=== PATIENT | male | born 1950 | race Caucasian/White ===

== ENCOUNTER → 2016-10-11 | Outpatient (CLI) | payer MEDICARE ==
[~2016-10-11] MED LIST: DENOSUMAB 60 MG/ML 1 ML SYRINGE SQ ONE
[2016-10-11 10:29] VITALS: BP 147/85; PULSE 64; RESP 22; TEMP 98.1
== END ==
LOC: PROCWHC3 09:46
PROVIDERS: ATTEND Family Medicine
DX: M81.0 Age-related osteoporosis without current pathological fracture (principal)
CPT/HCPCS: 96372; J0897

== ENCOUNTER 2016-12-12 11:21 | Day surgery (SDC) | payer MEDICARE ==
[2016-12-08 10:51] VITALS: BMI 24.8
[~2016-12-12 11:21] MED LIST changes: -DENOSUMAB 60 MG/ML 1 ML SYRINGE SQ ONE; +LACTATED RINGERS 1,000 ML IV SCH
[2016-12-12 11:45] VITALS: RESP 16; TEMP 97.8
[2016-12-12] MEDS ORDERED: LIDOCAINE 1% 20 ML VIAL (10MG/ML) FOR IV START INTRADERMA ONE (11:55)
[2016-12-12] MEDS ORDERED: LIDOCAINE 1% INJ 10MG/ML (20 ML MDV) ONE (12:11)
[2016-12-12] MEDS ORDERED: PROPOFOL 10 MG/ML 20 ML VIAL IV ONE (12:11)
--- NOTE | 2016-12-12 12:38 | P.PCN ---
Date of Procedure: 12/12/16 Preoperative Diagnosis: Postoperative Diagnosis: Procedure(s) Performed: Procedure: Total colonoscopy. Preoperative diagnosis: Screening for neoplasia. Postoperative diagnosis: Diverticulosis with no evidence of acute diverticulitis , strictures, polyps or cancer. Preparation: HalfLytely prep. Sedation: Was provided by anesthesia. Brief clinical history: The patient is a 66-year-old male who is referred for this evaluation for screening for neoplasia age being his risk factor. He has no abdominal complaints, bleeding or anemia. No family history of colon cancer. This would be his first colonoscopy. Procedure: With the patient on his left lateral decubitus position and after informed consent and adequate sedation, the perianal area was inspected and it did not show any fissures or fistulas. There were no masses felt on digital rectal examination. The Olympus CFQ 160L video colonoscope was then inserted in the rectum in the usual fashion and advanced to the cecum. There were multiple diverticular orifices seen scattered in the sigmoid, with no evidence of acute diverticulitis or strictures. The mucosa appeared healthy. No polyps or tumors were seen. I retroflexed the endoscope in the rectum before the endoscope was withdrawn. The patient tolerated the procedure well. Plan: The patient was reassured. Discussed dietary measures. He will follow up with you as planned and I recommended repeat exam in 10 years. Implants: Indications for Procedure: Operative Findings: Description of Procedure:
[2016-12-12 13:05] VITALS: BP 141/97; PULSE 67
== END 2016-12-12 13:26 | disposition home or self-care (01) ==
LOC: ORWHC2ENDO 11:21
DX: Z12.11 Encounter for screening for malignant neoplasm of colon (principal); K57.30 Diverticulosis of large intestine without perforation or abscess without bleeding; I10 Essential (primary) hypertension; E78.5 Hyperlipidemia, unspecified; Z86.73 Personal history of transient ischemic attack (TIA), and cerebral infarction without residual deficits; R56.9 Unspecified convulsions; Z79.02 Long term (current) use of antithrombotics/antiplatelets; Z79.899 Other long term (current) drug therapy
CPT/HCPCS: J2001; J2704; G0121; 45378

== ENCOUNTER → 2017-04-17 | Outpatient (CLI) | payer MEDICARE ==
[~2017-04-17] MED LIST changes: +DENOSUMAB 60 MG/ML 1 ML SYRINGE SQ ONE; -LACTATED RINGERS 1,000 ML IV SCH
[2017-04-17 11:18] VITALS: BP 125/77; PULSE 67; RESP 16; TEMP 97.9
== END | disposition home or self-care (01) ==
LOC: PROCWHC3 10:48
PROVIDERS: ATTEND Family Medicine
DX: M81.0 Age-related osteoporosis without current pathological fracture (principal)
CPT/HCPCS: 96372; J0897

== ENCOUNTER → 2017-10-22 | Outpatient (CLI) | payer MEDICARE ==
[2017-10-22 10:32] VITALS: BP 140/79; PULSE 77; RESP 16; TEMP 98.4
== END | disposition home or self-care (01) ==
LOC: PROCWHC3 10:01
PROVIDERS: ATTEND Family Medicine
DX: M81.0 Age-related osteoporosis without current pathological fracture (principal)
CPT/HCPCS: 96372; J0897

== ENCOUNTER 2018-02-15 17:31 | Emergency (ER) | payer MEDICARE ==
[2018-02-15 18:19] VITALS: BP 143/92; PULSE 74; RESP 18; TEMP 98.1
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
== END 2018-02-15 20:20 | disposition home or self-care (01) ==
LOC: EC 17:31
DX: R41.3 Other amnesia (principal); Z76.0 Encounter for issue of repeat prescription; S50.312A Abrasion of left elbow, initial encounter; E78.5 Hyperlipidemia, unspecified; I10 Essential (primary) hypertension; H91.91 Unspecified hearing loss, right ear; G40.909 Epilepsy, unspecified, not intractable, without status epilepticus; Z87.891 Personal history of nicotine dependence; Z91.030 Bee allergy status; Z79.02 Long term (current) use of antithrombotics/antiplatelets; Z79.899 Other long term (current) drug therapy; Z86.73 Personal history of transient ischemic attack (TIA), and cerebral infarction without residual deficits; X58.XXXA Exposure to other specified factors, initial encounter
CPT/HCPCS: 99281

== ENCOUNTER 2018-03-04 12:54 | Inpatient (IN) | payer MEDICARE ==
[2018-03-04] MEDS ORDERED: SODIUM CHLORIDE 0.9% 500 ML 500 ML IV STA (13:11)
[2018-03-04] MEDS ORDERED: SODIUM CHLORIDE 0.9% 1,000 ML IV STA ×2 (13:11)
--- NOTE | 2018-03-04 13:36 | XR ---
EXAMINATION TYPE: XR chest 1V DATE OF EXAM: 03/04/2018 HISTORY: Shortness of breath. COMPARISON: 10/27/2014 TECHNIQUE: Single view of the chest is submitted. FINDINGS: Multiple right-sided rib fractures with displacement noting extending from approximately the right th ird rib through possibly rib #9. There is evidence of subcutaneous emphysema and small right-sided pn eumothorax. CT of the chest is recommended. Scattered airspace infiltrates noted bilaterally. The heart is stable. Hilar and mediastinal structures are within normal limits. Degenerative changes are seen of the dorsal spine. IMPRESSION: 1. Multiple right-sided rib fractures with subcutaneous emphysema and less than 10% pneumothorax at this time. CT of the chest is advised.
[2018-03-04] MEDS ORDERED: fentaNYL (PF) 50 MCG/ML 2 ML AMP IVP STA (13:39)
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
[2018-03-04 13:57] LABS: Basophils % (A) 0 %; Eosinophils % (A) 0 %; HCT 43.4 % (39.0-53.0); HGB 14.4 gm/dL (13.0-17.5); Lymphocytes # (A) 0.8 k/uL (1.0-4.8); Lymphocytes % (A) 9 %; MCH 31.6 pg (25.0-35.0); MCHC 33.2 g/dL (31.0-37.0); Mean Platelet Volume 7.1; Monocytes # (A) 0.4 k/uL (0-1.0); Monocytes % (A) 5 %; Neutrophils # (A) 7.4 k/uL (1.3-7.7); Neutrophils % (A) 84 %; Platelet Count 271 k/uL (150-450); RBC 4.56 m/uL (4.30-5.90); RDW 13.2 % (11.5-15.5); WBC 8.7 k/uL (3.8-10.6)
[2018-03-04 14:09] LABS: Albumin 4.3 g/dL (3.5-5.0); Calcium 9.3 mg/dL (8.4-10.2); Potassium 4.5 mmol/L (3.5-5.1); Total Bilirubin 0.6 mg/dL (0.2-1.3)
[2018-03-04 14:17] LABS: Creatine Kinase 118 U/L (55-170)
[2018-03-04 14:18] LABS: INR 1.1 (<1.2); Prothrombin Time 10.9 sec (9.0-12.0)
[2018-03-04] MEDS ORDERED: LIDOCAINE 1% INJ 10MG/ML (20 ML MDV) SQ STA (14:21)
[2018-03-04 14:27] LABS: Partial Thromboplastin Time 19.5 sec (22.0-30.0)
[2018-03-04 14:30] LABS: Creatine Kinase MB 2.2 ng/mL (0.0-2.4); Troponin I <0.012 ng/mL (0.000-0.034)
[2018-03-04] MEDS ORDERED: MORPHINE SULFATE 4 MG/ML SYRINGE IVP STA (14:49)
--- NOTE | 2018-03-04 15:08 | CT ---
EXAMINATION TYPE: CT ChestAbdPelvis w con DATE OF EXAM: 03/04/2018 COMPARISON: None HISTORY: Seizure activity with fall. Laceration to forehead and Right sided chest and belly pain. CT DLP: 906.7 mGycm Automated exposure control for dose reduction was used. CONTRAST: CT scan of the chest, abdomen and pelvis is performed without Oral Contrast and with IV Contrast, pat ient injected with 100 mL of Isovue 300. FINDINGS: Chest:: There is a right-sided hydropneumothorax with extensive subcutaneous emphysema. Emphysema ext ends along the posterior, lateral and anterior chest and into the right neck posterior laterally to t he right. There is a fracture involving the right second rib anteriorly. There is a fracture involving the posterior margin of the right third rib and lateral margin of the r ight third rib. There is a displaced fracture involving the posterior margin of the right fourth rib and displaced fr acture involving the lateral margin. There is a displaced fracture involving the posterior margin and lateral margin right fifth rib. There is a fracture involving the lateral margin of the right sixth rib which is displaced There is a displaced fracture involving the lateral margin of the right seventh rib. There is a displaced lateral fracture of the right eighth rib There is subsegmental consolidation bilaterally small right effusion. Correlate for pulmonary contusi on on the right. Trace amount of pericardial fluid is seen. Atherosclerotic change of the aorta is seen. Coronary tee ry calcification seen. Heart is enlarged. 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 Grade 1 anterolisthesis L4 on L5. Multilevel facet arthropathy. No compression deformities. Scler otic density in the sacrum likely is benign. Abdomen and pelvis: No free fluid or free air. Visualized organs structures enhance normally. No perihepatic or perisplen ic fluid collection. Small hiatal hernia noted. Pancreas and adrenal glands have a normal appearance. No gallstones. Kidneys function symmetrically. Atherosclerotic change of the aorta. Disc bulging lower lumbar spine suggestive of canal stenosis. IMPRESSION: 1. Numerous right-sided rib fractures with displacement and hydropneumothorax with pulmonary contusio n. Correlate for flail chest. 2. No evidence of intra-abdominal free fluid or free air.
--- NOTE | 2018-03-04 15:18 | CT ---
EXAMINATION TYPE: CT brain louis ojeda con DATE OF EXAM: 03/04/2018 COMPARISON: 10/27/2014 HISTORY: Seizure activity with fall. Laceration to forehead and Right sided chest and belly pain. CT DLP: 1613.7 mGycm Automated exposure control for dose reduction was used. TECHNIQUE: CT scan of the head and cervical spine are performed without contrast. FINDINGS: Ventricular system is midline. Areas of low attenuation involving the left frontal and te mporal lobes are seen congestive of previous ischemia. Small arachnoid cyst in the anterior temporal fossa measuring 2 x 1.5 cm. No acute intracranial hemorrhage. Calvarium is intact. Periventricular lo w-attenuation suggestive of remote microvascular ischemia.. Assessment spinal canal is limited by noncontrast technique and artifact. Multilevel degenerative cliff nges are seen with posterior spondylosis. Multilevel facet arthropathy. There is multilevel foraminal encroachment. Soft tissue emphysema is seen on the right posteriorly and laterally. There is a right apical pneumothorax and right-sided rib fractures involving the second and third ribs on the right. Artifact limits assessment of soft tissues including the spinal canal which is nearly nondiagnostic. Scoliotic curvature of the spine noted. IMPRESSION: 1. There is no acute fracture or dislocation evident in the cervical spine. 2. No acute intracranial hemorrhage, mass effect, or midline shift is seen. 3. Right-sided hydropneumothorax with right-sided rib fractures and extensive subcutaneous emphysema.
[2018-03-04] MEDS ORDERED: ONDANSETRON 4 MG/2 ML VIAL IVP STA (15:22)
[2018-03-04] MEDS ORDERED: NALOXONE 0.4 MG/ML 1 ML VIAL IV PRN (15:22)
[2018-03-04] MEDS ORDERED: ONDANSETRON 4 MG/2 ML VIAL IVP PRN (15:22)
[2018-03-04] MEDS ORDERED: THIAMINE 100 MG/ML 2 ML VIAL IM STA (15:27)
[2018-03-04] MEDS ORDERED: LORazepam 2 MG/ML INJ IV PRN ×3 (15:27)
[2018-03-04] MEDS: SODIUM CHLORIDE 0.9% 1,000 ML IV SCH ×2 (16:09→23:18)
[2018-03-04 16:24] LABS: Glucose,Whole Blood 107 mg/dL (75-99)
[2018-03-04] MEDS: MORPHINE SULFATE 4 MG/ML SYRINGE IV PRN ×3 (16:35→23:24)
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
--- NOTE | 2018-03-04 18:15 | ED ---
Medical Decision Making - Lab Data Result diagrams: 03/04/18 13:28 03/04/18 13:28 Lab Results 03/04/18 03/04/18 03/04/18 Range/Units 13:28 13:28 13:28 WBC 8.7 (3.8-10.6) k/uL RBC 4.56 (4.30-5.90) m/uL Hgb 14.4 (13.0-17.5) gm/dL Hct 43.4 (39.0-53.0) % MCV 95.0 (80.0-100.0) fL MCH 31.6 (25.0-35.0) pg MCHC 33.2 (31.0-37.0) g/dL RDW 13.2 (11.5-15.5) % Plt Count 271 (150-450) k/uL Neutrophils % 84 % Lymphocytes % 9 % Monocytes % 5 % Eosinophils % 0 % Basophils % 0 % Neutrophils # 7.4 (1.3-7.7) k/uL Lymphocytes # 0.8 L (1.0-4.8) k/uL Monocytes # 0.4 (0-1.0) k/uL Eosinophils # 0.0 (0-0.7) k/uL Basophils # 0.0 (0-0.2) k/uL PT (9.0-12.0) sec INR (<1.2) APTT (22.0-30.0) sec Sodium 140 (137-145) mmol/L Potassium 4.5 (3.5-5.1) mmol/L Chloride 102 (98-107) mmol/L Carbon Dioxide 27 (22-30) mmol/L Anion Gap 11 mmol/L BUN 20 (9-20) mg/dL Creatinine 1.05 (0.66-1.25) mg/dL Est GFR (CKD-EPI)AfAm 86 (>60 ml/min/1.73 sqM) Est GFR (CKD-EPI)NonAf 74 (>60 ml/min/1.73 sqM) Glucose 159 H (74-99) mg/dL Calcium 9.3 (8.4-10.2) mg/dL Total Bilirubin 0.6 (0.2-1.3) mg/dL AST 40 (17-59) U/L ALT 51 (21-72) U/L Alkaline Phosphatase 31 L (38-126) U/L Total Creatine Kinase 118 (55-170) U/L CK-MB (CK-2) 2.2 (0.0-2.4) ng/mL CK-MB (CK-2) Rel Index 1.9 Troponin I <0.012 (0.000-0.034) ng/mL Total Protein 7.0 (6.3-8.2) g/dL Albumin 4.3 (3.5-5.0) g/dL Serum Alcohol 78 mg/dL Blood Type Blood Type Recheck Antibody Screen Spec Expiration Date 03/04/18 03/04/18 Range/Units 13:28 13:28 WBC (3.8-10.6) k/uL RBC (4.30-5.90) m/uL Hgb (13.0-17.5) gm/dL Hct (39.0-53.0) % MCV (80.0-100.0) fL MCH (25.0-35.0) pg MCHC (31.0-37.0) g/dL RDW (11.5-15.5) % Plt Count (150-450) k/uL Neutrophils % % Lymphocytes % % Monocytes % % Eosinophils % % Basophils % % Neutrophils # (1.3-7.7) k/uL Lymphocytes # (1.0-4.8) k/uL Monocytes # (0-1.0) k/uL Eosinophils # (0-0.7) k/uL Basophils # (0-0.2) k/uL PT 10.9 (9.0-12.0) sec INR 1.1 (<1.2) APTT 19.5 L (22.0-30.0) sec Sodium (137-145) mmol/L Potassium (3.5-5.1) mmol/L Chloride (98-107) mmol/L Carbon Dioxide (22-30) mmol/L Anion Gap mmol/L BUN (9-20) mg/dL Creatinine (0.66-1.25) mg/dL Est GFR (CKD-EPI)AfAm (>60 ml/min/1.73 sqM) Est GFR (CKD-EPI)NonAf (>60 ml/min/1.73 sqM) Glucose (74-99) mg/dL Calcium (8.4-10.2) mg/dL Total Bilirubin (0.2-1.3) mg/dL AST (17-59) U/L ALT (21-72) U/L Alkaline Phosphatase (38-126) U/L Total Creatine Kinase (55-170) U/L CK-MB (CK-2) (0.0-2.4) ng/mL CK-MB (CK-2) Rel Index Troponin I (0.000-0.034) ng/mL Total Protein (6.3-8.2) g/dL Albumin (3.5-5.0) g/dL Serum Alcohol mg/dL Blood Type O Positive Blood Type Recheck CABO Indicated Antibody Screen NEGATIVE Spec Expiration Date 03/07/20182327 Disposition Clinical Impression: Fall, Altered mental status, Epileptic seizure, Memory loss of unknown cause, Alcohol intoxication, Facial laceration, Head injury, Flail chest, Right rib fracture Disposition: ADMITTED IP TO THIS [facility] Condition: Serious Procedures - Laceration Laceration #1 Consent Obtained: verbal consent Time Out Performed: Yes Indication: laceration Site: face Size (cm): 3 Description: linear Anesthetic Used: lidocaine 1% Anesthesia Technique: local infiltration Amount (mls): 4 Pre-repair: wound explored Type of Sutures: other (ethylon) Size of Sutures: 6-0 Number of Sutures: 6 Technique: simple, interrupted Patient Tolerated Procedure: well
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
[2018-03-04] MEDS: LIDOCAINE 5% PATCH TOPICAL SCH (18:59)
[2018-03-04] MEDS: DULoxetine HCL 20 MG CAPSULE.DR PO SCH (19:05)
[2018-03-04] MEDS: THIAMINE 100 MG TAB PO SCH (19:05)
[2018-03-04] MEDS: CHOLECALCIFEROL 1,000 UNIT TAB PO SCH (19:08)
[2018-03-04] MEDS: GABAPENTIN 300 MG CAP PO SCH ×2 (19:08→20:28)
[2018-03-04] MEDS: IPRATROPIUM-ALBUTEROL 3 ML NEB INHALATION SCH ×2 (19:30→20:33)
[2018-03-04] MEDS: predniSONE 20 MG TAB PO SCH (20:22)
[2018-03-04] MEDS: LACOSAMIDE 150 MG TABLET PO SCH (20:23)
[2018-03-04] MEDS: traZODone HCL 100 MG TAB PO SCH (20:24)
[2018-03-04 23:23] LABS: Appearance,Urine Clear (Clear); Bilirubin,Urine Negative (Negative); Blood,Urine Negative (Negative); Color,Urine Light Yellow; Glucose,Urine (UA) Negative (Negative); Ketones,Urine Negative (Negative); Leukocyte Esterase,Urine Negative (Negative); Nitrite,Urine Negative (Negative); Protein,Urine Negative (Negative); Specific Gravity,Urine 1.027 (1.001-1.035); Urobilinogen,Urine <2.0 mg/dL (<2.0)
[2018-03-04 23:36] LABS: Amphetamine Screen,Urine Not Detected (NotDetected); Barbiturate Screen,Urine Not Detected (NotDetected); Benzodiazepines Screen,Urine Not Detected (NotDetected); Cocaine Screen,Urine Not Detected (NotDetected); Methadone Screen, Urine Not Detected (NotDetected); Opiate Screen,Urine Detected (NotDetected); Oxycodone Screen, Urine Not Detected (NotDetected); Phencyclidine Screen,Urine Not Detected (NotDetected); Tricyclic Antidepressant,Urine Not Detected (NotDetected); Urn Cannabinoid Scrn Not Detected (NotDetected)
[2018-03-05 05:27] LABS: Basophils % (A) 0 %; Eosinophils % (A) 0 %; HCT 41.4 % (39.0-53.0); HGB 13.3 gm/dL (13.0-17.5); Lymphocytes # (A) 0.6 k/uL (1.0-4.8); Lymphocytes % (A) 5 %; MCH 31.6 pg (25.0-35.0); MCV 98.7 fL (80.0-100.0); Mean Platelet Volume 7.3; Monocytes # (A) 1.1 k/uL (0-1.0); Monocytes % (A) 11 %; Neutrophils # (A) 8.5 k/uL (1.3-7.7); Neutrophils % (A) 82 %; Platelet Count 172 k/uL (150-450); RDW 13.2 % (11.5-15.5); WBC 10.4 k/uL (3.8-10.6)
[2018-03-05 05:41] LABS: ALT 42 U/L (21-72); AST 57 U/L (17-59); Albumin 3.8 g/dL (3.5-5.0); Alkaline Phosphatase 32 U/L (38-126); Anion Gap 9 mmol/L; Blood Urea Nitrogen 20 mg/dL (9-20); Calcium 8.4 mg/dL (8.4-10.2); Carbon Dioxide 24 mmol/L (22-30); Chloride 104 mmol/L (98-107); Glucose 127 mg/dL (74-99); Magnesium 2.1 mg/dL (1.6-2.3); Phosphorus 4.2 mg/dL (2.5-4.5); Sodium 137 mmol/L (137-145); Total Protein 6.5 g/dL (6.3-8.2)
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
[2018-03-05] MEDS: SODIUM CHLORIDE 0.9% 1,000 ML IV SCH ×2 (08:25→17:42)
[2018-03-05] MEDS: ENOXAPARIN 40 MG/0.4 ML SYRINGE SQ SCH (08:26)
[2018-03-05] MEDS: PANTOPRAZOLE 40 MG/10 ML VIAL IV SCH (08:26)
[2018-03-05] MEDS: GABAPENTIN 300 MG CAP PO SCH ×3 (08:26→21:11)
[2018-03-05] MEDS: LACOSAMIDE 150 MG TABLET PO SCH ×2 (08:26→21:10)
[2018-03-05] MEDS: ATORVASTATIN 80 MG TAB PO SCH (08:26)
[2018-03-05] MEDS: predniSONE 20 MG TAB PO SCH ×2 (08:27→21:10)
[2018-03-05] MEDS: MORPHINE SULFATE 4 MG/ML SYRINGE IV PRN ×3 (08:27→22:08)
--- NOTE | 2018-03-05 08:40 | XR ---
EXAMINATION TYPE: XR chest 1V DATE OF EXAM: 03/05/2018 COMPARISON: 03/04/2018, CT 03/04/2018. INDICATION: Pneumothorax TECHNIQUE: Single frontal view of the chest is obtained. FINDINGS: The heart size is upper limits of normal. The pulmonary vasculature is normal. Mild left basilar atelectasis has developed. Multiple right-sided rib fractures are present including 3-5 and 6 lateral and posterior lateral. X-r ay underestimates the rib fractures compared to the CT examination. Pneumothorax is not evident at th is time. Subcutaneous emphysema remains present. IMPRESSION: 1. Multiple right-sided rib fractures with subcutaneous emphysema. Pneumothorax is not evident on the current exam.
[2018-03-05] MEDS: IPRATROPIUM-ALBUTEROL 3 ML NEB INHALATION SCH ×4 (08:52→20:11)
[2018-03-05] MEDS ORDERED: PANTOPRAZOLE 40 MG TABLET PO SCH (09:00)
[2018-03-05] MEDS ORDERED: BENZOCAINE/MENTHOL LOZENG 1 EACH LOZENGE MUCOUS MEM PRN (09:04)
[2018-03-05] MEDS: DULoxetine HCL 20 MG CAPSULE.DR PO SCH ×2 (09:05→21:10)
[2018-03-05] MEDS: LISINOPRIL 10 MG TAB PO SCH (09:06)
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
[2018-03-05] MEDS: CHOLECALCIFEROL 1,000 UNIT TAB PO SCH (11:26)
[2018-03-05] MEDS: MULTIVITAMINS, THERA 1 EACH TAB PO SCH (11:26)
[2018-03-05] MEDS: THIAMINE 100 MG TAB PO SCH ×2 (11:26→17:41)
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
--- NOTE | 2018-03-05 18:11 | P.PN ---
Progress Note - Text Progress Note Date: 03/05/18 The patient's resting comfortably in the ICU. He has complaints of right-sided chest wall pain. He has been evaluated by the thoracic service. Apparently no plans for rib plating are being made. His chest x-ray today shows evidence of some subcutaneous air. There is no evidence of a pneumothorax. On exam his vital signs are stable. His abdomen is soft. Right chest wall is tender. Multiple right-sided rib fractures. Patient will continue receive supportive care.
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
[2018-03-05] MEDS: LIDOCAINE 5% PATCH TOPICAL SCH (20:38)
[2018-03-05] MEDS: traZODone HCL 100 MG TAB PO SCH (21:11)
[2018-03-06] MEDS: SODIUM CHLORIDE 0.9% 1,000 ML IV SCH ×3 (00:50→20:54)
[2018-03-06] MEDS: MORPHINE SULFATE 4 MG/ML SYRINGE IV PRN ×7 (01:53→20:18)
[2018-03-06] MEDS: LIDOCAINE 5% PATCH TOPICAL SCH (06:23)
[2018-03-06] MEDS: IPRATROPIUM-ALBUTEROL 3 ML NEB INHALATION SCH ×4 (08:02→20:24)
[2018-03-06] MEDS: PANTOPRAZOLE 40 MG/10 ML VIAL IV SCH (08:36)
[2018-03-06] MEDS: ENOXAPARIN 40 MG/0.4 ML SYRINGE SQ SCH (08:38)
[2018-03-06] MEDS: GABAPENTIN 300 MG CAP PO SCH ×3 (08:39→20:53)
[2018-03-06] MEDS: DULoxetine HCL 20 MG CAPSULE.DR PO SCH ×2 (08:39→20:57)
[2018-03-06] MEDS: predniSONE 20 MG TAB PO SCH ×2 (08:39→20:54)
[2018-03-06] MEDS: THIAMINE 100 MG TAB PO SCH ×2 (08:39→16:09)
[2018-03-06] MEDS: CHOLECALCIFEROL 1,000 UNIT TAB PO SCH (08:39)
[2018-03-06] MEDS: ATORVASTATIN 80 MG TAB PO SCH (08:39)
[2018-03-06] MEDS: LISINOPRIL 10 MG TAB PO SCH (08:39)
[2018-03-06] MEDS: LACOSAMIDE 150 MG TABLET PO SCH ×2 (08:39→20:53)
--- NOTE | 2018-03-06 09:47 | P.PN ---
Subjective On-call hospitalist covering for Dr. Vargas This is a pleasant 67 years old male with past medical history of TIA, hyperlipidemia, hypertension, seizure disorder, chronic low back pain on steroids for it who presents because of alcohol abuse and fall with right rib fracture. Patient has been evaluated by surgical team and they found no need for surgical intervention as there is no flail chest. Patient is been treated symptomatically with pain medications by the surgical team associated with incentive spirometry. Patient states he drinks about 1 pint of rind EEG day and he last check was forthcoming to the hospital. He still complaining of from right-sided chest pain however it's feels better the pain is significantly worse with movement and coughing. However this more stable today. Still on IV morphine. Patient is eating well however he has constipation probably related to his narcotics and pain medication. Patient on steroids from home as he follow-up with Dr. SANCHEZ for his low back pain. Objective - Vital Signs Vital signs: Vital Signs Temp 98.0 F 03/06/18 08:00 Pulse 80 03/06/18 08:15 Resp 18 03/06/18 08:00 BP 154/86 03/06/18 08:00 Pulse Ox 92 L 03/06/18 08:00 Intake & Output 03/05/18 03/06/18 03/06/18 18:59 06:59 18:59 Intake Total 1200 60 240 Output Total 1240 1300 Balance -40 -1240 240 Weight 91.2 kg 90.2 kg Intake: IV 1200 Sodium Chloride 0.9% 1, 1200 000 ml @ 120 mls/hr IV . Q8H20M [facility] Rx#:[id number] Oral 60 240 Output: Urine 1240 1300 Other: Voiding Method Urinal Urinal - Exam GENERAL: The patient is alert and oriented x3, not in any acute distress. Well developed, well nourished. HEENT: Pupils are round and equally reacting to light. EOMI. No scleral icterus. No conjunctival pallor. Normocephalic, atraumatic. No pharyngeal erythema. No thyromegaly. CARDIOVASCULAR: S1 and S2 present. No murmurs, rubs, or gallops. -PULMONARY: Chest is clear to auscultation, no wheezing or crackles. Right side chest wall tenderness ABDOMEN: Soft, nontender, nondistended, normoactive bowel sounds. No palpable organomegaly. MUSCULOSKELETAL: No joint swelling or deformity. EXTREMITIES: No cyanosis, clubbing, or pedal edema. NEUROLOGICAL: Gross neurological examination did not reveal any focal deficits. SKIN: No rashes. - Labs CBC & Chem 7: 03/05/18 04:53 03/05/18 04:53 Assessment and Plan Assessment: Chest wall trauma secondary to fall and drip fracture at multiple sites secondary to alcohol intoxication Alcohol abuse and withdrawal, being followed for delirium tremens Essential hypertension Hyperlipidemia Chronic alcohol dependence since History of seizure disorder Bipolar disorder Plan: This is a pleasant 67 years old male who presents because of all: Intoxication and dried chest wall trauma and rib fracture. Continue with pain management and try to switch IV analgesics to oral ones. Continue with CIWA protocol. Continue with support and vitamins. Call psychiatry consult. Surgical team are following the patient.Labs and medication were resumed. Continue same treatment. Continue with symptomatic treatment. Resume home medication. Monitor lytes and vitals. DVT and GI prophylaxis. Further recommendationsof the clinical course of the patient DVT prophylaxis: Subcutaneous Lovenox GI Prophylaxis: Protonix PT/OT: Pending Prognosis is guarded
[2018-03-06] MEDS: traMADol 50 MG TAB PO SCH ×4 (10:16→22:58)
[2018-03-06] MEDS: SENNOSIDES-DOCUSATE SODIUM 1 EACH TAB PO SCH ×2 (10:31→20:53)
[2018-03-06] MEDS: MULTIVITAMINS, THERA 1 EACH TAB PO SCH (13:08)
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
--- NOTE | 2018-03-06 14:14 | P.PN ---
Subjective Progress Note Date: 03/06/18 Principal diagnosis: Status post fall with forehead laceration and multiple right-sided rib fractures. Progress note dated 03/06/2018 67-year-old male status post fall with multiple rib fractures on the right, ribs 2 through 8, and a laceration to the left side of his forehead. He also likely sustained a pulmonary contusion on the right side as well as a small pneumothorax and subcutaneous emphysema. He has a history of hypertension chronic alcohol abuse history of CVA and seizure disorder. Currently he is doing well. He was in the ICU for 1 day. His breathing is not a problem. He is doing well on his incentive spirometer. He is getting adequate pain control. He continues on the IV S every hour while awake as well as duo nebs 4 times a day and when necessary. In addition, he is being managed by the pain team for his right-sided chest and rib pain. He has no new complaints today. Objective - Vital Signs Vital signs: Vital Signs Temp 96.1 F L 03/06/18 11:48 Pulse 68 03/06/18 11:56 Resp 18 03/06/18 11:48 BP 138/83 03/06/18 11:48 Pulse Ox 97 03/06/18 11:48 Intake & Output 03/05/18 03/06/18 03/06/18 18:59 06:59 18:59 Intake Total 1200 60 240 Output Total 1240 1300 Balance -40 -1240 240 Weight 91.2 kg 90.2 kg Intake: IV 1200 Sodium Chloride 0.9% 1, 1200 000 ml @ 120 mls/hr IV . Q8H20M [facility] Rx#:[id number] Oral 60 240 Output: Urine 1240 1300 Other: Voiding Method Urinal Urinal - Exam No acute distress, oriented 3. Nasal O2 is not noted. HEENT examination is grossly unremarkable. Mucous membranes are moist. No oral lesions. Neck supple. Full range of motion. No adenopathy thyromegaly or neck vein distention. Cardiovascular examination reveals regular rhythm rate. S1-S2 normal. No S3 or S4. No discernible murmur noted. Lungs reveal diminished air entry on the right side. He has tenderness to palpation in the right chest area. A few scattered rhonchi are noted. No wheezes or crackles are appreciated. There is no subcutaneous emphysema noted. Abdomen soft bowel sounds are heard. No masses or tenderness. Extremities are intact. No cyanosis clubbing or edema. Skin is without rash or lesion. Neurologic examination is brief but nonfocal. - Labs CBC & Chem 7: 03/05/18 04:53 03/05/18 04:53 Assessment and Plan Assessment: Assessment Multiple right sided rib fractures, 2 through 8, secondary to a fall, without evidence of flail chest at this time. The patient does likely have a pulmonary contusion and a small right hemothorax History of hypertension History of alcohol abuse History of seizure disorder History of CVA History of left forehead laceration Plan: Plan dated 03/05/2018 Patient will require aggressive pulmonary toileting. Encouraged patient to use incentive spirometry every hour while awake. Patient is currently getting 1500 consistently. Encouraged coughing and deep breathing. Continue on Duoneb 4 times a day and morphine for pain management. Anesthesia is unable to do epidural related to home Plavix use. CIWA protocol was ordered for potential EtOH withdrawal. Patient was started on lisinopril 10 mg daily for hypertension. Patient is able to transfer to the general medical floor without telemetry from my standpoint. Patient has been seen and cleared by trauma surgeon for transfer to the general medical floor. From the pulmonary standpoint, the patient is stable. The patient is also hemodynamically stable. Plan dated 03/06/2018 The patient continues with aggressive pulmonary toiletry. The patient will continue using the incentive spirometer every hour while awake. Interestingly continue with updrafts treatments 4 times a day and when necessary. We will also continue with adequate pain control. CIWA protocol was ordered for alcohol withdrawal. Labs and x-rays are reviewed. Additional recommendations and suggestions are forthcoming. Prognosis is guarded. Patient has been seen by trauma surgery. Time with Patient: Less than 30
[2018-03-06] MEDS: amLODIPine 5 MG TAB PO SCH (20:53)
[2018-03-06] MEDS: traZODone HCL 100 MG TAB PO SCH (20:53)
[2018-03-07] MEDS: LIDOCAINE 5% PATCH TOPICAL SCH (06:26)
[2018-03-07] MEDS: PANTOPRAZOLE 40 MG TABLET PO SCH (06:27)
[2018-03-07] MEDS: SODIUM CHLORIDE 0.9% 1,000 ML IV SCH ×2 (06:28→13:47)
[2018-03-07] MEDS: amLODIPine 5 MG TAB PO SCH (08:35)
[2018-03-07] MEDS: LACOSAMIDE 150 MG TABLET PO SCH ×2 (08:35→20:24)
[2018-03-07] MEDS: ATORVASTATIN 80 MG TAB PO SCH (08:35)
[2018-03-07] MEDS: DULoxetine HCL 20 MG CAPSULE.DR PO SCH ×2 (08:35→20:24)
[2018-03-07] MEDS: predniSONE 20 MG TAB PO SCH ×2 (08:35→21:27)
[2018-03-07] MEDS: traMADol 50 MG TAB PO SCH ×4 (08:35→21:26)
[2018-03-07] MEDS: SENNOSIDES-DOCUSATE SODIUM 1 EACH TAB PO SCH ×2 (08:36→20:24)
[2018-03-07] MEDS: LISINOPRIL 10 MG TAB PO SCH (08:36)
[2018-03-07] MEDS: ENOXAPARIN 40 MG/0.4 ML SYRINGE SQ SCH (08:36)
[2018-03-07] MEDS: GABAPENTIN 300 MG CAP PO SCH ×3 (08:36→20:24)
[2018-03-07] MEDS: IPRATROPIUM-ALBUTEROL 3 ML NEB INHALATION SCH ×4 (08:41→19:19)
--- NOTE | 2018-03-07 11:19 | P.PN ---
Subjective On-call hospitalist covering for Dr. Vargas This is a pleasant 67 years old male with past medical history of TIA, hyperlipidemia, hypertension, seizure disorder, chronic low back pain on steroids for it who presents because of alcohol abuse and fall with right rib fracture. Patient has been evaluated by surgical team and they found no need for surgical intervention as there is no flail chest. Patient is been treated symptomatically with pain medications by the surgical team associated with incentive spirometry. Patient states he drinks about 1 pint of rind EEG day and he last check was forthcoming to the hospital. He still complaining of from right-sided chest pain however it's feels better the pain is significantly worse with movement and coughing. However this more stable today. Still on IV morphine. Patient is eating well however he has constipation probably related to his narcotics and pain medication. Patient on steroids from home as he follow-up with Dr. SANCHEZ for his low back pain. 03/07/2018 Patient is still complaining from pain on his right chest but mainly on movement , patient using IV pain medication and he advised to use oral once distended. Distal have constipation and is on medication. Orthopedic consultation for possible further management. Patient is on steroids prednisone 20 mg daily and he wants to keep that and follow up with his orthopedic started him on this medication. The risks of this medication/steroid are explained to the patient in length. He verbalized understanding. We will decrease his fluid 50. Patient still on the withdrawal protocol and he does not need to 59. WHEN ASKED PATIENT DENIES TO ME DEPRESSION OR FEELING HOPELESS HELPLESSNESS. HE DENIES SUICIDAL OR HOMICIDAL IDEATION. Objective - Vital Signs Vital signs: Vital Signs Temp 97.9 F 03/07/18 08:00 Pulse 82 03/07/18 08:52 Resp 18 03/07/18 08:00 BP 155/80 03/07/18 08:00 Pulse Ox 93 L 03/07/18 08:44 Intake & Output 03/06/18 03/07/18 03/07/18 18:59 06:59 18:59 Intake Total 660 175 360 Output Total 1400 1600 800 Balance -740 -1425 -440 Weight 91.4 kg Intake: Oral 660 175 360 Output: Urine 1400 1600 800 Other: Voiding Method Urinal Urinal # Voids 1 1 - Exam GENERAL: The patient is alert and oriented x3, not in any acute distress. Well developed, well nourished. HEENT: Pupils are round and equally reacting to light. EOMI. No scleral icterus. No conjunctival pallor. Normocephalic, atraumatic. No pharyngeal erythema. No thyromegaly. CARDIOVASCULAR: S1 and S2 present. No murmurs, rubs, or gallops. -PULMONARY: Chest is clear to auscultation, no wheezing or crackles. Right side chest wall tenderness ABDOMEN: Soft, nontender, nondistended, normoactive bowel sounds. No palpable organomegaly. MUSCULOSKELETAL: No joint swelling or deformity. EXTREMITIES: No cyanosis, clubbing, or pedal edema. NEUROLOGICAL: Gross neurological examination did not reveal any focal deficits. SKIN: No rashes. - Labs CBC & Chem 7: 03/05/18 04:53 03/05/18 04:53 Assessment and Plan Assessment: Chest wall trauma secondary to fall and drip fracture at multiple sites secondary to alcohol intoxication Alcohol abuse and withdrawal, being followed for delirium tremens Essential hypertension Hyperlipidemia Chronic alcohol dependence since History of seizure disorder Bipolar disorder Plan: This is a pleasant 67 years old male who presents because of all: Intoxication and dried chest wall trauma and rib fracture. Continue with pain management and try to switch IV analgesics to oral ones. Continue with CIWA protocol. Continue with support and vitamins. Call psychiatry consult. Surgical team are following the patient.Labs and medication were resumed. Continue same treatment. Continue with symptomatic treatment. Resume home medication. Monitor lytes and vitals. DVT and GI prophylaxis. Further recommendationsof the clinical course of the patient DVT prophylaxis: Subcutaneous Lovenox GI Prophylaxis: Protonix PT/OT: Pending Prognosis is guarded
--- NOTE | 2018-03-07 11:23 | P.PN ---
Subjective Progress Note Date: 03/07/18 Principal diagnosis: Status post fall with forehead laceration and multiple right-sided rib fractures. Progress note dated 03/06/2018 67-year-old male status post fall with multiple rib fractures on the right, ribs 2 through 8, and a laceration to the left side of his forehead. He also likely sustained a pulmonary contusion on the right side as well as a small pneumothorax and subcutaneous emphysema. He has a history of hypertension chronic alcohol abuse history of CVA and seizure disorder. Currently he is doing well. He was in the ICU for 1 day. His breathing is not a problem. He is doing well on his incentive spirometer. He is getting adequate pain control. He continues on the IV S every hour while awake as well as duo nebs 4 times a day and when necessary. In addition, he is being managed by the pain team for his right-sided chest and rib pain. He has no new complaints today. Progress note dated 03/07/2018 67-year-old male, status post fall with multiple rib fractures on the right, ribs 2 through 8. The patient also sustained a laceration to left side of his forehead area. In addition, the patient likely has a pulmonary contusion and small right-sided hemothorax. There was no pneumothorax. The patient has a history of hypertension chronic alcohol abuse CVA seizure disorder. I spoke to the surgeon who may be setting the patient home in the next day or so. The patient is doing relatively well. Other than for some pain in the right chest area, he denies any other complaints. Using his incentive spirometry routinely and religiously. I told him that when he gets discharged home E to take it with him. He denies any fever or chills. Denies any left-sided chest complaints. Not coughing up any phlegm or blood. Objective - Vital Signs Vital signs: Vital Signs Temp 97.9 F 03/07/18 08:00 Pulse 82 03/07/18 08:52 Resp 18 03/07/18 08:00 BP 155/80 03/07/18 08:00 Pulse Ox 93 L 03/07/18 08:44 Intake & Output 03/06/18 03/07/18 03/07/18 18:59 06:59 18:59 Intake Total 660 175 360 Output Total 1400 1600 1500 Balance -740 1425 -1140 Weight 91.4 kg Intake: Oral 660 175 360 Output: Urine 1400 1600 1500 Other: Voiding Method Urinal Urinal # Voids 1 1 - Exam No acute distress, oriented 3. Nasal O2 is not noted. HEENT examination is grossly unremarkable. Mucous membranes are moist. No oral lesions. There is a laceration which is been sutured above his left eye. It appears to be healing well. Neck supple. Full range of motion. No adenopathy thyromegaly or neck vein distention. Cardiovascular examination reveals regular rhythm rate. S1-S2 normal. No S3 or S4. No discernible murmur noted. Lungs reveal diminished air entry on the right side. He has tenderness to palpation in the right chest area. A few scattered rhonchi are noted. There is no subcutaneous emphysema and there are no wheezes or crackles appreciated. Abdomen soft bowel sounds are heard. No masses or tenderness. Extremities are intact. No cyanosis clubbing or edema. Skin is without rash or lesion. Neurologic examination is brief but nonfocal. - Labs CBC & Chem 7: 03/05/18 04:53 03/05/18 04:53 Assessment and Plan Assessment: Assessment Multiple right sided rib fractures, 2 through 8, secondary to a fall, without evidence of flail chest at this time. The patient does likely have a pulmonary contusion and a small right hemothorax History of hypertension History of alcohol abuse History of seizure disorder History of CVA History of left forehead laceration Plan: Plan dated 03/05/2018 Patient will require aggressive pulmonary toileting. Encouraged patient to use incentive spirometry every hour while awake. Patient is currently getting 1500 consistently. Encouraged coughing and deep breathing. Continue on Duoneb 4 times a day and morphine for pain management. Anesthesia is unable to do epidural related to home Plavix use. CIWA protocol was ordered for potential EtOH withdrawal. Patient was started on lisinopril 10 mg daily for hypertension. Patient is able to transfer to the general medical floor without telemetry from my standpoint. Patient has been seen and cleared by trauma surgeon for transfer to the general medical floor. From the pulmonary standpoint, the patient is stable. The patient is also hemodynamically stable. Plan dated 03/06/2018 The patient continues with aggressive pulmonary toiletry. The patient will continue using the incentive spirometer every hour while awake. Interestingly continue with updrafts treatments 4 times a day and when necessary. We will also continue with adequate pain control. CIWA protocol was ordered for alcohol withdrawal. Labs and x-rays are reviewed. Additional recommendations and suggestions are forthcoming. Prognosis is guarded. Patient has been seen by trauma surgery. Plan dated 03/07/2018 The patient's doing well. His breathing is stable. He does have pain which is being controlled with pain medications. We recommend deep breathing coughing and clearing of secretions and hourly use the incentive spirometer. I did see the surgeon, the patient may be discharged home the next 24-48 hours. We will repeat a chest x-ray. Additional recommendations and suggestions are forthcoming. The patient has been hemodynamically stable since being coming into the hospital and his respiratory status is also been stable. Time with Patient: Less than 30
[2018-03-07] MEDS ORDERED: MORPHINE ORAL SOLN 10 MG/5 ML CUP PO PRN (11:37)
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
--- NOTE | 2018-03-07 13:34 | XR ---
"EXAMINATION TYPE: XR chest 2V DATE OF EXAM: 03/07/2018 COMPARISON: Chest x-ray from [address] from 3 days ago. HISTORY: Flail chest, multiple rib fractures TECHNIQUE: Frontal and lateral views of the chest are obtained. FINDINGS: Cardiac silhouette size is stable and mildly enlarged with atherosclerotic and ectatic thor acic aorta. There is persistent left basilar atelectasis and/or infiltrate. There is redemonstration of multiple displaced right lateral rib fractures. There is now suspected moderate size right apical pneumothorax estimated 20-25%. Adjacent worsening subcutaneous emphysema is noted. There is stable sm all right pleural fluid collection. No mediastinal shift is present. IMPRESSION: Suspected new moderate size right pneumothorax. This can be confirmed with repeat CT sca n if desired. A [place] level critical message alert has been initiated for Robert Blake MD via the [employer] | Critical Results System on 03/07/2018 1:30 PM. This message alert has been sent to Robert combs MD via the preferences provided by the clinician for the receipt of Radiology Critical Findings. Дмитрий essage ID [id number]."
[2018-03-07] MEDS: CHOLECALCIFEROL 1,000 UNIT TAB PO SCH (13:46)
[2018-03-07] MEDS: THIAMINE 100 MG TAB PO SCH ×2 (13:46→16:36)
[2018-03-07] MEDS: MULTIVITAMINS, THERA 1 EACH TAB PO SCH (13:46)
--- NOTE | 2018-03-07 15:36 | XR ---
EXAMINATION TYPE: XR chest 1V portable DATE OF EXAM: 03/07/2018 CLINICAL HISTORY: Difficulty breathing in pneumothorax. TECHNIQUE: Single AP portable frontal view of the chest is obtained. COMPARISON: Chest x-ray from earlier today FINDINGS: There is new right-sided chest tube with persistent small to moderate-sized right pneumoth orax slightly improved from prior. Estimated size is roughly 15-20% after chest tube placement. There is redemonstration of multiple displaced right sided rib fractures. Adjacent subcutaneous emphysema is redemonstrated. Cardiac silhouette size is stable and mildly enlarged with atherosclerotic and ectatic thoracic aorta . No mediastinal shift is seen. There is patchy left basilar atelectasis and/or infiltrate redemonstr ated. IMPRESSION: New right-sided chest tube with small to moderate-sized right pneumothorax remaining pres ent slightly improved from prior.
--- NOTE | 2018-03-07 17:19 | P.PN ---
Progress Note - Text Progress Note Date: 03/06/18 the patient is resting comfortably in his chair. He has some complaints of right chest wall pain. He denies any shortness of breath. His chest x-ray today performed shows no evidence of pneumothorax. Multiple right-sided rib fractures. The patient appears to have good analgesia. We anticipate discharge home tomorrow.
--- NOTE | 2018-03-07 17:21 | P.PN ---
Progress Note - Text Progress Note Date: 03/07/18 the patient is resting comfortable his bed. He has no points of pain. He denies any shortness of breath. Chest x-ray performed today shows evidence of pneumothorax The patient will be reevaluated by the thoracic service for possible chest tube placement today.
[2018-03-07] MEDS: traZODone HCL 100 MG TAB PO SCH (20:24)
[2018-03-08] MEDS ORDERED: ACETAMINOPHEN IV (For NPO) 1,000 MG in EMPTY BAG 1 BAG IVPB PRN (00:36)
[2018-03-08] MEDS: LIDOCAINE 5% PATCH TOPICAL SCH (06:21)
[2018-03-08] MEDS: PANTOPRAZOLE 40 MG TABLET PO SCH (06:21)
--- NOTE | 2018-03-08 07:35 | XR ---
EXAMINATION TYPE: XR chest 1V portable DATE OF EXAM: 03/08/2018 COMPARISON: 03/07/2018 INDICATION: Pneumothorax TECHNIQUE: Single frontal view of the chest is obtained. FINDINGS: The heart size is normal. The pulmonary vasculature is normal. Multiple right-sided displaced rib fractures are evident. Right-sided chest tube is present. The righ t apical pneumothorax has diminished in size over the interval but remains present estimated at appro ximately 20%. Extensive subcutaneous emphysema is present on the right. IMPRESSION: 1. Diminished right-sided pneumothorax currently estimated at 20%, diminished in size from comparison . 2. Right-sided chest tube remains in position.
[2018-03-08 07:43] LABS: Basophils % (A) 0 %; Eosinophils # (A) 0.1 k/uL (0-0.7); Eosinophils % (A) 1 %; HCT 39.6 % (39.0-53.0); HGB 13.1 gm/dL (13.0-17.5); Lymphocytes # (A) 0.5 k/uL (1.0-4.8); Lymphocytes % (A) 5 %; MCHC 33.1 g/dL (31.0-37.0); MCV 96.5 fL (80.0-100.0); Mean Platelet Volume 7.7; Monocytes # (A) 0.6 k/uL (0-1.0); Monocytes % (A) 5 %; Neutrophils # (A) 9.1 k/uL (1.3-7.7); Neutrophils % (A) 87 %; Platelet Count 181 k/uL (150-450); RDW 13.1 % (11.5-15.5); WBC 10.4 k/uL (3.8-10.6)
--- NOTE | 2018-03-08 08:08 | PCN ---
PROCEDURE NOTE DATE OF PROCEDURE: 03/07/2018. DATE OF DICTATION: 03/08/2018 PREPROCEDURE DIAGNOSIS: Traumatic pneumothorax on the right. POSTPROCEDURE DIAGNOSIS: Traumatic pneumothorax on the right. PROCEDURE: Placement of right-sided thoracostomy tube. SURGEON: Dr. Hadley Haddad. ANESTHESIA: Local. INDICATIONS: The patient is a 67-year-old male who had a fall during an episode of alcohol intoxication. He suffered multiple broken ribs on the right. On initial presentation, he was in no distress. His chest CT demonstrated multiple right-sided broken ribs without pneumothorax. There was some evidence of pulmonary contusion. There was some subcutaneous emphysema. The patient had no evidence of clinical flail chest with stable ribs and good oxygenation. He was able to pull well over a 1000 on inspirometer. He was monitored and after almost 72 hours in the hospital his morning chest x-ray, on the morning of 03/07, demonstrated a right apical pneumothorax of about 25%. Chest tube was indicated. It was decided to place the chest tube anteriorly to avoid the area of fractured ribs laterally. OPERATIVE PROCEDURE: At the bedside in the patient's room, the right anterior chest was sterilely prepped and draped. A small incision was made over the 3rd interspace after instillation of 1% lidocaine. The incision was carried down through skin and subcutaneous tissue and between the ribs into the pleural space, a 28-Ukrainian chest tube was placed into the pleural space. It was secured with an 0 Ethibond suture and connected to a Pleur-Evac. Dry sterile dressing was applied and a chest x-ray was ordered. The patient tolerated the procedure well. MMODL / IJN: [id number] /
[2018-03-08] MEDS: IPRATROPIUM-ALBUTEROL 3 ML NEB INHALATION SCH ×4 (08:34→20:12)
--- NOTE | 2018-03-08 09:19 | P.PN ---
Subjective On-call hospitalist covering for Dr. Vargas This is a pleasant 67 years old male with past medical history of TIA, hyperlipidemia, hypertension, seizure disorder, chronic low back pain on steroids for it who presents because of alcohol abuse and fall with right rib fracture. Patient has been evaluated by surgical team and they found no need for surgical intervention as there is no flail chest. Patient is been treated symptomatically with pain medications by the surgical team associated with incentive spirometry. Patient states he drinks about 1 pint of rind EEG day and he last check was forthcoming to the hospital. He still complaining of from right-sided chest pain however it's feels better the pain is significantly worse with movement and coughing. However this more stable today. Still on IV morphine. Patient is eating well however he has constipation probably related to his narcotics and pain medication. Patient on steroids from home as he follow-up with Dr. SANCHEZ for his low back pain. 03/07/2018 Patient is still complaining from pain on his right chest but mainly on movement , patient using IV pain medication and he advised to use oral once distended. Distal have constipation and is on medication. Orthopedic consultation for possible further management. Patient is on steroids prednisone 20 mg daily and he wants to keep that and follow up with his orthopedic started him on this medication. The risks of this medication/steroid are explained to the patient in length. He verbalized understanding. We will decrease his fluid 50. Patient still on the withdrawal protocol and he does not need to 59. WHEN ASKED PATIENT DENIES TO ME DEPRESSION OR FEELING HOPELESS HELPLESSNESS. HE DENIES SUICIDAL OR HOMICIDAL IDEATION. 03/08/2018 Repeat chest x-ray from yesterday show pneumothorax. Patient status post chest tube on the right side by thoracic surgeons, however patient day and states that his chest pain is better compared to yesterday and its controlled with Ultram only. Breathing fine. Less coughing. He has some sweating. He is still constipated. Vital stables with no more fever. CBC was unremarkable compared to yesterday. Patient might benefit from subacute rehab upon discharge Objective - Vital Signs Vital signs: Vital Signs Temp 97.4 F L 03/08/18 08:15 Pulse 80 03/08/18 08:54 Resp 16 03/08/18 08:15 BP 144/78 03/08/18 08:15 Pulse Ox 94 L 03/08/18 08:15 Intake & Output 03/07/18 03/08/18 03/08/18 18:59 06:59 18:59 Intake Total 1380 350 358 Output Total 1500 3632 Balance -120 -3282 358 Intake: IV 300 Sodium Chloride 0.9% 1, 300 000 ml @ 50 mls/hr IV . Q20H [facility] Rx#:[id number] Oral 1080 350 358 Output: Chest Tube Drainage 132 Chest Tube Right Upper 132 Anterior Chest Urine 1500 3500 Other: Voiding Method Urinal # Voids 700 1 - Exam GENERAL: The patient is alert and oriented x3, not in any acute distress. Well developed, well nourished. HEENT: Pupils are round and equally reacting to light. EOMI. No scleral icterus. No conjunctival pallor. Normocephalic, atraumatic. No pharyngeal erythema. No thyromegaly. CARDIOVASCULAR: S1 and S2 present. No murmurs, rubs, or gallops. -PULMONARY: Chest is clear to auscultation, no wheezing or crackles. Right side chest wall tenderness ABDOMEN: Soft, nontender, nondistended, normoactive bowel sounds. No palpable organomegaly. MUSCULOSKELETAL: No joint swelling or deformity. EXTREMITIES: No cyanosis, clubbing, or pedal edema. NEUROLOGICAL: Gross neurological examination did not reveal any focal deficits. SKIN: No rashes. - Labs CBC & Chem 7: 03/08/18 06:55 03/05/18 04:53 Labs: Abnormal Lab Results - Last 24 Hours (Table) 03/08/18 Range/Units 06:55 RBC 4.10 L (4.30-5.90) m/uL Neutrophils # 9.1 H (1.3-7.7) k/uL Lymphocytes # 0.5 L (1.0-4.8) k/uL Assessment and Plan Assessment: Chest wall trauma secondary to fall and drip fracture at multiple sites secondary to alcohol intoxication Right-sided chest tube, mostly as a complication secondary to above Alcohol abuse and withdrawal, being followed for delirium tremens Essential hypertension Hyperlipidemia Chronic alcohol dependence since History of seizure disorder Bipolar disorder Plan: This is a pleasant 67 years old male who presents because of all: Intoxication and dried chest wall trauma and rib fracture. Continue with pain management and try to switch IV analgesics to oral ones. Continue with CIWA protocol. Continue with support and vitamins. Call psychiatry consult. Surgical team are following the patient.Labs and medication were resumed. Continue same treatment. Continue with symptomatic treatment. Resume home medication. Monitor lytes and vitals. DVT and GI prophylaxis. Further recommendationsof the clinical course of the patient DVT prophylaxis: Subcutaneous Lovenox GI Prophylaxis: Protonix PT/OT: Pending Prognosis is guarded
[2018-03-08] MEDS ORDERED: LACTULOSE 20 GM/30 ML CUP PO SCH (09:45)
[2018-03-08] MEDS: predniSONE 20 MG TAB PO SCH ×2 (09:46→21:50)
[2018-03-08] MEDS: amLODIPine 5 MG TAB PO SCH (09:46)
[2018-03-08] MEDS: traMADol 50 MG TAB PO SCH ×4 (09:47→21:52)
[2018-03-08] MEDS: GABAPENTIN 300 MG CAP PO SCH ×3 (09:48→21:53)
[2018-03-08] MEDS: DULoxetine HCL 20 MG CAPSULE.DR PO SCH ×2 (09:49→21:50)
[2018-03-08] MEDS: ATORVASTATIN 80 MG TAB PO SCH (09:49)
[2018-03-08] MEDS: ENOXAPARIN 40 MG/0.4 ML SYRINGE SQ SCH (09:50)
[2018-03-08] MEDS: SODIUM CHLORIDE 0.9% 1,000 ML IV SCH (09:50)
[2018-03-08] MEDS: SENNOSIDES-DOCUSATE SODIUM 1 EACH TAB PO SCH ×2 (09:54→21:51)
[2018-03-08] MEDS: LACOSAMIDE 150 MG TABLET PO SCH ×2 (10:03→21:51)
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
[2018-03-08] MEDS: LISINOPRIL 10 MG TAB PO SCH (11:47)
[2018-03-08] MEDS: THIAMINE 100 MG TAB PO SCH ×2 (11:47→17:42)
[2018-03-08] MEDS: MULTIVITAMINS, THERA 1 EACH TAB PO SCH (11:47)
[2018-03-08] MEDS: CHOLECALCIFEROL 1,000 UNIT TAB PO SCH ×2 (11:48→11:49)
--- NOTE | 2018-03-08 14:23 | P.PN ---
Subjective Progress Note Date: 03/08/18 Principal diagnosis: Status post fall with forehead laceration and multiple right-sided rib fractures. Progress note dated 03/06/2018 67-year-old male status post fall with multiple rib fractures on the right, ribs 2 through 8, and a laceration to the left side of his forehead. He also likely sustained a pulmonary contusion on the right side as well as a small pneumothorax and subcutaneous emphysema. He has a history of hypertension chronic alcohol abuse history of CVA and seizure disorder. Currently he is doing well. He was in the ICU for 1 day. His breathing is not a problem. He is doing well on his incentive spirometer. He is getting adequate pain control. He continues on the IV S every hour while awake as well as duo nebs 4 times a day and when necessary. In addition, he is being managed by the pain team for his right-sided chest and rib pain. He has no new complaints today. Progress note dated 03/07/2018 67-year-old male, status post fall with multiple rib fractures on the right, ribs 2 through 8. The patient also sustained a laceration to left side of his forehead area. In addition, the patient likely has a pulmonary contusion and small right-sided hemothorax. There was no pneumothorax. The patient has a history of hypertension chronic alcohol abuse CVA seizure disorder. I spoke to the surgeon who may be setting the patient home in the next day or so. The patient is doing relatively well. Other than for some pain in the right chest area, he denies any other complaints. Using his incentive spirometry routinely and religiously. I told him that when he gets discharged home E to take it with him. He denies any fever or chills. Denies any left-sided chest complaints. Not coughing up any phlegm or blood. Progress note dated 03/08/2018 67-year-old male, status post fall with multiple rib fractures on the right side. Ribs #2 through #8 were fractured. He also sustained a laceration above the left forehead area. In addition, he likely had a right-sided pulmonary contusion, right hemothorax and possibly right small pneumothorax. Yesterday, we ordered a chest x-ray before discharge. It was discovered that he had developed a larger right pneumothorax. A chest tube was placed by thoracic surgery. It was not seen before yesterday's chest x-ray. There may be in one there are that was very very tiny and not able to be seen on regular chest x- ray. Anyway, the patient is doing relatively well. Chest tube in place on the right. It was no leak and the patient took a deep breath or cough. Today's chest x-ray still revealed a right-sided pneumothorax. The chest tube was in good position. Objective - Vital Signs Vital signs: Vital Signs Temp 97.9 F 03/08/18 11:26 Pulse 80 03/08/18 11:26 Resp 16 03/08/18 11:26 BP 136/82 03/08/18 11:26 Pulse Ox 94 L 03/08/18 11:26 Intake & Output 03/07/18 03/08/18 03/08/18 18:59 06:59 18:59 Intake Total 1380 350 358 Output Total 1500 3632 90 Balance -120 -3282 268 Intake: IV 300 Sodium Chloride 0.9% 1, 300 000 ml @ 50 mls/hr IV . Q20H [facility] Rx#:[id number] Oral 1080 350 358 Output: Chest Tube Drainage 132 90 Chest Tube Right Upper 132 90 Anterior Chest Urine 1500 3500 Other: Voiding Method Urinal # Voids 700 1 1 - Exam No acute distress, oriented 3. Nasal O2 is not noted. HEENT examination is grossly unremarkable. Mucous membranes are moist. No oral lesions. There is a laceration which is been sutured above his left eye. It appears to be healing well. Neck supple. Full range of motion. No adenopathy thyromegaly or neck vein distention. Cardiovascular examination reveals regular rhythm rate. S1-S2 normal. No S3 or S4. No discernible murmur noted. Lungs reveal diminished air entry on the right side. He has tenderness to palpation in the right chest area. A few scattered rhonchi are noted. There is no subcutaneous emphysema and there are no wheezes or crackles appreciated. A right chest tube is noted. It is connected to a Pleur-evac. Abdomen soft bowel sounds are heard. No masses or tenderness. Extremities are intact. No cyanosis clubbing or edema. Skin is without rash or lesion. Neurologic examination is brief but nonfocal. - Labs CBC & Chem 7: 03/08/18 06:55 03/05/18 04:53 Labs: Abnormal Lab Results - Last 24 Hours (Table) 03/08/18 Range/Units 06:55 RBC 4.10 L (4.30-5.90) m/uL Neutrophils # 9.1 H (1.3-7.7) k/uL Lymphocytes # 0.5 L (1.0-4.8) k/uL Assessment and Plan Assessment: Assessment Multiple right sided rib fractures, 2 through 8, secondary to a fall, without evidence of flail chest at this time. The patient does likely have a pulmonary contusion and a small right hemothorax. Right pneumothorax, status post chest tube insertion History of hypertension History of alcohol abuse History of seizure disorder History of CVA History of left forehead laceration Plan: Plan dated 03/05/2018 Patient will require aggressive pulmonary toileting. Encouraged patient to use incentive spirometry every hour while awake. Patient is currently getting 1500 consistently. Encouraged coughing and deep breathing. Continue on Duoneb 4 times a day and morphine for pain management. Anesthesia is unable to do epidural related to home Plavix use. CIWA protocol was ordered for potential EtOH withdrawal. Patient was started on lisinopril 10 mg daily for hypertension. Patient is able to transfer to the general medical floor without telemetry from my standpoint. Patient has been seen and cleared by trauma surgeon for transfer to the general medical floor. From the pulmonary standpoint, the patient is stable. The patient is also hemodynamically stable. Plan dated 03/06/2018 The patient continues with aggressive pulmonary toiletry. The patient will continue using the incentive spirometer every hour while awake. Interestingly continue with updrafts treatments 4 times a day and when necessary. We will also continue with adequate pain control. CIWA protocol was ordered for alcohol withdrawal. Labs and x-rays are reviewed. Additional recommendations and suggestions are forthcoming. Prognosis is guarded. Patient has been seen by trauma surgery. Plan dated 03/07/2018 The patient's doing well. His breathing is stable. He does have pain which is being controlled with pain medications. We recommend deep breathing coughing and clearing of secretions and hourly use the incentive spirometer. I did see the surgeon, the patient may be discharged home the next 24-48 hours. We will repeat a chest x-ray. Additional recommendations and suggestions are forthcoming. The patient has been hemodynamically stable since being coming into the hospital and his respiratory status is also been stable. Plan dated 03/08/2018 The patient is doing reasonably well. Chest tube is in place. It's connected to the Pleur-evac. The patient does not have any air leak. We'll continue to follow. The patient may need to stay in the hospital for a few more days. We do recommend oxygen therapy. We also recommend had doing deep breathing coughing and clearing of secretions and also use of incentive spirometer every hour while awake. We will continue to follow. Additional recommendations and suggestions are forthcoming. Prognosis is guarded. Time with Patient: Less than 30
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
[2018-03-08] MEDS: traZODone HCL 100 MG TAB PO SCH (21:50)
[2018-03-09] MEDS: PANTOPRAZOLE 40 MG TABLET PO SCH (06:28)
[2018-03-09 06:57] LABS: Anion Gap 9 mmol/L; Blood Urea Nitrogen 21 mg/dL (9-20); Calcium 9.6 mg/dL (8.4-10.2); Carbon Dioxide 29 mmol/L (22-30); Chloride 97 mmol/L (98-107); Glucose 140 mg/dL (74-99); Potassium 4.8 mmol/L (3.5-5.1); Sodium 135 mmol/L (137-145)
--- NOTE | 2018-03-09 07:02 | XR ---
EXAMINATION TYPE: XR chest 1V portable DATE OF EXAM: 03/09/2018 HISTORY: right pneumothorax. REFERENCE: Previous study dated 03/08/2018. FINDINGS: The patient's right pleural drain remains in place. There has been slight enlargement in si ze of right-sided pneumothorax. There is some left basilar atelectasis. Heart size upper limits of no rmal. There continues to be subcutaneous emphysema on the right. Multiple right-sided rib fractures a re identified. IMPRESSION: SLIGHT ENLARGEMENT IN THE PATIENT'S RIGHT-SIDED PNEUMOTHORAX.
[2018-03-09] MEDS: LIDOCAINE 5% PATCH TOPICAL SCH (08:46)
[2018-03-09] MEDS: DULoxetine HCL 20 MG CAPSULE.DR PO SCH ×2 (08:52→21:49)
[2018-03-09] MEDS: GABAPENTIN 300 MG CAP PO SCH ×3 (08:52→21:49)
[2018-03-09] MEDS: ATORVASTATIN 80 MG TAB PO SCH (08:52)
[2018-03-09] MEDS: LACOSAMIDE 150 MG TABLET PO SCH ×2 (08:52→21:52)
[2018-03-09] MEDS: amLODIPine 5 MG TAB PO SCH (08:52)
[2018-03-09] MEDS: LACTULOSE 20 GM/30 ML CUP PO SCH (08:53)
[2018-03-09] MEDS: ENOXAPARIN 40 MG/0.4 ML SYRINGE SQ SCH (08:53)
[2018-03-09] MEDS: predniSONE 20 MG TAB PO SCH ×2 (08:55→21:48)
[2018-03-09] MEDS: SENNOSIDES-DOCUSATE SODIUM 1 EACH TAB PO SCH ×2 (08:55→21:50)
[2018-03-09] MEDS: HYDROcodone/APAP 5-325MG 1 EACH TAB PO PRN ×2 (08:56→21:52)
[2018-03-09] MEDS: LISINOPRIL 10 MG TAB PO SCH (08:56)
[2018-03-09] MEDS: IPRATROPIUM-ALBUTEROL 3 ML NEB INHALATION SCH ×4 (09:08→20:41)
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
[2018-03-09] MEDS: MULTIVITAMINS, THERA 1 EACH TAB PO SCH (12:40)
[2018-03-09] MEDS: THIAMINE 100 MG TAB PO SCH ×2 (12:40→16:47)
--- NOTE | 2018-03-09 13:32 | P.PN ---
Subjective On-call hospitalist covering for Dr. Vargas This is a pleasant 67 years old male with past medical history of TIA, hyperlipidemia, hypertension, seizure disorder, chronic low back pain on steroids for it who presents because of alcohol abuse and fall with right rib fracture. Patient has been evaluated by surgical team and they found no need for surgical intervention as there is no flail chest. Patient is been treated symptomatically with pain medications by the surgical team associated with incentive spirometry. Patient states he drinks about 1 pint of rind EEG day and he last check was forthcoming to the hospital. He still complaining of from right-sided chest pain however it's feels better the pain is significantly worse with movement and coughing. However this more stable today. Still on IV morphine. Patient is eating well however he has constipation probably related to his narcotics and pain medication. Patient on steroids from home as he follow-up with Dr. SANCHEZ for his low back pain. 03/07/2018 Patient is still complaining from pain on his right chest but mainly on movement , patient using IV pain medication and he advised to use oral once distended. Distal have constipation and is on medication. Orthopedic consultation for possible further management. Patient is on steroids prednisone 20 mg daily and he wants to keep that and follow up with his orthopedic started him on this medication. The risks of this medication/steroid are explained to the patient in length. He verbalized understanding. We will decrease his fluid 50. Patient still on the withdrawal protocol and he does not need to 59. WHEN ASKED PATIENT DENIES TO ME DEPRESSION OR FEELING HOPELESS HELPLESSNESS. HE DENIES SUICIDAL OR HOMICIDAL IDEATION. 03/08/2018 Repeat chest x-ray from yesterday show pneumothorax. Patient status post chest tube on the right side by thoracic surgeons, however patient day and states that his chest pain is better compared to yesterday and its controlled with Ultram only. Breathing fine. Less coughing. He has some sweating. He is still constipated. Vital stables with no more fever. CBC was unremarkable compared to yesterday. Patient might benefit from subacute rehab upon discharge 03/09/2018 Today patient pain is not controlled and Ultram is not effective, [place] is added. Possible patient will need interventional procedure for epidural analgesia. Chest tube is in a Place. Repeat chest x-ray from today shows slight enlargement in his right pneumothorax. Thoracic surgeons are following the patient. BMP was unremarkable and vitals are stable. oxygen saturating 92 % on room air. Objective - Vital Signs Vital signs: Vital Signs Temp 98.1 F 03/09/18 12:00 Pulse 87 03/09/18 12:00 Resp 18 03/09/18 12:00 BP 116/67 03/09/18 12:00 Pulse Ox 92 L 03/09/18 12:00 Intake & Output 03/08/18 03/09/18 03/09/18 18:59 06:59 18:59 Intake Total 1078 360 240 Output Total 525 1000 22 Balance 553 -640 218 Weight 87.4 kg Intake: Oral 1078 360 240 Output: Chest Tube Drainage 125 22 Chest Tube Right Upper 125 22 Anterior Chest Urine 400 1000 Other: Voiding Method Urinal Urinal # Voids 1 1 - Exam GENERAL: The patient is alert and oriented x3, not in any acute distress. Well developed, well nourished. HEENT: Pupils are round and equally reacting to light. EOMI. No scleral icterus. No conjunctival pallor. Normocephalic, atraumatic. No pharyngeal erythema. No thyromegaly. CARDIOVASCULAR: S1 and S2 present. No murmurs, rubs, or gallops. -PULMONARY: Chest is clear to auscultation, no wheezing or crackles. Right side chest wall tenderness ABDOMEN: Soft, nontender, nondistended, normoactive bowel sounds. No palpable organomegaly. MUSCULOSKELETAL: No joint swelling or deformity. EXTREMITIES: No cyanosis, clubbing, or pedal edema. NEUROLOGICAL: Gross neurological examination did not reveal any focal deficits. SKIN: No rashes. - Labs CBC & Chem 7: 03/08/18 06:55 03/09/18 06:31 Labs: Abnormal Lab Results - Last 24 Hours (Table) 03/09/18 Range/Units 06:31 Sodium 135 L (137-145) mmol/L Chloride 97 L (98-107) mmol/L BUN 21 H (9-20) mg/dL Glucose 140 H (74-99) mg/dL Assessment and Plan Assessment: Chest wall trauma secondary to fall and drip fracture at multiple sites secondary to alcohol intoxication Right-sided chest tube, mostly as a complication secondary to above Alcohol abuse and withdrawal, being followed for delirium tremens Essential hypertension Hyperlipidemia Chronic alcohol dependence since History of seizure disorder Bipolar disorder Plan: This is a pleasant 67 years old male who presents because of all: Intoxication and dried chest wall trauma and rib fracture. Continue with pain management and try to switch IV analgesics to oral ones. Continue with CIWA protocol. Continue with support and vitamins. Call psychiatry consult. Surgical team are following the patient.Labs and medication were resumed. Continue same treatment. Continue with symptomatic treatment. Resume home medication. Monitor lytes and vitals. DVT and GI prophylaxis. Further recommendationsof the clinical course of the patient DVT prophylaxis: Subcutaneous Lovenox GI Prophylaxis: Protonix PT/OT: Pending Prognosis is guarded
--- NOTE | 2018-03-09 13:48 | P.PN ---
Subjective Progress Note Date: 03/09/18 Principal diagnosis: Status post fall with forehead laceration multiple right-sided rib fractures Progress note dated 03/06/2018 67-year-old male status post fall with multiple rib fractures on the right, ribs 2 through 8, and a laceration to the left side of his forehead. He also likely sustained a pulmonary contusion on the right side as well as a small pneumothorax and subcutaneous emphysema. He has a history of hypertension chronic alcohol abuse history of CVA and seizure disorder. Currently he is doing well. He was in the ICU for 1 day. His breathing is not a problem. He is doing well on his incentive spirometer. He is getting adequate pain control. He continues on the IV S every hour while awake as well as duo nebs 4 times a day and when necessary. In addition, he is being managed by the pain team for his right-sided chest and rib pain. He has no new complaints today. Progress note dated 03/07/2018 67-year-old male, status post fall with multiple rib fractures on the right, ribs 2 through 8. The patient also sustained a laceration to left side of his forehead area. In addition, the patient likely has a pulmonary contusion and small right-sided hemothorax. There was no pneumothorax. The patient has a history of hypertension chronic alcohol abuse CVA seizure disorder. I spoke to the surgeon who may be setting the patient home in the next day or so. The patient is doing relatively well. Other than for some pain in the right chest area, he denies any other complaints. Using his incentive spirometry routinely and religiously. I told him that when he gets discharged home E to take it with him. He denies any fever or chills. Denies any left-sided chest complaints. Not coughing up any phlegm or blood. Progress note dated 03/08/2018 67-year-old male, status post fall with multiple rib fractures on the right side. Ribs #2 through #8 were fractured. He also sustained a laceration above the left forehead area. In addition, he likely had a right-sided pulmonary contusion, right hemothorax and possibly right small pneumothorax. Yesterday, we ordered a chest x-ray before discharge. It was discovered that he had developed a larger right pneumothorax. A chest tube was placed by thoracic surgery. It was not seen before yesterday's chest x-ray. There may be in one there are that was very very tiny and not able to be seen on regular chest x- ray. Anyway, the patient is doing relatively well. Chest tube in place on the right. It was no leak and the patient took a deep breath or cough. Today's chest x-ray still revealed a right-sided pneumothorax. The chest tube was in good position. Progress note dated 03/09/2018 The patient is seen again today in follow-up on the selective care unit. He is currently sitting up in a chair at the bedside. He is doing better each day. Right-sided chest tube remains in place. There is minimal leak. X-ray still reveals a small right apical pneumothorax. He is working well with the incentive spirometer. He has maintaining O2 saturations in the low 90s on room air. He remains on bronchodilators. He's been afebrile. Hemodynamically stable. Objective - Vital Signs Vital signs: Vital Signs Temp 98.1 F 03/09/18 12:00 Pulse 87 03/09/18 12:00 Resp 18 03/09/18 12:00 BP 116/67 03/09/18 12:00 Pulse Ox 92 L 03/09/18 12:00 Intake & Output 03/08/18 03/09/18 03/09/18 18:59 06:59 18:59 Intake Total 1078 360 240 Output Total 525 1000 22 Balance 553 -640 218 Weight 87.4 kg Intake: Oral 1078 360 240 Output: Chest Tube Drainage 125 22 Chest Tube Right Upper 125 22 Anterior Chest Urine 400 1000 Other: Voiding Method Urinal Urinal # Voids 1 1 - Exam No acute distress, oriented 3. On room air. HEENT examination is grossly unremarkable. Mucous membranes are moist. No oral lesions. There is a laceration which is been sutured above his left eye. It appears to be healing well. Neck supple. Full range of motion. No adenopathy thyromegaly or neck vein distention. Cardiovascular examination reveals regular rhythm rate. S1-S2 normal. No S3 or S4. No discernible murmur noted. Lungs reveal diminished air entry on the right side. He has tenderness to palpation in the right chest area. A few scattered rhonchi are noted. There is no subcutaneous emphysema and there are no wheezes or crackles appreciated. A right chest tube is noted. It is connected to a Pleur-evac. Abdomen soft bowel sounds are heard. No masses or tenderness. Extremities are intact. No cyanosis clubbing or edema. Skin is without rash or lesion. Neurologic examination is brief but nonfocal. - Labs CBC & Chem 7: 03/08/18 06:55 03/09/18 06:31 Labs: Abnormal Lab Results - Last 24 Hours (Table) 03/09/18 Range/Units 06:31 Sodium 135 L (137-145) mmol/L Chloride 97 L (98-107) mmol/L BUN 21 H (9-20) mg/dL Glucose 140 H (74-99) mg/dL Assessment and Plan Assessment: Impression: Multiple right sided rib fractures, 2 through 8, secondary to a fall, without evidence of flail chest at this time. The patient does likely have a pulmonary contusion and a small right hemothorax. Right pneumothorax, status post chest tube insertion History of hypertension History of alcohol abuse History of seizure disorder History of CVA Left forehead laceration Plan: The patient was seen and evaluated by Dr. Piña. Chest x-ray reviewed. We'll right apical pneumothorax remains. Still with small air leak and pleural VAC. He is improved and maintaining good O2 saturations in the low 90s on room air. Repeat chest x-ray in the a.m. Continue to work with the incentive spirometer. Increase activity as tolerated. We'll continue to follow. I, the cosigning physician, performed a history & physical examination of the patient. Lungs sounds with few scattered rhonchi more so on the right. Maintaining good O2 saturations in the 90s on room air. I discussed the assessment and plan of care with my nurse practitioner, Nicole Sosa. I attest to the above note as dictated by her.
--- NOTE | 2018-03-09 16:26 | P.PN ---
Subjective Progress Note Date: 03/09/18 CHIEF COMPLAINT: Status post fall HISTORY OF PRESENT ILLNESS: The patient is a 67-year-old gentleman admitted secondary to fall and multiple fracture ribs with flail chest. The chest tube was recently placed per thoracic team. Chest is still present. Reports anxiety for discharge home as he has a small dog at home and concerned of pain management as his chest tube is still present. PHYSICAL EXAM: VITAL SIGNS: Currently stable. GENERAL: Well-developed in no acute distress. HEENT: No sclera icterus. Extraocular movements grossly intact. Moist buccal mucosa. Head is atraumatic, normocephalic. Hears conversational speech. No nasal drainage. NECK: Supple without lymphadenopathy. CHEST: Dressing chest tube still present. No air leaks and system. CARDIOVASCULAR: Regular rate with regular rhythm. Palpable 2+ radial pulses. ABDOMEN: Soft. Nondistended. Incisions intact MUSCULOSKELETAL: No clubbing, cyanosis or edema. NEUROLOGIC: No focal or lateralizing signs. Cranial nerves II through XII grossly intact. PSYCH: Appropriate affect. Alert and oriented to person, place and time. SKIN: Well perfused. Good skin turgor. LABS: Reviewed ASSESSMENT: 1. Flail chest 2. Pneumothorax status post fall with rib fractures PLAN: 1. Management of chest tube per thoracic team 2. Pain management for rib fractures 3. Patient cleared for discharge once agreeable with thoracic surgery Objective - Vital Signs Vital signs: Vital Signs Temp 98.1 F 03/09/18 12:00 Pulse 90 03/09/18 15:50 Resp 18 03/09/18 12:00 BP 116/67 03/09/18 12:00 Pulse Ox 92 L 03/09/18 12:00 Intake & Output 03/08/18 03/09/18 03/09/18 18:59 06:59 18:59 Intake Total 1078 360 480 Output Total 525 1000 722 Balance 553 -640 -242 Weight 87.4 kg Intake: Oral 1078 360 480 Output: Chest Tube Drainage 125 22 Chest Tube Right Upper 125 22 Anterior Chest Urine 400 1000 700 Other: Voiding Method Urinal Urinal # Voids 1 1 1 - Labs CBC & Chem 7: 03/08/18 06:55 03/09/18 06:31 Labs: Abnormal Lab Results - Last 24 Hours (Table) 03/09/18 Range/Units 06:31 Sodium 135 L (137-145) mmol/L Chloride 97 L (98-107) mmol/L BUN 21 H (9-20) mg/dL Glucose 140 H (74-99) mg/dL
[2018-03-09] MEDS: traZODone HCL 100 MG TAB PO SCH (21:48)
[2018-03-10] MEDS: HYDROcodone/APAP 5-325MG 1 EACH TAB PO PRN ×4 (02:30→20:24)
[2018-03-10] MEDS: LIDOCAINE 5% PATCH TOPICAL SCH (06:34)
[2018-03-10] MEDS: IPRATROPIUM-ALBUTEROL 3 ML NEB INHALATION SCH ×4 (07:25→19:04)
--- NOTE | 2018-03-10 07:28 | XR ---
EXAMINATION TYPE: XR chest 2V DATE OF EXAM: 03/10/2018 HISTORY: pneumothorax. REFERENCE: Previous study dated 03/09/2018. FINDINGS: Definite right-sided pneumothorax is not identified. The patient's right pleural drain has been removed. Multiple right-sided rib fractures are again identified. There is a small right-sided e ffusion. There is platelike atelectasis at the left lung base. The heart is not enlarged. There is hernandez bcutaneous emphysema on the right. IMPRESSION: 1. RESOLUTION OF THE PATIENT'S RIGHT-SIDED PNEUMOTHORAX. 2. MULTIPLE RIGHT-SIDED RIB FRACTURES. 3. SMALL RIGHT-SIDED EFFUSION. 4. PLATELIKE ATELECTASIS, LEFT LUNG BASE.
[2018-03-10] MEDS: LACTULOSE 20 GM/30 ML CUP PO SCH (07:44)
[2018-03-10] MEDS: SENNOSIDES-DOCUSATE SODIUM 1 EACH TAB PO SCH ×2 (07:45→21:15)
[2018-03-10] MEDS: ENOXAPARIN 40 MG/0.4 ML SYRINGE SQ SCH (07:45)
[2018-03-10] MEDS: GABAPENTIN 300 MG CAP PO SCH ×3 (07:45→21:15)
[2018-03-10] MEDS: LISINOPRIL 10 MG TAB PO SCH (07:45)
[2018-03-10] MEDS: DULoxetine HCL 20 MG CAPSULE.DR PO SCH ×2 (07:45→21:15)
[2018-03-10] MEDS: ATORVASTATIN 80 MG TAB PO SCH (07:45)
[2018-03-10] MEDS: PANTOPRAZOLE 40 MG TABLET PO SCH (07:46)
[2018-03-10] MEDS: amLODIPine 5 MG TAB PO SCH (07:46)
[2018-03-10] MEDS: predniSONE 20 MG TAB PO SCH ×2 (07:46→21:16)
[2018-03-10] MEDS: LACOSAMIDE 150 MG TABLET PO SCH ×2 (07:52→21:18)
[2018-03-10 08:01] LABS: Anion Gap 8 mmol/L; Blood Urea Nitrogen 20 mg/dL (9-20); Calcium 9.5 mg/dL (8.4-10.2); Carbon Dioxide 31 mmol/L (22-30); Chloride 98 mmol/L (98-107); Glucose 116 mg/dL (74-99); Potassium 5.1 mmol/L (3.5-5.1); Sodium 137 mmol/L (137-145)
--- NOTE | 2018-03-10 10:22 | P.PN ---
Subjective Progress Note Date: 03/10/18 CHIEF COMPLAINT: Status post fall HISTORY OF PRESENT ILLNESS: The patient is a 67-year-old gentleman admitted secondary to fall and multiple fracture ribs with flail chest. He had a chest tube now discontinued yesterday. Reports improvement of his rib pain. No reports of abdominal pain. PHYSICAL EXAM: VITAL SIGNS: Currently stable. GENERAL: Well-developed in no acute distress. HEENT: No sclera icterus. Extraocular movements grossly intact. Moist buccal mucosa. Head is atraumatic, normocephalic. Hears conversational speech. No nasal drainage. NECK: Supple without lymphadenopathy. CHEST: Dressing along previous chest tube site clean dry and intact CARDIOVASCULAR: Regular rate with regular rhythm. Palpable 2+ radial pulses. ABDOMEN: Soft. Nondistended. Incisions intact MUSCULOSKELETAL: No clubbing, cyanosis or edema. NEUROLOGIC: No focal or lateralizing signs. Cranial nerves II through XII grossly intact. PSYCH: Appropriate affect. Alert and oriented to person, place and time. SKIN: Well perfused. Good skin turgor. LABS: Reviewed ASSESSMENT: 1. Flail chest 2. Pneumothorax status post fall with rib fractures PLAN: 1. Management per thoracic and pulmonary team regarding flail chest and multiple rib fractures. 2. Patient clear for discharge once medically stable Objective - Vital Signs Vital signs: Vital Signs Temp 97.5 F L 03/10/18 06:00 Pulse 82 03/10/18 07:35 Resp 17 03/10/18 07:55 BP 131/74 03/10/18 06:00 Pulse Ox 94 L 03/10/18 06:00 Intake & Output 03/09/18 03/10/18 03/10/18 18:59 06:59 18:59 Intake Total 1080 Output Total 722 Balance 358 Intake: Oral 1080 Output: Chest Tube Drainage 22 Chest Tube Right Upper 22 Anterior Chest Urine 700 Other: Voiding Method Urinal Urinal # Voids 1 2 # Bowel Movements 1 - Labs CBC & Chem 7: 03/08/18 06:55 03/10/18 07:23 Labs: Abnormal Lab Results - Last 24 Hours (Table) 03/10/18 Range/Units 07:23 Carbon Dioxide 31 H (22-30) mmol/L Glucose 116 H (74-99) mg/dL
[2018-03-10] MEDS: THIAMINE 100 MG TAB PO SCH ×2 (12:31→18:46)
[2018-03-10] MEDS: MULTIVITAMINS, THERA 1 EACH TAB PO SCH (12:31)
--- NOTE | 2018-03-10 12:31 | P.PN ---
Subjective On-call hospitalist covering for Dr. Vargas This is a pleasant 67 years old male with past medical history of TIA, hyperlipidemia, hypertension, seizure disorder, chronic low back pain on steroids for it who presents because of alcohol abuse and fall with right rib fracture. Patient has been evaluated by surgical team and they found no need for surgical intervention as there is no flail chest. Patient is been treated symptomatically with pain medications by the surgical team associated with incentive spirometry. Patient states he drinks about 1 pint of rind EEG day and he last check was forthcoming to the hospital. He still complaining of from right-sided chest pain however it's feels better the pain is significantly worse with movement and coughing. However this more stable today. Still on IV morphine. Patient is eating well however he has constipation probably related to his narcotics and pain medication. Patient on steroids from home as he follow-up with Dr. SANCHEZ for his low back pain. 03/07/2018 Patient is still complaining from pain on his right chest but mainly on movement , patient using IV pain medication and he advised to use oral once distended. Distal have constipation and is on medication. Orthopedic consultation for possible further management. Patient is on steroids prednisone 20 mg daily and he wants to keep that and follow up with his orthopedic started him on this medication. The risks of this medication/steroid are explained to the patient in length. He verbalized understanding. We will decrease his fluid 50. Patient still on the withdrawal protocol and he does not need to 59. WHEN ASKED PATIENT DENIES TO ME DEPRESSION OR FEELING HOPELESS HELPLESSNESS. HE DENIES SUICIDAL OR HOMICIDAL IDEATION. 03/08/2018 Repeat chest x-ray from yesterday show pneumothorax. Patient status post chest tube on the right side by thoracic surgeons, however patient day and states that his chest pain is better compared to yesterday and its controlled with Ultram only. Breathing fine. Less coughing. He has some sweating. He is still constipated. Vital stables with no more fever. CBC was unremarkable compared to yesterday. Patient might benefit from subacute rehab upon discharge 03/09/2018 Today patient pain is not controlled and Ultram is not effective, [place] is added. Possible patient will need interventional procedure for epidural analgesia. Chest tube is in a Place. Repeat chest x-ray from today shows slight enlargement in his right pneumothorax. Thoracic surgeons are following the patient. BMP was unremarkable and vitals are stable. oxygen saturating 92 % on room air. 03/10/2018 Today's patient is doing better with his chest pain is more controlled after we added narcotic. Chest the tube is out and his breathing is quiet. Still have some cough with clear phlegm. He had one big large bowel movement yesterday and he is comfortable about that. Repeat chest x-ray from today shows resolution of the right-sided pneumothorax. BMP was unremarkable and vitals stable with no fever Objective - Vital Signs Vital signs: Vital Signs Temp 97.5 F L 03/10/18 06:00 Pulse 84 03/10/18 11:40 Resp 17 03/10/18 07:55 BP 131/74 03/10/18 06:00 Pulse Ox 94 L 03/10/18 06:00 Intake & Output 03/09/18 03/10/18 03/10/18 18:59 06:59 18:59 Intake Total 1080 Output Total 722 Balance 358 Intake: Oral 1080 Output: Chest Tube Drainage 22 Chest Tube Right Upper 22 Anterior Chest Urine 700 Other: Voiding Method Urinal Urinal # Voids 1 2 # Bowel Movements 1 - Exam GENERAL: The patient is alert and oriented x3, not in any acute distress. Well developed, well nourished. HEENT: Pupils are round and equally reacting to light. EOMI. No scleral icterus. No conjunctival pallor. Normocephalic, atraumatic. No pharyngeal erythema. No thyromegaly. CARDIOVASCULAR: S1 and S2 present. No murmurs, rubs, or gallops. -PULMONARY: Chest is clear to auscultation, no wheezing or crackles. Right side chest wall tenderness ABDOMEN: Soft, nontender, nondistended, normoactive bowel sounds. No palpable organomegaly. MUSCULOSKELETAL: No joint swelling or deformity. EXTREMITIES: No cyanosis, clubbing, or pedal edema. NEUROLOGICAL: Gross neurological examination did not reveal any focal deficits. SKIN: No rashes. - Labs CBC & Chem 7: 03/08/18 06:55 03/10/18 07:23 Labs: Abnormal Lab Results - Last 24 Hours (Table) 03/10/18 Range/Units 07:23 Carbon Dioxide 31 H (22-30) mmol/L Glucose 116 H (74-99) mg/dL Assessment and Plan Assessment: Chest wall trauma secondary to fall and drip fracture at multiple sites secondary to alcohol intoxication Right-sided chest tube, mostly as a complication secondary to above Alcohol abuse and withdrawal, being followed for delirium tremens Essential hypertension Hyperlipidemia Chronic alcohol dependence since History of seizure disorder Bipolar disorder Plan: This is a pleasant 67 years old male who presents because of all: Intoxication and dried chest wall trauma and rib fracture. Continue with pain management and try to switch IV analgesics to oral ones. Continue with CIWA protocol. Continue with support and vitamins. Call psychiatry consult. Surgical team are following the patient.Labs and medication were resumed. Continue same treatment. Continue with symptomatic treatment. Resume home medication. Monitor lytes and vitals. DVT and GI prophylaxis. Further recommendationsof the clinical course of the patient DVT prophylaxis: Subcutaneous Lovenox GI Prophylaxis: Protonix PT/OT: Pending Prognosis is guarded
[2018-03-10 13:12] LABS: Basophils % (A) 0 %; Eosinophils # (A) 0.4 k/uL (0-0.7); Eosinophils % (A) 3 %; HCT 43.4 % (39.0-53.0); Lymphocytes # (A) 0.9 k/uL (1.0-4.8); Lymphocytes % (A) 7 %; MCHC 32.3 g/dL (31.0-37.0); MCV 98.9 fL (80.0-100.0); Mean Platelet Volume 7.3; Monocytes # (A) 0.9 k/uL (0-1.0); Monocytes % (A) 7 %; Neutrophils # (A) 10.9 k/uL (1.3-7.7); Neutrophils % (A) 81 %; Platelet Count 289 k/uL (150-450); RBC 4.39 m/uL (4.30-5.90); RDW 13.3 % (11.5-15.5); WBC 13.4 k/uL (3.8-10.6)
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
[2018-03-10] MEDS: CHOLECALCIFEROL 1,000 UNIT TAB PO SCH (13:25)
--- NOTE | 2018-03-10 14:24 | P.PN ---
Subjective Progress Note Date: 03/10/18 Principal diagnosis: Status post fall with forehead laceration and multiple right-sided rib fractures. Progress note dated 03/06/2018 67-year-old male status post fall with multiple rib fractures on the right, ribs 2 through 8, and a laceration to the left side of his forehead. He also likely sustained a pulmonary contusion on the right side as well as a small pneumothorax and subcutaneous emphysema. He has a history of hypertension chronic alcohol abuse history of CVA and seizure disorder. Currently he is doing well. He was in the ICU for 1 day. His breathing is not a problem. He is doing well on his incentive spirometer. He is getting adequate pain control. He continues on the IV S every hour while awake as well as duo nebs 4 times a day and when necessary. In addition, he is being managed by the pain team for his right-sided chest and rib pain. He has no new complaints today. Progress note dated 03/07/2018 67-year-old male, status post fall with multiple rib fractures on the right, ribs 2 through 8. The patient also sustained a laceration to left side of his forehead area. In addition, the patient likely has a pulmonary contusion and small right-sided hemothorax. There was no pneumothorax. The patient has a history of hypertension chronic alcohol abuse CVA seizure disorder. I spoke to the surgeon who may be setting the patient home in the next day or so. The patient is doing relatively well. Other than for some pain in the right chest area, he denies any other complaints. Using his incentive spirometry routinely and religiously. I told him that when he gets discharged home E to take it with him. He denies any fever or chills. Denies any left-sided chest complaints. Not coughing up any phlegm or blood. Progress note dated 03/08/2018 67-year-old male, status post fall with multiple rib fractures on the right side. Ribs #2 through #8 were fractured. He also sustained a laceration above the left forehead area. In addition, he likely had a right-sided pulmonary contusion, right hemothorax and possibly right small pneumothorax. Yesterday, we ordered a chest x-ray before discharge. It was discovered that he had developed a larger right pneumothorax. A chest tube was placed by thoracic surgery. It was not seen before yesterday's chest x-ray. There may be in one there are that was very very tiny and not able to be seen on regular chest x- ray. Anyway, the patient is doing relatively well. Chest tube in place on the right. It was no leak and the patient took a deep breath or cough. Today's chest x-ray still revealed a right-sided pneumothorax. The chest tube was in good position. Progress note dated 03/10/2018 67-year-old male status post fall with multiple rib fractures on the right including ribs 2 through 8. In addition, he sustained a pneumothorax, a pulmonary contusion, and a small hemothorax. A chest tube was placed for pneumothorax. It was removed by thoracic surgery. From my perspective, the patient is cleared for discharge. His primary issue is pain. This will be present for a number of days after discharge. In addition to the injury to the right chest, the patient sustained a laceration above the left eye. That was sutured in the emergency department. He is not requiring any oxygen therapy. He does not have any respiratory distress or difficulty. He is not coughing or bringing up any phlegm. I do recommend that he take the incentive spirometer home with him and continue to use it. He has a history of hypertension, chronic alcohol abuse, CVA and seizure disorder. Objective - Vital Signs Vital signs: Vital Signs Temp 97.5 F L 03/10/18 06:00 Pulse 84 03/10/18 11:40 Resp 17 03/10/18 07:55 BP 131/74 03/10/18 06:00 Pulse Ox 94 L 03/10/18 06:00 Intake & Output 03/09/18 03/10/18 03/10/18 18:59 06:59 18:59 Intake Total 1080 Output Total 722 Balance 358 Intake: Oral 1080 Output: Chest Tube Drainage 22 Chest Tube Right Upper 22 Anterior Chest Urine 700 Other: Voiding Method Urinal Urinal # Voids 1 2 # Bowel Movements 1 - Exam No acute distress, oriented 3. Nasal O2 is not noted. The patient sitting in the chair reading the newspaper. No obvious respiratory distress or difficulty. HEENT examination is grossly unremarkable. Mucous membranes are moist. No oral lesions. There is a laceration which is been sutured above his left eye. It appears to be healing well. Neck supple. Full range of motion. No adenopathy thyromegaly or neck vein distention. Cardiovascular examination reveals regular rhythm rate. S1-S2 normal. No S3 or S4. No discernible murmur noted. Lungs reveal diminished air entry on the right side. He has tenderness to palpation in the right chest area. A few scattered rhonchi are noted. The right chest tube has been removed. There is no evidence of subcutaneous emphysema in the right chest or neck area. Abdomen soft bowel sounds are heard. No masses or tenderness. Extremities are intact. No cyanosis clubbing or edema. Skin is without rash or lesion. Neurologic examination is brief but nonfocal. - Labs CBC & Chem 7: 03/10/18 07:23 03/10/18 07:23 Labs: Abnormal Lab Results - Last 24 Hours (Table) 03/10/18 03/10/18 Range/Units 07:23 07:23 WBC 13.4 H (3.8-10.6) k/uL Neutrophils # 10.9 H (1.3-7.7) k/uL Lymphocytes # 0.9 L (1.0-4.8) k/uL Carbon Dioxide 31 H (22-30) mmol/L Glucose 116 H (74-99) mg/dL Assessment and Plan Assessment: Assessment Multiple right sided rib fractures, 2 through 8, secondary to a fall, without evidence of flail chest at this time. The patient does likely have a pulmonary contusion and a small right hemothorax. Right pneumothorax, status post chest tube insertion History of hypertension History of alcohol abuse History of seizure disorder History of CVA History of left forehead laceration Plan: Plan dated 03/05/2018 Patient will require aggressive pulmonary toileting. Encouraged patient to use incentive spirometry every hour while awake. Patient is currently getting 1500 consistently. Encouraged coughing and deep breathing. Continue on Duoneb 4 times a day and morphine for pain management. Anesthesia is unable to do epidural related to home Plavix use. [facility] protocol was ordered for potential EtOH withdrawal. Patient was started on lisinopril 10 mg daily for hypertension. Patient is able to transfer to the general medical floor without telemetry from my standpoint. Patient has been seen and cleared by trauma surgeon for transfer to the general medical floor. From the pulmonary standpoint, the patient is stable. The patient is also hemodynamically stable. Plan dated 03/06/2018 The patient continues with aggressive pulmonary toiletry. The patient will continue using the incentive spirometer every hour while awake. Interestingly continue with updrafts treatments 4 times a day and when necessary. We will also continue with adequate pain control. CIWA protocol was ordered for alcohol withdrawal. Labs and x-rays are reviewed. Additional recommendations and suggestions are forthcoming. Prognosis is guarded. Patient has been seen by trauma surgery. Plan dated 03/07/2018 The patient's doing well. His breathing is stable. He does have pain which is being controlled with pain medications. We recommend deep breathing coughing and clearing of secretions and hourly use the incentive spirometer. I did see the surgeon, the patient may be discharged home the next 24-48 hours. We will repeat a chest x-ray. Additional recommendations and suggestions are forthcoming. The patient has been hemodynamically stable since being coming into the hospital and his respiratory status is also been stable. Plan dated 03/08/2018 The patient is doing reasonably well. Chest tube is in place. It's connected to the Pleur-evac. The patient does not have any air leak. We'll continue to follow. The patient may need to stay in the hospital for a few more days. We do recommend oxygen therapy. We also recommend had doing deep breathing coughing and clearing of secretions and also use of incentive spirometer every hour while awake. We will continue to follow. Additional recommendations and suggestions are forthcoming. Prognosis is guarded. Plan dated 03/10/2018 The right-sided chest tube was placed by thoracic surgery and subsequently removed. The patient from my perspective is doing well. He is not requiring any supplemental oxygen. Patient not having any shortness of breath or difficulty breathing. Not coughing up any secretions. No coughing up of blood. His biggest issue is pain to the right chest area. The patient will follow-up with his primary care physician. We'll be happy to see him in the office for follow-up. Additional recommendations and suggestions are forthcoming. He needs to quit drinking. Time with Patient: Less than 30
[2018-03-10] MEDS: traZODone HCL 100 MG TAB PO SCH (21:16)
[2018-03-11 00:36] VITALS: RESP 18
[2018-03-11] MEDS: HYDROcodone/APAP 5-325MG 1 EACH TAB PO PRN ×3 (03:41→18:09)
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
[2018-03-11] MEDS: LACOSAMIDE 150 MG TABLET PO SCH (07:35)
[2018-03-11] MEDS: LACTULOSE 20 GM/30 ML CUP PO SCH (07:35)
[2018-03-11] MEDS: LIDOCAINE 5% PATCH TOPICAL SCH (07:35)
[2018-03-11] MEDS: ATORVASTATIN 80 MG TAB PO SCH (07:36)
[2018-03-11] MEDS: predniSONE 20 MG TAB PO SCH (07:36)
[2018-03-11] MEDS: SENNOSIDES-DOCUSATE SODIUM 1 EACH TAB PO SCH (07:36)
[2018-03-11] MEDS: ENOXAPARIN 40 MG/0.4 ML SYRINGE SQ SCH (07:36)
[2018-03-11] MEDS: amLODIPine 5 MG TAB PO SCH (07:36)
[2018-03-11] MEDS: GABAPENTIN 300 MG CAP PO SCH ×2 (07:37→17:09)
[2018-03-11] MEDS: LISINOPRIL 10 MG TAB PO SCH (07:37)
[2018-03-11] MEDS: DULoxetine HCL 20 MG CAPSULE.DR PO SCH (07:37)
[2018-03-11] MEDS: PANTOPRAZOLE 40 MG TABLET PO SCH (07:37)
[2018-03-11] MEDS: IPRATROPIUM-ALBUTEROL 3 ML NEB INHALATION SCH ×3 (08:48→15:46)
[2018-03-11 09:52] LABS: Anion Gap 12 mmol/L; Blood Urea Nitrogen 22 mg/dL (9-20); Calcium 10.1 mg/dL (8.4-10.2); Carbon Dioxide 30 mmol/L (22-30); Chloride 97 mmol/L (98-107); Glucose 126 mg/dL (74-99); Potassium 4.8 mmol/L (3.5-5.1); Sodium 139 mmol/L (137-145)
[2018-03-11 11:48] VITALS: BMI 25.5
[2018-03-11] MEDS: MULTIVITAMINS, THERA 1 EACH TAB PO SCH (12:47)
[2018-03-11] MEDS: CHOLECALCIFEROL 1,000 UNIT TAB PO SCH (12:47)
[2018-03-11] MEDS: THIAMINE 100 MG TAB PO SCH ×2 (12:47→17:09)
[2018-03-11 14:28] VITALS: BP 161/87; TEMP 98.1
[2018-03-11 16:00] VITALS: PULSE 87
--- NOTE | 2018-03-11 16:49 | P.PN ---
Subjective Progress Note Date: 03/11/18 Principal diagnosis: Flail chest, fall Progress note dated 03/06/2018 67-year-old male status post fall with multiple rib fractures on the right, ribs 2 through 8, and a laceration to the left side of his forehead. He also likely sustained a pulmonary contusion on the right side as well as a small pneumothorax and subcutaneous emphysema. He has a history of hypertension chronic alcohol abuse history of CVA and seizure disorder. Currently he is doing well. He was in the ICU for 1 day. His breathing is not a problem. He is doing well on his incentive spirometer. He is getting adequate pain control. He continues on the IV S every hour while awake as well as duo nebs 4 times a day and when necessary. In addition, he is being managed by the pain team for his right-sided chest and rib pain. He has no new complaints today. Progress note dated 03/07/2018 67-year-old male, status post fall with multiple rib fractures on the right, ribs 2 through 8. The patient also sustained a laceration to left side of his forehead area. In addition, the patient likely has a pulmonary contusion and small right-sided hemothorax. There was no pneumothorax. The patient has a history of hypertension chronic alcohol abuse CVA seizure disorder. I spoke to the surgeon who may be setting the patient home in the next day or so. The patient is doing relatively well. Other than for some pain in the right chest area, he denies any other complaints. Using his incentive spirometry routinely and religiously. I told him that when he gets discharged home E to take it with him. He denies any fever or chills. Denies any left-sided chest complaints. Not coughing up any phlegm or blood. Progress note dated 03/08/2018 67-year-old male, status post fall with multiple rib fractures on the right side. Ribs #2 through #8 were fractured. He also sustained a laceration above the left forehead area. In addition, he likely had a right-sided pulmonary contusion, right hemothorax and possibly right small pneumothorax. Yesterday, we ordered a chest x-ray before discharge. It was discovered that he had developed a larger right pneumothorax. A chest tube was placed by thoracic surgery. It was not seen before yesterday's chest x-ray. There may be in one there are that was very very tiny and not able to be seen on regular chest x- ray. Anyway, the patient is doing relatively well. Chest tube in place on the right. It was no leak and the patient took a deep breath or cough. Today's chest x-ray still revealed a right-sided pneumothorax. The chest tube was in good position. Progress note dated 03/10/2018 67-year-old male status post fall with multiple rib fractures on the right including ribs 2 through 8. In addition, he sustained a pneumothorax, a pulmonary contusion, and a small hemothorax. A chest tube was placed for pneumothorax. It was removed by thoracic surgery. From my perspective, the patient is cleared for discharge. His primary issue is pain. This will be present for a number of days after discharge. In addition to the injury to the right chest, the patient sustained a laceration above the left eye. That was sutured in the emergency department. He is not requiring any oxygen therapy. He does not have any respiratory distress or difficulty. He is not coughing or bringing up any phlegm. I do recommend that he take the incentive spirometer home with him and continue to use it. He has a history of hypertension, chronic alcohol abuse, CVA and seizure disorder. On 03/11/2018 patient seen in follow-up on medical surgical floor. He is awake and alert, in no acute distress, is able to achieve 1500 on the incentive spirometry. Room air pulse ox is 95%, he is afebrile, hemodynamically stable. Today's chest x-ray has been reviewed, only BMP was done, and is relatively unremarkable. Last chest x-ray from 03/10/2018 showed resolution of the patient 's right-sided pneumothorax, multiple right-sided rib fractures, small right- sided effusion, and atelectasis at the left lung base. Patient's pain is reasonably controlled, patient has been cleared for discharge from pulmonary perspective. Objective - Vital Signs Vital signs: Vital Signs Temp 98.1 F 03/11/18 14:27 Pulse 87 03/11/18 16:00 Resp 18 03/11/18 14:27 BP 161/87 03/11/18 14:27 Pulse Ox 95 03/11/18 15:49 Intake & Output 03/10/18 03/11/18 03/11/18 18:59 06:59 18:59 Intake Total 1240 750 480 Balance 1240 750 480 Weight 85.502 kg 85.502 kg Intake: Oral 1240 750 480 Other: Voiding Method Urinal Urinal # Voids 3 2 2 # Bowel Movements 1 0 - Exam No acute distress, oriented 3. Nasal O2 is not noted. The patient sitting in the chair reading the newspaper. No obvious respiratory distress or difficulty. HEENT examination is grossly unremarkable. Mucous membranes are moist. No oral lesions. There is a laceration which is been sutured above his left eye. It appears to be healing well. Neck supple. Full range of motion. No adenopathy thyromegaly or neck vein distention. Cardiovascular examination reveals regular rhythm rate. S1-S2 normal. No S3 or S4. No discernible murmur noted. Lungs reveal diminished air entry on the right side. He has tenderness to palpation in the right chest area. A few scattered rhonchi are noted. The right chest tube has been removed. There is no evidence of subcutaneous emphysema in the right chest or neck area. Abdomen soft bowel sounds are heard. No masses or tenderness. Extremities are intact. No cyanosis clubbing or edema. Skin is without rash or lesion. Neurologic examination is brief but nonfocal. - Labs CBC & Chem 7: 03/10/18 07:23 03/11/18 09:08 Labs: Abnormal Lab Results - Last 24 Hours (Table) 03/11/18 Range/Units 09:08 Chloride 97 L (98-107) mmol/L BUN 22 H (9-20) mg/dL Glucose 126 H (74-99) mg/dL Assessment and Plan Plan: Multiple right sided rib fractures, 2 through 8, secondary to a fall, without evidence of flail chest at this time. The patient does likely have a pulmonary contusion and a small right hemothorax. Right pneumothorax, status post chest tube insertion History of hypertension History of alcohol abuse History of seizure disorder History of CVA History of left forehead laceration Plan: He remains stable, on room air, he is tolerating ambulation, his pain is reasonably well controlled. He is working on his incentive spirometry, less chest x-ray was done on 03/10/2018 and showed resolution of the right-sided pneumothorax, small right-sided pleural effusion, and some atelectasis at the left lung base. Clinically he remains stable, and her pulmonary perspective could be considered for discharge home I performed a history & physical examination of the patient and discussed their management with my nurse practitioner, Malina Pineda. I reviewed the nurse practitioner's note and agree with the documented findings and plan of care. Lung sounds are diminished. The findings and the impression was discussed with the patient. I attest to the documentation by the nurse practitioner. Time with Patient: Less than 30
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
== END 2018-03-11 19:08 | disposition home or self-care (01) | DRG 199 ==
LOC: EC 12:54 → 2SICU 15:22 → 3SCARD 03-05 18:36 → 4MS4W 03-09 17:36
PROVIDERS: ADMIT Hospitalist; ATTEND Hospitalist
PROC: 0HQ1XZZ Repair Face Skin, External Approach (ICD-10-PCS; 2018-03-04)
PROC: 0W9900Z Drainage of Right Pleural Cavity with Drainage Device, Open Approach (ICD-10-PCS; principal; 2018-03-07)
DX: S27.2XXA Traumatic hemopneumothorax, initial encounter (principal); S22.5XXA Flail chest, initial encounter for closed fracture; S27.321A Contusion of lung, unilateral, initial encounter; F10.239 Alcohol dependence with withdrawal, unspecified; T79.7XXA Traumatic subcutaneous emphysema, initial encounter; I10 Essential (primary) hypertension; E78.5 Hyperlipidemia, unspecified; G40.909 Epilepsy, unspecified, not intractable, without status epilepticus; X31.XXXS Exposure to excessive natural cold, sequela; T33.822S Superficial frostbite of left foot, sequela; T33.821S Superficial frostbite of right foot, sequela; T33.52 Superficial frostbite of hand; R20.0 Anesthesia of skin; H91.91 Unspecified hearing loss, right ear; F31.9 Bipolar disorder, unspecified; S01.112A Laceration without foreign body of left eyelid and periocular area, initial encounter; Y92.009 Unspecified place in unspecified non-institutional (private) residence as the place of occurrence of the external cause; Z86.73 Personal history of transient ischemic attack (TIA), and cerebral infarction without residual deficits; Z87.891 Personal history of nicotine dependence; Z82.49 Family history of ischemic heart disease and other diseases of the circulatory system; Z82.0 Family history of epilepsy and other diseases of the nervous system; Z80.9 Family history of malignant neoplasm, unspecified; Z79.02 Long term (current) use of antithrombotics/antiplatelets; Z79.899 Other long term (current) drug therapy; Z79.1 Long term (current) use of non-steroidal anti-inflammatories (NSAID); Z79.52 Long term (current) use of systemic steroids; Z91.030 Bee allergy status; Z91.81 History of falling; R29.6 Repeated falls; F41.9 Anxiety disorder, unspecified; G89.29 Other chronic pain; K59.03 Drug induced constipation; M54.5 Low back pain; Y90.3 Blood alcohol level of 60-79 mg/100 ml; W10.9XXA Fall (on) (from) unspecified stairs and steps, initial encounter; T40.605A Adverse effect of unspecified narcotics, initial encounter; Z90.01 Acquired absence of eye; F10.229 Alcohol dependence with intoxication, unspecified
CPT/HCPCS: 12013; 36415; 70450; 71045; 71046; 71260; 72125; 74177; 80048; 80053; 80306; 80320; 81003; 82550; 82553; 83735; 84100; 84484; 85025; 85610; 85730; 86850; 86900; 86901; 93005; 94640; 94760; 96360; 96361; 96372; 96374; 96375; 99291

== ENCOUNTER → 2018-04-16 | Outpatient (CLI) | payer MEDICARE ==
--- NOTE | 2018-04-16 08:18 | US ---
EXAMINATION TYPE: US duplex aorta DATE OF EXAM: 04/16/2018 COMPARISON: chest x-ray CLINICAL HISTORY: Z13.6 SCREENING FOR CARDIOVASCULAR DISORDER. EXAM MEASUREMENTS: Abdominal Aorta: Proximal: 2.0cm Mid: 1.5cm Distal: 1.7cm Bifurcation: Rt: 0.9 Lt: 1.1cm Atherosclerotic changes noted. Small portion obscured by overlying bowel gas. IMPRESSION: Moderate atherosclerosis throughout the nondilated abdominal aorta. No evidence for abdom inal aortic aneurysm in the visualized portions of the abdominal aorta.
== END ==
LOC: RADUSWWP 07:36
PROVIDERS: ATTEND Family Medicine
DX: I70.0 Atherosclerosis of aorta (principal)
CPT/HCPCS: 93979

== ENCOUNTER → 2018-04-24 | Outpatient (CLI) | payer MEDICARE ==
[2018-04-24 13:50] VITALS: BP 163/80; PULSE 81; RESP 16; TEMP 97.5
== END ==
LOC: PROCWHC3 13:28
PROVIDERS: ATTEND Family Medicine
DX: M81.0 Age-related osteoporosis without current pathological fracture (principal)
CPT/HCPCS: 96372; J0897

== ENCOUNTER 2018-08-26 21:53 | Emergency (ER) | payer MEDICARE ==
[2018-08-26] MEDS ORDERED: levETIRAcetam IV 1,000 MG in SALINE 1 100ML.BAG IVPB STA (22:25)
[2018-08-26] MEDS ORDERED: SODIUM CHLORIDE 0.9% 1,000 ML IV STA (22:26)
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
[2018-08-26 22:42] LABS: Magnesium 2.1 mg/dL (1.6-2.3); Potassium 3.8 mmol/L (3.5-5.1)
[2018-08-26 22:48] LABS: HCT 41.1 % (39.0-53.0); HGB 13.7 gm/dL (13.0-17.5); MCH 30.7 pg (25.0-35.0); MCHC 33.2 g/dL (31.0-37.0); MCV 92.5 fL (80.0-100.0); Mean Platelet Volume 7.7; Platelet Count 185 k/uL (150-450); RBC 4.44 m/uL (4.30-5.90); RDW 13.7 % (11.5-15.5); WBC 5.4 k/uL (3.8-10.6)
[2018-08-26 23:33] LABS: Eosinophils # (M) 0.16 k/uL (0-0.7); Lymphocytes # (M) 2.32 k/uL (1.0-4.8); Monocytes # (M) 0.76 k/uL (0-1.0); Neutrophils # (M) 2.16 k/uL (1.3-7.7); Neutrophils % (M) 40 %; Nucleated Red Blood Cells 0 /100 WBC (0-0); Total Cells Counted 100
[2018-08-27 00:36] VITALS: BP 116/52; PULSE 67; RESP 20; TEMP 98.2
== END 2018-08-27 00:17 | disposition home or self-care (01) ==
LOC: EC 21:53
DX: G40.909 Epilepsy, unspecified, not intractable, without status epilepticus (principal); R55 Syncope and collapse; E78.5 Hyperlipidemia, unspecified; I10 Essential (primary) hypertension; F31.9 Bipolar disorder, unspecified; Z79.02 Long term (current) use of antithrombotics/antiplatelets; Z79.899 Other long term (current) drug therapy; Z79.51 Long term (current) use of inhaled steroids; Z91.030 Bee allergy status; Z87.891 Personal history of nicotine dependence; Z86.73 Personal history of transient ischemic attack (TIA), and cerebral infarction without residual deficits
CPT/HCPCS: 36415; 93005; 80048; 83735; 85025; 99284; 96365; G0480; J1953; 80320

== ENCOUNTER → 2019-02-12 | Outpatient (CLI) | payer MEDICARE ==
[2019-02-12 14:32] VITALS: RESP 16
== END | disposition home or self-care (01) ==
LOC: PROCWHC3 14:17
PROVIDERS: ATTEND Family Medicine
DX: M81.0 Age-related osteoporosis without current pathological fracture (principal)
CPT/HCPCS: 96372; J0897

== ENCOUNTER → 2020-03-29 | Outpatient (CLI) | payer MEDICARE ==
[2020-03-29 09:18] VITALS: BP 174/69; PULSE 80; RESP 16; TEMP 97.8
== END | disposition home or self-care (01) ==
LOC: PROCWHC3 09:09
PROVIDERS: ATTEND Family Medicine
DX: M81.0 Age-related osteoporosis without current pathological fracture (principal)

== ENCOUNTER → 2020-10-04 | Outpatient (CLI) | payer MEDICARE ==
[~2020-10-04] MED LIST changes: +DENOSUMAB 60 MG/ML 1 ML SYRINGE SQ NR; -DENOSUMAB 60 MG/ML 1 ML SYRINGE SQ ONE
[2020-10-04 14:10] VITALS: BP 129/71; PULSE 71; RESP 16; TEMP 97.9
== END ==
LOC: PROCWHC3 14:00
PROVIDERS: ATTEND Family Medicine
DX: M81.0 Age-related osteoporosis without current pathological fracture (principal); Z91.030 Bee allergy status; Z87.891 Personal history of nicotine dependence
CPT/HCPCS: 96372; J0897

== ENCOUNTER → 2021-09-22 | Outpatient (CLI) | payer MEDICARE ==
--- NOTE | 2021-09-23 07:57 | NM ---
EXAMINATION TYPE: NM stress cardiolite complete DATE OF EXAM: 09/23/2021 COMPARISON: NONE HISTORY: History of hypertension and hypercholesterolemia presents with right-sided chest pain. Histo ry of tobacco use in the past. TECHNIQUE: After the intravenous administration of 9.8 mCi Tc 99m Sestamibi - Rest images obtained 4 5 minutes post injection. The patient exercised using a LANG protocol and 1 minute prior to peak e xercise was injected with 24.7 mCi Tc 99m Sestamibi - Stress images obtained 15 minutes post injectio n. FINDINGS: Targeted heart rate was achieved during performance of the study. Review of stress and rest SPECT hemalatha ges demonstrates poor uptake involving the inferior left ventricular wall at stress and rest images s uspicious for old infarct versus artifact. No reversible ischemia clearly seen. Gated analysis shows satisfactory wall motion with an estimated left ventricular ejection fraction of 69 %. IMPRESSION: No scintigraphic evidence for reversible ischemia
--- NOTE | 2021-09-23 13:28 | CA ---
Exercise Stress Test Report Name: Saeed Lopez Exam Date: 09/22/2021 10:32 Exam Location: [place] Stress Ht (in): 72 Wt (lb): 205 BSA: 2.15 Ordering Phys: Murray George MD Referring Phys: Leydi Lim PAC Technologist: Raymon Baker Age: 70 Gender: M : 1950 Procedure CPT: Indications: R07.89 ICD-10 Codes: Patient History: CHEST PAIN, DIFFICULTY IN BREATHING, HTN, PRIOR STROKE, ELEVATED CHOLESTEROL LEVELS, FAMILY HISTORY, FORMER SMOKER - 1 PPD X 10 YEARS - QUIT 17 YEARS AGO Medications: ATORVASTATIN,,,,, Meds past 24 hrs: Pretest Chest Pain: STRESS TEST Quinten Protocol Exercise Duration (min:sec): 07:[address] Depressions (mm): Angina Score: Alexis Score: Resting HR (bpm): 85 Peak HR (bpm): 145 Resting BP (mmHg): 146 / 84 Peak BP (mmHg): 208 / 78 MPHR: 151 Target HR: 128 % MPHR: 96 METS: 9.8 Total Dose: Peak Dose: Atropine: Double Product: 19322 BP Response: Stress Termination: TARGET HR REACHED/MAX EXERTION Stress Symptoms: DIFFICULTY IN BREATHING Stress Summary: ECG ANALYSIS Resting ECG: Stress ECG: CONCLUSIONS Excellent exercise tolerance Normal EKG in response to exercise Please follow-up on the Cardiolite on a separate report Dr. Grzegorz Valencia MD (Electronically Signed) Final Date: 23 Sep 2021 13:28
== END | disposition home or self-care (01) ==
LOC: RADNMMAIN 08:08
PROVIDERS: ATTEND Family Medicine
DX: R07.89 Other chest pain (principal)
CPT/HCPCS: 93017; 78452; A9500

== ENCOUNTER → 2021-11-22 | Outpatient (CLI) | payer MEDICARE ==
[2021-11-22 12:57] VITALS: BP 153/94; PULSE 76; RESP 16; TEMP 97.8
== END ==
LOC: PROCWHC3 12:46
PROVIDERS: ATTEND Family Medicine
DX: M81.0 Age-related osteoporosis without current pathological fracture (principal); Z87.891 Personal history of nicotine dependence; Z91.030 Bee allergy status
CPT/HCPCS: 96372; J0897

== ENCOUNTER → 2022-08-10 | Outpatient (CLI) | payer MEDICARE ==
[2022-08-10 21:58] LABS: Basophils # (A) 0.06 X 10*3/uL (0.00-0.10); Basophils % (A) 1.5 %; Eosinophils # (A) 0.16 X 10*3/uL (0.04-0.35); Eosinophils % (A) 3.9 %; HCT 43.9 % (39.6-50.0); Immature Grans, Automated 0.2 %; Lymphocytes # (A) 0.88 X 10*3/uL (0.90-5.00); Lymphocytes % (A) 21.7 %; MCH 31.5 pg (27.0-32.0); MCHC 31.9 g/dL (32.0-37.0); MCV 98.7 fL (80.0-97.0); Mean Platelet Volume 11.1 fL (9.5-12.2); Monocytes # (A) 0.48 X 10*3/uL (0.20-1.00); Monocytes % (A) 11.8 %; NRBC Per 100 WBC 0 /100 WBCS (0.0-0.0); Neutrophils # (A) 2.47 X 10*3/uL (1.80-7.70); Neutrophils % (A) 60.9 %; Platelet Count 187 X 10*3/uL (140-440); RBC 4.45 X 10*6/uL (4.40-5.60); RDW 12.7 % (11.5-14.5); WBC 4.06 X 10*3/uL (4.50-10.00)
[2022-08-11 00:17] LABS: ALT 36 U/L (10-49); AST 28 U/L (14-35); African American GFR (CKD) 99.9 (60.0-200.0); Albumin 4.5 g/dL (3.8-4.9); Alkaline Phosphatase 45 U/L (41-126); BUN/Creat Ratio 10.33 Ratio (12.00-20.00); Blood Urea Nitrogen 9.3 mg/dL (9.0-27.0); Calcium 9.9 mg/dL (8.7-10.3); Carbon Dioxide 24.9 mmol/L (20.0-27.5); Chloride 101 mmol/L (96-109); Chol/HDL Ratio 2.94 Ratio; Globulin 2.5 g/dL (1.6-3.3); Glucose 118 mg/dL (70-110); LDL Cholesterol,Calculated 85.8 mg/dL (0.0-131.0); Magnesium 2.3 mg/dL (1.5-2.4); Non-African American GFR(CKD) 86.2 (60.0-200.0); Potassium 4.1 mmol/L (3.5-5.5); Sodium 138 mmol/L (135-145)
[2022-08-11 01:06] LABS: GGT 114 U/L (0-73)
== END | disposition home or self-care (01) ==
LOC: LABWHC1 11:18
PROVIDERS: ATTEND Physician Assistant Medical
DX: Z00.01 Encounter for general adult medical examination with abnormal findings (principal); Z12.5 Encounter for screening for malignant neoplasm of prostate; Z13.220 Encounter for screening for lipoid disorders; Z13.1 Encounter for screening for diabetes mellitus; F10.10 Alcohol abuse, uncomplicated
CPT/HCPCS: 84425; 80061; 80053; 82607; 82746; 82977; 83735; 85025; 83036; 36415; G0103

== ENCOUNTER → 2022-12-06 | Outpatient (CLI) | payer MEDICARE ==
--- NOTE | 2022-12-07 17:32 | CA ---
Transthoracic Echo Report Name: Saeed Lopez Age: 72 Gender: M : 1950 Exam Date: 12/06/2022 15:04 Exam Location: [place] Echo Ht (in): 72 Wt (lb): 210 Ordering Physician: Murray George MD Attending/Referring Phys: Leydi Lim PAC Coding Analyst Hailey Mckeon RDCS Procedure CPT: Indications: R06.09 Other forms of dyspnea Cardiac Hx: Technical Quality: Fair Contrast 1: Total Dose (mL): Contrast 2: Total Dose (mL): MEASUREMENTS (Male / Female) Normal Values 2D ECHO LV Diastolic Diameter PLAX 4.4 cm 4.2 - 5.9 / 3.9 - 5.3 cm LV Systolic Diameter PLAX 2.3 cm IVS Diastolic Thickness 1.0 cm 0.6 - 1.0 / 0.6 - 0.9 cm LVPW Diastolic Thickness 1.0 cm 0.6 - 1.0 / 0.6 - 0.9 cm LV Relative Wall Thickness 0.5 RV Internal Dim ED PLAX 3.4 cm LA Volume 38.8 cm??? 18 - 58 / 22 - 52 cm??? M-MODE Aortic Root Diameter MM 3.1 cm LA Systolic Diameter MM 2.9 cm LA Ao Ratio MM 0.9 AV Cusp Separation MM 1.7 cm DOPPLER AV Peak Velocity 108.2 cm/s AV Peak Gradient 4.7 mmHg AV Mean Velocity 82.8 cm/s AV Mean Gradient 2.9 mmHg AV Velocity Time Integral 20.5 cm LVOT Peak Velocity 85.6 cm/s LVOT Peak Gradient 2.9 mmHg LVOT Velocity Time Integral 16.9 cm MV Area PHT 3.3 cm??? Mitral E Point Velocity 48.4 cm/s Mitral A Point Velocity 76.0 cm/s Mitral E to A Ratio 0.6 MV Deceleration Time 229.1 ms MV E' Velocity 5.3 cm/s Mitral E to MV E' Ratio 9.1 TR Peak Velocity 212.3 cm/s TR Peak Gradient 18.0 mmHg Right Ventricular Systolic Press 23.0 mmHg FINDINGS Left Ventricle Normal Left ventricular size, wall thickness, systolic function. basal inferio- lateral wall hypokinesia. Grade 1 Left ventricular diastolic filling pattern. Left ventricular ejection fraction is estimated at 55-60%. Right Ventricle Normal right ventricular size and function. Right ventricular systolic pressure within normal limits. Right Atrium Normal right atrial size. Left Atrium Normal left atrial size. Mitral Valve Structurally normal mitral valve. Mild mitral annular calcification. Mild mitral regurgitation. Aortic Valve Trileaflet aortic valve. Aortic valve sclerosis. No aortic stenosis. No aortic regurgitation. Tricuspid Valve Structurally normal tricuspid valve. Mild tricuspid regurgitation. Pulmonic Valve Structurally normal pulmonic valve. Pericardium No pericardial effusion. Aorta Normal size aortic root and proximal ascending aorta. CONCLUSIONS Left ventricular ejection fraction is estimated at 55% Normal LV size and wall thickness Mild hypokinesia basal inferolateral wall Grade 1 diastolic dysfunction No significant chamber size abnormality No significant valvular pathology No prior echo to compare with Previewed by: Dr Sae Baker (Electronically Signed) Final Date: 07 December 2022 17:31
== END | disposition home or self-care (01) ==
LOC: RADECHMAIN 14:40
PROVIDERS: ATTEND Family Medicine
DX: I08.1 Rheumatic disorders of both mitral and tricuspid valves (principal); R06.09 Other forms of dyspnea
CPT/HCPCS: 93306

== ENCOUNTER → 2022-12-28 | Outpatient (CLI) | payer MEDICARE ==
--- NOTE | 2022-12-28 11:23 | US ---
EXAMINATION TYPE: US carotid duplex BILAT DATE OF EXAM: 12/28/2022 COMPARISON: Carotid ultrasound 08/02/2021 CLINICAL INDICATION: Male, 72 years old with history of I65.23 OCCLUSION AND STENOSIS; stenosis rt en darectomy x 8 years ago TECHNIQUE: Carotid duplex ultrasound examination. Indirect Doppler criteria was utilized. FINDINGS: EXAM MEASUREMENTS: RIGHT: Peak Systolic Velocity (PSV) cm/sec ----- Right CCA: 86.4 ----- Right ICA: 63.7 ----- Right ECA: 113 ICA/CCA ratio: 7.3 RIGHT: End Diastole cm/sec ----- Right CCA: 16.9 ----- Right ICA: 13.6 ----- Right ECA: 13.6 LEFT: Peak Systolic Velocity (PSV) cm/sec ----- Left CCA: 101 ----- Left ICA: 116 ----- Left ECA: 136 ICA/CCA ratio: 1.1 LEFT: End Diastole cm/sec ----- Left CCA: 21.7 ----- Left ICA: 19.9 ----- Left ECA: 16.3 VERTEBRALS (direction of flow): Right Vertebral: Antegrade Left Vertebral: Antegrade Rhythm: Normal BALANCE TRUER NOTES: No significant stenosis seen Mild atherosclerotic plaque in the bilateral carotid bulbs. IMPRESSION: No ultrasound evidence for hemodynamically significant stenosis of the visualized bilateral carotid p rocesses. Criteria for Assigning % of Stenosis / Diameter reduction (Estimation based on the indirect measurements of the internal carotid artery velocities (ICA PSV). 1. Normal (no stenosis)=ICA PSV < 125 cm/s: ratio < 2.0: ICA EDV<40 cm/s. 2. Less than 50% stenosis=ICA PSV < 125 cm/s: ratio < 2.0: ICA EDV<40 cm/s. 3. 50 to 69% stenosis=ICA PSV of 125 to 230 cm/s: ration 2.0 ? 4.0: ICA EDV 40-100 cm/s. 4. Greater than 70% stenosis to near occlusion= ICA PSV > 230 cm/s: ratio > 4.0: ICA EDV > 100 cm/s. 5. Near occlusion= ICA PSV velocities may be low or undetectable: variable ratio and ICA EDV. 6. Total occlusion=unable to detect flow.
== END | disposition home or self-care (01) ==
LOC: RADUSWWP 10:02
PROVIDERS: ATTEND Psychiatry & Neurology Neurology
DX: I65.23 Occlusion and stenosis of bilateral carotid arteries (principal)
CPT/HCPCS: 93880

== ENCOUNTER 2023-02-06 15:04 | Emergency (ER) | payer MEDICARE ==
[2023-02-06] MEDS ORDERED: TOPICAL SKIN ADHESIVE 1 EACH AMP TOPICAL ONE (15:39)
[2023-02-06 15:41] VITALS: BP 92/56; PULSE 54; RESP 18; TEMP 98
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
--- NOTE | 2023-02-06 16:22 | CT ---
EXAMINATION TYPE: CT brain wo con CT DLP: 1167.4 mGycm, Automated exposure control for dose reduction was used. DATE OF EXAM: 02/06/2023 4:10 PM COMPARISON: Prior CT Brain from 03/04/2018. CLINICAL INDICATION:Male, 72 years old with history of fall, fall TECHNIQUE: Brain: Multiple axial CT images of the brain were obtained without IV contrast. Coronal and sagittal reformats reviewed. FINDINGS: Brain: Extra-axial spaces: No abnormal extra-axial fluid collections. Stable small arachnoid cyst in the ant erior left temporal fossa measuring up to 2.8 cm. Ventricular system: Within normal limits Cerebral parenchyma: Cerebral atrophy. No acute intraparenchymal hemorrhage or mass effect. The salcedo -white junction is well differentiated. Scattered hypoattenuating areas are seen within the white mat ter. Remote injury to the left frontal lobe with encephalomalacia demonstrated. Additional remote in jury to the left occipital lobe with encephalomalacia demonstrated. Tiny remote lacunar injury to the left thalamus. Cerebellum: Unremarkable. Mass effect: No evidence of midline shift. Intracranial vasculature: Atherosclerotic calcifications of the intracranial vessels. Soft tissues: Small right paravertebral soft tissue contusion with laceration. There is gas tracking along the right lateral rectus muscle. Calvarium/osseous structures: No depressed skull fracture. Right superior maxillary sinus wall fractu re. Paranasal sinuses and mastoid air cells: Air-fluid level within the right maxillary sinus. The mastoi d air cells are clear. The remaining paranasal sinuses are clear. Visualized orbits: Orbital contents are intact. IMPRESSION: 1. No acute intracranial process. 2. Acute fracture of the superior wall of the right maxillary sinus with air-fluid level. Right perio rbital contusion identified with laceration. 3. Nonspecific white matter changes likely related to chronic small vessel ischemic disease. 4. Remote injuries to the left occipital lobe and left frontal lobe. Tiny remote lacunar injury to th e left thalamus.
== END 2023-02-06 17:30 | disposition home or self-care (01) ==
LOC: EC 15:04
DX: S02.40CA Maxillary fracture, right side, initial encounter for closed fracture (principal); S01.81XA Laceration without foreign body of other part of head, initial encounter; I10 Essential (primary) hypertension; E78.5 Hyperlipidemia, unspecified; F31.9 Bipolar disorder, unspecified; F12.90 Cannabis use, unspecified, uncomplicated; Z87.891 Personal history of nicotine dependence; Z79.02 Long term (current) use of antithrombotics/antiplatelets; Z79.899 Other long term (current) drug therapy; Z91.030 Bee allergy status; W18.30XA Fall on same level, unspecified, initial encounter
CPT/HCPCS: 12013; 70450; 99284

== ENCOUNTER 2023-03-23 09:03 | Emergency (ER) | payer MEDICARE ==
[2023-03-23 09:43] VITALS: TEMP 97.3
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
[2023-03-23 10:21] LABS: Basophils % (A) 0 %; Eosinophils # (A) 0.1 k/uL (0-0.7); Eosinophils % (A) 1 %; HCT 50.2 % (39.0-53.0); HGB 16.7 gm/dL (13.0-17.5); Lymphocytes # (A) 0.3 k/uL (1.0-4.8); Lymphocytes % (A) 2 %; MCH 32.6 pg (25.0-35.0); MCHC 33.3 g/dL (31.0-37.0); MCV 97.9 fL (80.0-100.0); Mean Platelet Volume 7.6; Monocytes # (A) 0.8 k/uL (0-1.0); Monocytes % (A) 5 %; Neutrophils # (A) 16.1 k/uL (1.3-7.7); Neutrophils % (A) 92 %; Platelet Count 262 k/uL (150-450); RBC 5.13 m/uL (4.30-5.90); RDW 12.9 % (11.5-15.5); WBC 17.4 k/uL (3.8-10.6)
[2023-03-23 10:34] LABS: African American GFR (CKD) 30 (>60 ml/min/1.73 sqM); Albumin 4.9 g/dL (3.5-5.0); Alkaline Phosphatase 72 U/L (38-126); Anion Gap 21 mmol/L; Blood Urea Nitrogen 24 mg/dL (9-20); Carbon Dioxide 18 mmol/L (22-30); Chloride 100 mmol/L (98-107); Glucose 146 mg/dL (74-99); Non-African American GFR(CKD) 26 (>60 ml/min/1.73 sqM); Potassium 4.3 mmol/L (3.5-5.1); Sodium 139 mmol/L (137-145); Total Bilirubin 0.7 mg/dL (0.2-1.3); Total Protein 7.9 g/dL (6.3-8.2)
--- NOTE | 2023-03-23 10:37 | XR ---
EXAMINATION TYPE: XR chest 2V DATE OF EXAM: 03/23/2023 COMPARISON: 03/10/2019 HISTORY: Shortness of breath TECHNIQUE: Frontal and lateral views of the chest are obtained. FINDINGS: Scattered senescent parenchymal changes noted. Hyperinflation compatible with COPD. No evidence for infiltrate. No evidence for atelectasis. Heart size is stable. Mediastinal structures are stable and grossly unremarkable. No evidence for hilar prominence. Degenerative changes dorsal spine. Healed multiple right-sided rib deformities. IMPRESSION: 1. No evidence for acute pulmonary disease.
[2023-03-23 10:53] LABS: INR 1.1 (<1.2); Partial Thromboplastin Time 21.7 sec (22.0-30.0); Prothrombin Time 11.4 sec (10.0-12.5)
[2023-03-23] MEDS ORDERED: PIPERACILLIN-TAZOBACTAM 3.375 GM in SODIUM CHLORIDE 0.9% 100 ML IVPB STA (11:08)
[2023-03-23] MEDS ORDERED: VANCOMYCIN IV PER PHARMACY 1 EACH MISC MISCELLANE PRN (11:08)
[2023-03-23] MEDS ORDERED: VANCOMYCIN 1,750 MG in SODIUM CHLORIDE 0.9% 500 ML 500 ML IVPB STA (11:12)
[2023-03-23] MEDS ORDERED: SODIUM CHLORIDE 0.9% 1,000 ML IV SCH (11:15)
[2023-03-23 11:19] LABS: ALT 1096 U/L (4-49)
[2023-03-23 11:50] LABS: AST 3152 U/L (17-59)
[2023-03-23] MEDS: SODIUM CHLORIDE 0.9% 500 ML 500 ML IV SCH ×5 (12:10→15:17)
--- NOTE | 2023-03-23 12:21 | CT ---
EXAMINATION TYPE: CT ChestAbdPelvis wo con DATE OF EXAM: 03/23/2023 COMPARISON: 03/04/2018 HISTORY: 72-year-old male SOB, pain under Rt rib cage TECHNIQUE: Contiguous axial scanning of the chest, abdomen, and pelvis without IV contrast. Coronal a nd sagittal reconstructions performed. CT DLP: 785 mGycm Automated exposure control for dose reduction was used. FINDINGS: Chest: Heart is mildly enlarged without pericardial effusion. Extensive three-vessel coronary calcifications are present and are remarkable for coronary artery disease. Ectatic ascending aorta 3.9 cm. Moderate atherosclerotic arch calcifications. There is conventional a rterial vessel branching anatomy. Some dependent endotracheal debris, axial image 15. Large caliber to the main right and left pulmonary arteries measuring up to 2.9 cm suggesting underly ing pulmonary artery hypertension. Patchy opacities noted in lower lungs likely representing combination of atelectasis and scarring. Healed fracture deformities of multiple right-sided ribs. 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 ABDOMEN: Small hiatal hernia. Noncontrast appearance of the liver, adrenal glands, kidneys, spleen, and pancreas show no gross abno rmal body. The gallbladder is hydropic measuring 4.3 cm wide with moderate pericholecystic inflammation and mild edema. Moderate atherosclerotic calcifications infrarenal abdominal aorta and iliac arteries. Retroaortic le ft renal vein. No dilated small bowel, free fluid, or free air. No mesenteric or retroperitoneal lymphadenopathy. Normal appendix. Scattered mild stool. Prominent solid stool distending the rectum up to 7.3 cm wide. PELVIS: Bladder partially distended. Prostatomegaly at 5.5 cm wide. Pelvic fluid was. No abnormal fluid colle ction in the pelvis or pelvic lymphadenopathy. BONES: Either degenerative or posttraumatic bony ankylosis T7-T8. Hypertrophic facet arthropathy mid to lowe r lumbar spine with grade 1 anterolisthesis L4-L5. Suspect old healed fracture deformity of the upper sternal body and multiple chronic rib fracture deformities on the right resulting in chronic size de formity of the right hemithorax. IMPRESSION: 1. POSITIVE INFLAMMATORY CHANGES AT THE GALLBLADDER. CORRELATE FOR ACUTE CHOLECYSTITIS. 2. MILD CARDIOMEGALY WITH EXTENSIVE CORONARY ARTERY DISEASE. PULMONARY ARTERIAL HYPERTENSION. PROMINE NT OPACITIES IN THE LOWER LUNGS LIKELY REPRESENTING A COMBINATION OF ATELECTASIS AND SCARRING. 3. MULTIPLE HEALED FRACTURE DEFORMITIES OF THE RIGHT-SIDED RIBS. THE RIGHT POSTERIOR EIGHTH AND NINTH RIBS ARE CHRONICALLY UNUNITED. THE BONY CHANGES RESULT IN CHRONIC SIZE DEFORMITY OF THE RIGHT HEMITH ORAX. 4. SMALL HIATAL HERNIA.
[2023-03-23 12:59] LABS: Amylase 69 U/L (30-110); Lipase 51 U/L (23-300)
--- NOTE | 2023-03-23 13:31 | US ---
EXAMINATION TYPE: US gallbladder DATE OF EXAM: 03/23/2023 COMPARISON: None CLINICAL INDICATION: Male, 72 years old with history of RUQ pain, abnormal CT; Abnormal CT. TECHNIQUE: Multiple sonographic images of the right upper quadrant are obtained. FINDINGS: EXAM MEASUREMENTS: Liver Length: 18.2 cm Gallbladder Wall: 0.4 cm CBD: 0.6 cm Right Kidney: 11.3 x 4.6 x 5.5 cm [employer] NOTES: Very limited due to bowel gas and patients deep and rapid breathing Pancreas: Obscured by bowel gas Liver: Limited. Scanned through ribs. Left lobe not well seen. Gallbladder: Limited, appears enlarged in size = 10.2 cm. Possible trace fluid seen adjacent to GB Evidence for sonographic Lugo's sign: neg CBD: wnl Right Kidney: No hydronephrosis or masses seen, limited lower pole IMPRESSION: 1. Limited evaluation of the liver and pancreas described above. 2 2. No cholelithiasis or biliary ductal dilatation. 3. Mild distention of the gallbladder but sonographic Lugo's sign is negative
[2023-03-23] MEDS ORDERED: HYDROmorphone 1 MG/ML 1 ML SYRINGE IVP STA (14:06)
[2023-03-23 14:29] VITALS: RESP 18
[2023-03-23 15:21] VITALS: BP 139/78; PULSE 88
[2023-03-24] MEDS ORDERED: VANCOMYCIN 1,500 MG in SODIUM CHLORIDE 0.9% 500 ML 500 ML IVPB SCH (09:00)
== END 2023-03-23 15:19 | disposition other institution (70) ==
LOC: EC 09:03
DX: A41.9 Sepsis, unspecified organism (principal); N17.9 Acute kidney failure, unspecified; K81.0 Acute cholecystitis; R74.01 Elevation of levels of liver transaminase levels; R79.89 Other specified abnormal findings of blood chemistry; R00.0 Tachycardia, unspecified; I10 Essential (primary) hypertension; E78.5 Hyperlipidemia, unspecified; G40.909 Epilepsy, unspecified, not intractable, without status epilepticus; F31.9 Bipolar disorder, unspecified; F12.90 Cannabis use, unspecified, uncomplicated; Z79.02 Long term (current) use of antithrombotics/antiplatelets; Z79.899 Other long term (current) drug therapy; Z86.73 Personal history of transient ischemic attack (TIA), and cerebral infarction without residual deficits; Z87.891 Personal history of nicotine dependence; Z91.030 Bee allergy status
CPT/HCPCS: 36415; 93005; 85379; 83880; 80053; 82150; 83605; 83690; 84484; 85025; 85610; 85730; 87040; 87636; 71046; 76705; 71250; 74176; 99285; 96365; 96366 ×2; 96368; 96375; J2543; J3370; J1170

== ENCOUNTER 2023-05-10 11:48 | Inpatient (IN) | payer MEDICARE ==
[2023-05-10 12:28] LABS: Basophils # (A) 0.1 k/uL (0-0.2); Basophils % (A) 1 %; Eosinophils # (A) 0.1 k/uL (0-0.7); Eosinophils % (A) 1 %; HCT 32.2 % (39.0-53.0); HGB 11.1 gm/dL (13.0-17.5); Lymphocytes # (A) 1.5 k/uL (1.0-4.8); Lymphocytes % (A) 20 %; MCH 31.9 pg (25.0-35.0); MCHC 34.5 g/dL (31.0-37.0); MCV 92.5 fL (80.0-100.0); Mean Platelet Volume 7.7; Monocytes # (A) 0.5 k/uL (0-1.0); Monocytes % (A) 7 %; Neutrophils # (A) 5.1 k/uL (1.3-7.7); Neutrophils % (A) 69 %; Platelet Count 229 k/uL (150-450); RBC 3.48 m/uL (4.30-5.90); RDW 13.6 % (11.5-15.5); WBC 7.4 k/uL (3.8-10.6)
[2023-05-10 12:39] LABS: INR 1.1 (<1.2); Partial Thromboplastin Time 25.4 sec (22.0-30.0); Prothrombin Time 11.9 sec (10.0-12.5)
[2023-05-10 12:55] LABS: ALT 21 U/L (4-49); AST 23 U/L (17-59); African American GFR (CKD) 72 (>60 ml/min/1.73 sqM); Albumin 4.5 g/dL (3.5-5.0); Alkaline Phosphatase 76 U/L (38-126); Anion Gap 14 mmol/L; Blood Urea Nitrogen 14 mg/dL (9-20); Calcium 9.4 mg/dL (8.4-10.2); Carbon Dioxide 24 mmol/L (22-30); Chloride 100 mmol/L (98-107); Glucose 111 mg/dL (74-99); Magnesium 1.7 mg/dL (1.6-2.3); Non-African American GFR(CKD) 62 (>60 ml/min/1.73 sqM); Potassium 3.9 mmol/L (3.5-5.1); Sodium 138 mmol/L (137-145); Total Bilirubin 0.8 mg/dL (0.2-1.3); Total Protein 7.6 g/dL (6.3-8.2)
--- NOTE | 2023-05-10 12:59 | XR ---
EXAMINATION TYPE: XR chest 2V DATE OF EXAM: 05/10/2023 COMPARISON: 03/23/2023 INDICATION: Chest pain short of breath TECHNIQUE: Frontal and lateral views of the chest are obtained. FINDINGS: The heart size is normal. The pulmonary vasculature is normal. The lungs are clear. No suspicious infiltrates are evident. Old right rib fractures are evident. IMPRESSION: 1. No acute pulmonary process.
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
[2023-05-10] MEDS ORDERED: ASPIRIN 81 MG PO STA (15:56)
[2023-05-10] MEDS: NITROGLYCERIN OINT 1 INCH/GM PACKET TOPICAL SCH (18:23)
[2023-05-10] MEDS ORDERED: SENNOSIDES-DOCUSATE SODIUM 1 EACH TAB PO PRN (18:51)
[2023-05-10] MEDS ORDERED: DOCUSATE 100 MG CAP PO PRN (18:51)
[2023-05-10] MEDS ORDERED: polyethylene glycoL 3350 17 GM POWD.PACK PO PRN (18:51)
[2023-05-10] MEDS ORDERED: IPRATROPIUM-ALBUTEROL 3 ML NEB INHALATION PRN (18:51)
[2023-05-10] MEDS ORDERED: MELATONIN 5 MG TABLET PO PRN (18:51)
[2023-05-10] MEDS: DULoxetine HCL 20 MG CAPSULE.DR PO SCH (19:50)
[2023-05-10] MEDS: CYPROHEPTADINE 4 MG TABLET PO SCH (19:51)
[2023-05-10] MEDS: ATORVASTATIN 80 MG TAB PO SCH (19:51)
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
[2023-05-11] MEDS: NITROGLYCERIN OINT 1 INCH/GM PACKET TOPICAL SCH ×4 (02:34→17:25)
[2023-05-11] MEDS: CYPROHEPTADINE 4 MG TABLET PO SCH ×4 (05:32→20:27)
--- NOTE | 2023-05-11 07:12 | CT ---
EXAM: CT Angiography Chest With Intravenous Contrast CLINICAL HISTORY: ITS.REASON CT Reason: elevated D dimer, exertional dyspnea TECHNIQUE: Axial computed tomographic angiography images of the chest with intravenous contrast. CTDI is 57.6 mGy and DLP is 321.1 mGy-cm. This CT exam was performed using one or more of the following dose reduction techniques: automated exposure control, adjustment of the mA and/or kV according to patient size, and/or use of iterative reconstruction technique. MIP reconstructed images were created and reviewed. COMPARISON: 03/23/23 FINDINGS: Pulmonary arteries: Unremarkable. No pulmonary embolism. Aorta: No filling defects in the pulmonary arteries to suggest thrombus. Tortuous ectatic calcified thoracic aorta again noted. Evaluation for aortic dissection, Limited on this contrast for optimal opacification of the pulmonary arteries. Lungs: Streaky densities in the right upper lung and lung bases, likely atelectasis/scarring. Streaky density in the inferior lingula, likely atelectasis/scarring. No mass. Pleural space: Unremarkable. No significant effusion. No pneumothorax. Heart: Coronary artery calcifications. No cardiomegaly. No significant pericardial effusion. No evidence of RV dysfunction. Bones/joints: Redemonstration of chronic rib deformities in the right. Degenerative changes in the thoracic spine. No acute fracture. No dislocation. Soft tissues: Soft tissue stranding in the visualized gallbladder fossa and apparent thickening of the visualized gallbladder wall. Recommend correlation with HIDA scan and/or ultrasound for further evaluation. Lymph nodes: Unremarkable. No enlarged lymph nodes. IMPRESSION: 1. Negative for pulmonary embolism. 2. Finding in the visualized right upper abdomen which raises possibility of cholecystitis, similar to the prior study. Recommend correlation and follow-up imaging/HIDA scan as indicated. 3. Additional findings as described, unchanged.
[2023-05-11 08:36] LABS: Chol/HDL Ratio 3.27 Ratio
[2023-05-11] MEDS ORDERED: ASPIRIN 325 MG TAB PO SCH (09:00)
[2023-05-11] MEDS: ENOXAPARIN 40 MG/0.4 ML SYRINGE SQ SCH (10:19)
[2023-05-11] MEDS: MULTIVITAMINS, THERA 1 EACH TAB PO SCH (10:20)
[2023-05-11] MEDS: CLOPIDOGREL 75 MG TAB PO SCH (10:20)
[2023-05-11] MEDS: DULoxetine HCL 20 MG CAPSULE.DR PO SCH ×2 (10:20→20:27)
[2023-05-11] MEDS: amLODIPine 5 MG TAB PO SCH (10:20)
[2023-05-11] MEDS: FINASTERIDE 5 MG TAB PO SCH (10:20)
[2023-05-11] MEDS: TAMSULOSIN 0.4 MG CAP.ER.24H PO SCH (10:20)
[2023-05-11] MEDS: FOLIC ACID 1 MG TAB PO SCH (10:20)
[2023-05-11] MEDS: PANTOPRAZOLE 40 MG TABLET PO SCH (10:20)
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
--- NOTE | 2023-05-11 14:01 | P.PN ---
Subjective Progress Note Date: 05/11/23 Hospital Course: 72-year-old male with history of hypertension, dyslipidemia, seizure disorder, GERD, stroke presenting with exertional dyspnea. Labs vitals signs pulse is unremarkable. D-dimer was elevated to 1.7. CTA chest did not show any acute PE, right upper abdomen possible cholecystitis. EKG showed sinus tachycardia. Patient admitted for further cardiac workup. Cardiology consulted. Pending echocardiogram and stress test. Subjective: Examined at bedside. No acute events overnight. Pertinent positives and negatives as discussed above, a complete review of systems was performed and all other systems are negative. Vitals Signs Reviewed. General: nontoxic, no distress, appears at stated age Derm: warm, dry Head: atraumatic, normocephalic, symmetric Eyes: EOMI, no lid lag, anicteric sclera Mouth: no lip lesion, mucus membranes moist Cardiovascular: S1S2 reg, no murmur Lungs: CTA bilateral, no rhonchi, no rales , no accessory muscle use Abdominal: soft, nontender to palpation, no guarding, no appreciable organomegaly Ext: no gross muscle atrophy, no edema, no contractures Neuro: CN II-XI grossly intact, no focal neuro deficits Psych: Alert, oriented, appropriate affect Data Reviewed Today: Pertinent Labs: Total cholesterol 110, LDL 55, troponin negative 3 Imaging: EKG independently interpreted from this morning, shows nonspecific T- wave changes in septal leads. Assessment and Plan: Active: Atypical chest pain, ACS ruled out History of stroke Hypertension Dyslipidemia -Cardiology note reviewed, pending echocardiogram and stress test -Aspirin 81 mg, atorvastatin 80 mg, Plavix 75 mg -CTA chest showed findings possibly indicating cholecystitis, right upper quadrant ultrasound pending -Continue telemetry -Amlodipine 5 mg daily Chronic: Seizure disorder GERD BPH DVT ppx: Lovenox Code status: Full code Anticipated discharge place: Pending clinical course Anticipated discharge time: Pending clinical course Objective - Vital Signs Vital signs: Vital Signs Temp 98.1 F 05/11/23 07:00 Pulse 82 05/11/23 07:00 Resp 16 05/11/23 07:00 BP 158/92 05/11/23 07:00 Pulse Ox 93 L 05/11/23 09:53 FiO2 Intake & Output 05/10/23 05/11/23 05/11/23 18:59 06:59 18:59 Weight 97.522 kg Other: # Voids 3 - Labs CBC & Chem 7: 05/10/23 12:21 05/10/23 12:21 Labs: Abnormal Lab Results - Last 24 Hours (Table) 05/10/23 05/11/23 Range/Units 12:21 06:08 D-Dimer 1.71 H (<0.60) mg/L FEU HDL Cholesterol 33.60 L (40.00-60.00) mg/dL
--- NOTE | 2023-05-11 14:55 | NM ---
EXAMINATION TYPE: NM stress cardiolite complete DATE OF EXAM: 05/11/2023 COMPARISON: 526.2 HISTORY: Chest pain TECHNIQUE: After the intravenous administration of 10.4 mCi Tc 99m Sestamibi - Cardiolite resting SP ECT images acquired 45 minutes post injection. At peak stress 24.1 mCi Tc 99m Sestamibi - Stress images obtained 15 minutes post injection The patient was stressed with 0.4mg Lexiscan. FINDINGS: There is a large defect along the septal wall. The distal portion adjacent to the cardiac apex may darling ve some reversibility. Wall motion is normal Ejection fraction is calculated to be 49 %. This is slightly diminished below normal. Normal greater than 50% IMPRESSION: 1. Small amount of stress-induced ischemic change along the septal wall adjacent to the cardiac apex. Larger area of fixed defect along the septal wall is present extending towards the cardiac base. 2. Low ejection fraction of 49%. 3. Findings are an interval change from the comparison of 526.2
--- NOTE | 2023-05-11 16:57 | CA ---
Exercise Stress Test Report Name: Saeed Lopez Exam Date: 05/11/2023 12:38 Exam Location: [place] Stress Ht (in): 72 Wt (lb): 215 BSA: 2.20 Ordering Phys: Maura Church Referring Phys: MAURA CHURCH,, Technologist: CINDI SIDDIQUI Age: 72 Gender: M : 1950 Procedure CPT: Indications: Reflex order-Stress test ICD-10 Codes: Patient History: CP, NOELLE, HTN, CVA, FAMILY HX, Medications: SEE CHART Meds past 24 hrs: Pretest Chest Pain: STRESS TEST Quinten Protocol Exercise Duration (min:sec): 04:[address] Depressions (mm): Angina Score: Alexis Score: Resting HR (bpm): 92 Peak HR (bpm): 133 Resting BP (mmHg): 155 / 93 Peak BP (mmHg): 220 / 72 MPHR: 149 Target HR: 127 % MPHR: 89 METS: 5.9 Total Dose: Peak Dose: Atropine: Double Product: 24533 BP Response: Stress Termination: Reached target heart rate Stress Symptoms: Dizziness Stress Summary: ECG ANALYSIS Resting ECG: Normal sinus rhythm normal axis normal intervals Stress ECG: Exercised on Quinten protocol for 4 minutes achieving 85% of predicted maximal heart rate without chest pain or diagnostic ST segment depression CONCLUSIONS Poor exercise tolerance Negative stress test by EKG criteria Patient developed dizziness and treadmill Dr. José Miguel Flanagan MD (Electronically Signed) Final Date: 11 May 2023 16:56
--- NOTE | 2023-05-11 17:04 | CA ---
Transthoracic Echo Report Name: Saeed Lopez Age: 72 Gender: M : 1950 Exam Date: 05/11/2023 09:13 Exam Location: [place] Echo Ht (in): 72 Wt (lb): 215 Ordering Physician: Luis Apple DO Attending/Referring Phys: Ambika MCALLISTER Foot Caster Hailey Mckeon RDCS Procedure CPT: Indications: CP, Dyspnea Cardiac Hx: Technical Quality: Fair Contrast 1: Total Dose (mL): Contrast 2: Total Dose (mL): MEASUREMENTS (Male / Female) Normal Values 2D ECHO LV Diastolic Diameter PLAX 3.5 cm 4.2 - 5.9 / 3.9 - 5.3 cm LV Systolic Diameter PLAX 2.2 cm IVS Diastolic Thickness 1.4 cm 0.6 - 1.0 / 0.6 - 0.9 cm LVPW Diastolic Thickness 1.2 cm 0.6 - 1.0 / 0.6 - 0.9 cm LV Relative Wall Thickness 0.8 RV Internal Dim ED PLAX 4.7 cm LA Volume 68.3 cm??? 18 - 58 / 22 - 52 cm??? LA Volume Index 30.4 cm???/m??? 16 - 28 cm???/m??? M-MODE Aortic Root Diameter MM 3.9 cm LA Systolic Diameter MM 3.5 cm LA Ao Ratio MM 0.9 AV Cusp Separation MM 2.0 cm DOPPLER AV Peak Velocity 122.8 cm/s AV Peak Gradient 6.0 mmHg AV Mean Velocity 88.4 cm/s AV Mean Gradient 3.4 mmHg AV Velocity Time Integral 25.2 cm LVOT Peak Velocity 100.7 cm/s LVOT Peak Gradient 4.1 mmHg LVOT Velocity Time Integral 21.1 cm MV Area PHT 5.2 cm??? Mitral E Point Velocity 35.2 cm/s Mitral A Point Velocity 68.7 cm/s Mitral E to A Ratio 0.5 MV Deceleration Time 146.8 ms MV E' Velocity 4.1 cm/s Mitral E to MV E' Ratio 8.6 TR Peak Velocity 198.2 cm/s TR Peak Gradient 15.7 mmHg Right Ventricular Systolic Press 20.1 mmHg FINDINGS Left Ventricle Mildly increased left ventricular wall thickness. Left ventricular cavity size normal. No obvious regional wall motion abnormalities. Left ventricular ejection fraction is estimated at 55%. Right Ventricle Moderate right ventricular dilatation. Right ventricular systolic pressure within normal limits. Right Atrium Mild right atrial dilatation. Left Atrium Mildly increased left atrial volume. Mildly increased left atrial area. Mitral Valve Structurally normal mitral valve. Mild mitral regurgitation. Aortic Valve Trileaflet aortic valve. No aortic valve stenosis or regurgitation. Tricuspid Valve Structurally normal tricuspid valve. Mild tricuspid regurgitation. Pulmonic Valve Trace pulmonic regurgitation. Pericardium No pericardial effusion. Aorta Normal size aortic root and proximal ascending aorta. CONCLUSIONS Normal LV function mild mitral regurgitation Previewed by: Dr. José Miguel Flanagan MD (Electronically Signed) Final Date: 11 May 2023 17:04
[2023-05-11] MEDS: ATORVASTATIN 80 MG TAB PO SCH (20:27)
[2023-05-12] MEDS: NITROGLYCERIN OINT 1 INCH/GM PACKET TOPICAL SCH ×5 (01:37→22:58)
[2023-05-12] MEDS: CYPROHEPTADINE 4 MG TABLET PO SCH ×4 (06:38→20:10)
--- NOTE | 2023-05-12 07:48 | P.PN ---
Subjective Progress Note Date: 05/12/23 Principal diagnosis: Chest pain The patient is a 72-year-old gentleman with history of stroke and hypertension and is to be no was admitted to the hospital with chest discomfort and ruled out for acute coronary event. He underwent an echo which revealed normal LV systolic function and stresses showed apical ischemia. 05/12/2023 The patient was seen and evaluated this morning. He is asymptomatic at this point. I discussed the results of the test is with him in details and the patient needs to undergo a heart catheterization. He is in full understanding and agreement. The pressure remains slightly elevated. I'm going to start the patient on metoprolol at this point. The examination is remarkable for soft systolic murmur at the right and left upper sternal border Assessment Atypical chest discomfort Abnormal myocardial perfusion imaging stress test Multiple comorbid conditions including hypertension and dyslipidemia and history of stroke Plan Proceed with coronary angiogram Add metoprolol to the current medical regimen Continue dual antiplatelet therapy and statin Objective - Vital Signs Vital signs: Vital Signs Temp 97.8 F 05/12/23 02:00 Pulse 71 05/12/23 02:10 Resp 16 05/12/23 02:10 BP 156/93 05/12/23 02:00 Pulse Ox 97 05/11/23 19:03 FiO2 Intake & Output 05/11/23 05/12/23 05/12/23 18:59 06:59 18:59 Intake Total 236 118 Balance 236 118 Intake: Oral 236 118 Other: Voiding Method Toilet # Voids 2 2 - Labs CBC & Chem 7: 05/10/23 12:21 05/10/23 12:21 Labs: Abnormal Lab Results - Last 24 Hours (Table) 05/11/23 Range/Units 06:08 HDL Cholesterol 33.60 L (40.00-60.00) mg/dL
[2023-05-12] MEDS: ENOXAPARIN 40 MG/0.4 ML SYRINGE SQ SCH (08:35)
[2023-05-12] MEDS: DULoxetine HCL 20 MG CAPSULE.DR PO SCH ×2 (08:36→20:10)
[2023-05-12] MEDS: MULTIVITAMINS, THERA 1 EACH TAB PO SCH (08:36)
[2023-05-12] MEDS: METOPROLOL TARTRATE 12.5 MG TAB PO SCH ×2 (08:36→20:10)
[2023-05-12] MEDS: TAMSULOSIN 0.4 MG CAP.ER.24H PO SCH (08:36)
[2023-05-12] MEDS: ASPIRIN 81 MG PO SCH (08:36)
[2023-05-12] MEDS: CLOPIDOGREL 75 MG TAB PO SCH (08:37)
[2023-05-12] MEDS: amLODIPine 5 MG TAB PO SCH (08:37)
[2023-05-12] MEDS: FOLIC ACID 1 MG TAB PO SCH (08:37)
[2023-05-12] MEDS: PANTOPRAZOLE 40 MG TABLET PO SCH (08:37)
[2023-05-12] MEDS: FINASTERIDE 5 MG TAB PO SCH (08:37)
[2023-05-12 13:36] VITALS: RESP 16
--- NOTE | 2023-05-12 13:59 | P.PN ---
Subjective Progress Note Date: 05/12/23 Hospital Course: 72-year-old male with history of hypertension, dyslipidemia, seizure disorder, GERD, stroke presenting with exertional dyspnea. Labs vitals signs pulse is unremarkable. D-dimer was elevated to 1.7. CTA chest did not show any acute PE, right upper abdomen possible cholecystitis. EKG showed sinus tachycardia. Patient admitted for further cardiac workup. Cardiology consulted. Stress test showed small amount of stress-induced ischemic changes along the septal wall, larger area of fixed defect along the septal wall towards the cardiac base. Echocardiogram shows normal LV function, mild mitral regurgitation. Subjective: Examined at bedside. No acute events overnight. Still continues to have dyspnea with exertion. Pertinent positives and negatives as discussed above, a complete review of systems was performed and all other systems are negative. Vitals Signs Reviewed. General: nontoxic, no distress, appears at stated age Derm: warm, dry Head: atraumatic, normocephalic, symmetric Eyes: EOMI, no lid lag, anicteric sclera Mouth: no lip lesion, mucus membranes moist Cardiovascular: S1S2 reg, no murmur Lungs: CTA bilateral, no rhonchi, no rales , no accessory muscle use Abdominal: soft, nontender to palpation, no guarding, no appreciable organo megaly Ext: no gross muscle atrophy, no edema, no contractures Neuro: CN II-XI grossly intact, no focal neuro deficits Psych: Alert, oriented, appropriate affect Data Reviewed Today: Pertinent Labs: No new labs Imaging: Stress test showed small amount of stress-induced ischemic changes along the septal wall, larger area of fixed defect along the septal wall towards the cardiac base. Echocardiogram shows normal LV function, mild mitral regurgitation. Assessment and Plan: Active: Exertional dyspnea Abnormal stress test Atypical chest pain, ACS ruled out History of stroke Hypertension Dyslipidemia -Cardiology note reviewed, started on metoprolol 12.5 twice a day, angiogram pending -Aspirin 81 mg, atorvastatin 80 mg, Plavix 75 mg -CTA chest showed findings possibly indicating cholecystitis, right upper quadrant ultrasound pending -Continue telemetry -Amlodipine 5 mg daily Chronic: Seizure disorder GERD BPH DVT ppx: Lovenox Code status: Full code Anticipated discharge place: Pending clinical course Anticipated discharge time: Pending clinical course Objective - Vital Signs Vital signs: Vital Signs Temp 97.6 F 05/12/23 13:31 Pulse 71 05/12/23 13:31 Resp 16 05/12/23 13:31 BP 139/83 05/12/23 13:31 Pulse Ox 94 L 05/12/23 13:31 FiO2 Intake & Output 05/11/23 05/12/23 05/12/23 18:59 06:59 18:59 Intake Total 236 118 118 Balance 236 118 118 Intake: Oral 236 118 118 Other: Voiding Method Toilet # Voids 2 2 3 - Labs CBC & Chem 7: 05/10/23 12:21 05/10/23 12:21
--- NOTE | 2023-05-12 19:06 | US ---
EXAMINATION TYPE: US abdomen limited DATE OF EXAM: 05/12/2023 COMPARISON: 05/11/22 CTA CLINICAL INDICATION: Male, 72 years old with history of Cholecystitis?; GB pathology nted on CTA yest erday TECHNIQUE: Multiple sonographic images of the right upper quadrant are obtained. FINDINGS: EXAM MEASUREMENTS: Liver Length: 16.8 cm Gallbladder Wall: 0.2 cm CBD: 0.4 cm Right Kidney: 10.3x5.3x4.8 cm FURNITURE REPAIRER NOTES: Pancreas: Tail obscured by overlying bowel gas Liver: upper limits Gallbladder: poorly visualized due to bowel and body habitus. GB appears to be mostly filled with tu mefactive sludge, and may have loculations vs. folds Evidence for sonographic Lugo's sign: No CBD: wnl Right Kidney: No hydronephrosis or masses seen exam limited by body habitus and overlying bowel gas IMPRESSION: 1. Sludge-filled gallbladder.
[2023-05-12] MEDS: ATORVASTATIN 80 MG TAB PO SCH (20:10)
[2023-05-13] MEDS: NITROGLYCERIN OINT 1 INCH/GM PACKET TOPICAL SCH ×4 (04:58→23:02)
[2023-05-13] MEDS: CYPROHEPTADINE 4 MG TABLET PO SCH ×4 (05:58→20:24)
[2023-05-13] MEDS: DULoxetine HCL 20 MG CAPSULE.DR PO SCH ×2 (09:19→20:23)
[2023-05-13] MEDS: ASPIRIN 81 MG PO SCH (09:19)
[2023-05-13] MEDS: amLODIPine 5 MG TAB PO SCH (09:20)
[2023-05-13] MEDS: MULTIVITAMINS, THERA 1 EACH TAB PO SCH (09:20)
[2023-05-13] MEDS: FINASTERIDE 5 MG TAB PO SCH (09:20)
[2023-05-13] MEDS: METOPROLOL TARTRATE 12.5 MG TAB PO SCH ×2 (09:20→20:23)
[2023-05-13] MEDS: PANTOPRAZOLE 40 MG TABLET PO SCH (09:20)
[2023-05-13] MEDS: CLOPIDOGREL 75 MG TAB PO SCH (09:20)
[2023-05-13] MEDS: FOLIC ACID 1 MG TAB PO SCH (09:20)
[2023-05-13] MEDS: TAMSULOSIN 0.4 MG CAP.ER.24H PO SCH (09:20)
[2023-05-13] MEDS: ENOXAPARIN 40 MG/0.4 ML SYRINGE SQ SCH (09:20)
--- NOTE | 2023-05-13 12:09 | P.PN ---
Subjective Progress Note Date: 05/13/23 Principal diagnosis: Chest pain The patient is a 72-year-old gentleman with history of stroke and hypertension and is to be no was admitted to the hospital with chest discomfort and ruled out for acute coronary event. He underwent an echo which revealed normal LV systolic function and stresses showed apical ischemia. 05/12/2023 The patient was seen and evaluated this morning. He is asymptomatic at this point. I discussed the results of the test is with him in details and the patient needs to undergo a heart catheterization. He is in full understanding and agreement. The pressure remains slightly elevated. I'm going to start the patient on metoprolol at this point. The examination is remarkable for soft systolic murmur at the right and left upper sternal border May [id number] The patient was seen and evaluated this morning. He has no pain in the chest b ut does have shortness of breath with exertion and he underwent an ultrasound of the gallbladder and that came in to be abnormal. The dressing to be addressed by the surgical team. Meanwhile the patient will be scheduled to undergo a heart catheterization tomorrow by Dr. Flanagan Assessment Atypical chest discomfort Abnormal myocardial perfusion imaging stress test Multiple comorbid conditions including hypertension and dyslipidemia and history of stroke Plan Proceed with coronary angiogram Add metoprolol to the current medical regimen Continue dual antiplatelet therapy and statin Objective - Vital Signs Vital signs: Vital Signs Temp 98.2 F 05/13/23 07:00 Pulse 77 05/13/23 07:00 Resp 16 05/13/23 07:00 BP 167/88 05/13/23 07:00 Pulse Ox 94 L 05/13/23 07:00 FiO2 Intake & Output 05/12/23 05/13/23 05/13/23 18:59 06:59 18:59 Intake Total 118 118 Balance 118 118 Intake: Oral 118 118 Other: Voiding Method Toilet Toilet # Voids 3 1 - Labs CBC & Chem 7: 05/10/23 12:21 05/10/23 12:21
--- NOTE | 2023-05-13 13:03 | P.PN ---
Subjective Progress Note Date: 05/13/23 Hospital Course: 72-year-old male with history of hypertension, dyslipidemia, seizure disorder, GERD, stroke presenting with exertional dyspnea. Labs vitals signs pulse is unremarkable. D-dimer was elevated to 1.7. CTA chest did not show any acute PE, right upper abdomen possible cholecystitis. EKG showed sinus tachycardia. Patient admitted for further cardiac workup. Cardiology consulted. Stress test showed small amount of stress-induced ischemic changes along the septal wall, larger area of fixed defect along the septal wall towards the cardiac base. Echocardiogram shows normal LV function, mild mitral regurgitation. Pending cardiac cath Subjective: Examined at bedside. No acute events overnight. Still continues to have dyspnea with exertion. Pertinent positives and negatives as discussed above, a complete review of systems was performed and all other systems are negative. Vitals Signs Reviewed. General: nontoxic, no distress, appears at stated age Derm: warm, dry Head: atraumatic, normocephalic, symmetric Eyes: EOMI, no lid lag, anicteric sclera Mouth: no lip lesion, mucus membranes moist Cardiovascular: S1S2 reg, no murmur Lungs: CTA bilateral, no rhonchi, no rales , no accessory muscle use Abdominal: soft, nontender to palpation, no guarding, no appreciable organomegaly Ext: no gross muscle atrophy, no edema, no contractures Neuro: CN II-XI grossly intact, no focal neuro deficits Psych: Alert, oriented, appropriate affect Data Reviewed Today: Pertinent Labs: No new labs Imaging: Gallbladder ultrasound shows sludge Assessment and Plan: Active: Exertional dyspnea Abnormal stress test Atypical chest pain, ACS ruled out History of stroke Hypertension Dyslipidemia -Cardiology note reviewed, on metoprolol 12.5 twice a day, angiogram pending -Aspirin 81 mg, atorvastatin 80 mg, Plavix 75 mg -Continue telemetry -Amlodipine 5 mg daily Chronic: Seizure disorder GERD BPH DVT ppx: Lovenox Code status: Full code Anticipated discharge place: Pending clinical course Anticipated discharge time: Pending clinical course Objective - Vital Signs Vital signs: Vital Signs Temp 98.2 F 05/13/23 07:00 Pulse 77 05/13/23 07:00 Resp 16 05/13/23 07:00 BP 167/88 05/13/23 07:00 Pulse Ox 94 L 05/13/23 07:00 FiO2 Intake & Output 01/05/13/23 05/13/23 18:59 06:59 18:59 Intake Total 118 118 Balance 118 118 Intake: Oral 118 118 Other: Voiding Method Toilet Toilet # Voids 3 1 - Labs CBC & Chem 7: 05/10/23 12:21 05/10/23 12:21
[2023-05-13] MEDS: ATORVASTATIN 80 MG TAB PO SCH (20:24)
[2023-05-14] MEDS: ACETAMINOPHEN TAB 325 MG TAB PO PRN (00:46)
[2023-05-14] MEDS: NITROGLYCERIN OINT 1 INCH/GM PACKET TOPICAL SCH ×3 (05:51→17:00)
[2023-05-14] MEDS: CYPROHEPTADINE 4 MG TABLET PO SCH ×4 (06:41→20:11)
[2023-05-14] MEDS ORDERED: ALPRAZolam 0.5 MG TAB PO PRN (07:07)
[2023-05-14] MEDS ORDERED: ALPRAZolam 0.25 MG TAB PO PRN (07:07)
[2023-05-14] MEDS ORDERED: IV FLUID CONTINUATION 1,000 ML IV ONE (07:29)
[2023-05-14] MEDS ORDERED: ASPIRIN 325 MG TAB PO ONE (07:29)
[2023-05-14] MEDS ORDERED: MIDAZOLAM 2 MG/2 ML VIAL IVP ONE (07:40)
[2023-05-14] MEDS ORDERED: fentaNYL (PF) 50 MCG/ML 2 ML AMP IVP ONE (07:40)
[2023-05-14] MEDS ORDERED: LIDOCAINE 1% INJ 10MG/ML (20 ML MDV) SQ ONE (07:40)
[2023-05-14] MEDS ORDERED: VERAPAMIL SYRINGE (5 MG/10 ML) INTRAARTER ONE (07:42)
[2023-05-14] MEDS ORDERED: HEPARIN SODIUM 1,000 UN/ML (10ML VL) IV ONE (07:47)
[2023-05-14] MEDS ORDERED: IOPAMIDOL-370 100ML BTL INJ ONE (08:11)
[2023-05-14] MEDS ORDERED: RX INFO: IV CONTRAST WAS GIVEN 1 EACH MISC MISCELLANE PRN (08:35)
[2023-05-14] MEDS: SODIUM CHLORIDE 0.9% 1,000 ML in EMPTY BAG 1 BAG IV SCH ×2 (08:35→16:58)
--- NOTE | 2023-05-14 08:43 | CONS ---
CONSULTATION INDICATIONS: Chest pain with abnormal stress test showing ischemia in LAD distribution. PROCEDURE NOTE: After obtaining informed consent, left heart catheterization and coronary angiogram were performed via the right radial artery using standard Bar catheters. The patient tolerated the procedure well without any obvious immediate complications, received moderate conscious sedation. Total sedation time was 20 minutes. Right radial artery access was obtained using Seldinger technique, 6-Malay sheath was placed. Catheters and wires were floated into the ascending aorta under fluoroscopic guidance. A TR band was used for hemostasis. The patient received heparin and verapamil per protocol. FINDINGS: 1. Hemodynamics: Left ventricular end-diastolic pressure is 14 mm, there is no significant gradient across the aortic valve. 2. Left Ventriculogram: Left ventriculogram is not performed. 3. Angiographic Data: a.Right Coronary Artery: Right coronary artery is a small caliber codominant vessel and is free of significant stenosis. It appears calcified, especially in the ostial portion. The left main coronary artery appears calcified but is free of significant stenosis. Divides into left anterior descending coronary artery and circumflex coronary artery. LAD has a focal stenosis involving the ostial portion that is 70% to 80% and the mid LAD shows an 80% to 90% stenosis. Circumflex coronary artery is a codominant system, OM1 which is a large caliber vessel shows an 80% to 90% stenosis. OM2 also shows an area of ostial stenosis. CONCLUSIONS: Severe two-vessel coronary artery disease with heavily calcified left coronary system with an ostial LAD disease. PLAN: I am going to consult cardiothoracic surgery to advise on bypass surgery. MMODL / IJN: [id number] /
--- NOTE | 2023-05-14 08:56 | LTR ---
Dear Dr. Gao: I performed cardiac catheterization on Saeed Lopez, the detailed catheterization note is enclosed records. This 72-year-old gentleman presented to [facility] with chest pain and ruled out for myocardial infarction, underwent a stress test that showed ischemia in LAD distribution and cardiac catheterization revealed severe disease involving the proximal and mid LAD, I am going to consult a surgeon for bypass surgery. Thank you for giving us the privilege to participate in the care of this pleasant gentleman. Sincerely, JUANY / KEINAN: [id number] /
[2023-05-14] MEDS: ENOXAPARIN 40 MG/0.4 ML SYRINGE SQ SCH (09:04)
[2023-05-14] MEDS: ASPIRIN 81 MG PO SCH (09:05)
[2023-05-14] MEDS: PANTOPRAZOLE 40 MG TABLET PO SCH (09:05)
[2023-05-14] MEDS: FOLIC ACID 1 MG TAB PO SCH (09:05)
[2023-05-14] MEDS: METOPROLOL TARTRATE 12.5 MG TAB PO SCH ×2 (09:05→20:11)
[2023-05-14] MEDS: MULTIVITAMINS, THERA 1 EACH TAB PO SCH (09:05)
[2023-05-14] MEDS: TAMSULOSIN 0.4 MG CAP.ER.24H PO SCH (09:05)
[2023-05-14] MEDS: DULoxetine HCL 20 MG CAPSULE.DR PO SCH ×2 (09:05→20:10)
[2023-05-14] MEDS: FINASTERIDE 5 MG TAB PO SCH (09:05)
[2023-05-14] MEDS: amLODIPine 5 MG TAB PO SCH (09:07)
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
--- NOTE | 2023-05-14 10:50 | US ---
EXAMINATION TYPE: US vein mapping BILAT DATE OF EXAM: 05/14/2023 10:44 AM Exam done portable COMPARISON: NONE CLINICAL INDICATION: Male, 72 years old with history of preop cardiac surgery; SIDE PERFORMED: Bilateral TECHNIQUE: Lower extremity saphenous vein is examined and measured utilizing real time linear array sonography. DUPLEX FINDINGS: Greater Saphenous: Color flow seen Lesser Saphenous: Color flow seen Measurements in mm: Right Greater Saphenous: Groin: 7.8 x 7.5 mm High Thigh: 4.9 x 5.2 mm Mid Thigh: 3.5 x 4.1 mm Above Knee: 3.2 x 3.6 mm Knee: 3.7 x 3.3 mm Below Knee: 2.9 x 3.0 mm Mid Calf: 2.9 x 3.2 mm At Ankle: 2.1 x 2.1 mm Left Greater Saphenous: Groin: 7.7 x 9.2 mm High Thigh: 5.8 x 5.4 mm Mid Thigh: 3.5 x 3.9 mm Above Knee: 3.3 x 3.3 mm Knee: 2.8 x 3.5 mm Below Knee: 2.6 x 2.7 mm Mid Calf: 1.3 x 1.5 mm At Ankle: 1.9 x 2.1 mm IMPRESSION: 1. Bilateral GSV measurements listed above. 2. Performing surgeon to determine viability as conduit.
[2023-05-14 10:54] LABS: Basophils # (A) 0.1 k/uL (0-0.2); Basophils % (A) 1 %; Eosinophils # (A) 0.3 k/uL (0-0.7); Eosinophils % (A) 5 %; HCT 32.3 % (39.0-53.0); HGB 11.1 gm/dL (13.0-17.5); Lymphocytes # (A) 0.9 k/uL (1.0-4.8); Lymphocytes % (A) 14 %; MCH 32.2 pg (25.0-35.0); MCHC 34.2 g/dL (31.0-37.0); Mean Platelet Volume 8.2; Monocytes # (A) 0.3 k/uL (0-1.0); Monocytes % (A) 5 %; Neutrophils # (A) 4.6 k/uL (1.3-7.7); Neutrophils % (A) 73 %; Platelet Count 200 k/uL (150-450); RBC 3.44 m/uL (4.30-5.90); RDW 14.3 % (11.5-15.5); WBC 6.3 k/uL (3.8-10.6)
--- NOTE | 2023-05-14 10:54 | US ---
EXAMINATION TYPE: Pre-Operative Non-Invasive Evaluation of the hand for Potential Radial Artery Armando valentin, Measurements only DATE OF EXAM: 05/14/2023 10:44 AM Exam done portable CLINICAL INDICATION: Male, 72 years old with history of measurements only; SIDE PERFORMED: Left TECHNIQUE: Radial artery is measured utilizing real time linear array sonography. Dominant hand: Left Duplex Findings: Radial Artery: Color flow seen Measurements in mm, transverse view: Left Radial: Proximal: 2.9 x 3.4 mm Mid: 2.4 x 3.0 mm Distal: 3.0 x 3.8 mm IMPRESSION: Measurements listed above.
--- NOTE | 2023-05-14 11:18 | US ---
EXAMINATION TYPE: US arterial LE single level DATE OF EXAM: 05/14/2023 11:10 AM CLINICAL INDICATION: Male, 72 years old with history of Ankle Brachial Index (HOLLIE); History of: Smoker: Yes Hypertension: Yes Diabetic: No Hyperlipidemia: Yes TIA/CVA: No Previous Vascular Surgery: CEA CAD: Yes MT: No Vascular Ulcers: No Claudication: No Gangrene: No Doppler Waveforms: Right: Multiphasic Left: Multiphasic Pulse Volume Recording: NA Pressure Gradients: NA Right Brachial Pressure: Not able to obtain due to right radial approach Left Brachial Pressure: 156 Ankle-Brachial Indices: Right: 1.08 Left: 0.99 Toe Brachial Indices: Right: 0.69 Left: 0.78 IMPRESSION: Normal bilateral HOLLIE.
[2023-05-14 11:30] LABS: ALT 17 U/L (4-49); AST 20 U/L (17-59); African American GFR (CKD) 79 (>60 ml/min/1.73 sqM); Albumin 3.7 g/dL (3.5-5.0); Albumin/Globulin Ratio 1.3; Alkaline Phosphatase 67 U/L (38-126); Anion Gap 9 mmol/L; Blood Urea Nitrogen 20 mg/dL (9-20); Calcium 9.1 mg/dL (8.4-10.2); Carbon Dioxide 22 mmol/L (22-30); Chloride 108 mmol/L (98-107); Globulin 2.8 g/dL; Glucose 103 mg/dL (74-99); Magnesium 1.8 mg/dL (1.6-2.3); Non-African American GFR(CKD) 68 (>60 ml/min/1.73 sqM); Potassium 4.1 mmol/L (3.5-5.1); Sodium 139 mmol/L (137-145); Total Bilirubin 0.4 mg/dL (0.2-1.3); Total Protein 6.5 g/dL (6.3-8.2)
--- NOTE | 2023-05-14 14:38 | P.PN ---
Subjective Progress Note Date: 05/14/23 Hospital Course: 72-year-old male with history of hypertension, dyslipidemia, seizure disorder, GERD, stroke presenting with exertional dyspnea. Labs vitals signs pulse is unremarkable. D-dimer was elevated to 1.7. CTA chest did not show any acute PE, right upper abdomen possible cholecystitis. EKG showed sinus tachycardia. Patient admitted for further cardiac workup. Cardiology consulted. Stress test showed small amount of stress-induced ischemic changes along the septal wall, larger area of fixed defect along the septal wall towards the cardiac base. Echocardiogram shows normal LV function, mild mitral regurgitation. Cardiac cath showed severe coronary artery disease, cardiothoracic surgery consulted for CABG. Subjective: Examined at bedside. No acute events overnight. No new complaints Pertinent positives and negatives as discussed above, a complete review of systems was performed and all other systems are negative. Vitals Signs Reviewed. General: nontoxic, no distress, appears at stated age Derm: warm, dry Head: atraumatic, normocephalic, symmetric Eyes: EOMI, no lid lag, anicteric sclera Mouth: no lip lesion, mucus membranes moist Cardiovascular: S1S2 reg, no murmur Lungs: CTA bilateral, no rhonchi, no rales , no accessory muscle use Abdominal: soft, nontender to palpation, no guarding, no appreciable organomegaly Ext: no gross muscle atrophy, no edema, no contractures Neuro: CN II-XI grossly intact, no focal neuro deficits Psych: Alert, oriented, appropriate affect Data Reviewed Today: Pertinent Labs: Hemoglobin 11.1, creatinine 1.09, magnesium 1.8 Imaging: No new imaging Assessment and Plan: Active: Severe coronary artery disease History of stroke Hypertension Dyslipidemia -Cardiology following, angiogram completed today showed severe coronary artery disease, official report still pending -Aspirin 81 mg, atorvastatin 80 mg, Plavix 75 mg, METOPROLOL 12.5 TWICE A DAY -Continue telemetry -Amlodipine 5 mg daily -Cardiothoracic surgery consulted Chronic: Seizure disorder GERD BPH DVT ppx: Lovenox Code status: Full code Anticipated discharge place: Pending clinical course Anticipated discharge time: Pending clinical course Objective - Vital Signs Vital signs: Vital Signs Temp 97.7 F 05/14/23 00:48 Pulse 76 05/14/23 00:48 Resp 16 05/14/23 00:48 BP 125/63 05/14/23 00:48 Pulse Ox 93 L 01/15/24 00:48 FiO2 Intake & Output 05/13/23 05/14/23 05/14/23 18:59 06:59 18:59 Intake Total 236 100 Balance 236 100 Intake: IV 100 Oral 236 Other: Voiding Method Toilet # Voids 1 1 - Labs CBC & Chem 7: 05/14/23 10:19 05/14/23 10:19 Labs: Abnormal Lab Results - Last 24 Hours (Table) 05/14/23 05/14/23 Range/Units 10:19 10:19 RBC 3.44 L (4.30-5.90) m/uL Hgb 11.1 L (13.0-17.5) gm/dL Hct 32.3 L (39.0-53.0) % Lymphocytes # 0.9 L (1.0-4.8) k/uL Chloride 108 H (98-107) mmol/L Glucose 103 H (74-99) mg/dL
[2023-05-14 17:10] LABS: Hepatitis C IgG Antibody Reactive (Non-Reactive)
[2023-05-14 18:21] LABS: Hepatitis A Antibody IgM Nonreactive; Hepatitis B Core IgM Nonreactive; Hepatitis B Surface Antigen Nonreactive
[2023-05-14] MEDS: ATORVASTATIN 80 MG TAB PO SCH (20:11)
[2023-05-15] MEDS: NITROGLYCERIN OINT 1 INCH/GM PACKET TOPICAL SCH ×4 (01:19→18:04)
[2023-05-15] MEDS: SODIUM CHLORIDE 0.9% 1,000 ML in EMPTY BAG 1 BAG IV SCH ×2 (05:04→15:15)
[2023-05-15] MEDS: CYPROHEPTADINE 4 MG TABLET PO SCH ×3 (06:24→18:03)
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
[2023-05-15] MEDS: ACETAMINOPHEN TAB 325 MG TAB PO PRN (10:40)
[2023-05-15] MEDS: METOPROLOL TARTRATE 12.5 MG TAB PO SCH (10:41)
[2023-05-15] MEDS: ASPIRIN 81 MG PO SCH (10:41)
[2023-05-15] MEDS: FOLIC ACID 1 MG TAB PO SCH (10:41)
[2023-05-15] MEDS: TAMSULOSIN 0.4 MG CAP.ER.24H PO SCH (10:41)
[2023-05-15] MEDS: DULoxetine HCL 20 MG CAPSULE.DR PO SCH (10:42)
[2023-05-15] MEDS: FINASTERIDE 5 MG TAB PO SCH (10:42)
[2023-05-15] MEDS: amLODIPine 5 MG TAB PO SCH (10:42)
[2023-05-15] MEDS: PANTOPRAZOLE 40 MG TABLET PO SCH (10:42)
[2023-05-15] MEDS: MULTIVITAMINS, THERA 1 EACH TAB PO SCH (10:42)
[2023-05-15] MEDS: ENOXAPARIN 40 MG/0.4 ML SYRINGE SQ SCH (10:43)
--- NOTE | 2023-05-15 11:26 | P.PN ---
Subjective HISTORY OF PRESENT ILLNESS: 05/11/2023 This is a 72-year-old male with past medical history of CVA, hypertension, hyperlipidemia, seizure disorder, closed head injury, hepatitis C, carotid atherosclerosis status post endarterectomy, remote history of tobacco use. We have been asked to evaluate the patient for chest pain. Patient's main concern is shortness of breath with exertion which has been going on for the past 2 weeks. He normally bicycles and goes 3-4 5 miles per day. He states he saw his primary care doctor yesterday and was sent in to the hospital for further evaluation. Patient denies having any previous cardiac stent and no CABG, does not follow with a gold tooler. He had a stroke 7 to 8 years ago and a very remote history of tobacco use. EKG sinus rhythm Chest x-ray: No acute process CTA of the chest negative for pulmonary embolism. Possible cholecystitis WBC 7.4, hemoglobin 11.1. INR 1.1. D-dimer 1.71. Electrolytes and renal function normal. Blood sugar 111. Magnesium 1.7. Troponin negative 3. Liver function tests are normal. Home cardiac medications: Amlodipine 5 mg daily, atorvastatin 80 mg at bedtime, Plavix 75 mg daily. Echocardiogram performed 12/06/2022 reveals EF of 55 to 60%. Cardiolite stress test performed 09/22/2021 revealed no reversible ischemia. 05/15/2023 Patient is status post cardiac catheterization yesterday with Dr. Flanagan revealing ostial LAD stenosis 70-80%, mid LAD with 80-90% stenosis, 90%, first obtuse marginal branch of the circumflex coronary artery with 80-90% stenosis, and OM 2 also shows an area of ostial stenosis. Cardiothoracic surgery consult has been placed. Patient's Plavix has been discontinued. Patient denies any further episodes of chest pain or pressure. He denies any shortness of breath. Vital signs are stable. PHYSICAL EXAM: VITAL SIGNS: Reviewed. GENERAL: Well-developed in no acute distress. NECK: Supple. No JVD or thyromegaly LUNGS: Respirations even and unlabored. Lungs essentially clear to auscultation bilaterally. HEART: Regular rate and rhythm. S1 and S2 heard. EXTREMITIES: Normal range of motion. No clubbing or cyanosis. Peripheral pulses intact. No lower extremity edema ASSESSMENT: Chest pain, status post abnormal stress test, status post cardiac cath as above Coronary artery disease Hypertension Hyperlipidemia History of CVA History of seizure disorder History of closed head injury Hepatitis C Carotid stenosis status post right-sided endarterectomy Former nicotine dependence PLAN: Continue to hold Plavix Continue additional cardiac medications CT surgery consulted for evaluation. Await further recommendations from CT surgery group Further recommendations pending patient's course Nurse practitioner note has been reviewed by physician. Signing provider agrees with the documented findings, assessment, and plan of care. Objective - Vital Signs Vital signs: Vital Signs Temp 97.9 F 05/15/23 08:00 Pulse 70 05/15/23 08:00 Resp 16 05/15/23 08:00 BP 151/82 05/15/23 08:00 Pulse Ox 93 L 05/15/23 08:00 FiO2 Intake & Output 05/14/23 05/15/23 05/15/23 18:59 06:59 18:59 Intake Total 454 Balance 454 Intake: IV 100 Oral 354 Other: Voiding Method Toilet # Voids 2 3 - Labs CBC & Chem 7: 05/14/23 10:19 05/14/23 10:19 Labs: Abnormal Lab Results - Last 24 Hours (Table) 05/14/23 05/14/23 Range/Units 10:19 10:19 Chloride 108 H (98-107) mmol/L Glucose 103 H (74-99) mg/dL Hep C IgG Ab Reactive A (Non-Reactive)
[2023-05-15 13:18] LABS: T4, Free (Free Thyroxine) 0.66 ng/dL (0.78-2.19)
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
[2023-05-15] MEDS ORDERED: DEXTROSE 50% SYRINGE 50 ML IVP PRN ×2 (16:03)
--- NOTE | 2023-05-15 16:04 | P.PN ---
Subjective Progress Note Date: 05/15/23 Hospital Course: 72-year-old male with history of hypertension, dyslipidemia, seizure disorder, GERD, stroke presenting with exertional dyspnea. Labs vitals signs pulse is unremarkable. D-dimer was elevated to 1.7. CTA chest did not show any acute PE, right upper abdomen possible cholecystitis. EKG showed sinus tachycardia. Patient admitted for further cardiac workup. Cardiology consulted. Stress test showed small amount of stress-induced ischemic changes along the septal wall, larger area of fixed defect along the septal wall towards the cardiac base. Echocardiogram shows normal LV function, mild mitral regurgitation. Cardiac cath showed severe coronary artery disease, cardiothoracic surgery consulted for CABG. likely CABG on Sunday. Subjective: Examined at bedside. No acute events overnight. No new complaints. Pertinent positives and negatives as discussed above, a complete review of systems was performed and all other systems are negative. Vitals Signs Reviewed. General: nontoxic, no distress, appears at stated age Derm: warm, dry Head: atraumatic, normocephalic, symmetric Eyes: EOMI, no lid lag, anicteric sclera Mouth: no lip lesion, mucus membranes moist Cardiovascular: S1S2 reg, no murmur Lungs: CTA bilateral, no rhonchi, no rales , no accessory muscle use Abdominal: soft, nontender to palpation, no guarding, no appreciable organomegaly Ext: no gross muscle atrophy, no edema, no contractures Neuro: CN II-XI grossly intact, no focal neuro deficits Psych: Alert, oriented, appropriate affect Data Reviewed Today: Pertinent Labs: Hepatitis C IgG positive, TSH 7.15, free T4 0.66, A1c 6 Imaging: No new imaging Assessment and Plan: Active: Severe coronary artery disease History of stroke Hypertension Dyslipidemia Prediabetes, A1c 6 Hepatitis C infection, unclear about chronicity Hypothyroidism -Cardiology note reviewed, continue to hold Plavix for CABG -Aspirin 81 mg, atorvastatin 80 mg, metoprolol 12.5 twice a day -Continue telemetry -Amlodipine 5 mg daily -Discussed management with cardiothoracic surgery, patient currently scheduled f or CABG on Sunday -Due to his advanced age, and history of coronary artery disease, patient will be started on 25 MCG of levothyroxine, repeat TSH in 4-6 weeks -Also started on sliding scale insulin, patient may benefit from insulin drip following surgery, monitor for hypoglycemia -Hep C viral quantiative ordered Chronic: Seizure disorder GERD BPH DVT ppx: Lovenox Code status: Full code Anticipated discharge place: Pending clinical course Anticipated discharge time: Pending clinical course Objective - Vital Signs Vital signs: Vital Signs Temp 97.9 F 05/15/23 08:00 Pulse 70 05/15/23 08:00 Resp 16 05/15/23 08:00 BP 151/82 05/15/23 08:00 Pulse Ox 93 L 05/15/23 08:00 FiO2 Intake & Output 05/14/23 05/15/23 05/15/23 18:59 06:59 18:59 Intake Total 454 118 Balance 454 118 Intake: IV 100 Oral 354 118 Other: Voiding Method Toilet # Voids 2 3 - Labs CBC & Chem 7: 05/14/23 10:19 05/14/23 10:19 Labs: Abnormal Lab Results - Last 24 Hours (Table) 05/14/23 05/15/23 Range/Units 10:19 11:48 TSH 7.150 H (0.465-4.680) mIU/L Free T4 0.66 L (0.78-2.19) ng/dL Hep C IgG Ab Reactive A (Non-Reactive)
[2023-05-15 16:51] VITALS: BP 138/80; PULSE 87; TEMP 97.4
--- NOTE | 2023-05-15 17:04 | P.DS ---
Providers Date of admission: 05/13/23 13:44 Expected date of discharge: 05/15/23 Attending physician: Brigida Ellis DO Consults: 05/10/23 15:56 Consult Physician Urgent Consulting Provider: Grzegorz Valencia Consult Reason/Comments: cp, dyspnea Do you want consulting provider notified?: Yes 05/14/23 08:36 Consult Physician Routine Consulting Provider: Hadely Haddad Consult Reason/Comments: cabg eval Do you want consulting provider notified?: Yes 05/15/23 06:33 Consult Physician Routine Consulting Provider: Kathy Hernandez Consult Reason/Comments: pulm clearence for open heart Do you want consulting provider notified?: Already Contacted Primary care physician: Murray George Hospital Course: Discharge Diagnosis: Severe coronary artery disease History of stroke Hypertension Dyslipidemia Prediabetes, A1c 6 Hepatitis C infection, unclear about chronicity Hypothyroidism Seizure disorder GERD BPH Hospital Course: 72-year-old male with history of hypertension, dyslipidemia, seizure disorder, GERD, stroke presenting with exertional dyspnea. Labs vitals signs pulse is unremarkable. D-dimer was elevated to 1.7. CTA chest did not show any acute PE, right upper abdomen possible cholecystitis. Ultrasound showed gallbladder sludge. EKG showed sinus tachycardia. Patient admitted for further cardiac workup. Cardiology consulted. Stress test showed small amount of stress- induced ischemic changes along the septal wall, larger area of fixed defect along the septal wall towards the cardiac base. Echocardiogram shows normal LV function, mild mitral regurgitation. Cardiac cath showed severe coronary artery disease, cardiothoracic surgery consulted for CABG. plan for CABG on Sunday. Patient being discharged home. Patient also found to have hypothyroidism, started on levothyroxine, follow-up with TSH in 4-6 weeks. Patient seen and examined at bedside. Vital signs reviewed and stable. General: nontoxic, no distress, appears at stated age Derm: warm, dry Head: atraumatic, normocephalic, symmetric Eyes: EOMI, no lid lag, anicteric sclera Mouth: no lip lesion, mucus membranes moist Cardiovascular: S1S2 reg, no murmur Lungs: CTA bilateral, no rhonchi, no rales , no accessory muscle use Abdominal: soft, nontender to palpation, no guarding, no appreciable organomegaly Ext: no gross muscle atrophy, no edema, no contractures Neuro: CN II-XI grossly intact, no focal neuro deficits Psych: Alert, oriented, appropriate affect A total of 33 minutes of time were spent preparing this complex discharge summary. Patient was discharged on 05/15/23 at 1701. Patient Condition at Discharge: Stable Plan - Discharge Summary Discharge Rx Participant: Yes New Discharge Prescriptions: New Metoprolol Tartrate [Lopressor] 12.5 mg PO BID #30 tab Levothyroxine Sodium [Synthroid] 25 mcg PO DAILY@0630 #90 tab Aspirin 81 mg PO DAILY #30 tab Continue Atorvastatin Calcium [Lipitor] 80 mg PO HS levETIRAcetam [Keppra] 1,500 mg PO BID Multivitamins, Thera [Multivitamin (formulary)] 1 tab PO DAILY DULoxetine HCL [Cymbalta] 20 mg PO BID amLODIPine [Norvasc] 5 mg PO DAILY #30 tab Pantoprazole [Protonix] 40 mg PO DAILY Finasteride [Proscar] 5 mg PO DAILY Folic Acid 1 mg PO DAILY polyethylene glycoL 3350 [Miralax] 17 gm PO DAILY PRN PRN Reason: Constipation Docusate [Colace] 100 mg PO BID PRN PRN Reason: Constipation Tamsulosin [Flomax] 0.4 mg PO DAILY Cyproheptadine [Cyproheptadine HCl] 2 mg PO ACHS Melatonin 5 mg PO HS PRN PRN Reason: SLEEP Sennosides/Docusate Sodium [Senna Plus 8.6-50 mg Softgel] 1 cap PO BID PRN PRN Reason: Constipation Ipratropium-Albuterol Nebulize [Duoneb 0.5 mg-3 mg/3 ml Soln] 3 ml INHALATION RT-Q4H PRN PRN Reason: Shortness Of Breath Discontinued Clopidogrel [Plavix] 75 mg PO DAILY Discharge Medication List Atorvastatin Calcium [Lipitor] 80 mg PO HS 05/13/15 [History] levETIRAcetam [Keppra] 1,500 mg PO BID 02/15/18 [History] DULoxetine HCL [Cymbalta] 20 mg PO BID 03/04/18 [History] Multivitamins, Thera [Multivitamin (formulary)] 1 tab PO DAILY 03/04/18 [History] amLODIPine [Norvasc] 5 mg PO DAILY #30 tab 03/11/18 [Rx] Cyproheptadine [Cyproheptadine HCl] 2 mg PO ACHS 05/10/23 [History] Docusate [Colace] 100 mg PO BID PRN 05/10/23 [History] Finasteride [Proscar] 5 mg PO DAILY 05/10/23 [History] Folic Acid 1 mg PO DAILY 05/10/23 [History] Ipratropium-Albuterol Nebulize [Duoneb 0.5 mg-3 mg/3 ml Soln] 3 ml INHALATION RT-Q4H PRN 05/10/23 [History] Melatonin 5 mg PO HS PRN 05/10/23 [History] Pantoprazole [Protonix] 40 mg PO DAILY 05/10/23 [History] Sennosides/Docusate Sodium [Senna Plus 8.6-50 mg Softgel] 1 cap PO BID PRN 05/10/23 [History] Tamsulosin [Flomax] 0.4 mg PO DAILY 05/10/23 [History] polyethylene glycoL 3350 [Miralax] 17 gm PO DAILY PRN 05/10/23 [History] Aspirin 81 mg PO DAILY #30 tab 05/15/23 [Rx] Levothyroxine Sodium [Synthroid] 25 mcg PO DAILY@0630 #90 tab 05/15/23 [Rx] Metoprolol Tartrate [Lopressor] 12.5 mg PO BID #30 tab 05/15/23 [Rx] Follow up Appointment(s)/Referral(s): Murray George MD [Primary Care Provider] - 1-2 days Roger Schultz MD [STAFF PHYSICIAN] - 05/21/23 (Plan is for open heart surgery Mo 05/21/23. You will be called the Sunday before surgery (05/18/23) in the afternoon to tell you what time to show up and where to go. Nothing to eat or drink after midnight Sunday) Patient Instructions/Handouts: Coronary Artery Disease (DC) Activity/Diet/Wound Care/Special Instructions: Surgery Sunday. You will also need repeat thyroid function testing 4-6 weeks from now. Discharge/Stand Alone Forms: Who Do I Call?, Community Resources, Outpatient Counseling, Inp Substance Abuse Facilities Discharge Disposition: HOME SELF-CARE
[2023-05-15] MEDS ORDERED: INSULIN ASPART (NovoLOG) 100 UNIT/ML VIAL SQ SCH (17:30)
[2023-05-15 17:32] LABS: Glucose,Whole Blood 116 mg/dL (70-110)
[2023-05-16] MEDS ORDERED: LEVOTHYROXINE 25 MCG TAB PO SCH (06:30)
== END 2023-05-15 18:53 | disposition home or self-care, planned readmission (81) | DRG 287 ==
LOC: EC 11:48 → 6NMEDSUR 15:59 → OBSVTOIN 05-13 13:44
PROVIDERS: ADMIT Internal Medicine; ATTEND Internal Medicine
PROC: 4A023N7 Measurement of Cardiac Sampling and Pressure, Left Heart, Percutaneous Approach (ICD-10-PCS; principal; 2023-05-13)
PROC: B2111ZZ Fluoroscopy of Multiple Coronary Arteries using Low Osmolar Contrast (ICD-10-PCS; 2023-05-13)
DX: I25.119 Atherosclerotic heart disease of native coronary artery with unspecified angina pectoris (principal); G40.909 Epilepsy, unspecified, not intractable, without status epilepticus; F10.20 Alcohol dependence, uncomplicated; J44.9 Chronic obstructive pulmonary disease, unspecified; F31.9 Bipolar disorder, unspecified; K81.9 Cholecystitis, unspecified; I34.0 Nonrheumatic mitral (valve) insufficiency; D64.9 Anemia, unspecified; I10 Essential (primary) hypertension; B19.20 Unspecified viral hepatitis C without hepatic coma; E03.9 Hypothyroidism, unspecified; E78.5 Hyperlipidemia, unspecified; R73.03 Prediabetes; K21.9 Gastro-esophageal reflux disease without esophagitis; N40.0 Benign prostatic hyperplasia without lower urinary tract symptoms; K82.8 Other specified diseases of gallbladder; R41.3 Other amnesia; R01.1 Cardiac murmur, unspecified; H91.91 Unspecified hearing loss, right ear; Z86.73 Personal history of transient ischemic attack (TIA), and cerebral infarction without residual deficits; Z87.891 Personal history of nicotine dependence; Z82.49 Family history of ischemic heart disease and other diseases of the circulatory system; Z79.02 Long term (current) use of antithrombotics/antiplatelets; Z79.891 Long term (current) use of opiate analgesic; Z79.899 Other long term (current) drug therapy; Z91.030 Bee allergy status; Z87.820 Personal history of traumatic brain injury; Z87.81 Personal history of (healed) traumatic fracture; Z87.828 Personal history of other (healed) physical injury and trauma
CPT/HCPCS: 36415; 71046; 71275; 76705; 78452; 80053; 80061; 80074; 83036; 83735; 84439; 84443; 84484; 85025; 85379; 85610; 85730; 86850; 86900; 86901; 87070; 87522; 93005; 93017; 93306; 93458; 93922; 93970; 94150; 94760; 99285

== ENCOUNTER → 2023-05-18 | Outpatient (CLI) | payer MEDICARE ==
[2023-05-19 04:46] LABS: Appearance,Urine Clear (Clear); Bilirubin,Urine Negative (Negative); Blood,Urine Negative (Negative); Color,Urine Yellow (Yellow); Ketones,Urine Trace (Negative); Nitrite,Urine Negative (Negative); Specific Gravity,Urine 1.023 (1.001-1.030); Urobilinogen,Urine 0.2 E.U./DL
[2023-05-19 04:55] LABS: Bacteria,Urine None Seen (None Seen)
== END | disposition home or self-care (01) ==
LOC: LABPAT 14:17
PROVIDERS: ATTEND Surgery
DX: Z01.812 Encounter for preprocedural laboratory examination (principal); I25.10 Atherosclerotic heart disease of native coronary artery without angina pectoris
CPT/HCPCS: 81001; 86850; 86900; 86901; 86920; 87086

== ENCOUNTER 2023-05-21 05:41 | Inpatient (IN) | payer MEDICARE ==
[~2023-05-21 05:41] MED LIST changes: +ALBUMIN HUMAN 25% 50 ML IV ONE; +ALBUMIN HUMAN 5% 500 ML IVPB ONE; +CALCIUM CHLORIDE 100 MG/ML 10 ML SYRINGE IV ONE; +CARDIOPLEGIC SOLN (K+ 16 MEQ/L 1,000 ML with SODIUM BICARB (1 MEQ/ML) 20 ML, LIDOCAINE ... PERFUSION ONE; +CHLORHEXIDINE GLUCONATE 15 ML CUP MUCOUS MEM ONE; +CLEVIDIPINE BUTYRATE 25 MG in EMPTY BAG 1 BAG IV ONE; -DENOSUMAB 60 MG/ML 1 ML SYRINGE SQ NR; +ELECTROLYTE-A SOLUTION 1,000 ML with POTASSIUM CHLORIDE 100 MEQ, MAGNESIUM SULFATE 16 M... IV ONE; +ELECTROLYTE-A SOLUTION 1,000 ML with POTASSIUM CHLORIDE 40 MEQ, MAGNESIUM SULFATE 16 ME... IV ONE; +HEPARIN SODIUM 1,000 UN/ML (10ML VL) IV ONE; +INSULIN REGULAR 100 UNIT in SODIUM CHLORIDE 0.9% 100 ML IV ONE; +LACTATED RINGERS 1,000 ML IV ONE; +MAGNESIUM SULFATE 16.24 MEQ in EMPTY SYRINGE 1 SYR IV ONE; +MANNITOL 25% 12.5 GM/50 ML VIAL IV ONE; +MUPIROCIN 2% OINT 22 GM TUBE NASAL ONE; +NITROGLYCERIN SL TABS 0.4 MG TAB SUBLINGUAL ONE; +NITROGLYCERIN-D5W PMX 25 MG/250 ML BTL IV ONE; +NITROGLYCERIN-D5W PMX 50 MG in DEXTROSE/WATER 1 250ML.BAG IV ONE; +NOREPINEPHRINE 4 MG in SODIUM CHLORIDE 0.9% 250 ML IV ONE; +PHENYLEPHRINE 10 MG/ML VIAL IV ONE; +PHENYLEPHRINE 40 MG in SODIUM CHLORIDE 0.9% 250 ML IV ONE; +PROTAMINE SULFATE 10 MG/ML 25 ML VIAL IV ONE; +PROTAMINE SULFATE 250 MG in EMPTY BAG 1 BAG IV ONE; +SODIUM BICARB 8.4% 50 ML SYR (1 MEQ/ML) IV ONE; +SODIUM CHLORIDE 0.9% 1,000 ML IV ONE; +TRANEXAMIC ACID 2,000 MG in SODIUM CHLORIDE 0.9% 80 ML IV ONE; +propofoL 1,000 MG/100 ML VIAL IV ONE
[2023-05-21] MEDS: LACTATED RINGERS 1,000 ML IV SCH ×2 (05:51→14:20)
[2023-05-21 06:29] LABS: Glucose,Whole Blood 90 mg/dL (70-110)
[2023-05-21] MEDS: ATORVASTATIN 10 MG TAB PO ONE (06:36)
[2023-05-21] MEDS: ASPIRIN 325 MG TAB PO ONE (06:36)
[2023-05-21] MEDS: METOPROLOL TARTRATE 12.5 MG TAB PO ONE (06:36)
[2023-05-21] MEDS ORDERED: MIDAZOLAM 2 MG/2 ML VIAL IV PRN (07:00)
[2023-05-21] MEDS ORDERED: fentaNYL (PF) 50 MCG/ML 50 ML VIAL ONE (08:00)
[2023-05-21] MEDS ORDERED: HEPARIN SODIUM,PORCINE 10,000 UNIT/ML 1 ML VIAL ONE (08:00)
[2023-05-21] MEDS ORDERED: PROPOFOL 10 MG/ML 20 ML VIAL IV ONE (08:00)
[2023-05-21] MEDS ORDERED: ePHEDrine 50 MG/ML 1 ML VIAL ONE (08:00)
[2023-05-21] MEDS ORDERED: MIDAZOLAM HCL 10 MG/10 ML VIAL ONE (08:00)
[2023-05-21] MEDS ORDERED: TRANEXAMIC 1,000 MG/100ML-NACL PREMIX BAG ONE (08:00)
[2023-05-21] MEDS ORDERED: VECURONIUM 10 MG VIAL IV ONE (08:00)
[2023-05-21] MEDS ORDERED: ALBUMIN HUMAN 5% (25gm) 500 ML VIAL IVPB ONE (08:00)
[2023-05-21] MEDS ORDERED: PROTAMINE SULFATE 10 MG/ML 25 ML VIAL IV ONE (08:00)
[2023-05-21] MEDS ORDERED: LIDOCAINE 2% SYG (PF) 100 MG/5 ML ONE (08:00)
[2023-05-21] MEDS: ceFAZolin 1,000 MG in SODIUM CHLORIDE 0.9% IRRIGATIO 1,000 ML IRRIGATION ONE (09:10)
[2023-05-21] MEDS: HEPARIN SODIUM,PORCINE (1 ML) 5,000 UNIT in SODIUM CHLORIDE 0.9% 500 ML 500 ML IV ONE (09:10)
[2023-05-21] MEDS: PAPAVERINE 360 MG in SODIUM CHLORIDE 0.9% 90 ML IV ONE (09:11)
[2023-05-21] MEDS: DILTIAZEM 125 MG in SODIUM CHLORIDE 0.9% 100 ML IV ONE (09:11)
--- NOTE | 2023-05-21 10:21 | P.ANPRN ---
Procedure Note - Anesthesia - Invasive Line Right Central Line Time Out Performed: Yes (0730) Date of Procedure: 05/21/23 Location of Patient: PreOp Preparation: Sterile Prep, Sterile Dressing Central Line Location: Internal Jugular Ultrasound Used: Yes Purpose - Visualization and Identification of Vasculature: Yes Image Stored and Saved: Yes Narrative: Central line placement per sterile protocol utilized. Informed consent obtained.Right Internal jugular vein cannulated under aseptic precautions. 3cc 1% lidocaine infiltrated initially after cleaning with iodine based prep and draping. Ultrasound used to locate the vein and Seldinger technique used. 9Fr introduced sheath inserted and after the finding the needle with slate splitting supervisor needle/catheter. The introducer sheath was sutured in place. After the insertion of PA Catheter the insertion site was dressed with biopatch and tegaderm. Patient tolerated the procedure well. Right [place] Anastacio Time Out Performed: Yes Date of Procedure: 05/21/23 Location of Patient: PreOp Preparation: Sterile Prep, Sterile Dressing [place] Anastacio Line Location: Internal Jugular Ultrasound Used: Yes Purpose - Visualization and Identification of Vasculature: Yes Narrative: Central line placement per sterile protocol utilized. 8Ff PA catheter threaded through the Right IJ introducer sheath under asepsis with continuous waveform monitoring. Catheter at 54 cms coral. - ZAKI Intraop Pre Bypass ZAKI Intraop - Anesthesia Indication: Coronary artery bypass graft Date of Procedure: 05/21/23 Pre-operative Diagnosis: Coronary artery disease Surgeon: Roger Schultz Left Ventricle: Ejection fraction 54-60%. mild LVH noted. Ejection Fraction: Normal Regional Wall Motion Abnormalities: None Left Ventricle Hypertrophy: Yes (Mild) R. Ventricle Function: Other (Slightly dilated) Aortic Stenosis: None Aortic Regurgitation: None Mitral Stenosis: None Mitral Regurgitation: Trace Tricuspid Stenosis: None Tricuspid Regurgitation: Trace Pulmonic Stenosis: None Pulmonic Regurgitation: Trace R. Atrial Dilation: Yes (Mild) R. Atrial PFO: No L. Atrial Dilation: Yes (Mild) Aortic Dissection: No Aortic Calcification: None Plural Effusion: None - ZAKI Intraop Post Bypass ZAKI Intraop Post Bypass Procedure Performed: Coronary artery bypass graft Ejection Fraction: Normal Regional Wall Motion Abnormalities: None R. Ventricle Function: Normal Aortic Valve: Unchanged Mitral Valve: Unchanged Tricuspid: Unchanged Pulmonic: Unchanged Aortic Dissection: No
[2023-05-21 11:18] LABS: ALT 32 U/L (4-49); AST 97 U/L (17-59); African American GFR (CKD) >90 (>60 ml/min/1.73 sqM); Albumin 3.6 g/dL (3.5-5.0); Alkaline Phosphatase 66 U/L (38-126); Anion Gap 9 mmol/L; Blood Urea Nitrogen 16 mg/dL (9-20); Calcium 8.3 mg/dL (8.4-10.2); Carbon Dioxide 22 mmol/L (22-30); Chloride 111 mmol/L (98-107); Glucose 121 mg/dL (74-99); Non-African American GFR(CKD) 86 (>60 ml/min/1.73 sqM); Potassium 4.2 mmol/L (3.5-5.1); Sodium 142 mmol/L (137-145); Total Bilirubin 0.4 mg/dL (0.2-1.3); Total Protein 6.2 g/dL (6.3-8.2)
[2023-05-21 11:36] LABS: ALT 26 U/L (4-49); AST 59 U/L (17-59); African American GFR (CKD) >90 (>60 ml/min/1.73 sqM); Albumin 3.2 g/dL (3.5-5.0); Alkaline Phosphatase 52 U/L (38-126); Anion Gap 7 mmol/L; Blood Urea Nitrogen 15 mg/dL (9-20); Calcium 7.1 mg/dL (8.4-10.2); Carbon Dioxide 24 mmol/L (22-30); Chloride 110 mmol/L (98-107); Glucose 115 mg/dL (74-99); Non-African American GFR(CKD) >90 (>60 ml/min/1.73 sqM); Potassium 5.3 mmol/L (3.5-5.1); Sodium 141 mmol/L (137-145); Total Bilirubin 0.4 mg/dL (0.2-1.3); Total Protein 5.3 g/dL (6.3-8.2)
[2023-05-21 12:25] LABS: ALT 23 U/L (4-49); AST 49 U/L (17-59); African American GFR (CKD) >90 (>60 ml/min/1.73 sqM); Albumin 2.9 g/dL (3.5-5.0); Alkaline Phosphatase 46 U/L (38-126); Anion Gap 10 mmol/L; Blood Urea Nitrogen 15 mg/dL (9-20); Calcium 6.9 mg/dL (8.4-10.2); Carbon Dioxide 21 mmol/L (22-30); Chloride 109 mmol/L (98-107); Glucose 132 mg/dL (74-99); Non-African American GFR(CKD) 87 (>60 ml/min/1.73 sqM); Potassium 5.2 mmol/L (3.5-5.1); Sodium 140 mmol/L (137-145); Total Bilirubin 0.4 mg/dL (0.2-1.3); Total Protein 4.8 g/dL (6.3-8.2)
[2023-05-21 12:29] LABS: ALT 26 U/L (4-49); AST 59 U/L (17-59); African American GFR (CKD) >90 (>60 ml/min/1.73 sqM); Albumin 3.4 g/dL (3.5-5.0); Alkaline Phosphatase 54 U/L (38-126); Anion Gap 9 mmol/L; Blood Urea Nitrogen 16 mg/dL (9-20); Calcium 7.2 mg/dL (8.4-10.2); Carbon Dioxide 23 mmol/L (22-30); Chloride 108 mmol/L (98-107); Glucose 155 mg/dL (74-99); Non-African American GFR(CKD) 82 (>60 ml/min/1.73 sqM); Potassium 5.6 mmol/L (3.5-5.1); Sodium 140 mmol/L (137-145); Total Bilirubin 0.5 mg/dL (0.2-1.3); Total Protein 5.4 g/dL (6.3-8.2)
[2023-05-21 13:31] LABS: ALT 26 U/L (4-49); AST 65 U/L (17-59); African American GFR (CKD) >90 (>60 ml/min/1.73 sqM); Albumin 3.4 g/dL (3.5-5.0); Alkaline Phosphatase 47 U/L (38-126); Anion Gap 9 mmol/L; Blood Urea Nitrogen 16 mg/dL (9-20); Calcium 7.8 mg/dL (8.4-10.2); Carbon Dioxide 24 mmol/L (22-30); Chloride 109 mmol/L (98-107); Glucose 156 mg/dL (74-99); Non-African American GFR(CKD) 87 (>60 ml/min/1.73 sqM); Potassium 4.6 mmol/L (3.5-5.1); Sodium 142 mmol/L (137-145); Total Bilirubin 0.5 mg/dL (0.2-1.3); Total Protein 5.5 g/dL (6.3-8.2)
[2023-05-21] MEDS ORDERED: CALCIUM GLUCONATE IN NACL 2 GM in SALINE 1 100ML.BAG IVPB PRN (13:54)
[2023-05-21] MEDS ORDERED: ONDANSETRON 4 MG/2 ML VIAL IVP PRN (13:54)
[2023-05-21] MEDS ORDERED: Potassium Replacement Protocol 1 EACH MISC MISCELLANE PRN (13:54)
[2023-05-21] MEDS ORDERED: Magnesium Replacement Protocol 1 EACH MISC MISCELLANE PRN (13:54)
[2023-05-21] MEDS ORDERED: Phosphorus Replacement Protoco 1 EACH MISC MISCELLANE PRN (13:54)
[2023-05-21] MEDS ORDERED: DEXTROSE 50% SYRINGE 50 ML IVP PRN ×2 (13:54)
[2023-05-21] MEDS ORDERED: BENZOCAINE/MENTHOL LOZENG 1 EACH LOZENGE MUCOUS MEM PRN (13:54)
[2023-05-21] MEDS: IPRATROPIUM-ALBUTEROL 3 ML NEB INHALATION SCH ×2 (14:01→20:53)
[2023-05-21] MEDS: CLEVIDIPINE BUTYRATE 25 MG in EMPTY BAG 1 BAG IV SCH (14:07)
[2023-05-21 14:16] LABS: Glucose,Whole Blood 131 mg/dL (70-110)
[2023-05-21] MEDS: DILTIAZEM 125 MG in SODIUM CHLORIDE 0.9% 100 ML IV SCH (14:20)
[2023-05-21] MEDS: NITROGLYCERIN-D5W PMX 50 MG in DEXTROSE/WATER 1 250ML.BAG IV SCH (14:21)
[2023-05-21] MEDS: INSULIN REGULAR 100 UNIT in SODIUM CHLORIDE 0.9% 100 ML IV SCH (14:22)
[2023-05-21 14:24] LABS: ABG Base Excess -0.3 mmol/L; ABG HCO3 25 mmol/L (21-25); ABG Oxygen Saturation 99.8 % (94-97); ABG PCO2 47 mmHg (35-45); ABG PH 7.34 (7.35-7.45); ABG PO2 210 mmHg (83-108); ABG TCO2 27 mmol/L (19-24)
[2023-05-21 14:31] LABS: Basophils % (A) 0 %; Eosinophils # (A) 0.1 k/uL (0-0.7); Eosinophils % (A) 1 %; HCT 25.1 % (39.0-53.0); Lymphocytes # (A) 0.8 k/uL (1.0-4.8); Lymphocytes % (A) 9 %; MCH 32.6 pg (25.0-35.0); MCHC 34.2 g/dL (31.0-37.0); MCV 95.3 fL (80.0-100.0); Monocytes # (A) 0.6 k/uL (0-1.0); Monocytes % (A) 7 %; Neutrophils # (A) 6.8 k/uL (1.3-7.7); Neutrophils % (A) 82 %; Platelet Count 160 k/uL (150-450); RBC 2.64 m/uL (4.30-5.90); RDW 14.4 % (11.5-15.5); WBC 8.4 k/uL (3.8-10.6)
[2023-05-21 14:40] LABS: HGB 8.6 gm/dL (13.0-17.5)
[2023-05-21 14:45] LABS: INR 1.2 (<1.2); Partial Thromboplastin Time 22.5 sec (22.0-30.0); Prothrombin Time 12.4 sec (10.0-12.5)
--- NOTE | 2023-05-21 14:47 | XR ---
EXAMINATION TYPE: XR chest 1V portable DATE OF EXAM: 05/21/2023 Comparison: 05/10/2023 Clinical History: 72-year-old male Post Operative Cardiac Surgery Findings: ET tube tip at the level of the medial clavicular heads. NG tube is short. The sidehole is at the mid chest level. It could be advanced by approximately 18 cm so that it enters the stomach. Mediastinal drain. Left-sided chest tube. Multiple old right-sided rib fracture deformities. Right IJ [place]-Anastacio c atheter tip in the main pulmonary outflow tract. Median sternotomy wires and post-CABG clips. There i s a right-sided pneumothorax measuring 2.3 cm at the apex. Prominent lucency at the lateral sulcus at the right base. Hazy density at the left base along with retrocardiac opacity. Additional strandy at electasis left midlung. Impression: 1. Post-CABG changes. There is underlying right-sided pneumothorax. Suspect an anterior basilar compo nent along with a 2.3 cm apical component. Size may be more accurately determined on an upright view. 2. At least a small left pleural effusion with prominent adjacent atelectasis and/or consolidation. L eft-sided chest tube in place. 3. The NG tube should be advanced by 18 cm so that the side hole enters the stomach. Findings called to Nurse Ирина on 2SICU at 2:43pm.
[2023-05-21 14:48] LABS: ALT 31 U/L (4-49); AST 67 U/L (17-59); African American GFR (CKD) >90 (>60 ml/min/1.73 sqM); Albumin 3.9 g/dL (3.5-5.0); Alkaline Phosphatase 56 U/L (38-126); Anion Gap 9 mmol/L; Blood Urea Nitrogen 16 mg/dL (9-20); Calcium 8.8 mg/dL (8.4-10.2); Carbon Dioxide 24 mmol/L (22-30); Chloride 110 mmol/L (98-107); Glucose 117 mg/dL (74-99); Non-African American GFR(CKD) 87 (>60 ml/min/1.73 sqM); Potassium 4.4 mmol/L (3.5-5.1); Sodium 143 mmol/L (137-145); Total Bilirubin 0.7 mg/dL (0.2-1.3)
[2023-05-21 15:03] LABS: Glucose,Whole Blood 150 mg/dL (70-110)
[2023-05-21] MEDS: ALBUMIN HUMAN 5% 250 ML in EMPTY BAG 1 BAG IVPB PRN (15:42)
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
[2023-05-21] MEDS ORDERED: [UNRECOGNIZED DRUG - REMARK] PO PRN (16:03)
[2023-05-21] MEDS: AMIODARONE 360 MG in DEXTROSE 5% IN WATER 200 ML IV ONE (16:10)
[2023-05-21] MEDS: DEXMEDETOMIDINE/0.9% NACL(PMX) 400 MCG in EMPTY BAG 1 BAG IV SCH (16:25)
--- NOTE | 2023-05-21 16:59 | XR ---
EXAMINATION TYPE: XR chest 1V portable DATE OF EXAM: 05/21/2023 4:50 PM CLINICAL INDICATION:Male, 72 years old with history of post op CABG COMPARISON: Chest radiographs from 05/21/2023 TECHNIQUE: XR chest 1V portable Frontal view of the chest. FINDINGS: Lungs/Pleura: There is no evidence of right pleural effusion, focal consolidation, or pneumothorax. There may be trace blunting of left costophrenic angle. Pulmonary vascularity: Unremarkable. Heart/mediastinum: Cardiomediastinal silhouette is unremarkable. Atherosclerotic calcifications are seen in the aorta. Left atrial appendage occlusion device is present. Musculoskeletal: No acute osseous pathology. Other findings: None Lines/Tubes: Endotracheal tube with distal tip 2.5 cm above the teo. Nasogastric tube with its distal tip and side-port projecting under the diaphragm. Left thoracotomy tube is present without evidence of pneumothorax. There is a [place]-Anastacio catheter with tip projecting over the spine. IMPRESSION: 1. Right pneumothorax seen on prior not well appreciated which could be due to patient positioning. Attention on follow-up. 2. Appropriate placement of support tubes.
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
[2023-05-21 17:05] LABS: Glucose,Whole Blood 136 mg/dL (70-110)
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
[2023-05-21] MEDS: HEPARIN SODIUM,PORCINE 5,000 UNIT/ML 1 ML VIAL SQ SCH (17:25)
[2023-05-21] MEDS: ACETAMINOPHEN IV (For NPO) 1,000 MG in EMPTY BAG 1 BAG IVPB SCH (17:25)
[2023-05-21 17:27] LABS: Basophils % (A) 0 %; Eosinophils % (A) 0 %; HCT 23.6 % (39.0-53.0); HGB 8.1 gm/dL (13.0-17.5); Lymphocytes # (A) 0.6 k/uL (1.0-4.8); Lymphocytes % (A) 6 %; MCH 32.6 pg (25.0-35.0); MCHC 34.2 g/dL (31.0-37.0); MCV 95.2 fL (80.0-100.0); Mean Platelet Volume 8.4; Monocytes # (A) 0.7 k/uL (0-1.0); Monocytes % (A) 7 %; Neutrophils # (A) 7.9 k/uL (1.3-7.7); Neutrophils % (A) 85 %; Platelet Count 186 k/uL (150-450); RBC 2.48 m/uL (4.30-5.90); RDW 14.4 % (11.5-15.5); WBC 9.3 k/uL (3.8-10.6)
[2023-05-21 17:39] LABS: ABG Base Excess 0.4 mmol/L; ABG HCO3 26 mmol/L (21-25); ABG Oxygen Saturation 98.3 % (94-97); ABG PCO2 43 mmHg (35-45); ABG PH 7.38 (7.35-7.45); ABG PO2 92 mmHg (83-108); ABG TCO2 27 mmol/L (19-24)
[2023-05-21 19:06] LABS: Glucose,Whole Blood 118 mg/dL (70-110)
[2023-05-21 19:55] LABS: Glucose,Whole Blood 128 mg/dL (70-110)
[2023-05-21 20:04] LABS: Basophils % (A) 0 %; Eosinophils % (A) 0 %; HCT 21.2 % (39.0-53.0); HGB 7.1 gm/dL (13.0-17.5); Lymphocytes # (A) 0.3 k/uL (1.0-4.8); Lymphocytes % (A) 5 %; MCH 31.9 pg (25.0-35.0); MCHC 33.6 g/dL (31.0-37.0); MCV 95.1 fL (80.0-100.0); Mean Platelet Volume 9.9; Monocytes # (A) 0.5 k/uL (0-1.0); Monocytes % (A) 7 %; Neutrophils % (A) 87 %; Platelet Count 143 k/uL (150-450); RBC 2.23 m/uL (4.30-5.90); RDW 14.4 % (11.5-15.5); WBC 6.9 k/uL (3.8-10.6)
[2023-05-21] MEDS: DEXTROSE 5% IN WATER 100 ML with AMIODARONE 150 MG IV PRN (20:45)
[2023-05-21 20:57] LABS: Glucose,Whole Blood 130 mg/dL (70-110)
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
[2023-05-21 21:58] LABS: Glucose,Whole Blood 144 mg/dL (70-110)
[2023-05-21] MEDS: AMIODARONE 450 MG in DEXTROSE 5% IN WATER 250 ML IV SCH (22:45)
[2023-05-21 22:51] LABS: Glucose,Whole Blood 140 mg/dL (70-110)
[2023-05-21] MEDS: KETOROLAC 15 MG/ML 1 ML VIAL IVP SCH (23:21)
[2023-05-21 23:48] LABS: Glucose,Whole Blood 141 mg/dL (70-110)
[2023-05-22 01:04] LABS: Glucose,Whole Blood 129 mg/dL (70-110)
[2023-05-22 02:05] LABS: Glucose,Whole Blood 130 mg/dL (70-110)
[2023-05-22 03:05] LABS: Glucose,Whole Blood 128 mg/dL (70-110)
[2023-05-22 04:38] LABS: Glucose,Whole Blood 124 mg/dL (70-110)
[2023-05-22 04:59] LABS: Basophils % (A) 0 %; Eosinophils % (A) 0 %; HCT 21.1 % (39.0-53.0); Lymphocytes # (A) 0.8 k/uL (1.0-4.8); Lymphocytes % (A) 10 %; MCH 31.9 pg (25.0-35.0); MCHC 33.2 g/dL (31.0-37.0); Mean Platelet Volume 9.5; Monocytes # (A) 0.6 k/uL (0-1.0); Monocytes % (A) 7 %; Neutrophils # (A) 6.3 k/uL (1.3-7.7); Neutrophils % (A) 81 %; Platelet Count 152 k/uL (150-450); RDW 14.4 % (11.5-15.5); WBC 7.8 k/uL (3.8-10.6)
[2023-05-22 05:03] LABS: Ionized Calcium 4.6 mg/dL (4.5-5.3)
[2023-05-22 05:11] LABS: ALT 20 U/L (4-49); AST 47 U/L (17-59); African American GFR (CKD) 71 (>60 ml/min/1.73 sqM); Albumin 3.7 g/dL (3.5-5.0); Alkaline Phosphatase 43 U/L (38-126); Anion Gap 8 mmol/L; Blood Urea Nitrogen 19 mg/dL (9-20); Calcium 8.4 mg/dL (8.4-10.2); Carbon Dioxide 25 mmol/L (22-30); Chloride 106 mmol/L (98-107); Glucose 109 mg/dL (74-99); Magnesium 2.4 mg/dL (1.6-2.3); Non-African American GFR(CKD) 62 (>60 ml/min/1.73 sqM); Potassium 4.3 mmol/L (3.5-5.1); Sodium 139 mmol/L (137-145); Total Bilirubin 0.5 mg/dL (0.2-1.3); Total Protein 5.6 g/dL (6.3-8.2)
[2023-05-22 06:32] LABS: Glucose,Whole Blood 137 mg/dL (70-110)
[2023-05-22 07:15] LABS: Glucose,Whole Blood 135 mg/dL (70-110)
--- NOTE | 2023-05-22 07:18 | P.PN ---
Subjective Progress Note Date: 05/22/23 PROGRESS NOTE The patient is a 72-year-old male was admitted to undergo elective CABG. He has a history of CVA, hypertension, hyperlipidemia, peripheral vascular disease status post carotid endarterectomy who presented to symptoms of chest discomfort. He underwent cardiac catheterization earlier this month by Dr. Flanagan, was found to have calcified coronary arteries was ostial LAD and mid LAD disease as well as left circumflex disease. He is in the ICU, intubated and sedated, hemodynamically stable in sinus mechanism. He underwent surgery today by Dr. Schultz. His left ventricle systolic function preoperatively was normal. He has a history of hypertension and hyperlipidemia, nondiabetic. April 21 The patient is extubated, sitting up in the chair, in sinus mechanism. He has chest wall tenderness. The pneumothorax was noted on chest x-ray. Hemodynamically he stable. His urinary output stable. He denies any nausea or vomiting. There is no evidence of hemodynamic compromise. He received a FIGUEROA to the LAD and SVG to the OM and radial artery to OM 2 with closure of the left atrial appendage Medications: Aspirin, atorvastatin 40 mg daily, Plavix 75 mg daily, metoprolol 12.5 mg twice a day, IV nitroglycerin, Flomax PHYSICAL EXAMINATION: Blood pressure 116/40 heart rate 85, Sharon-Anastacio from right IJ LUNGS: Scattered rhonchi HEART: Regular rate and rhythm, S1, S2. No S3. Systolic ejection murmur ABDOMEN: Soft, nontender, no organomegaly EXTREMETIES: No edema LAB: Hemoglobin 7, BUN 19, creatinine 1.1, potassium 4.3 IMPRESSION: 1. Status post CABG 2. History of hyperlipidemia 3. History of hypertension 4. History of carotid disease 5. Pneumothorax post CABG PLAN: 1. Continue present therapy 2. Incentive spirometry 3. Close follow-up of the pneumothorax 4. Depending on his progress further recommendations will be made Objective - Vital Signs Vital signs: Vital Signs Temp 99.5 F 05/22/23 00:00 Pulse 92 05/22/23 06:15 Resp 17 05/22/23 06:15 BP 123/71 05/22/23 01:30 Pulse Ox 93 L 05/22/23 05:45 FiO2 50 05/21/23 17:06 Intake & Output 05/21/23 05/22/23 05/22/23 18:59 06:59 18:59 Intake Total 565.028 977.183 Output Total 2450 1145 Balance -1884.972 -167.817 Weight 89.2 kg Intake: IV 499 968 ACETAMINOPHEN IV (For NPO 100 ) 1,000 mg In Empty Bag 1 bag @ 400 mls/hr IVPB Q6HR JAIRO Rx#:[id number] CO/CI 100 110 Lactated Ringers 1,000 ml 250 600 @ 50 mls/hr IV .Q20H JAIRO Rx#:[id number] Pressure 45 108 ceFAZolin 2 gm In Sodium 50 50 Chloride 0.9% 50 ml @ 100 mls/hr IVPB Q8HR JAIRO Rx# :[id number] Intake, IV Titration 66.028 9.183 Amount Clevidipine Butyrate 25 9.233 mg In Empty Bag 1 bag @ 1 MG/HR 2 mls/hr IV .Q24H JAIRO Rx#:[id number] Dexmedetomidine/0.9% NaCl 9.429 (Pmx) 400 mcg In Empty Bag 1 bag @ 0.2 MCG/KG/HR 4.49 mls/hr IV .[id number] JAIRO Rx#:[id number] Diltiazem 125 mg In 13.333 Sodium Chloride 0.9% 100 ml @ 5 MG/HR 5 mls/hr IV .Q24H JAIRO Rx#:[id number] Insulin Regular 100 unit 3.77 9.183 In Sodium Chloride 0.9% 100 ml @ Per Protocol IV .Q0M JAIRO Rx#:[id number] propofoL 1,000 mg In 30.263 Empty Bag 1 bag @ Titrate IV .Q0M JAIRO Rx#: [id number] Output: Chest Tube Drainage 300 520 Left Pleural 120 260 Mediastinal 180 260 Urine 1400 625 Estimated Blood Loss 750 Other: Voiding Method Indwelling Catheter Indwelling Catheter ABP, PAP, CO, CI - Last Documented Arterial Blood Pressure 121/43 Pulmonary Artery Pressure 14/7 Cardiac Output 4.3 Cardiac Index 2.1 - Labs CBC & Chem 7: 05/22/23 04:40 05/22/23 04:40 Labs: Abnormal Lab Results - Last 24 Hours (Table) 05/18/23 05/21/23 05/21/23 Range/Units 14:20 10:04 11:00 RBC (4.30-5.90) m/uL Hgb (13.0-17.5) gm/dL Hct (39.0-53.0) % Plt Count (150-450) k/uL Neutrophils # (1.3-7.7) k/uL Lymphocytes # (1.0-4.8) k/uL INR (<1.2) ABG pH (7.35-7.45) ABG pCO2 (35-45) mmHg ABG pO2 (83-108) mmHg ABG HCO3 (21-25) mmol/L ABG Total CO2 (19-24) mmol/L ABG O2 Saturation (94-97) % Potassium 5.3 H (3.5-5.1) mmol/L Chloride 111 H 110 H (98-107) mmol/L Carbon Dioxide (22-30) mmol/L Glucose 121 H 115 H (74-99) mg/dL POC Glucose (mg/dL) (70-110) mg/dL Calcium 8.3 L 7.1 L (8.4-10.2) mg/dL Magnesium (1.6-2.3) mg/dL AST 97 H (17-59) U/L Total Protein 6.2 L 5.3 L (6.3-8.2) g/dL Albumin 3.2 L (3.5-5.0) g/dL Crossmatch See Detail 05/21/23 05/21/23 05/21/23 Range/Units 11:26 12:05 12:58 RBC (4.30-5.90) m/uL Hgb (13.0-17.5) gm/dL Hct (39.0-53.0) % Plt Count (150-450) k/uL Neutrophils # (1.3-7.7) k/uL Lymphocytes # (1.0-4.8) k/uL INR (<1.2) ABG pH (7.35-7.45) ABG pCO2 (35-45) mmHg ABG pO2 (83-108) mmHg ABG HCO3 (21-25) mmol/L ABG Total CO2 (19-24) mmol/L ABG O2 Saturation (94-97) % Potassium 5.2 H 5.6 H (3.5-5.1) mmol/L Chloride 109 H 108 H 109 H (98-107) mmol/L Carbon Dioxide 21 L (22-30) mmol/L Glucose 132 H 155 H 156 H (74-99) mg/dL POC Glucose (mg/dL) (70-110) mg/dL Calcium 6.9 L 7.2 L 7.8 L (8.4-10.2) mg/dL Magnesium (1.6-2.3) mg/dL AST 65 H (17-59) U/L Total Protein 4.8 L 5.4 L 5.5 L (6.3-8.2) g/dL Albumin 2.9 L 3.4 L 3.4 L (3.5-5.0) g/dL Crossmatch 05/21/23 05/21/23 05/21/23 Range/Units 14:14 14:21 14:26 RBC 2.64 L (4.30-5.90) m/uL Hgb 8.6 L D (13.0-17.5) gm/dL Hct 25.1 L (39.0-53.0) % Plt Count (150-450) k/uL Neutrophils # (1.3-7.7) k/uL Lymphocytes # 0.8 L (1.0-4.8) k/uL INR (<1.2) ABG pH 7.34 L (7.35-7.45) ABG pCO2 47 H (35-45) mmHg ABG pO2 210 H (83-108) mmHg ABG HCO3 (21-25) mmol/L ABG Total CO2 27 H (19-24) mmol/L ABG O2 Saturation 99.8 H (94-97) % Potassium (3.5-5.1) mmol/L Chloride (98-107) mmol/L Carbon Dioxide (22-30) mmol/L Glucose (74-99) mg/dL POC Glucose (mg/dL) 131 H (70-110) mg/dL Calcium (8.4-10.2) mg/dL Magnesium (1.6-2.3) mg/dL AST (17-59) U/L Total Protein (6.3-8.2) g/dL Albumin (3.5-5.0) g/dL Crossmatch 05/21/23 05/21/23 05/21/23 Range/Units 14:26 14:26 15:01 RBC (4.30-5.90) m/uL Hgb (13.0-17.5) gm/dL Hct (39.0-53.0) % Plt Count (150-450) k/uL Neutrophils # (1.3-7.7) k/uL Lymphocytes # (1.0-4.8) k/uL INR 1.2 H (<1.2) ABG pH (7.35-7.45) ABG pCO2 (35-45) mmHg ABG pO2 (83-108) mmHg ABG HCO3 (21-25) mmol/L ABG Total CO2 (19-24) mmol/L ABG O2 Saturation (94-97) % Potassium (3.5-5.1) mmol/L Chloride 110 H (98-107) mmol/L Carbon Dioxide (22-30) mmol/L Glucose 117 H (74-99) mg/dL POC Glucose (mg/dL) 150 H (70-110) mg/dL Calcium (8.4-10.2) mg/dL Magnesium (1.6-2.3) mg/dL AST 67 H (17-59) U/L Total Protein 6.0 L (6.3-8.2) g/dL Albumin (3.5-5.0) g/dL Crossmatch 05/21/23 05/21/23 05/21/23 Range/Units 16:46 17:04 17:37 RBC 2.48 L (4.30-5.90) m/uL Hgb 8.1 L (13.0-17.5) gm/dL Hct 23.6 L (39.0-53.0) % Plt Count (150-450) k/uL Neutrophils # 7.9 H (1.3-7.7) k/uL Lymphocytes # 0.6 L (1.0-4.8) k/uL INR (<1.2) ABG pH (7.35-7.45) ABG pCO2 (35-45) mmHg ABG pO2 (83-108) mmHg ABG HCO3 26 H (21-25) mmol/L ABG Total CO2 27 H (19-24) mmol/L ABG O2 Saturation 98.3 H (94-97) % Potassium (3.5-5.1) mmol/L Chloride (98-107) mmol/L Carbon Dioxide (22-30) mmol/L Glucose (74-99) mg/dL POC Glucose (mg/dL) 136 H (70-110) mg/dL Calcium (8.4-10.2) mg/dL Magnesium (1.6-2.3) mg/dL AST (17-59) U/L Total Protein (6.3-8.2) g/dL Albumin (3.5-5.0) g/dL Crossmatch 05/21/23 05/21/23 05/21/23 Range/Units 19:04 19:53 19:55 RBC 2.23 L (4.30-5.90) m/uL Hgb 7.1 L (13.0-17.5) gm/dL Hct 21.2 L (39.0-53.0) % Plt Count 143 L (150-450) k/uL Neutrophils # (1.3-7.7) k/uL Lymphocytes # 0.3 L (1.0-4.8) k/uL INR (<1.2) ABG pH (7.35-7.45) ABG pCO2 (35-45) mmHg ABG pO2 (83-108) mmHg ABG HCO3 (21-25) mmol/L ABG Total CO2 (19-24) mmol/L ABG O2 Saturation (94-97) % Potassium (3.5-5.1) mmol/L Chloride (98-107) mmol/L Carbon Dioxide (22-30) mmol/L Glucose (74-99) mg/dL POC Glucose (mg/dL) 118 H 128 H (70-110) mg/dL Calcium (8.4-10.2) mg/dL Magnesium (1.6-2.3) mg/dL AST (17-59) U/L Total Protein (6.3-8.2) g/dL Albumin (3.5-5.0) g/dL Crossmatch 05/21/23 05/21/23 05/21/23 Range/Units 20:56 21:56 22:49 RBC (4.30-5.90) m/uL Hgb (13.0-17.5) gm/dL Hct (39.0-53.0) % Plt Count (150-450) k/uL Neutrophils # (1.3-7.7) k/uL Lymphocytes # (1.0-4.8) k/uL INR (<1.2) ABG pH (7.35-7.45) ABG pCO2 (35-45) mmHg ABG pO2 (83-108) mmHg ABG HCO3 (21-25) mmol/L ABG Total CO2 (19-24) mmol/L ABG O2 Saturation (94-97) % Potassium (3.5-5.1) mmol/L Chloride (98-107) mmol/L Carbon Dioxide (22-30) mmol/L Glucose (74-99) mg/dL POC Glucose (mg/dL) 130 H 144 H 140 H (70-110) mg/dL Calcium (8.4-10.2) mg/dL Magnesium (1.6-2.3) mg/dL AST (17-59) U/L Total Protein (6.3-8.2) g/dL Albumin (3.5-5.0) g/dL Crossmatch 05/21/23 05/22/23 05/22/23 Range/Units 23:47 01:02 02:03 RBC (4.30-5.90) m/uL Hgb (13.0-17.5) gm/dL Hct (39.0-53.0) % Plt Count (150-450) k/uL Neutrophils # (1.3-7.7) k/uL Lymphocytes # (1.0-4.8) k/uL INR (<1.2) ABG pH (7.35-7.45) ABG pCO2 (35-45) mmHg ABG pO2 (83-108) mmHg ABG HCO3 (21-25) mmol/L ABG Total CO2 (19-24) mmol/L ABG O2 Saturation (94-97) % Potassium (3.5-5.1) mmol/L Chloride (98-107) mmol/L Carbon Dioxide (22-30) mmol/L Glucose (74-99) mg/dL POC Glucose (mg/dL) 141 H 129 H 130 H (70-110) mg/dL Calcium (8.4-10.2) mg/dL Magnesium (1.6-2.3) mg/dL AST (17-59) U/L Total Protein (6.3-8.2) g/dL Albumin (3.5-5.0) g/dL Crossmatch 05/22/23 05/22/23 05/22/23 Range/Units 03:04 04:36 04:40 RBC 2.20 L (4.30-5.90) m/uL Hgb 7.0 L (13.0-17.5) gm/dL Hct 21.1 L (39.0-53.0) % Plt Count (150-450) k/uL Neutrophils # (1.3-7.7) k/uL Lymphocytes # 0.8 L (1.0-4.8) k/uL INR (<1.2) ABG pH (7.35-7.45) ABG pCO2 (35-45) mmHg ABG pO2 (83-108) mmHg ABG HCO3 (21-25) mmol/L ABG Total CO2 (19-24) mmol/L ABG O2 Saturation (94-97) % Potassium (3.5-5.1) mmol/L Chloride (98-107) mmol/L Carbon Dioxide (22-30) mmol/L Glucose (74-99) mg/dL POC Glucose (mg/dL) 128 H 124 H (70-110) mg/dL Calcium (8.4-10.2) mg/dL Magnesium (1.6-2.3) mg/dL AST (17-59) U/L Total Protein (6.3-8.2) g/dL Albumin (3.5-5.0) g/dL Crossmatch 05/22/23 05/22/23 Range/Units 04:40 06:30 RBC (4.30-5.90) m/uL Hgb (13.0-17.5) gm/dL Hct (39.0-53.0) % Plt Count (150-450) k/uL Neutrophils # (1.3-7.7) k/uL Lymphocytes # (1.0-4.8) k/uL INR (<1.2) ABG pH (7.35-7.45) ABG pCO2 (35-45) mmHg ABG pO2 (83-108) mmHg ABG HCO3 (21-25) mmol/L ABG Total CO2 (19-24) mmol/L ABG O2 Saturation (94-97) % Potassium (3.5-5.1) mmol/L Chloride (98-107) mmol/L Carbon Dioxide (22-30) mmol/L Glucose 109 H (74-99) mg/dL POC Glucose (mg/dL) 137 H (70-110) mg/dL Calcium (8.4-10.2) mg/dL Magnesium 2.4 H (1.6-2.3) mg/dL AST (17-59) U/L Total Protein 5.6 L (6.3-8.2) g/dL Albumin (3.5-5.0) g/dL Crossmatch
--- NOTE | 2023-05-22 07:25 | XR ---
EXAMINATION TYPE: XR chest 1V portable DATE OF EXAM: 05/22/2023 5:34 AM CLINICAL INDICATION:Male, 72 years old with history of Post Operative Cardiac Surgery; [facility] COMPARISON: Chest radiograph from one day prior. TECHNIQUE: XR chest 1V portable Frontal view of the chest. FINDINGS: Lungs/Pleura: Right upper lung lucency which is not seen on immediate prior. There is no evidence of pleural effusion, focal consolidation, or pneumothorax. Pulmonary vascularity: Unremarkable. Heart/mediastinum: Cardiomediastinal silhouette is unremarkable. Atherosclerotic calcifications are seen in the aorta. Left atrial appendage occlusion device is present. Musculoskeletal: No acute osseous pathology. Midline sternotomy wires are noted. Other findings: None Lines/Tubes: Left thoracotomy tube is present without evidence of pneumothorax. There is a Rapidan-Anastacio catheter with tip projecting over the spine. Drainage tubes with tips projecting over the mediastinum. IMPRESSION: There is now lucency in the right lung apex concerning for pneumothorax. Not seen on immediate prior but present on 05/21/2023. Remainder of the exam is relatively unchanged.
[2023-05-22 08:05] LABS: Glucose,Whole Blood 139 mg/dL (70-110)
[2023-05-22] MEDS: PANTOPRAZOLE 40 MG/10 ML VIAL IVP SCH (08:20)
[2023-05-22] MEDS: ASPIRIN 325 MG TAB PO SCH (08:21)
[2023-05-22] MEDS: AMIODARONE 200 MG TAB PO SCH (08:21)
[2023-05-22] MEDS: ATORVASTATIN 80 MG TAB PO SCH (08:21)
[2023-05-22] MEDS: METOPROLOL TARTRATE 25 MG TAB PO SCH (08:21)
[2023-05-22] MEDS: TAMSULOSIN 0.4 MG CAP.ER.24H PO SCH (08:21)
[2023-05-22] MEDS: CLOPIDOGREL 75 MG TAB PO SCH (08:21)
[2023-05-22] MEDS: amLODIPine 5 MG TAB PO SCH (08:21)
[2023-05-22] MEDS: levETIRAcetam 500 MG TAB PO SCH (08:21)
[2023-05-22] MEDS ORDERED: ATORVASTATIN 40 MG TAB PO SCH (09:00)
[2023-05-22] MEDS ORDERED: MAGNESIUM HYDROXIDE 2,400 MG/30 ML CUP PO PRN (09:00)
[2023-05-22] MEDS ORDERED: METOPROLOL TARTRATE 12.5 MG TAB PO SCH (09:00)
[2023-05-22] MEDS: DULoxetine HCL 20 MG CAPSULE.DR PO SCH (09:23)
[2023-05-22] MEDS: FINASTERIDE 5 MG TAB PO SCH (09:23)
[2023-05-22 10:16] LABS: Glucose,Whole Blood 210 mg/dL (70-110)
--- NOTE | 2023-05-22 10:45 | P.PN ---
Subjective Progress Note Date: 05/22/23 Patient is a patient is a 72-year-old male with a history of hypertension, dyslipidemia, closed head injury, epilepsy with last seizure 1 year ago, and recently diagnosed hypothyroidism who presented for three-vessel coronary artery bypass grafting. He tolerated the procedure well and was able to be extubated the same day as surgery. Patient seen and examined at bedside. He is having some pain. He denies any nausea, vomiting, constipation. He denies any significant shortness of breath. He is unsure when he was started on thyroid medications. Vital signs reviewed General: Ill-appearing, moderate distress due to pain, appears at stated age Cardiovascular: S1S2 reg, no murmur Lungs: Decreased breath sounds bilateral bases, no rhonchi, no rales, no accessory muscle use Abdominal: Soft, nontender to palpation, no guarding Ext: No gross muscle atrophy, no edema b/l lower extremities, no contractures Neuro: CN II-XI grossly intact, no focal neuro deficits Psych: Alert, oriented, appropriate affect Assessment/Plan: 72-year-old male status post triple-vessel coronary artery bypass surgery Hypertension Dyslipidemia -Management per CT surgery Continue on amiodarone for A-fib prophylaxis Norvasc 5 mg daily, aspirin 325 mg daily, Plavix 75 mg daily, Lipitor 80 mg daily -Metoprolol 25 mg twice daily Acute blood loss anemia, anticipated outcome of surgery -Agree with ferrous sulfate 325 mg daily -Follow CBC, no indication for transfusion at this time -Patient has not required any packed blood cells. Prediabetes -Preop hemoglobin A1c was 6 on 05/14/23 -Continue with insulin drip. Anticipate changing over to sliding scale insulin in AM. Recently diagnosed hypothyroidism -Continue with Synthroid 25 mcg daily -Should have repeat outpatient TSH in 4 to 6 weeks. Seizure disorder -Continue with Keppra 1500 mg twice daily Imaging: Chest x-ray is reviewed by myself shows possible pneumothorax right upper lobe, lines and tubes in appropriate position. Data Review: Labs reviewed from 05/22/2023 include CBC, CMP, magnesium which are remarkable for hemoglobin 7, magnesium 2.4. Blood sugars have been ranging 124-210 (seen on previous 05/21/23) DVT prophylaxis: Heparin Thank you for allowing us to participate in the care of this pleasant patient. Do not hesitate to contact us with questions. Someone can be reached from the [facility] hospitalist group all hours of the day at [phone] or via perfect serve. This dictation was prepared using [employer] voice recognition software. Though every attempt is made to correct errors during dictation some may still exist. Objective - Vital Signs Vital signs: Vital Signs Temp 98.7 F 05/22/23 08:00 Pulse 81 05/22/23 10:00 Resp 18 05/22/23 10:00 BP 123/71 05/22/23 01:30 Pulse Ox 96 05/22/23 10:00 FiO2 50 05/21/23 17:06 Intake & Output 05/21/23 05/22/23 05/22/23 18:59 06:59 18:59 Intake Total 565.028 977.183 499.739 Output Total 2450 1145 165 Balance -1884.972 -167.817 334.739 Weight 89.2 kg 89.2 kg Intake: IV 499 968 196 ACETAMINOPHEN IV (For NPO 100 ) 1,000 mg In Empty Bag 1 bag @ 400 mls/hr IVPB Q6HR JAIRO Rx#:[id number] CO/CI 100 110 Lactated Ringers 1,000 ml 250 600 110 @ 20 mls/hr IV .Q24H JAIRO Rx#:[id number] Pressure 45 108 36 ceFAZolin 2 gm In Sodium 50 50 50 Chloride 0.9% 50 ml @ 100 mls/hr IVPB Q8HR JAIRO Rx# :[id number] Intake, IV Titration 66.028 9.183 63.739 Amount Amiodarone 450 mg In 49.8 Dextrose 5% in Water 250 ml @ 0.5 MG/MIN 16.667 mls/hr IV .Q15H JAIRO Rx#: [id number] Clevidipine Butyrate 25 9.233 mg In Empty Bag 1 bag @ 1 MG/HR 2 mls/hr IV .Q24H [facility]IRO Rx#:[id number] Dexmedetomidine/0.9% NaCl 9.429 (Pmx) 400 mcg In Empty Bag 1 bag @ 0.2 MCG/KG/HR 4.49 mls/hr IV .Q46M62Q [facility]IRO Rx#:[id number] Diltiazem 125 mg In 13.333 Sodium Chloride 0.9% 100 ml @ 5 MG/HR 5 mls/hr IV .Q24H JAIRO Rx#:[id number] Insulin Regular 100 unit 3.77 9.183 8.939 In Sodium Chloride 0.9% 100 ml @ Per Protocol IV .Q0M JAIRO Rx#:[id number] Nitroglycerin-D5w Pmx 50 5 mg In Dextrose/Water 1 250ml.bag @ 5 MCG/MIN 1.5 mls/hr IV .Q24H JAIRO Rx#: [id number] propofoL 1,000 mg In 30.263 Empty Bag 1 bag @ Titrate IV .Q0M JAIRO Rx#: [id number] Oral 240 Output: Chest Tube Drainage 300 520 50 Left Pleural 120 260 20 Mediastinal 180 260 30 Urine 1400 625 115 Estimated Blood Loss 750 Other: Voiding Method Indwelling Catheter Indwelling Catheter Indwelling Catheter ABP, PAP, CO, CI - Last Documented Arterial Blood Pressure 99/48 Pulmonary Artery Pressure 27/13 Cardiac Output 4.3 Cardiac Index 2.1 - Labs CBC & Chem 7: 05/22/23 04:40 05/22/23 04:40 Labs: Abnormal Lab Results - Last 24 Hours (Table) 05/18/23 05/21/23 05/21/23 Range/Units 14:20 10:04 11:00 RBC (4.30-5.90) m/uL Hgb (13.0-17.5) gm/dL Hct (39.0-53.0) % Plt Count (150-450) k/uL Neutrophils # (1.3-7.7) k/uL Lymphocytes # (1.0-4.8) k/uL INR (<1.2) ABG pH (7.35-7.45) ABG pCO2 (35-45) mmHg ABG pO2 (83-108) mmHg ABG HCO3 (21-25) mmol/L ABG Total CO2 (19-24) mmol/L ABG O2 Saturation (94-97) % Potassium 5.3 H (3.5-5.1) mmol/L Chloride 111 H 110 H (98-107) mmol/L Carbon Dioxide (22-30) mmol/L Glucose 121 H 115 H (74-99) mg/dL POC Glucose (mg/dL) (70-110) mg/dL Calcium 8.3 L 7.1 L (8.4-10.2) mg/dL Magnesium (1.6-2.3) mg/dL AST 97 H (17-59) U/L Total Protein 6.2 L 5.3 L (6.3-8.2) g/dL Albumin 3.2 L (3.5-5.0) g/dL Crossmatch See Detail 05/21/23 05/21/23 05/21/23 Range/Units 11:26 12:05 12:58 RBC (4.30-5.90) m/uL Hgb (13.0-17.5) gm/dL Hct (39.0-53.0) % Plt Count (150-450) k/uL Neutrophils # (1.3-7.7) k/uL Lymphocytes # (1.0-4.8) k/uL INR (<1.2) ABG pH (7.35-7.45) ABG pCO2 (35-45) mmHg ABG pO2 (83-108) mmHg ABG HCO3 (21-25) mmol/L ABG Total CO2 (19-24) mmol/L ABG O2 Saturation (94-97) % Potassium 5.2 H 5.6 H (3.5-5.1) mmol/L Chloride 109 H 108 H 109 H (98-107) mmol/L Carbon Dioxide 21 L (22-30) mmol/L Glucose 132 H 155 H 156 H (74-99) mg/dL POC Glucose (mg/dL) (70-110) mg/dL Calcium 6.9 L 7.2 L 7.8 L (8.4-10.2) mg/dL Magnesium (1.6-2.3) mg/dL AST 65 H (17-59) U/L Total Protein 4.8 L 5.4 L 5.5 L (6.3-8.2) g/dL Albumin 2.9 L 3.4 L 3.4 L (3.5-5.0) g/dL Crossmatch 05/21/23 05/21/23 05/21/23 Range/Units 14:14 14:21 14:26 RBC 2.64 L (4.30-5.90) m/uL Hgb 8.6 L D (13.0-17.5) gm/dL Hct 25.1 L (39.0-53.0) % Plt Count (150-450) k/uL Neutrophils # (1.3-7.7) k/uL Lymphocytes # 0.8 L (1.0-4.8) k/uL INR (<1.2) ABG pH 7.34 L (7.35-7.45) ABG pCO2 47 H (35-45) mmHg ABG pO2 210 H (83-108) mmHg ABG HCO3 (21-25) mmol/L ABG Total CO2 27 H (19-24) mmol/L ABG O2 Saturation 99.8 H (94-97) % Potassium (3.5-5.1) mmol/L Chloride (98-107) mmol/L Carbon Dioxide (22-30) mmol/L Glucose (74-99) mg/dL POC Glucose (mg/dL) 131 H (70-110) mg/dL Calcium (8.4-10.2) mg/dL Magnesium (1.6-2.3) mg/dL AST (17-59) U/L Total Protein (6.3-8.2) g/dL Albumin (3.5-5.0) g/dL Crossmatch 05/21/23 05/21/23 05/21/23 Range/Units 14:26 14:26 15:01 RBC (4.30-5.90) m/uL Hgb (13.0-17.5) gm/dL Hct (39.0-53.0) % Plt Count (150-450) k/uL Neutrophils # (1.3-7.7) k/uL Lymphocytes # (1.0-4.8) k/uL INR 1.2 H (<1.2) ABG pH (7.35-7.45) ABG pCO2 (35-45) mmHg ABG pO2 (83-108) mmHg ABG HCO3 (21-25) mmol/L ABG Total CO2 (19-24) mmol/L ABG O2 Saturation (94-97) % Potassium (3.5-5.1) mmol/L Chloride 110 H (98-107) mmol/L Carbon Dioxide (22-30) mmol/L Glucose 117 H (74-99) mg/dL POC Glucose (mg/dL) 150 H (70-110) mg/dL Calcium (8.4-10.2) mg/dL Magnesium (1.6-2.3) mg/dL AST 67 H (17-59) U/L Total Protein 6.0 L (6.3-8.2) g/dL Albumin (3.5-5.0) g/dL Crossmatch 05/21/23 05/21/23 05/21/23 Range/Units 16:46 17:04 17:37 RBC 2.48 L (4.30-5.90) m/uL Hgb 8.1 L (13.0-17.5) gm/dL Hct 23.6 L (39.0-53.0) % Plt Count (150-450) k/uL Neutrophils # 7.9 H (1.3-7.7) k/uL Lymphocytes # 0.6 L (1.0-4.8) k/uL INR (<1.2) ABG pH (7.35-7.45) ABG pCO2 (35-45) mmHg ABG pO2 (83-108) mmHg ABG HCO3 26 H (21-25) mmol/L ABG Total CO2 27 H (19-24) mmol/L ABG O2 Saturation 98.3 H (94-97) % Potassium (3.5-5.1) mmol/L Chloride (98-107) mmol/L Carbon Dioxide (22-30) mmol/L Glucose (74-99) mg/dL POC Glucose (mg/dL) 136 H (70-110) mg/dL Calcium (8.4-10.2) mg/dL Magnesium (1.6-2.3) mg/dL AST (17-59) U/L Total Protein (6.3-8.2) g/dL Albumin (3.5-5.0) g/dL Crossmatch 05/21/23 05/21/23 05/21/23 Range/Units 19:04 19:53 19:55 RBC 2.23 L (4.30-5.90) m/uL Hgb 7.1 L (13.0-17.5) gm/dL Hct 21.2 L (39.0-53.0) % Plt Count 143 L (150-450) k/uL Neutrophils # (1.3-7.7) k/uL Lymphocytes # 0.3 L (1.0-4.8) k/uL INR (<1.2) ABG pH (7.35-7.45) ABG pCO2 (35-45) mmHg ABG pO2 (83-108) mmHg ABG HCO3 (21-25) mmol/L ABG Total CO2 (19-24) mmol/L ABG O2 Saturation (94-97) % Potassium (3.5-5.1) mmol/L Chloride (98-107) mmol/L Carbon Dioxide (22-30) mmol/L Glucose (74-99) mg/dL POC Glucose (mg/dL) 118 H 128 H (70-110) mg/dL Calcium (8.4-10.2) mg/dL Magnesium (1.6-2.3) mg/dL AST (17-59) U/L Total Protein (6.3-8.2) g/dL Albumin (3.5-5.0) g/dL Crossmatch 05/21/23 05/21/23 05/21/23 Range/Units 20:56 21:56 22:49 RBC (4.30-5.90) m/uL Hgb (13.0-17.5) gm/dL Hct (39.0-53.0) % Plt Count (150-450) k/uL Neutrophils # (1.3-7.7) k/uL Lymphocytes # (1.0-4.8) k/uL INR (<1.2) ABG pH (7.35-7.45) ABG pCO2 (35-45) mmHg ABG pO2 (83-108) mmHg ABG HCO3 (21-25) mmol/L ABG Total CO2 (19-24) mmol/L ABG O2 Saturation (94-97) % Potassium (3.5-5.1) mmol/L Chloride (98-107) mmol/L Carbon Dioxide (22-30) mmol/L Glucose (74-99) mg/dL POC Glucose (mg/dL) 130 H 144 H 140 H (70-110) mg/dL Calcium (8.4-10.2) mg/dL Magnesium (1.6-2.3) mg/dL AST (17-59) U/L Total Protein (6.3-8.2) g/dL Albumin (3.5-5.0) g/dL Crossmatch 05/21/23 05/22/23 05/22/23 Range/Units 23:47 01:02 02:03 RBC (4.30-5.90) m/uL Hgb (13.0-17.5) gm/dL Hct (39.0-53.0) % Plt Count (150-450) k/uL Neutrophils # (1.3-7.7) k/uL Lymphocytes # (1.0-4.8) k/uL INR (<1.2) ABG pH (7.35-7.45) ABG pCO2 (35-45) mmHg ABG pO2 (83-108) mmHg ABG HCO3 (21-25) mmol/L ABG Total CO2 (19-24) mmol/L ABG O2 Saturation (94-97) % Potassium (3.5-5.1) mmol/L Chloride (98-107) mmol/L Carbon Dioxide (22-30) mmol/L Glucose (74-99) mg/dL POC Glucose (mg/dL) 141 H 129 H 130 H (70-110) mg/dL Calcium (8.4-10.2) mg/dL Magnesium (1.6-2.3) mg/dL AST (17-59) U/L Total Protein (6.3-8.2) g/dL Albumin (3.5-5.0) g/dL Crossmatch 05/22/23 05/22/23 05/22/23 Range/Units 03:04 04:36 04:40 RBC 2.20 L (4.30-5.90) m/uL Hgb 7.0 L (13.0-17.5) gm/dL Hct 21.1 L (39.0-53.0) % Plt Count (150-450) k/uL Neutrophils # (1.3-7.7) k/uL Lymphocytes # 0.8 L (1.0-4.8) k/uL INR (<1.2) ABG pH (7.35-7.45) ABG pCO2 (35-45) mmHg ABG pO2 (83-108) mmHg ABG HCO3 (21-25) mmol/L ABG Total CO2 (19-24) mmol/L ABG O2 Saturation (94-97) % Potassium (3.5-5.1) mmol/L Chloride (98-107) mmol/L Carbon Dioxide (22-30) mmol/L Glucose (74-99) mg/dL POC Glucose (mg/dL) 128 H 124 H (70-110) mg/dL Calcium (8.4-10.2) mg/dL Magnesium (1.6-2.3) mg/dL AST (17-59) U/L Total Protein (6.3-8.2) g/dL Albumin (3.5-5.0) g/dL Crossmatch 05/22/23 05/22/23 05/22/23 Range/Units 04:40 06:30 07:13 RBC (4.30-5.90) m/uL Hgb (13.0-17.5) gm/dL Hct (39.0-53.0) % Plt Count (150-450) k/uL Neutrophils # (1.3-7.7) k/uL Lymphocytes # (1.0-4.8) k/uL INR (<1.2) ABG pH (7.35-7.45) ABG pCO2 (35-45) mmHg ABG pO2 (83-108) mmHg ABG HCO3 (21-25) mmol/L ABG Total CO2 (19-24) mmol/L ABG O2 Saturation (94-97) % Potassium (3.5-5.1) mmol/L Chloride (98-107) mmol/L Carbon Dioxide (22-30) mmol/L Glucose 109 H (74-99) mg/dL POC Glucose (mg/dL) 137 H 135 H (70-110) mg/dL Calcium (8.4-10.2) mg/dL Magnesium 2.4 H (1.6-2.3) mg/dL AST (17-59) U/L Total Protein 5.6 L (6.3-8.2) g/dL Albumin (3.5-5.0) g/dL Crossmatch 05/22/23 05/22/23 Range/Units 08:04 10:14 RBC (4.30-5.90) m/uL Hgb (13.0-17.5) gm/dL Hct (39.0-53.0) % Plt Count (150-450) k/uL Neutrophils # (1.3-7.7) k/uL Lymphocytes # (1.0-4.8) k/uL INR (<1.2) ABG pH (7.35-7.45) ABG pCO2 (35-45) mmHg ABG pO2 (83-108) mmHg ABG HCO3 (21-25) mmol/L ABG Total CO2 (19-24) mmol/L ABG O2 Saturation (94-97) % Potassium (3.5-5.1) mmol/L Chloride (98-107) mmol/L Carbon Dioxide (22-30) mmol/L Glucose (74-99) mg/dL POC Glucose (mg/dL) 139 H 210 H (70-110) mg/dL Calcium (8.4-10.2) mg/dL Magnesium (1.6-2.3) mg/dL AST (17-59) U/L Total Protein (6.3-8.2) g/dL Albumin (3.5-5.0) g/dL Crossmatch
[2023-05-22] MEDS: ALBUMIN HUMAN 5% 250 ML in EMPTY BAG 1 BAG IVPB STA ×3 (11:03→15:25)
[2023-05-22 11:13] VITALS: BMI 26.6
[2023-05-22 11:13] LABS: Glucose,Whole Blood 160 mg/dL (70-110)
[2023-05-22] MEDS: ASCORBIC ACID 500 MG TAB PO SCH (12:21)
[2023-05-22] MEDS: FERROUS SULFATE 325 MG TAB PO SCH (12:21)
[2023-05-22 12:29] LABS: Glucose,Whole Blood 141 mg/dL (70-110)
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
[2023-05-22 13:22] LABS: Glucose,Whole Blood 133 mg/dL (70-110)
--- NOTE | 2023-05-22 14:06 | XR ---
EXAMINATION TYPE: XR chest 1V portable DATE OF EXAM: 05/22/2023 Comparison: Earlier today Clinical History: 72-year-old male Right pneumothorax Findings: Median sternotomy wires. Post-CABG clips. Mediastinal drain. Retained epicardial pacer leads. Left-si ded chest tube in place. Patchy retrocardiac and left basilar opacities, likely atelectasis. Old righ t-sided rib fractures some of which are chronic ununited. Right IJ sheath. No definite pneumothorax i dentified on the right. Impression: Post-CABG changes. No definite pneumothorax identified on the present exam.
[2023-05-22] MEDS: METOCLOPRAMIDE 5 MG/ML 2 ML VIAL IVP PRN (14:22)
[2023-05-22] MEDS: MIDODRINE 5 MG TAB PO SCH (14:30)
[2023-05-22] MEDS: ACETAMINOPHEN TAB 500 MG TAB PO PRN (14:31)
[2023-05-22 15:02] LABS: Glucose,Whole Blood 198 mg/dL (70-110)
[2023-05-22] MEDS: NOREPINEPHRINE 4 MG in SODIUM CHLORIDE 0.9% 250 ML IV SCH (15:15)
[2023-05-22 15:21] LABS: Basophils % (A) 0 %; Eosinophils # (A) 0.1 k/uL (0-0.7); Eosinophils % (A) 1 %; HCT 20.1 % (39.0-53.0); Hypochromasia Slight; Lymphocytes % (A) 11 %; MCH 32.8 pg (25.0-35.0); MCHC 33.5 g/dL (31.0-37.0); Mean Platelet Volume 8.4; Monocytes # (A) 0.6 k/uL (0-1.0); Monocytes % (A) 7 %; Neutrophils # (A) 7.3 k/uL (1.3-7.7); Neutrophils % (A) 78 %; Platelet Count 151 k/uL (150-450); RBC 2.05 m/uL (4.30-5.90); RDW 14.6 % (11.5-15.5); WBC 9.3 k/uL (3.8-10.6)
[2023-05-22 15:23] LABS: HGB 6.7 gm/dL (13.0-17.5)
[2023-05-22 15:44] LABS: ABG Base Excess -2.2 mmol/L; ABG HCO3 23 mmol/L (21-25); ABG Oxygen Saturation 90.5 % (94-97); ABG PCO2 38 mmHg (35-45); ABG PH 7.39 (7.35-7.45); ABG TCO2 24 mmol/L (19-24); Allen Test Performed? Yes
[2023-05-22 15:51] LABS: ABG PO2 59 mmHg (83-108)
--- NOTE | 2023-05-22 16:00 | XR ---
EXAMINATION TYPE: XR chest 1V portable DATE OF EXAM: 05/22/2023 3:49 PM CLINICAL INDICATION:Male, 72 years old with history of pneumo; [facility] COMPARISON: Chest radiographs from same day TECHNIQUE: XR chest 1V portable Frontal view of the chest. FINDINGS: Lungs/Pleura: The central pleural line seen in the upper right lung compatible with pneumothorax. The re is no evidence of pleural effusion, focal consolidation, or pneumothorax. Pulmonary vascularity: Unremarkable. Heart/mediastinum: Cardiomediastinal silhouette is unremarkable. Atherosclerotic calcifications are seen in the aorta. Left atrial appendage occlusion device is present. Musculoskeletal: No acute osseous pathology. Multiple right-sided rib fractures. Other findings: None Lines/Tubes: Left thoracotomy tube is present without evidence of pneumothorax. There is a [place]-Anastacio catheter whyte th remains in place. Drainage tubes with tips projecting over the mediastinum. IMPRESSION: The right pneumothorax is once again present.
[2023-05-22 16:06] LABS: ALT 20 U/L (4-49); AST 46 U/L (17-59); African American GFR (CKD) 51 (>60 ml/min/1.73 sqM); Alkaline Phosphatase 37 U/L (38-126); Anion Gap 12 mmol/L; Blood Urea Nitrogen 22 mg/dL (9-20); Carbon Dioxide 20 mmol/L (22-30); Chloride 103 mmol/L (98-107); Glucose 164 mg/dL (74-99); Non-African American GFR(CKD) 44 (>60 ml/min/1.73 sqM); Sodium 135 mmol/L (137-145); Total Bilirubin 0.7 mg/dL (0.2-1.3); Total Protein 5.8 g/dL (6.3-8.2)
--- NOTE | 2023-05-22 16:36 | XR ---
EXAMINATION TYPE: XR chest 1V portable DATE OF EXAM: 05/22/2023 4:26 PM CLINICAL INDICATION:Male, 72 years old with history of thoravent placement; COMPARISON: Chest radiographs from same day TECHNIQUE: XR chest 1V portable Frontal view of the chest. FINDINGS: Lungs/Pleura: There is no evidence of pleural effusion, focal consolidation, or resolved right pneumo thorax. Pulmonary vascularity: Unremarkable. Heart/mediastinum: Cardiomediastinal silhouette is unremarkable. Atherosclerotic calcifications are seen in the aorta. Left atrial appendage occlusion device is present. Musculoskeletal: No acute osseous pathology. Multiple right-sided rib fractures. Other findings: None Lines/Tubes: Left thoracotomy tube is present without evidence of pneumothorax. There is a [place]-Anastacio catheter whyte th remains in place. Drainage tubes with tips projecting over the mediastinum. Right thoracotomy tube is now in place. No persistent pneumothorax. IMPRESSION: Right thoracotomy tube now in place with reduction of right pneumothorax which is not visualized.
--- NOTE | 2023-05-22 17:05 | XR ---
EXAMINATION TYPE: XR chest 1V portable DATE OF EXAM: 05/22/2023 4:57 PM CLINICAL INDICATION:Male, 72 years old with history of post swan catheter insertion; H COMPARISON: Chest radiographs from same day TECHNIQUE: XR chest 1V portable Frontal view of the chest. FINDINGS: Lungs/Pleura: There is no evidence of pleural effusion, focal consolidation, or resolved right pneumo thorax. Pulmonary vascularity: Unremarkable. Heart/mediastinum: Cardiomediastinal silhouette is unremarkable. Atherosclerotic calcifications are seen in the aorta. Left atrial appendage occlusion device is present. Musculoskeletal: No acute osseous pathology. Multiple right-sided rib fractures. Other findings: None Lines/Tubes: Left thoracotomy tube is present without evidence of pneumothorax. There is a [place]-Anastacio catheter with tip projecting over the spine. Drainage tubes with tips projecting over the mediastinum. Right thoracotomy tube is now in place. No persistent pneumothorax. IMPRESSION: Stable exam with new [place]-Anastacio catheter with tip projecting over the heart near the left pulmonary hi lum.
[2023-05-22 17:13] LABS: Glucose,Whole Blood 118 mg/dL (70-110)
[2023-05-22] MEDS: VASOPRESSIN 60 UNIT in SODIUM CHLORIDE 0.9% 150 ML IV SCH (17:15)
[2023-05-22 17:17] LABS: ABG Base Excess -0.7 mmol/L; ABG HCO3 24 mmol/L (21-25); ABG Oxygen Saturation 97.2 % (94-97); ABG PCO2 37 mmHg (35-45); ABG PH 7.42 (7.35-7.45); ABG PO2 78 mmHg (83-108); ABG TCO2 25 mmol/L (19-24); Allen Test Performed? Yes
[2023-05-22] MEDS: LIDOCAINE 1% INJ 10MG/ML (20 ML MDV) ONE (17:22)
--- NOTE | 2023-05-22 17:39 | CA ---
Transthoracic Echo Report Name: Saeed Lopez Age: 72 Gender: M : 1950 Exam Date: 05/22/2023 16:12 Exam Location: [facility] Ht (in): 72 Wt (lb): 210 Ordering Physician: Tim Nova Attending/Referring Phys: Avtar BARKER [employer] Teacher Nicole Green, RDODETTE Procedure CPT: Indications: Post CABG Cardiac Hx: Technical Quality: Fair Contrast 1: Total Dose (mL): Contrast 2: Total Dose (mL): MEASUREMENTS (Male / Female) Normal Values 2D ECHO RV Internal Dim ED PLAX 4.5 cm LV Diastolic Volume MOD 4C 116.3 cm??? LV Systolic Volume MOD 4C 70.3 cm??? LV Ejection Fraction MOD 4C 39.6 % LV Cardiac Index MOD 4C 1597.4 cm???/min???m??? LV Diastolic Length 4C 8.1 cm LV Systolic Length 4C 7.2 cm LV Diastolic Volume MOD 2C 112.5 cm??? LV Systolic Volume MOD 2C 67.0 cm??? LV Ejection Fraction MOD 2C 40.4 % LV Cardiac Index MOD 2C 1578.5 cm???/min???m??? LV Diastolic Length 2C 9.6 cm LV Systolic Length 2C 8.7 cm DOPPLER TR Peak Velocity 234.0 cm/s TR Peak Gradient 21.9 mmHg Right Ventricular Systolic Press 36.6 mmHg FINDINGS Left Ventricle Left ventricular ejection fraction is estimated at 45-50 %. Right Ventricle Moderate right ventricular dilatation. Mild pulmonary hypertension. Moderately reduced right ventricular global systolic function. Right Atrium Moderate right atrial dilatation. Left Atrium Mitral Valve Structurally normal mitral valve. Mild mitral regurgitation. Aortic Valve Trileaflet aortic valve. Aortic valve sclerosis. Tricuspid Valve Structurally normal tricuspid valve. Mild tricuspid regurgitation. Pulmonic Valve Pericardium No pericardial effusion. Aorta CONCLUSIONS Mildly impaired LV function. The EF is around 45% Moderate RV dilation. Previewed by: Dr. Grzegorz Valencia MD (Electronically Signed) Final Date: 22 May 2023 17:38
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
--- NOTE | 2023-05-22 17:52 | US ---
EXAMINATION TYPE: US venous doppler duplex LE DATE OF EXAM: 05/22/2023 4:56 PM COMPARISON: NONE CLINICAL INDICATION: Male, 72 years old with history of leg pain; No leg redness or swelling. Recent heart surgery. SIDE PERFORMED: Bilateral TECHNIQUE: The lower extremity deep venous system is examined utilizing real time linear array sonog steve with graded compression, doppler sonography and color-flow sonography. VESSELS IMAGED: Common Femoral Vein Deep Femoral Vein Greater Saphenous Vein * Femoral Vein Popliteal Vein Small Saphenous Vein * Proximal Calf Veins (* superficial vessels) Right Leg: Negative for DVT Left Leg: Negative for DVT IMPRESSION: Grayscale, color doppler, spectral doppler imaging performed of the deep veins of the lo wer extremities. There is normal flow, compressibility, vascular waveforms.
[2023-05-22 18:57] LABS: Glucose,Whole Blood 149 mg/dL (70-110)
--- NOTE | 2023-05-22 19:57 | OP ---
OPERATIVE REPORT DATE OF SERVICE : PROCEDURE PERFORMED: Placement of a right-sided chest tube/Thora-Vent. PREOPERATIVE DIAGNOSIS: Right-sided pneumothorax. POSTOPERATIVE DIAGNOSIS: Right-sided pneumothorax. ANESTHESIA USED: 10 mL of 1% lidocaine. DESCRIPTION OF PROCEDURE: The patient was placed in a sitting upright position in bed, the area of the right chest below the right clavicle was prepared in a sterile fashion. Drapes were applied. At the level of the midclavicular line, and 3rd intercostal space, the area was locally anesthetized with lidocaine, and the needle was inserted through the intercostal space into the pleura. Bubbles were noted, then a small tiny incision was made, and a size 11-Icelandic Thora-Vent was used, it was inserted at the same site, advanced into the pleural space, and as the pleural space was entered, clearly noted that we were in the pleural space. The trocar was pulled out and the catheter was advanced in over the trocar. Trocar was removed, the Thora-Vent was secured to the chest and glued nicely. Then connected Thora-Vent to a chest tube/Pleur-Evac. Chest x-ray postoperatively showed resolution of the pneumothorax, and adequate placement of the Thora-Vent/chest tube. Procedure was well tolerated, no complications. MMODL / IJN: [id number] /
[2023-05-22 20:07] LABS: Glucose,Whole Blood 152 mg/dL (70-110)
[2023-05-22] MEDS: SENNOSIDES-DOCUSATE SODIUM 1 EACH TAB PO SCH (20:28)
[2023-05-22 21:04] LABS: Glucose,Whole Blood 170 mg/dL (70-110)
[2023-05-22] MEDS: FUROSEMIDE 10 MG/ML 4 ML VIAL IV STA (21:53)
[2023-05-22 22:03] LABS: Glucose,Whole Blood 163 mg/dL (70-110)
--- NOTE | 2023-05-22 22:33 | OP ---
OPERATIVE REPORT DATE OF SERVICE : PROCEDURE PERFORMED: Placement of a [place]-Anastacio catheter/pulmonary artery catheter. PREOPERATIVE DIAGNOSES: Hypotension, hemodynamic instability, the patient is now requiring pressors/norepinephrine, and is status post CABG. POSTOPERATIVE DIAGNOSES: Hypotension, hemodynamic instability, the patient is now requiring pressors/norepinephrine, and is status post CABG. ANESTHESIA USED: None deployed. DESCRIPTION OF PROCEDURE: The patient was placed in the supine position, the patient already had a Cordis in place, which was present, then the area was prepared in a sterile fashion and drapes were applied. A PA catheter was placed into the sleeve, and I was able to advanced the distal tip of the PA catheter into the right atrium. Then the balloon was inflated as we entered the right atrium, and the catheter was advanced with the balloon inflated into the right ventricle, waveforms were noted, and then we advanced into the pulmonary artery. I did not fully wedged the balloon, but was able to make different recordings, were able to get the cardiac output and cardiac index from the PA catheter. Then, the PA catheter was secured roughly around 48 cm at the level of the Cordis. Sleeve was secured over the PA catheter. Chest x-ray showed adequate placement of the tip of the PA catheter in the proximal portion of the left pulmonary artery. The procedure was well tolerated, no complications, and different hemodynamics were recorded shortly after the x-ray was taken and these are pending. MMODL / IJN: [id number] /
[2023-05-22 22:58] LABS: Glucose,Whole Blood 153 mg/dL (70-110)
[2023-05-22 23:55] LABS: Glucose,Whole Blood 143 mg/dL (70-110)
[2023-05-23 01:08] LABS: Glucose,Whole Blood 140 mg/dL (70-110)
[2023-05-23 02:01] LABS: Glucose,Whole Blood 139 mg/dL (70-110)
[2023-05-23 02:51] LABS: Glucose,Whole Blood 145 mg/dL (70-110)
[2023-05-23 04:05] LABS: Glucose,Whole Blood 156 mg/dL (70-110)
[2023-05-23 04:41] LABS: Basophils % (A) 0 %; Eosinophils # (A) 0.1 k/uL (0-0.7); Eosinophils % (A) 1 %; HCT 23.2 % (39.0-53.0); HGB 7.9 gm/dL (13.0-17.5); Lymphocytes # (A) 0.9 k/uL (1.0-4.8); Lymphocytes % (A) 10 %; MCH 31.8 pg (25.0-35.0); MCHC 33.9 g/dL (31.0-37.0); MCV 93.9 fL (80.0-100.0); Mean Platelet Volume 9.7; Monocytes # (A) 0.5 k/uL (0-1.0); Monocytes % (A) 6 %; Neutrophils # (A) 6.8 k/uL (1.3-7.7); Neutrophils % (A) 80 %; Platelet Count 113 k/uL (150-450); Poikilocytosis Slight; RBC 2.47 m/uL (4.30-5.90); RDW 15.5 % (11.5-15.5); WBC 8.4 k/uL (3.8-10.6)
[2023-05-23 04:56] LABS: ALT 22 U/L (4-49); AST 60 U/L (17-59); African American GFR (CKD) 60 (>60 ml/min/1.73 sqM); Albumin 3.6 g/dL (3.5-5.0); Alkaline Phosphatase 45 U/L (38-126); Blood Urea Nitrogen 24 mg/dL (9-20); Calcium 8.2 mg/dL (8.4-10.2); Carbon Dioxide 24 mmol/L (22-30); Chloride 104 mmol/L (98-107); Glucose 126 mg/dL (74-99); Non-African American GFR(CKD) 52 (>60 ml/min/1.73 sqM); Total Protein 5.6 g/dL (6.3-8.2)
[2023-05-23 05:08] LABS: Anion Gap 8 mmol/L; Potassium 4.2 mmol/L (3.5-5.1); Sodium 136 mmol/L (137-145)
[2023-05-23 05:09] LABS: Allen Test Performed? Yes
[2023-05-23 05:09] LABS: Ionized Calcium 4.5 mg/dL (4.5-5.3)
[2023-05-23 05:43] LABS: ABG Base Excess 1.4 mmol/L; ABG HCO3 26 mmol/L (21-25); ABG PCO2 40 mmHg (35-45); ABG PH 7.41 (7.35-7.45); ABG PO2 43 mmHg (83-108); ABG TCO2 27 mmol/L (19-24)
[2023-05-23 05:47] LABS: Glucose,Whole Blood 136 mg/dL (70-110)
[2023-05-23] MEDS: LEVOTHYROXINE 25 MCG TAB PO SCH (06:49)
[2023-05-23 07:09] LABS: Glucose,Whole Blood 134 mg/dL (70-110)
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
[2023-05-23 08:04] LABS: ABG Base Excess 0.7 mmol/L; ABG HCO3 25 mmol/L (21-25); ABG Oxygen Saturation 99.1 % (94-97); ABG PCO2 38 mmHg (35-45); ABG PH 7.43 (7.35-7.45); ABG PO2 120 mmHg (83-108); ABG TCO2 26 mmol/L (19-24); Allen Test Performed? Yes
[2023-05-23 08:23] LABS: Glucose,Whole Blood 135 mg/dL (70-110)
[2023-05-23] MEDS ORDERED: amLODIPine 2.5 MG TAB PO SCH (09:00)
[2023-05-23] MEDS: METOPROLOL TARTRATE 12.5 MG TAB PO SCH (09:02)
[2023-05-23] MEDS: THIAMINE 100 MG TAB PO SCH (09:02)
[2023-05-23] MEDS: FOLIC ACID 1 MG TAB PO SCH (09:02)
[2023-05-23] MEDS: DULoxetine HCL 20 MG CAPSULE.DR PO SCH (09:03)
[2023-05-23] MEDS: MULTIVITAMINS, THERA 1 EACH TAB PO SCH (09:03)
[2023-05-23] MEDS: polyethylene glycoL 3350 17 GM POWD.PACK PO SCH (09:06)
--- NOTE | 2023-05-23 09:13 | XR ---
EXAMINATION TYPE: XR chest 1V portable DATE OF EXAM: 05/23/2023 Comparison: 05/22/2023 Clinical History: 72-year-old male Post Operative Cardiac Surgery Findings: Patient's chin obscures the right apex. Right IJ [place]-Anastacio catheter tip in the main pulmonary artery region. Mediastinal drain with median sternotomy wires and post-CABG clips. Right-sided thoracic vent catheter has been placed in the interval. No visualized right-sided pneumothorax. Lung volumes are d iminished compared to prior exam. Left-sided chest tube. No appreciable pneumothorax on the left. Int erstitial densities are similar. Patchy bibasilar opacities have increased. Multiple old right-sided rib fracture deformities. Impression: 1. Interval placement of right-sided Thoravent catheter. Patient's chin obscures the right apex. No a ppreciable pneumothorax on either side. 2. Possible residual mild pulmonary vascular congestion. 3. Ongoing patchy bibasilar opacities, increasing now on the right. Probably in part due to hypoventi latory changes.
[2023-05-23 09:18] LABS: Glucose,Whole Blood 154 mg/dL (70-110)
--- NOTE | 2023-05-23 09:35 | P.PN ---
Subjective Progress Note Date: 05/23/23 PROGRESS NOTE The patient is a 72-year-old male was admitted to undergo elective CABG. He has a history of CVA, hypertension, hyperlipidemia, peripheral vascular disease status post carotid endarterectomy who presented to symptoms of chest discomfort. He underwent cardiac catheterization earlier this month by Dr. Flanagan, was found to have calcified coronary arteries was ostial LAD and mid LAD disease as well as left circumflex disease. He is in the ICU, intubated and sedated, hemodynamically stable in sinus mechanism. He underwent surgery today by Dr. Schultz. His left ventricle systolic function preoperatively was normal. He has a history of hypertension and hyperlipidemia, nondiabetic. April 21 The patient is extubated, sitting up in the chair, in sinus mechanism. He has chest wall tenderness. The pneumothorax was noted on chest x-ray. Hemodynamically he stable. His urinary output stable. He denies any nausea or vomiting. There is no evidence of hemodynamic compromise. He received a FIGUEROA to the LAD and SVG to the OM and radial artery to OM 2 with closure of the left atrial appendage April 22: The patient had placement of Thora vent catheter yesterday on the right side because of his pneumothorax. He appears more stable today. He has some chest discomfort. He is breathing is stable. He denies any dizziness or palpitations. He continues to be in sinus mechanism. Hemodynamically stable. Chest x-ray shows improvement of the pneumothorax. He had an episode of hypotension improved. Medications: Aspirin, atorvastatin 40 mg daily, Plavix 75 mg daily, metoprolol 12.5 mg twice a day, Flomax, vasopressin PHYSICAL EXAMINATION: Blood pressure 123/75 heart rate 75, Horatio-Anastacio from right IJ LUNGS: Scattered rhonchi, Thora vent catheter noted HEART: Regular rate and rhythm, S1, S2. No S3. Systolic ejection murmur ABDOMEN: Soft, nontender, no organomegaly EXTREMETIES: No edema LAB: Hemoglobin 7.9, BUN 24, creatinine 1.36, potassium 4.2 IMPRESSION: 1. Status post CABG 2. History of hyperlipidemia 3. History of hypertension 4. History of carotid disease 5. Pneumothorax post CABG, post Thoravent catheter PLAN: 1. Continue present therapy 2. Incentive spirometry 3. Wean vasopressin as tolerated 4. Depending on his progress further recommendations will be made Objective - Vital Signs Vital signs: Vital Signs Temp 98.7 F 05/23/23 08:00 Pulse 75 05/23/23 09:20 Resp 16 05/23/23 08:00 BP 123/75 05/23/23 08:00 Pulse Ox 100 05/23/23 08:00 FiO2 100 05/22/23 19:00 Intake & Output 05/22/23 05/23/23 05/23/23 18:59 06:59 18:59 Intake Total 2247.381 1636.242 92 Output Total 580 1245 80 Balance 1667.381 391.242 12 Weight 89.2 kg 92 kg Intake: IV 480 536 92 CO/CI 40 190 40 Lactated Ringers 1,000 ml 300 250 40 @ 20 mls/hr IV .Q24H [facility] Rx#:[id number] Pressure Bags 90 96 12 ceFAZolin 2 gm In Sodium 50 Chloride 0.9% 50 ml @ 100 mls/hr IVPB Q8HR [facility] Rx# :[id number] Intake, IV Titration 947.381 151.242 Amount Albumin Human 5% 250 ml 250 In Empty Bag 1 bag @ 250 mls/hr IVPB ONCE [facility] Rx#: [id number] Albumin Human 5% 250 ml 250 In Empty Bag 1 bag @ 250 mls/hr IVPB ONCE STA Rx#: [id number] Albumin Human 5% 250 ml 250 In Empty Bag 1 bag @ 250 mls/hr IVPB ONCE STA Rx#: [id number] Amiodarone 450 mg In 66.4 Dextrose 5% in Water 250 ml @ 0.5 MG/MIN 16.667 mls/hr IV .Q15H [facility] Rx#: [id number] Insulin Regular 100 unit 26.665 18.079 In Sodium Chloride 0.9% 100 ml @ Per Protocol IV .Q0M [facility] Rx#:[id number] Nitroglycerin-D5w Pmx 50 5 mg In Dextrose/Water 1 250ml.bag @ 5 MCG/MIN 1.5 mls/hr IV .Q24H [facility] Rx#: [id number] Norepinephrine 4 mg In 87.316 127.163 Sodium Chloride 0.9% 250 ml @ 0.03 MCG/KG/MIN 10. 196 mls/hr IV .Q24H [facility] Rx#:[id number] Vasopressin 60 unit In 12 6 Sodium Chloride 0.9% 150 ml @ 0.04 UNITS/MIN 6.12 mls/hr IV .Q24H [facility] Rx#: [id number] Oral 480 660 Blood Product 290 289 Rc Pheresis 2 As3 Unit 290 [id number] Rc Pheresis As-3 Unit 0 289 [id number] Other 50 Rc Pheresis 2 As3 Unit 50 [id number] Output: Chest Tube Drainage 195 155 0 Left Pleural 90 110 0 Mediastinal 80 40 0 Thora-Vent Right Upper 25 5 0 Anterior Chest Urine 385 1090 80 Other: Voiding Method Indwelling Catheter Indwelling Catheter Indwelling Catheter ABP, PAP, CO, CI - Last Documented Arterial Blood Pressure 103/44 Pulmonary Artery Pressure 28/9 Cardiac Output 4.8 Cardiac Index 2.3 - Labs CBC & Chem 7: 05/23/23 04:13 05/23/23 04:13 Labs: Abnormal Lab Results - Last 24 Hours (Table) 05/18/23 05/22/23 05/22/23 Range/Units 14:20 10:14 11:12 RBC (4.30-5.90) m/uL Hgb (13.0-17.5) gm/dL Hct (39.0-53.0) % Plt Count (150-450) k/uL Lymphocytes # (1.0-4.8) k/uL ABG pO2 (83-108) mmHg ABG HCO3 (21-25) mmol/L ABG Total CO2 (19-24) mmol/L ABG O2 Saturation (94-97) % ABG Lactic Acid (0.5-1.6) mmol/L Sodium (137-145) mmol/L Carbon Dioxide (22-30) mmol/L BUN (9-20) mg/dL Creatinine (0.66-1.25) mg/dL Glucose (74-99) mg/dL POC Glucose (mg/dL) 210 H 160 H (70-110) mg/dL Calcium (8.4-10.2) mg/dL AST (17-59) U/L Alkaline Phosphatase (38-126) U/L Total Protein (6.3-8.2) g/dL Crossmatch See Detail 05/22/23 05/22/23 05/22/23 Range/Units 12:27 13:20 15:00 RBC 2.05 L (4.30-5.90) m/uL Hgb 6.7 L* (13.0-17.5) gm/dL Hct 20.1 L (39.0-53.0) % Plt Count (150-450) k/uL Lymphocytes # (1.0-4.8) k/uL ABG pO2 (83-108) mmHg ABG HCO3 (21-25) mmol/L ABG Total CO2 (19-24) mmol/L ABG O2 Saturation (94-97) % ABG Lactic Acid (0.5-1.6) mmol/L Sodium (137-145) mmol/L Carbon Dioxide (22-30) mmol/L BUN (9-20) mg/dL Creatinine (0.66-1.25) mg/dL Glucose (74-99) mg/dL POC Glucose (mg/dL) 141 H 133 H (70-110) mg/dL Calcium (8.4-10.2) mg/dL AST (17-59) U/L Alkaline Phosphatase (38-126) U/L Total Protein (6.3-8.2) g/dL Crossmatch 05/22/23 05/22/23 05/22/23 Range/Units 15:01 15:40 15:40 RBC (4.30-5.90) m/uL Hgb (13.0-17.5) gm/dL Hct (39.0-53.0) % Plt Count (150-450) k/uL Lymphocytes # (1.0-4.8) k/uL ABG pO2 (83-108) mmHg ABG HCO3 (21-25) mmol/L ABG Total CO2 (19-24) mmol/L ABG O2 Saturation (94-97) % ABG Lactic Acid 3.7 H* (0.5-1.6) mmol/L Sodium 135 L (137-145) mmol/L Carbon Dioxide 20 L (22-30) mmol/L BUN 22 H (9-20) mg/dL Creatinine 1.57 H (0.66-1.25) mg/dL Glucose 164 H (74-99) mg/dL POC Glucose (mg/dL) 198 H (70-110) mg/dL Calcium 8.0 L (8.4-10.2) mg/dL AST (17-59) U/L Alkaline Phosphatase 37 L (38-126) U/L Total Protein 5.8 L (6.3-8.2) g/dL Crossmatch 05/22/23 05/22/23 05/22/23 Range/Units 15:42 17:10 17:11 RBC (4.30-5.90) m/uL Hgb (13.0-17.5) gm/dL Hct (39.0-53.0) % Plt Count (150-450) k/uL Lymphocytes # (1.0-4.8) k/uL ABG pO2 59 L* 78 L (83-108) mmHg ABG HCO3 (21-25) mmol/L ABG Total CO2 25 H (19-24) mmol/L ABG O2 Saturation 90.5 L 97.2 H (94-97) % ABG Lactic Acid (0.5-1.6) mmol/L Sodium (137-145) mmol/L Carbon Dioxide (22-30) mmol/L BUN (9-20) mg/dL Creatinine (0.66-1.25) mg/dL Glucose (74-99) mg/dL POC Glucose (mg/dL) 118 H (70-110) mg/dL Calcium (8.4-10.2) mg/dL AST (17-59) U/L Alkaline Phosphatase (38-126) U/L Total Protein (6.3-8.2) g/dL Crossmatch 05/22/23 05/22/23 05/22/23 Range/Units 18:55 20:05 21:03 RBC (4.30-5.90) m/uL Hgb (13.0-17.5) gm/dL Hct (39.0-53.0) % Plt Count (150-450) k/uL Lymphocytes # (1.0-4.8) k/uL ABG pO2 (83-108) mmHg ABG HCO3 (21-25) mmol/L ABG Total CO2 (19-24) mmol/L ABG O2 Saturation (94-97) % ABG Lactic Acid (0.5-1.6) mmol/L Sodium (137-145) mmol/L Carbon Dioxide (22-30) mmol/L BUN (9-20) mg/dL Creatinine (0.66-1.25) mg/dL Glucose (74-99) mg/dL POC Glucose (mg/dL) 149 H 152 H 170 H (70-110) mg/dL Calcium (8.4-10.2) mg/dL AST (17-59) U/L Alkaline Phosphatase (38-126) U/L Total Protein (6.3-8.2) g/dL Crossmatch 05/22/23 05/22/23 05/22/23 Range/Units 22:01 22:57 23:54 RBC (4.30-5.90) m/uL Hgb (13.0-17.5) gm/dL Hct (39.0-53.0) % Plt Count (150-450) k/uL Lymphocytes # (1.0-4.8) k/uL ABG pO2 (83-108) mmHg ABG HCO3 (21-25) mmol/L ABG Total CO2 (19-24) mmol/L ABG O2 Saturation (94-97) % ABG Lactic Acid (0.5-1.6) mmol/L Sodium (137-145) mmol/L Carbon Dioxide (22-30) mmol/L BUN (9-20) mg/dL Creatinine (0.66-1.25) mg/dL Glucose (74-99) mg/dL POC Glucose (mg/dL) 163 H 153 H 143 H (70-110) mg/dL Calcium (8.4-10.2) mg/dL AST (17-59) U/L Alkaline Phosphatase (38-126) U/L Total Protein (6.3-8.2) g/dL Crossmatch 05/23/23 05/23/23 05/23/23 Range/Units 01:06 01:58 02:50 RBC (4.30-5.90) m/uL Hgb (13.0-17.5) gm/dL Hct (39.0-53.0) % Plt Count (150-450) k/uL Lymphocytes # (1.0-4.8) k/uL ABG pO2 (83-108) mmHg ABG HCO3 (21-25) mmol/L ABG Total CO2 (19-24) mmol/L ABG O2 Saturation (94-97) % ABG Lactic Acid (0.5-1.6) mmol/L Sodium (137-145) mmol/L Carbon Dioxide (22-30) mmol/L BUN (9-20) mg/dL Creatinine (0.66-1.25) mg/dL Glucose (74-99) mg/dL POC Glucose (mg/dL) 140 H 139 H 145 H (70-110) mg/dL Calcium (8.4-10.2) mg/dL AST (17-59) U/L Alkaline Phosphatase (38-126) U/L Total Protein (6.3-8.2) g/dL Crossmatch 05/23/23 05/23/23 05/23/23 Range/Units 04:02 04:13 04:13 RBC 2.47 L (4.30-5.90) m/uL Hgb 7.9 L (13.0-17.5) gm/dL Hct 23.2 L (39.0-53.0) % Plt Count 113 L (150-450) k/uL Lymphocytes # 0.9 L (1.0-4.8) k/uL ABG pO2 (83-108) mmHg ABG HCO3 (21-25) mmol/L ABG Total CO2 (19-24) mmol/L ABG O2 Saturation (94-97) % ABG Lactic Acid (0.5-1.6) mmol/L Sodium 136 L (137-145) mmol/L Carbon Dioxide (22-30) mmol/L BUN 24 H (9-20) mg/dL Creatinine 1.36 H (0.66-1.25) mg/dL Glucose 126 H (74-99) mg/dL POC Glucose (mg/dL) 156 H (70-110) mg/dL Calcium 8.2 L (8.4-10.2) mg/dL AST 60 H (17-59) U/L Alkaline Phosphatase (38-126) U/L Total Protein 5.6 L (6.3-8.2) g/dL Crossmatch 05/23/23 05/23/23 05/23/23 Range/Units 05:10 05:45 07:08 RBC (4.30-5.90) m/uL Hgb (13.0-17.5) gm/dL Hct (39.0-53.0) % Plt Count (150-450) k/uL Lymphocytes # (1.0-4.8) k/uL ABG pO2 43 L* (83-108) mmHg ABG HCO3 26 H (21-25) mmol/L ABG Total CO2 27 H (19-24) mmol/L ABG O2 Saturation 80.0 L (94-97) % ABG Lactic Acid (0.5-1.6) mmol/L Sodium (137-145) mmol/L Carbon Dioxide (22-30) mmol/L BUN (9-20) mg/dL Creatinine (0.66-1.25) mg/dL Glucose (74-99) mg/dL POC Glucose (mg/dL) 136 H 134 H (70-110) mg/dL Calcium (8.4-10.2) mg/dL AST (17-59) U/L Alkaline Phosphatase (38-126) U/L Total Protein (6.3-8.2) g/dL Crossmatch 05/23/23 05/23/23 Range/Units 08:21 09:16 RBC (4.30-5.90) m/uL Hgb (13.0-17.5) gm/dL Hct (39.0-53.0) % Plt Count (150-450) k/uL Lymphocytes # (1.0-4.8) k/uL ABG pO2 (83-108) mmHg ABG HCO3 (21-25) mmol/L ABG Total CO2 (19-24) mmol/L ABG O2 Saturation (94-97) % ABG Lactic Acid (0.5-1.6) mmol/L Sodium (137-145) mmol/L Carbon Dioxide (22-30) mmol/L BUN (9-20) mg/dL Creatinine (0.66-1.25) mg/dL Glucose (74-99) mg/dL POC Glucose (mg/dL) 135 H 154 H (70-110) mg/dL Calcium (8.4-10.2) mg/dL AST (17-59) U/L Alkaline Phosphatase (38-126) U/L Total Protein (6.3-8.2) g/dL Crossmatch
--- NOTE | 2023-05-23 10:41 | P.PN ---
Subjective Progress Note Date: 05/23/23 Subjective: Patient seen and examined at bedside. No acute events overnight. Now off of vasopressors. Has a Thora vent in place. Also has chest tubes in place. Lockett catheter in place. Has not been ambulating yet. Able to eat and drink okay. Pertinent positives and negatives as discussed above, a complete review of systems was performed and all other systems are negative. Vitals Signs Reviewed. General: Ill-appearing, no acute distress, appears at stated age Cardiovascular: S1S2 reg, no murmur Lungs: Decreased breath sounds bilateral bases, no rhonchi, no rales, no accessory muscle use Abdominal: Soft, nontender to palpation, no guarding Ext: No gross muscle atrophy, no edema b/l lower extremities, no contractures Neuro: CN II-XI grossly intact, no focal neuro deficits Psych: Alert, oriented, appropriate affec Data Reviewed Today: Pertinent Labs: Hemoglobin 7.9, platelet 113, pH 7.41, sodium 136, creatinine 1.36, blood sugars range between 1 26-1 54 Imaging: Chest x-ray independently interpreted, shows resolving pneumothorax, bilateral interstitial opacities, worse on the right Assessment and Plan: Patient remains in medical ICU. Severe CAD status post CABG History of hypertension Postoperative hypotension Dyslipidemia Pneumothorax status post Thora vent Acute hypoxic respiratory failure, resolving -Management per CT surgery -CT surgery note reviewed -Continue on amiodarone for A-fib prophylaxis -aspirin 325 mg daily, Plavix 75 mg daily, Lipitor 80 mg daily -Metoprolol decreased to 12.5 mg twice daily Started on midodrine 10 3 times daily -Patient is now off of IV vasopressors Acute blood loss anemia, anticipated outcome of surgery, status post 2 units of PRBCs -Agree with ferrous sulfate 325 mg daily -Repeat CBC tomorrow Prediabetes -Preop hemoglobin A1c was 6 on 05/14/23 -Insulin drip discontinued, started a on sliding scale insulin ACHS, monitor for hypoglycemia Recently diagnosed hypothyroidism -Continue with Synthroid 25 mcg daily -Should have repeat outpatient TSH in 4 to 6 weeks. Seizure disorder -Continue with Keppra 1500 mg twice daily Thank you for allowing us to participate in the care of this pleasant patient. Do not hesitate to contact us with questions. Someone can be reached from the [facility] hospitalist group all hours of the day at [phone] or via perfect serve. Objective - Vital Signs Vital signs: Vital Signs Temp 98.7 F 05/23/23 08:00 Pulse 78 05/23/23 10:00 Resp 14 05/23/23 10:00 BP 128/64 05/23/23 10:00 Pulse Ox 87 L 05/23/23 10:00 FiO2 100 05/22/23 19:00 Intake & Output 05/22/23 05/23/23 05/23/23 18:59 06:59 18:59 Intake Total 2247.381 1636.242 544 Output Total 580 1245 185 Balance 1667.381 391.242 359 Weight 89.2 kg 92 kg Intake: IV 480 536 144 CO/CI 40 190 40 Lactated Ringers 1,000 ml 300 250 80 @ 20 mls/hr IV .Q24H [facility] Rx#:[id number] Pressure Bags 90 96 24 ceFAZolin 2 gm In Sodium 50 Chloride 0.9% 50 ml @ 100 mls/hr IVPB Q8HR [facility] Rx# :[id number] Intake, IV Titration 947.381 151.242 Amount Albumin Human 5% 250 ml 250 In Empty Bag 1 bag @ 250 mls/hr IVPB ONCE STA Rx#: [id number] Albumin Human 5% 250 ml 250 In Empty Bag 1 bag @ 250 mls/hr IVPB ONCE STA Rx#: [id number] Albumin Human 5% 250 ml 250 In Empty Bag 1 bag @ 250 mls/hr IVPB ONCE STA Rx#: [id number] Amiodarone 450 mg In 66.4 Dextrose 5% in Water 250 ml @ 0.5 MG/MIN 16.667 mls/hr IV .Q15H [facility] Rx#: [id number] Insulin Regular 100 unit 26.665 18.079 In Sodium Chloride 0.9% 100 ml @ Per Protocol IV .Q0M [facility] Rx#:[id number] Nitroglycerin-D5w Pmx 50 5 mg In Dextrose/Water 1 250ml.bag @ 5 MCG/MIN 1.5 mls/hr IV .Q24H [facility] Rx#: [id number] Norepinephrine 4 mg In 87.316 127.163 Sodium Chloride 0.9% 250 ml @ 0.03 MCG/KG/MIN 10. 196 mls/hr IV .Q24H [facility] Rx#:[id number] Vasopressin 60 unit In 12 6 Sodium Chloride 0.9% 150 ml @ 0.04 UNITS/MIN 6.12 mls/hr IV .Q24H [facility] Rx#: [id number] Oral 480 660 400 Blood Product 290 289 Rc Pheresis 2 As3 Unit 290 [id number] Rc Pheresis As-3 Unit 0 289 [id number] Other 50 Rc Pheresis 2 As3 Unit 50 [id number] Output: Chest Tube Drainage 195 155 0 Left Pleural 90 110 0 Mediastinal 80 40 0 Thora-Vent Right Upper 25 5 0 Anterior Chest Urine 385 1090 185 Other: Voiding Method Indwelling Catheter Indwelling Catheter Indwelling Catheter ABP, PAP, CO, CI - Last Documented Arterial Blood Pressure 103/44 Pulmonary Artery Pressure 32/12 Cardiac Output 4.8 Cardiac Index 2.3 - Labs CBC & Chem 7: 05/23/23 04:13 05/23/23 04:13 Labs: Abnormal Lab Results - Last 24 Hours (Table) 05/18/23 05/22/23 05/22/23 Range/Units 14:20 11:12 12:27 RBC (4.30-5.90) m/uL Hgb (13.0-17.5) gm/dL Hct (39.0-53.0) % Plt Count (150-450) k/uL Lymphocytes # (1.0-4.8) k/uL ABG pO2 (83-108) mmHg ABG HCO3 (21-25) mmol/L ABG Total CO2 (19-24) mmol/L ABG O2 Saturation (94-97) % ABG Lactic Acid (0.5-1.6) mmol/L Sodium (137-145) mmol/L Carbon Dioxide (22-30) mmol/L BUN (9-20) mg/dL Creatinine (0.66-1.25) mg/dL Glucose (74-99) mg/dL POC Glucose (mg/dL) 160 H 141 H (70-110) mg/dL Calcium (8.4-10.2) mg/dL AST (17-59) U/L Alkaline Phosphatase (38-126) U/L Total Protein (6.3-8.2) g/dL Crossmatch See Detail 05/22/23 05/22/23 05/22/23 Range/Units 13:20 15:00 15:01 RBC 2.05 L (4.30-5.90) m/uL Hgb 6.7 L* (13.0-17.5) gm/dL Hct 20.1 L (39.0-53.0) % Plt Count (150-450) k/uL Lymphocytes # (1.0-4.8) k/uL ABG pO2 (83-108) mmHg ABG HCO3 (21-25) mmol/L ABG Total CO2 (19-24) mmol/L ABG O2 Saturation (94-97) % ABG Lactic Acid (0.5-1.6) mmol/L Sodium (137-145) mmol/L Carbon Dioxide (22-30) mmol/L BUN (9-20) mg/dL Creatinine (0.66-1.25) mg/dL Glucose (74-99) mg/dL POC Glucose (mg/dL) 133 H 198 H (70-110) mg/dL Calcium (8.4-10.2) mg/dL AST (17-59) U/L Alkaline Phosphatase (38-126) U/L Total Protein (6.3-8.2) g/dL Crossmatch 05/22/23 05/22/23 05/22/23 Range/Units 15:40 15:40 15:42 RBC (4.30-5.90) m/uL Hgb (13.0-17.5) gm/dL Hct (39.0-53.0) % Plt Count (150-450) k/uL Lymphocytes # (1.0-4.8) k/uL ABG pO2 59 L* (83-108) mmHg ABG HCO3 (21-25) mmol/L ABG Total CO2 (19-24) mmol/L ABG O2 Saturation 90.5 L (94-97) % ABG Lactic Acid 3.7 H* (0.5-1.6) mmol/L Sodium 135 L (137-145) mmol/L Carbon Dioxide 20 L (22-30) mmol/L BUN 22 H (9-20) mg/dL Creatinine 1.57 H (0.66-1.25) mg/dL Glucose 164 H (74-99) mg/dL POC Glucose (mg/dL) (70-110) mg/dL Calcium 8.0 L (8.4-10.2) mg/dL AST (17-59) U/L Alkaline Phosphatase 37 L (38-126) U/L Total Protein 5.8 L (6.3-8.2) g/dL Crossmatch 05/22/23 05/22/23 05/22/23 Range/Units 17:10 17:11 18:55 RBC (4.30-5.90) m/uL Hgb (13.0-17.5) gm/dL Hct (39.0-53.0) % Plt Count (150-450) k/uL Lymphocytes # (1.0-4.8) k/uL ABG pO2 78 L (83-108) mmHg ABG HCO3 (21-25) mmol/L ABG Total CO2 25 H (19-24) mmol/L ABG O2 Saturation 97.2 H (94-97) % ABG Lactic Acid (0.5-1.6) mmol/L Sodium (137-145) mmol/L Carbon Dioxide (22-30) mmol/L BUN (9-20) mg/dL Creatinine (0.66-1.25) mg/dL Glucose (74-99) mg/dL POC Glucose (mg/dL) 118 H 149 H (70-110) mg/dL Calcium (8.4-10.2) mg/dL AST (17-59) U/L Alkaline Phosphatase (38-126) U/L Total Protein (6.3-8.2) g/dL Crossmatch 05/22/23 05/22/23 05/22/23 Range/Units 20:05 21:03 22:01 RBC (4.30-5.90) m/uL Hgb (13.0-17.5) gm/dL Hct (39.0-53.0) % Plt Count (150-450) k/uL Lymphocytes # (1.0-4.8) k/uL ABG pO2 (83-108) mmHg ABG HCO3 (21-25) mmol/L ABG Total CO2 (19-24) mmol/L ABG O2 Saturation (94-97) % ABG Lactic Acid (0.5-1.6) mmol/L Sodium (137-145) mmol/L Carbon Dioxide (22-30) mmol/L BUN (9-20) mg/dL Creatinine (0.66-1.25) mg/dL Glucose (74-99) mg/dL POC Glucose (mg/dL) 152 H 170 H 163 H (70-110) mg/dL Calcium (8.4-10.2) mg/dL AST (17-59) U/L Alkaline Phosphatase (38-126) U/L Total Protein (6.3-8.2) g/dL Crossmatch 05/22/23 05/22/23 05/23/23 Range/Units 22:57 23:54 01:06 RBC (4.30-5.90) m/uL Hgb (13.0-17.5) gm/dL Hct (39.0-53.0) % Plt Count (150-450) k/uL Lymphocytes # (1.0-4.8) k/uL ABG pO2 (83-108) mmHg ABG HCO3 (21-25) mmol/L ABG Total CO2 (19-24) mmol/L ABG O2 Saturation (94-97) % ABG Lactic Acid (0.5-1.6) mmol/L Sodium (137-145) mmol/L Carbon Dioxide (22-30) mmol/L BUN (9-20) mg/dL Creatinine (0.66-1.25) mg/dL Glucose (74-99) mg/dL POC Glucose (mg/dL) 153 H 143 H 140 H (70-110) mg/dL Calcium (8.4-10.2) mg/dL AST (17-59) U/L Alkaline Phosphatase (38-126) U/L Total Protein (6.3-8.2) g/dL Crossmatch 05/23/23 05/23/23 05/23/23 Range/Units 01:58 02:50 04:02 RBC (4.30-5.90) m/uL Hgb (13.0-17.5) gm/dL Hct (39.0-53.0) % Plt Count (150-450) k/uL Lymphocytes # (1.0-4.8) k/uL ABG pO2 (83-108) mmHg ABG HCO3 (21-25) mmol/L ABG Total CO2 (19-24) mmol/L ABG O2 Saturation (94-97) % ABG Lactic Acid (0.5-1.6) mmol/L Sodium (137-145) mmol/L Carbon Dioxide (22-30) mmol/L BUN (9-20) mg/dL Creatinine (0.66-1.25) mg/dL Glucose (74-99) mg/dL POC Glucose (mg/dL) 139 H 145 H 156 H (70-110) mg/dL Calcium (8.4-10.2) mg/dL AST (17-59) U/L Alkaline Phosphatase (38-126) U/L Total Protein (6.3-8.2) g/dL Crossmatch 05/23/23 05/23/23 05/23/23 Range/Units 04:13 04:13 05:10 RBC 2.47 L (4.30-5.90) m/uL Hgb 7.9 L (13.0-17.5) gm/dL Hct 23.2 L (39.0-53.0) % Plt Count 113 L (150-450) k/uL Lymphocytes # 0.9 L (1.0-4.8) k/uL ABG pO2 43 L* (83-108) mmHg ABG HCO3 26 H (21-25) mmol/L ABG Total CO2 27 H (19-24) mmol/L ABG O2 Saturation 80.0 L (94-97) % ABG Lactic Acid (0.5-1.6) mmol/L Sodium 136 L (137-145) mmol/L Carbon Dioxide (22-30) mmol/L BUN 24 H (9-20) mg/dL Creatinine 1.36 H (0.66-1.25) mg/dL Glucose 126 H (74-99) mg/dL POC Glucose (mg/dL) (70-110) mg/dL Calcium 8.2 L (8.4-10.2) mg/dL AST 60 H (17-59) U/L Alkaline Phosphatase (38-126) U/L Total Protein 5.6 L (6.3-8.2) g/dL Crossmatch 05/23/23 05/23/23 05/23/23 Range/Units 05:45 07:08 08:21 RBC (4.30-5.90) m/uL Hgb (13.0-17.5) gm/dL Hct (39.0-53.0) % Plt Count (150-450) k/uL Lymphocytes # (1.0-4.8) k/uL ABG pO2 (83-108) mmHg ABG HCO3 (21-25) mmol/L ABG Total CO2 (19-24) mmol/L ABG O2 Saturation (94-97) % ABG Lactic Acid (0.5-1.6) mmol/L Sodium (137-145) mmol/L Carbon Dioxide (22-30) mmol/L BUN (9-20) mg/dL Creatinine (0.66-1.25) mg/dL Glucose (74-99) mg/dL POC Glucose (mg/dL) 136 H 134 H 135 H (70-110) mg/dL Calcium (8.4-10.2) mg/dL AST (17-59) U/L Alkaline Phosphatase (38-126) U/L Total Protein (6.3-8.2) g/dL Crossmatch 05/23/23 Range/Units 09:16 RBC (4.30-5.90) m/uL Hgb (13.0-17.5) gm/dL Hct (39.0-53.0) % Plt Count (150-450) k/uL Lymphocytes # (1.0-4.8) k/uL ABG pO2 (83-108) mmHg ABG HCO3 (21-25) mmol/L ABG Total CO2 (19-24) mmol/L ABG O2 Saturation (94-97) % ABG Lactic Acid (0.5-1.6) mmol/L Sodium (137-145) mmol/L Carbon Dioxide (22-30) mmol/L BUN (9-20) mg/dL Creatinine (0.66-1.25) mg/dL Glucose (74-99) mg/dL POC Glucose (mg/dL) 154 H (70-110) mg/dL Calcium (8.4-10.2) mg/dL AST (17-59) U/L Alkaline Phosphatase (38-126) U/L Total Protein (6.3-8.2) g/dL Crossmatch
[2023-05-23 11:09] LABS: Glucose,Whole Blood 178 mg/dL (70-110)
[2023-05-23] MEDS: INSULIN ASPART (NovoLOG) 100 UNIT/ML VIAL SQ SCH (11:44)
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
[2023-05-23 16:14] LABS: Glucose,Whole Blood 141 mg/dL (70-110)
[2023-05-23] MEDS ORDERED: MIDODRINE 5 MG TAB PO SCH (17:30)
[2023-05-23] MEDS: MIDODRINE 5 MG TAB PO SCH (20:02)
[2023-05-23 21:23] LABS: Glucose,Whole Blood 146 mg/dL (70-110)
[2023-05-23] MEDS: TAMSULOSIN 0.4 MG CAP.ER.24H PO SCH (21:36)
[2023-05-24 02:11] LABS: Glucose,Whole Blood 171 mg/dL (70-110)
[2023-05-24 02:24] LABS: ABG Base Excess -0.6 mmol/L; ABG HCO3 23 mmol/L (21-25); ABG Oxygen Saturation 94.4 % (94-97); ABG PCO2 33 mmHg (35-45); ABG PH 7.46 (7.35-7.45); ABG PO2 64 mmHg (83-108); ABG TCO2 24 mmol/L (19-24); Allen Test Performed? Yes
--- NOTE | 2023-05-24 04:06 | XR ---
EXAM: XR Chest, 1 View CLINICAL HISTORY: ITS.REASON XR Reason: Increased WOB TECHNIQUE: Frontal view of the chest. COMPARISON: No relevant prior studies available. FINDINGS: Right-sided [place]-Anastacio catheter with its tip overlying the main pulmonary output tract. Postoperative changes median sternotomy. Left lower lobe atelectasis and small left pleural effusion. Cardiomegaly. Mild pulmonary vascular congestion. IMPRESSION: Mild CHF
[2023-05-24 04:56] LABS: Basophils % (A) 0 %; Eosinophils # (A) 0.1 k/uL (0-0.7); Eosinophils % (A) 1 %; Lymphocytes # (A) 0.7 k/uL (1.0-4.8); Lymphocytes % (A) 7 %; MCH 31.7 pg (25.0-35.0); MCHC 33.4 g/dL (31.0-37.0); MCV 94.8 fL (80.0-100.0); Mean Platelet Volume 8.6; Monocytes # (A) 0.6 k/uL (0-1.0); Monocytes % (A) 5 %; Neutrophils # (A) 8.9 k/uL (1.3-7.7); Neutrophils % (A) 85 %; Platelet Count 125 k/uL (150-450); RBC 2.53 m/uL (4.30-5.90); RDW 15.1 % (11.5-15.5); WBC 10.5 k/uL (3.8-10.6)
[2023-05-24 05:11] LABS: ALT 24 U/L (4-49); AST 53 U/L (17-59); African American GFR (CKD) 76 (>60 ml/min/1.73 sqM); Albumin 3.5 g/dL (3.5-5.0); Alkaline Phosphatase 54 U/L (38-126); Anion Gap 9 mmol/L; Blood Urea Nitrogen 20 mg/dL (9-20); Calcium 8.4 mg/dL (8.4-10.2); Carbon Dioxide 22 mmol/L (22-30); Chloride 103 mmol/L (98-107); Glucose 130 mg/dL (74-99); Non-African American GFR(CKD) 66 (>60 ml/min/1.73 sqM); Sodium 134 mmol/L (137-145); Total Bilirubin 0.8 mg/dL (0.2-1.3); Total Protein 5.7 g/dL (6.3-8.2)
[2023-05-24] MEDS: MIDODRINE 5 MG TAB PO SCH (06:48)
[2023-05-24 06:51] LABS: Glucose,Whole Blood 139 mg/dL (70-110)
[2023-05-24] MEDS: PANTOPRAZOLE 40 MG TABLET PO SCH (07:22)
--- NOTE | 2023-05-24 07:32 | P.PN ---
Subjective Progress Note Date: 05/24/23 PROGRESS NOTE The patient is a 72-year-old male was admitted to undergo elective CABG. He has a history of CVA, hypertension, hyperlipidemia, peripheral vascular disease status post carotid endarterectomy who presented to symptoms of chest discomfort. He underwent cardiac catheterization earlier this month by Dr. Flanagan, was found to have calcified coronary arteries was ostial LAD and mid LAD disease as well as left circumflex disease. He is in the ICU, intubated and sedated, hemodynamically stable in sinus mechanism. He underwent surgery today by Dr. Schultz. His left ventricle systolic function preoperatively was normal. He has a history of hypertension and hyperlipidemia, nondiabetic. April 21 The patient is extubated, sitting up in the chair, in sinus mechanism. He has chest wall tenderness. The pneumothorax was noted on chest x-ray. Hemodynamically he stable. His urinary output stable. He denies any nausea or vomiting. There is no evidence of hemodynamic compromise. He received a FIGUEROA to the LAD and SVG to the OM and radial artery to OM 2 with closure of the left atrial appendage April 22: The patient had placement of Thora vent catheter yesterday on the right side because of his pneumothorax. He appears more stable today. He has some chest discomfort. He is breathing is stable. He denies any dizziness or palpitations. He continues to be in sinus mechanism. Hemodynamically stable. Chest x-ray shows improvement of the pneumothorax. He had an episode of hypotension improved. April 23: The patient is sitting up in the chair, in sinus mechanism. He denies any significant chest discomfort. He had an episode of large drain from his chest tube that subsequently stopped. He denies any dizziness or palpitation. He has mild chest wall tenderness and incisional pain. He has no nausea or vomiting. His urinary output has been stable. His echocardiogram showed an ejection fraction of 45%. Medications: Aspirin, atorvastatin 40 mg daily, Plavix 75 mg daily, metoprolol 12.5 mg twice a day, Flomax, amiodarone 400 mg twice a day, Keppra PHYSICAL EXAMINATION: Blood pressure 123/75 heart rate 75, [place]-Anastacio from right IJ LUNGS: Scattered rhonchi, Thora vent catheter noted HEART: Regular rate and rhythm, S1, S2. No S3. Systolic ejection murmur ABDOMEN: Soft, nontender, no organomegaly EXTREMETIES: No edema LAB: Hemoglobin 8, BUN 20, creatinine 1.12, potassium 4.0 IMPRESSION: 1. Status post CABG 2. History of hyperlipidemia 3. History of hypertension 4. History of carotid disease 5. Pneumothorax post CABG, post Thoravent catheter PLAN: 1. Continue present therapy 2. Incentive spirometry 3. Probable remove [place]-Anastacio today 4. If blood pressure stable increase beta-nata and add CLEMENTINA inhibitor 5. Depending on his progress further recommendations will be made Objective - Vital Signs Vital signs: Vital Signs Temp 100.8 F H 05/24/23 04:00 Pulse 75 05/24/23 07:00 Resp 20 05/24/23 07:00 BP 140/87 05/24/23 07:00 Pulse Ox 95 05/24/23 07:00 FiO2 100 05/22/23 19:00 Intake & Output 05/23/23 05/24/23 05/24/23 18:59 06:59 18:59 Intake Total 998 556 276 Output Total 600 1130 75 Balance 398 -574 201 Weight 93.2 kg Intake: IV 418 306 26 CO/CI 80 20 Lactated Ringers 1,000 ml 260 220 20 @ 20 mls/hr IV .Q24H [facility] Rx#:[id number] Pressure Bags 78 66 6 Oral 580 250 250 Output: Chest Tube Drainage 0 260 Left Pleural 0 Mediastinal 0 Thora-Vent Right Upper 0 260 Anterior Chest Urine 600 870 75 Other: Voiding Method Indwelling Catheter Indwelling Catheter ABP, PAP, CO, CI - Last Documented Arterial Blood Pressure 103/44 Pulmonary Artery Pressure 37/19 Cardiac Output 5.5 Cardiac Index 2.6 - Labs CBC & Chem 7: 05/24/23 03:52 05/24/23 03:52 Labs: Abnormal Lab Results - Last 24 Hours (Table) 05/23/23 05/23/23 05/23/23 Range/Units 08:21 09:16 11:07 RBC (4.30-5.90) m/uL Hgb (13.0-17.5) gm/dL Hct (39.0-53.0) % Plt Count (150-450) k/uL Neutrophils # (1.3-7.7) k/uL Lymphocytes # (1.0-4.8) k/uL ABG pH (7.35-7.45) ABG pCO2 (35-45) mmHg ABG pO2 (83-108) mmHg Sodium (137-145) mmol/L Glucose (74-99) mg/dL POC Glucose (mg/dL) 135 H 154 H 178 H (70-110) mg/dL Total Protein (6.3-8.2) g/dL 05/23/23 05/23/23 05/24/23 Range/Units 16:13 21:21 02:09 RBC (4.30-5.90) m/uL Hgb (13.0-17.5) gm/dL Hct (39.0-53.0) % Plt Count (150-450) k/uL Neutrophils # (1.3-7.7) k/uL Lymphocytes # (1.0-4.8) k/uL ABG pH (7.35-7.45) ABG pCO2 (35-45) mmHg ABG pO2 (83-108) mmHg Sodium (137-145) mmol/L Glucose (74-99) mg/dL POC Glucose (mg/dL) 141 H 146 H 171 H (70-110) mg/dL Total Protein (6.3-8.2) g/dL 05/24/23 05/24/23 05/24/23 Range/Units 02:22 03:52 03:52 RBC 2.53 L (4.30-5.90) m/uL Hgb 8.0 L (13.0-17.5) gm/dL Hct 24.0 L (39.0-53.0) % Plt Count 125 L (150-450) k/uL Neutrophils # 8.9 H (1.3-7.7) k/uL Lymphocytes # 0.7 L (1.0-4.8) k/uL ABG pH 7.46 H (7.35-7.45) ABG pCO2 33 L (35-45) mmHg ABG pO2 64 L (83-108) mmHg Sodium 134 L (137-145) mmol/L Glucose 130 H (74-99) mg/dL POC Glucose (mg/dL) (70-110) mg/dL Total Protein 5.7 L (6.3-8.2) g/dL 05/24/23 Range/Units 06:49 RBC (4.30-5.90) m/uL Hgb (13.0-17.5) gm/dL Hct (39.0-53.0) % Plt Count (150-450) k/uL Neutrophils # (1.3-7.7) k/uL Lymphocytes # (1.0-4.8) k/uL ABG pH (7.35-7.45) ABG pCO2 (35-45) mmHg ABG pO2 (83-108) mmHg Sodium (137-145) mmol/L Glucose (74-99) mg/dL POC Glucose (mg/dL) 139 H (70-110) mg/dL Total Protein (6.3-8.2) g/dL
[2023-05-24] MEDS: bisacodyL 10 MG SUPP RECTAL PRN (07:58)
[2023-05-24] MEDS: LOSARTAN 25 MG TAB PO SCH (08:14)
[2023-05-24 08:29] LABS: ABG Base Excess 0.7 mmol/L; ABG HCO3 25 mmol/L (21-25); ABG Oxygen Saturation 43.6 % (94-97); ABG PCO2 40 mmHg (35-45); ABG PH 7.41 (7.35-7.45); ABG TCO2 27 mmol/L (19-24)
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
[2023-05-24 09:34] LABS: VBG PH 7.39 (7.31-7.41)
--- NOTE | 2023-05-24 11:50 | CT ---
CTA CHEST EXAMINATION TYPE: CT angio chest DATE OF EXAM: 05/24/2023 INDICATION: hypoxemia CT DLP: 754.2 mGycm, Automated exposure control for dose reduction was used. CONTRAST: Patient injected with 100 mL of Isovue 370. COMPARISON: 05/11/2023 TECHNIQUE: CT of the chest is performed on a spiral scan at 2 mm thick sections. Study is performed with intravenous contrast timed for evaluation for pulmonary embolism. This will limit additional po rtions of the evaluation. 3-D MIP images reconstructed by the technologist are reviewed on the compu ter in the coronal and sagittal planes. FINDINGS: No persistent filling defects are evident to suggest an acute pulmonary embolism. There is a tiny right-sided pneumothorax estimated at less than 2%. This is predominantly adjacent to the anterior right lower lobe. Right-sided chest tube is present. No mediastinal or hilar adenopathy enlarged by CT criteria is evident. The ascending aorta diameter at the level of the main pulmonary artery is 3.8 cm. The main pulmonary artery diameter at the bifurcation is 3.2 cm. There is a small right and minimal left pleural effusion. Adjacent compressive atelectasis appears to be present. Limited CT sections were through the upper abdomen. Upper abdomen appears unremarkable. IMPRESSION: 1. Small right and minimal left pleural effusion. 2. Small sliver of residual pneumothorax right-sided. Right-sided chest tube is present. 3. No acute pulmonary embolism.
[2023-05-24 11:53] LABS: Glucose,Whole Blood 171 mg/dL (70-110)
--- NOTE | 2023-05-24 12:47 | P.PN ---
Subjective Progress Note Date: 05/24/23 Subjective: Patient seen and examined at bedside. Having intermittent fevers. has a Thora vent in place. Also has chest tube in place. Lockett catheter in place. Has not been ambulating yet. Able to eat and drink okay. Pertinent positives and negatives as discussed above, a complete review of systems was performed and all other systems are negative. Vitals Signs Reviewed. General: Ill-appearing, no acute distress, appears at stated age Cardiovascular: S1S2 reg, no murmur Lungs: Decreased breath sounds bilateral bases, no rhonchi, no rales, no accessory muscle use Abdominal: Soft, nontender to palpation, no guarding Ext: No gross muscle atrophy, no edema b/l lower extremities, no contractures Neuro: CN II-XI grossly intact, no focal neuro deficits Psych: Alert, oriented, appropriate affec Data Reviewed Today: Pertinent Labs: Hemoglobin 8, platelet 125, sodium 134, creatinine 1.12 Imaging: Chest x-ray independently interpreted, s shows persistent bilateral interstitial opacities. Chest CTA shows small right and minimal left pleural effusion, small sliver of residual pneumothorax right-sided with right-sided chest tube. Assessment and Plan: Patient remains in medical ICU. Severe CAD status post CABG History of hypertension Postoperative hypotension Dyslipidemia Pneumothorax status post Thora vent Acute hypoxic respiratory failure, resolving Intermittent fevers -Management per CT surgery -CT surgery note reviewed -Continue on amiodarone for A-fib prophylaxis -aspirin 325 mg daily, Plavix 75 mg daily, Lipitor 80 mg daily -Metoprolol at 12.5 mg twice daily Midodrine discontinued, patient started on losartan 25 daily -Blood cultures and urinalysis ordered -Fevers likely in the setting of recent pneumothorax, and possibly atelectasis Acute blood loss anemia, anticipated outcome of surgery, status post 2 units of PRBCs -Currently on ferrous sulfate 325 mg daily -Repeat CBC tomorrow Acute kidney injury, resolved Prediabetes -Preop hemoglobin A1c was 6 on 05/14/23 -on sliding scale insulin ACHS, monitor for hypoglycemia Recently diagnosed hypothyroidism -Continue with Synthroid 25 mcg daily -Should have repeat outpatient TSH in 4 to 6 weeks. Seizure disorder -Continue with Keppra 1500 mg twice daily Thank you for allowing us to participate in the care of this pleasant patient. Do not hesitate to contact us with questions. Someone can be reached from the [facility] hospitalist group all hours of the day at [phone] or via perfect serve. Objective - Vital Signs Vital signs: Vital Signs Temp 99.1 F 05/24/23 08:00 Pulse 74 05/24/23 12:00 Resp 21 05/24/23 12:00 BP 123/72 05/24/23 12:00 Pulse Ox 96 05/24/23 12:00 FiO2 100 05/22/23 19:00 Intake & Output 05/23/23 05/24/23 05/24/23 18:59 06:59 18:59 Intake Total 998 576 846 Output Total 600 1130 445 Balance 398 -554 401 Weight 93.2 kg Intake: IV 418 326 146 CO/CI 80 40 20 Lactated Ringers 1,000 ml 260 220 90 @ 20 mls/hr IV .Q24H [facility] Rx#:[id number] Pressure Bags 78 66 36 Oral 580 250 700 Output: Chest Tube Drainage 0 260 10 Left Pleural 0 Mediastinal 0 Thora-Vent Right Upper 0 260 10 Anterior Chest Urine 600 870 435 Other: Voiding Method Indwelling Catheter Indwelling Catheter Indwelling Catheter ABP, PAP, CO, CI - Last Documented Arterial Blood Pressure 103/44 Pulmonary Artery Pressure 31/13 Cardiac Output 5.8 Cardiac Index 2.8 - Labs CBC & Chem 7: 05/24/23 03:52 05/24/23 03:52 Labs: Abnormal Lab Results - Last 24 Hours (Table) 05/23/23 05/23/23 05/24/23 Range/Units 16:13 21:21 02:09 RBC (4.30-5.90) m/uL Hgb (13.0-17.5) gm/dL Hct (39.0-53.0) % Plt Count (150-450) k/uL Neutrophils # (1.3-7.7) k/uL Lymphocytes # (1.0-4.8) k/uL ABG pH (7.35-7.45) ABG pCO2 (35-45) mmHg ABG pO2 (83-108) mmHg Sodium (137-145) mmol/L Glucose (74-99) mg/dL POC Glucose (mg/dL) 141 H 146 H 171 H (70-110) mg/dL Total Protein (6.3-8.2) g/dL 05/24/23 05/24/2324 Range/Units 02:22 03:52 03:52 RBC 2.53 L (4.30-5.90) m/uL Hgb 8.0 L (13.0-17.5) gm/dL Hct 24.0 L (39.0-53.0) % Plt Count 125 L (150-450) k/uL Neutrophils # 8.9 H (1.3-7.7) k/uL Lymphocytes # 0.7 L (1.0-4.8) k/uL ABG pH 7.46 H (7.35-7.45) ABG pCO2 33 L (35-45) mmHg ABG pO2 64 L (83-108) mmHg Sodium 134 L (137-145) mmol/L Glucose 130 H (74-99) mg/dL POC Glucose (mg/dL) (70-110) mg/dL Total Protein 5.7 L (6.3-8.2) g/dL 05/24/23 05/24/23 Range/Units 06:49 11:51 RBC (4.30-5.90) m/uL Hgb (13.0-17.5) gm/dL Hct (39.0-53.0) % Plt Count (150-450) k/uL Neutrophils # (1.3-7.7) k/uL Lymphocytes # (1.0-4.8) k/uL ABG pH (7.35-7.45) ABG pCO2 (35-45) mmHg ABG pO2 (83-108) mmHg Sodium (137-145) mmol/L Glucose (74-99) mg/dL POC Glucose (mg/dL) 139 H 171 H (70-110) mg/dL Total Protein (6.3-8.2) g/dL
[2023-05-24 13:58] LABS: ABG PO2 26 mmHg (83-108); Allen Test Performed? n
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
[2023-05-24 16:39] LABS: Glucose,Whole Blood 109 mg/dL (70-110)
[2023-05-24 21:45] LABS: Glucose,Whole Blood 126 mg/dL (70-110)
[2023-05-25] MEDS: IPRATROPIUM-ALBUTEROL 3 ML NEB INHALATION PRN (03:19)
[2023-05-25 04:29] LABS: HCT 23.1 % (39.0-53.0); MCH 32.8 pg (25.0-35.0); MCHC 34.6 g/dL (31.0-37.0); MCV 94.8 fL (80.0-100.0); Mean Platelet Volume 9.1; Platelet Count 163 k/uL (150-450); RBC 2.44 m/uL (4.30-5.90); RDW 15.2 % (11.5-15.5); WBC 8.2 k/uL (3.8-10.6)
[2023-05-25 04:41] LABS: African American GFR (CKD) >90 (>60 ml/min/1.73 sqM); Anion Gap 3 mmol/L; Blood Urea Nitrogen 15 mg/dL (9-20); Calcium 8.5 mg/dL (8.4-10.2); Carbon Dioxide 26 mmol/L (22-30); Chloride 105 mmol/L (98-107); Glucose 123 mg/dL (74-99); Non-African American GFR(CKD) 78 (>60 ml/min/1.73 sqM); Potassium 3.5 mmol/L (3.5-5.1); Sodium 134 mmol/L (137-145)
[2023-05-25] MEDS: POTASSIUM BICARBONATE/CIT AC 20 MEQ TABLET.EFF NG-TUBE SCH (05:30)
[2023-05-25 06:46] LABS: Glucose,Whole Blood 136 mg/dL (70-110)
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
--- NOTE | 2023-05-25 07:46 | P.PN ---
Subjective Progress Note Date: 05/25/23 PROGRESS NOTE The patient is a 72-year-old male was admitted to undergo elective CABG. He has a history of CVA, hypertension, hyperlipidemia, peripheral vascular disease status post carotid endarterectomy who presented to symptoms of chest discomfort. He underwent cardiac catheterization earlier this month by Dr. Flanagan, was found to have calcified coronary arteries was ostial LAD and mid LAD disease as well as left circumflex disease. He is in the ICU, intubated and sedated, hemodynamically stable in sinus mechanism. He underwent surgery today by Dr. Schultz. His left ventricle systolic function preoperatively was normal. He has a history of hypertension and hyperlipidemia, nondiabetic. May 22: The patient is extubated, sitting up in the chair, in sinus mechanism. He has chest wall tenderness. The pneumothorax was noted on chest x-ray. Hemodynamically he stable. His urinary output stable. He denies any nausea or vomiting. There is no evidence of hemodynamic compromise. He received a FIGUEROA to the LAD and SVG to the OM and radial artery to OM 2 with closure of the left atrial appendage May 23: The patient had placement of Thora vent catheter yesterday on the right side b ecause of his pneumothorax. He appears more stable today. He has some chest discomfort. He is breathing is stable. He denies any dizziness or palpitations. He continues to be in sinus mechanism. Hemodynamically stable. Chest x-ray shows improvement of the pneumothorax. He had an episode of h ypotension improved. May 24: The patient is sitting up in the chair, in sinus mechanism. He denies any significant chest discomfort. He had an episode of large drain from his chest tube that subsequently stopped. He denies any dizziness or palpitation. He has mild chest wall tenderness and incisional pain. He has no nausea or vomiting. His urinary output has been stable. His echocardiogram showed an ejection fraction of 45%. May 25: The patient is sitting up in the chair, feeling better. He continues to be in sinus mechanism. His [place]-Anastacio catheter and Thora vent catheter have been removed. Hemodynamically he is stable. He denies any dizziness or palpitations. His urinary output has been stable. He has been ambulating in the unit. Medications: Aspirin, atorvastatin 40 mg daily, Plavix 75 mg daily, metoprolol 12.5 mg twice a day, Flomax, amiodarone 400 mg twice a day, Keppra, losartan 25 mg daily, metoprolol 12.5 mg every 8 hours PHYSICAL EXAMINATION: Blood pressure 132/70 heart rate 81, LUNGS: Few crackles scattered HEART: Regular rate and rhythm, S1, S2. No S3. Systolic ejection murmur ABDOMEN: Soft, nontender, no organomegaly EXTREMETIES: No edema LAB: Hemoglobin 8, BUN 15, creatinine 0.98, potassium 3.5 IMPRESSION: 1. Status post CABG 2. History of hyperlipidemia 3. History of hypertension 4. History of carotid disease 5. Pneumothorax post CABG, resolved PLAN: 1. Continue present therapy 2. Incentive spirometry 3. Increase physical activity 4. Probable discharge home in the next 48 hours Objective - Vital Signs Vital signs: Vital Signs Temp 98.1 F 05/25/23 04:00 Pulse 81 05/25/23 07:00 Resp 21 05/25/23 07:00 BP 132/74 05/25/23 07:00 Pulse Ox 80 L 05/25/23 07:00 FiO2 100 05/22/23 19:00 Intake & Output 05/24/23 05/25/23 05/25/23 18:59 06:59 18:59 Intake Total 1296 Output Total 485 1400 Balance 811 -1400 Weight 93.1 kg Intake: IV 146 CO/CI 20 Lactated Ringers 1,000 ml 90 @ 20 mls/hr IV .Q24H [facility] Rx#:[id number] Pressure Bags 36 Oral 1150 Output: Chest Tube Drainage 10 Thora-Vent Right Upper 10 Anterior Chest Urine 475 1400 Other: Voiding Method Indwelling Catheter Urinal # Voids 1 0 0 # Bowel Movements 1 1 ABP, PAP, CO, CI - Last Documented Arterial Blood Pressure 103/44 Pulmonary Artery Pressure 31/13 Cardiac Output 5.8 Cardiac Index 2.8 - Labs CBC & Chem 7: 05/25/23 04:15 05/25/23 04:15 Labs: Abnormal Lab Results - Last 24 Hours (Table) 05/23/23 05/24/23 05/24/23 Range/Units 08:02 02:22 08:27 RBC (4.30-5.90) m/uL Hgb (13.0-17.5) gm/dL Hct (39.0-53.0) % ABG pH 7.46 H (7.35-7.45) ABG pCO2 33 L (35-45) mmHg ABG pO2 120 H 64 L 26 L* (83-108) mmHg ABG Total CO2 26 H 27 H (19-24) mmol/L ABG O2 Saturation 99.1 H 43.6 L (94-97) % Sodium (137-145) mmol/L Glucose (74-99) mg/dL POC Glucose (mg/dL) (70-110) mg/dL 05/24/23 05/24/23 05/25/23 Range/Units 11:51 21:44 04:15 RBC 2.44 L (4.30-5.90) m/uL Hgb 8.0 L (13.0-17.5) gm/dL Hct 23.1 L (39.0-53.0) % ABG pH (7.35-7.45) ABG pCO2 (35-45) mmHg ABG pO2 (83-108) mmHg ABG Total CO2 (19-24) mmol/L ABG O2 Saturation (94-97) % Sodium (137-145) mmol/L Glucose (74-99) mg/dL POC Glucose (mg/dL) 171 H 126 H (70-110) mg/dL 05/25/23 05/25/23 Range/Units 04:15 06:44 RBC (4.30-5.90) m/uL Hgb (13.0-17.5) gm/dL Hct (39.0-53.0) % ABG pH (7.35-7.45) ABG pCO2 (35-45) mmHg ABG pO2 (83-108) mmHg ABG Total CO2 (19-24) mmol/L ABG O2 Saturation (94-97) % Sodium 134 L (137-145) mmol/L Glucose 123 H (74-99) mg/dL POC Glucose (mg/dL) 136 H (70-110) mg/dL
[2023-05-25] MEDS: METOPROLOL TARTRATE 12.5 MG TAB PO SCH (08:02)
--- NOTE | 2023-05-25 09:10 | XR ---
EXAMINATION TYPE: XR chest 2V DATE OF EXAM: 05/25/2023 COMPARISON: 05/24/2023 HISTORY: 72 year-old male post CABG TECHNIQUE: PA and lateral views FINDINGS: Rightward patient rotation alters normal cardiomediastinal contours. Right IJ [place]-Anastacio catheter has been removed. Median sternotomy wires and post-CABG clips. Interval removal of the right-sided lower vein catheter as well. No appreciable pneumothorax. Heart remains mildly enlarged. Multiple right-hector ed rib fracture deformities. Streaky atelectasis at the left lower lung shows slight improvement. IMPRESSION: Post-CABG changes. Some left lower lung postoperative atelectasis shows partial improvement. No appre ciable pneumothorax.
[2023-05-25 11:58] LABS: Glucose,Whole Blood 131 mg/dL (70-110)
--- NOTE | 2023-05-25 13:34 | P.PN ---
Subjective Progress Note Date: 05/25/23 Subjective: Patient seen and examined at bedside. No acute events overnight. Pertinent positives and negatives as discussed above, a complete review of systems was performed and all other systems are negative. Vitals Signs Reviewed. General: Ill-appearing, no acute distress, appears at stated age Cardiovascular: S1S2 reg, no murmur Lungs: Decreased breath sounds bilateral bases, no rhonchi, no rales, no accessory muscle use Abdominal: Soft, nontender to palpation, no guarding Ext: No gross muscle atrophy, no edema b/l lower extremities, no contractures Neuro: CN II-XI grossly intact, no focal neuro deficits Psych: Alert, oriented, appropriate affec Data Reviewed Today: Pertinent Labs: Hemoglobin 8, platelet 163, sodium 134, creatinine 0.98, blood glucose range between 1 23-1 36 Imaging: Chest x-ray independently interpreted, improving bilateral interstitial opacities, no pneumothorax Assessment and Plan: Patient remains in medical ICU. Severe CAD status post CABG History of hypertension Postoperative hypotension Dyslipidemia Pneumothorax status post Thora vent Acute hypoxic respiratory failure, resolving Intermittent fevers, resolved -Management per CT surgery -CT surgery note reviewed, likely discharge in the next day or 2 -Continue on amiodarone for A-fib prophylaxis -aspirin 325 mg daily, Plavix 75 mg daily, Lipitor 80 mg daily -Metoprolol at 12.5 mg twice daily -on losartan 25 daily Acute blood loss anemia, anticipated outcome of surgery, status post 2 units of PRBCs -Currently on ferrous sulfate 325 mg daily -Repeat CBC tomorrow Acute kidney injury, resolved Prediabetes -Preop hemoglobin A1c was 6 on 05/14/23 -on sliding scale insulin ACHS, monitor for hypoglycemia Recently diagnosed hypothyroidism -Continue with Synthroid 25 mcg daily -Should have repeat outpatient TSH in 4 to 6 weeks. Seizure disorder -Continue with Keppra 1500 mg twice daily Thank you for allowing us to participate in the care of this pleasant patient. Do not hesitate to contact us with questions. Someone can be reached from the [facility] hospitalist group all hours of the day at [phone] or via perfect serve. Objective - Vital Signs Vital signs: Vital Signs Temp 98.4 F 05/25/23 08:00 Pulse 73 05/25/23 12:05 Resp 12 05/25/23 12:00 BP 104/68 05/25/23 12:00 Pulse Ox 96 05/25/23 12:00 FiO2 100 05/22/23 19:00 Intake & Output 05/24/23 05/25/23 05/25/23 18:59 06:59 18:59 Intake Total 1296 900 Output Total 485 1400 650 Balance 811 -1400 250 Weight 93.1 kg Intake: IV 146 CO/CI 20 Lactated Ringers 1,000 ml 90 @ 20 mls/hr IV .Q24H [facility] Rx#:[id number] Pressure Bags 36 Oral 1150 900 Output: Chest Tube Drainage 10 Thora-Vent Right Upper 10 Anterior Chest Urine 475 1400 650 Other: Voiding Method Indwelling Catheter Urinal Urinal # Voids 1 0 0 # Bowel Movements 1 1 ABP, PAP, CO, CI - Last Documented Arterial Blood Pressure 103/44 Pulmonary Artery Pressure 31/13 Cardiac Output 5.8 Cardiac Index 2.8 - Labs CBC & Chem 7: 05/25/23 04:15 05/25/23 10:26 Labs: Abnormal Lab Results - Last 24 Hours (Table) 05/23/23 05/24/23 05/24/23 Range/Units 08:02 02:22 08:27 RBC (4.30-5.90) m/uL Hgb (13.0-17.5) gm/dL Hct (39.0-53.0) % ABG pH 7.46 H (7.35-7.45) ABG pCO2 33 L (35-45) mmHg ABG pO2 120 H 64 L 26 L* (83-108) mmHg ABG Total CO2 26 H 27 H (19-24) mmol/L ABG O2 Saturation 99.1 H 43.6 L (94-97) % Sodium (137-145) mmol/L Glucose (74-99) mg/dL POC Glucose (mg/dL) (70-110) mg/dL 05/24/23 05/25/23 05/25/23 Range/Units 21:44 04:15 04:15 RBC 2.44 L (4.30-5.90) m/uL Hgb 8.0 L (13.0-17.5) gm/dL Hct 23.1 L (39.0-53.0) % ABG pH (7.35-7.45) ABG pCO2 (35-45) mmHg ABG pO2 (83-108) mmHg ABG Total CO2 (19-24) mmol/L ABG O2 Saturation (94-97) % Sodium 134 L (137-145) mmol/L Glucose 123 H (74-99) mg/dL POC Glucose (mg/dL) 126 H (70-110) mg/dL 05/25/23 05/25/23 Range/Units 06:44 11:57 RBC (4.30-5.90) m/uL Hgb (13.0-17.5) gm/dL Hct (39.0-53.0) % ABG pH (7.35-7.45) ABG pCO2 (35-45) mmHg ABG pO2 (83-108) mmHg ABG Total CO2 (19-24) mmol/L ABG O2 Saturation (94-97) % Sodium (137-145) mmol/L Glucose (74-99) mg/dL POC Glucose (mg/dL) 136 H 131 H (70-110) mg/dL
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
[2023-05-25 17:01] LABS: Glucose,Whole Blood 109 mg/dL (70-110)
[2023-05-25 20:24] LABS: Glucose,Whole Blood 128 mg/dL (70-110)
[2023-05-26 04:28] LABS: HCT 24.4 % (39.0-53.0); MCH 31.2 pg (25.0-35.0); MCHC 32.6 g/dL (31.0-37.0); MCV 95.6 fL (80.0-100.0); Mean Platelet Volume 8.6; Platelet Count 203 k/uL (150-450); RBC 2.55 m/uL (4.30-5.90); RDW 15.8 % (11.5-15.5); WBC 8.1 k/uL (3.8-10.6)
[2023-05-26 04:44] LABS: African American GFR (CKD) >90 (>60 ml/min/1.73 sqM); Anion Gap 4 mmol/L; Blood Urea Nitrogen 13 mg/dL (9-20); Calcium 8.9 mg/dL (8.4-10.2); Carbon Dioxide 26 mmol/L (22-30); Chloride 106 mmol/L (98-107); Glucose 109 mg/dL (74-99); Non-African American GFR(CKD) 86 (>60 ml/min/1.73 sqM); Potassium 3.9 mmol/L (3.5-5.1); Sodium 136 mmol/L (137-145)
[2023-05-26 07:00] LABS: Glucose,Whole Blood 130 mg/dL (70-110)
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
--- NOTE | 2023-05-26 09:01 | XR ---
EXAMINATION TYPE: XR chest 2V DATE OF EXAM: 05/26/2023 COMPARISON: INDICATION: TECHNIQUE: Frontal and lateral views of the chest are obtained. FINDINGS: The heart size is normal. Sternotomy wires are in the midline The pulmonary vasculature is normal. Streak atelectasis at the left base. Minimal left pleural effusion is present.. Old right-sided rib fractures are evident. IMPRESSION: 1. Left lower lobe streak atelectasis with minimal left pleural effusion
--- NOTE | 2023-05-26 09:25 | PN ---
PROGRESS NOTE SUBJECTIVE: This is a 72-year-old gentleman with history of coronary artery disease status post bypass surgery. Today is postop day #5. He is making slow but steady recovery. Currently on amiodarone 400 b.i.d., aspirin, Lipitor, Plavix, Cozaar, and Lopressor. OBJECTIVE: VITAL SIGNS: Heart rate is 80 beats per minute, blood pressure is 140/80, respiratory rate is 18. CHEST: Reveals diminished air entry at the bases. HEART: Reveals first and second heart sounds. No gallop. EXTREMITIES: Did not reveal any edema. LABS: Showed hemoglobin of 8, potassium is 3.9, creatinine is 0.89. ASSESSMENT: CAD, status post CABG. PLAN: The patient will continue to use incentive spirometry. Increase his activity. Hopefully home over the next 1-2 days. JUANY / JUSTO: [id number] /
[2023-05-26] MEDS: METOPROLOL TARTRATE 25 MG TAB PO SCH (09:29)
--- NOTE | 2023-05-26 10:53 | P.PN ---
Subjective Progress Note Date: 05/26/23 Subjective: Patient seen and examined at bedside. No acute events overnight. Pertinent positives and negatives as discussed above, a complete review of systems was performed and all other systems are negative. Vitals Signs Reviewed. General: Ill-appearing, no acute distress, appears at stated age Cardiovascular: S1S2 reg, no murmur Lungs: Decreased breath sounds bilateral bases, no rhonchi, no rales, no accessory muscle use Abdominal: Soft, nontender to palpation, no guarding Ext: No gross muscle atrophy, no edema b/l lower extremities, no contractures Neuro: CN II-XI grossly intact, no focal neuro deficits Psych: Alert, oriented, appropriate affec Data Reviewed Today: Pertinent Labs: Hemoglobin 8, platelet 203, sodium 136, creatinine 0.89, blood glucose range between 10 9-1 30, magnesium 2 Imaging: Chest x-ray independently interpreted, bilateral interstitial opacities improving, no pneumothorax Assessment and Plan: Severe CAD status post CABG History of hypertension Postoperative hypotension Dyslipidemia Pneumothorax status post Thora vent Acute hypoxic respiratory failure, resolved Intermittent fevers, resolved -Management per CT surgery -CT surgery note reviewed, likely discharge today -Continue on amiodarone for A-fib prophylaxis -aspirin 325 mg daily, Plavix 75 mg daily, Lipitor 80 mg daily -Metoprolol increased to 25 twice daily -on losartan 25 daily Acute blood loss anemia, anticipated outcome of surgery, status post 2 units of PRBCs -Currently on ferrous sulfate 325 mg daily Acute kidney injury, resolved Prediabetes -Preop hemoglobin A1c was 6 on 05/14/23 -on sliding scale insulin ACHS, monitor for hypoglycemia Recently diagnosed hypothyroidism -Continue with Synthroid 25 mcg daily -Should have repeat outpatient TSH in 4 to 6 weeks. Seizure disorder -Continue with Keppra 1500 mg twice daily Patient is medically optimized. Thank you for allowing us to participate in the care of this pleasant patient. Do not hesitate to contact us with questions. Someone can be reached from the [facility] hospitalist group all hours of the day at [phone] or via perfect serve. Objective - Vital Signs Vital signs: Vital Signs Temp 98.5 F 05/26/23 08:00 Pulse 80 05/26/23 08:37 Resp 16 05/26/23 08:00 BP 123/74 05/26/23 08:00 Pulse Ox 92 L 05/26/23 08:00 FiO2 100 05/22/23 19:00 Intake & Output 05/25/23 05/26/23 05/26/23 18:59 06:59 18:59 Intake Total 900 540 Output Total 650 600 500 Balance 250 -60 -500 Weight 96.1 kg Intake: Oral 900 540 Output: Urine 650 600 500 Other: Voiding Method Urinal Urinal # Voids 0 ABP, PAP, CO, CI - Last Documented Arterial Blood Pressure 103/44 Pulmonary Artery Pressure 31/13 Cardiac Output 5.8 Cardiac Index 2.8 - Labs CBC & Chem 7: 05/26/23 03:58 05/26/23 03:58 Labs: Abnormal Lab Results - Last 24 Hours (Table) 05/25/23 05/25/23 05/26/23 Range/Units 11:57 20:23 03:58 RBC 2.55 L (4.30-5.90) m/uL Hgb 8.0 L (13.0-17.5) gm/dL Hct 24.4 L (39.0-53.0) % RDW 15.8 H (11.5-15.5) % Sodium (137-145) mmol/L Glucose (74-99) mg/dL POC Glucose (mg/dL) 131 H 128 H (70-110) mg/dL 05/26/23 05/26/23 Range/Units 03:58 06:59 RBC (4.30-5.90) m/uL Hgb (13.0-17.5) gm/dL Hct (39.0-53.0) % RDW (11.5-15.5) % Sodium 136 L (137-145) mmol/L Glucose 109 H (74-99) mg/dL POC Glucose (mg/dL) 130 H (70-110) mg/dL
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
[2023-05-26 12:13] LABS: Glucose,Whole Blood 107 mg/dL (70-110)
[2023-05-26] MEDS: LOSARTAN 25 MG TAB PO SCH (12:15)
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
[2023-05-26 14:23] VITALS: BP 123/70; PULSE 78; RESP 15; TEMP 97.8
--- NOTE | 2023-05-28 11:37 | CDI ---
Documentation Clarification Form Date: 05/28/2023 10:00:52 AM From: Eri Victor RN CCDS Phone: [phone] Admit Date: 05/21/2023 05:41:00 AM Patient Name: Saeed Lopez Visit Number: [id number] Discharge Date: 05/26/2023 03:16:00 PM ATTENTION: The Clinical Documentation Specialists (CDI) and [facility] Coding Staff appreciate your assistance in clarifying documentation. Please respond to the clarification below the line at the bottom and electronically sign. The CDI & [facility] Coding staff will review the response and follow-up if needed. Please note: Queries are made part of the Legal Health Record. If you have any questions, please contact the author of this message via ITS. Dr. Roger Schultz Conflicting documentation has been found in the medical record. As attending physician, please provide clarification. Postoperative Hypotension, Medicine notes, 05/23 - 05/26. Acute orthostatic hypotension requiring pressure use, possible vasoplegia. Cardiothoracic Surgery 05/23 05/26. History/Risk Factors: 72-year-old male presented to [facility] for elective three vessel CABG secondary to coronary artery disease. Medical history: COPD, HTN, HLD, CVA and Alcoholism. 05/21, H&P Clinical Indicators: Hgb 05/22: 04:40 7.0 Hgb 05/22: 15:00 6.7 Hgb 05/23: 04:13 7.9 Blood gas 05/22, 15:42 : Sample Holland, PH 7.30; pCO2 38; pO2 59; HCO3 23; Total CO2 24; ABG O2 Saturation 90.5; Base excess -2.2; Lactic acid 3.7; FiO2 50 05/22, Nursing note: pt's bp had been borderline throughout the morning and early afternoon. hgb 7.0 this morning. 5% albumin given as ordered by myrna grayson forestry and wildlife manager x 2 for hypotension and low urine output. pt stood at bedside 2 times earlier in the day to reposition and c/o feeling lightheaded and orthostatic hypotension noted and reported to myrna grayson. 05/22, Cardiothoracic Surgery note: The patient had labile BP with MAP >60, in the afternoon he had orthostatic hypotension with a CL of 1.9 requiring initiation of levo and vaso, 2u prbc and albumin. VSS, 05/22: 12:00 Arterial B/P 87/40, HR 82, RR 18, Central venous pressure 9, SpO2 98% 2Lnc 13:00 Arterial B/P 90/37, HR 82, RR 18, Central venous pressure 9, SpO2 96% 2Lnc 14:00 Arterial B/P 90/36, HR 82, RR 19, Central venous pressure 7, SpO2 94% 2Lnc 15:00 Arterial B/P 85/40, HR 80, RR 28, Central venous pressure 13, SpO2 94% 2L nc 15:30 Arterial B/P 110/42, HR 73, RR 20, Central venous pressure 12, SpO2 91% Venti Mask Treatment:05/22 05/23 Albumin Human 250ml in IV solution 250mls @ 250mls/hr IVPB x 1; 05/22- 05/23 Norepinephrine 4mg in Sodium Chloride 254mls @10.196mls/hr IV; 05/22 05/23 Vasopressin 60unit in Sodium Chloride 153mls @ 6.12 mls/hr IV Please clarify which diagnosis is most appropriate: [ ] Postoperative hypotension [ ] Orthostatic hypotension [ x ] Vasoplegia (vasoplegic shock) [ ] Cardiogenic shock [ ] Hypovolemic shcok [ ] Other (please specify) [ ] Unable to determine (Template Last Revised: June 2020) MTDD
== END 2023-05-26 15:16 | disposition home health service (06) | DRG 235 ==
LOC: 2ORMAIN 05:41 → 2SICU 13:27
PROVIDERS: ADMIT Surgery; ATTEND Surgery
PROC: 06BP4ZZ Excision of Right Saphenous Vein, Percutaneous Endoscopic Approach (ICD-10-PCS; 2023-05-21)
PROC: 02L70CK Occlusion of Left Atrial Appendage with Extraluminal Device, Open Approach (ICD-10-PCS; 2023-05-21)
PROC: B24BZZ4 Ultrasonography of Heart with Aorta, Transesophageal (ICD-10-PCS; 2023-05-21)
PROC: B24BZZZ Ultrasonography of Heart with Aorta (ICD-10-PCS; 2023-05-21)
PROC: 4A0305C Measurement of Arterial Flow, Coronary, Open Approach (ICD-10-PCS; 2023-05-21)
PROC: 5A1221Z Performance of Cardiac Output, Continuous (ICD-10-PCS; 2023-05-21)
PROC: 02100Z9 Bypass Coronary Artery, One Artery from Left Internal Mammary, Open Approach (ICD-10-PCS; principal; 2023-05-21 08:00)
PROC: 02100A3 Bypass Coronary Artery, One Artery from Coronary Artery with Autologous Arterial Tissue, Open Approach (ICD-10-PCS; 2023-05-21 08:00)
PROC: 03BC4ZZ Excision of Left Radial Artery, Percutaneous Endoscopic Approach (ICD-10-PCS; 2023-05-21 08:00)
PROC: 0210093 Bypass Coronary Artery, One Artery from Coronary Artery with Autologous Venous Tissue, Open Approach (ICD-10-PCS; 2023-05-21 08:00)
PROC: 0W9930Z Drainage of Right Pleural Cavity with Drainage Device, Percutaneous Approach (ICD-10-PCS; 2023-05-22)
PROC: 02HQ32Z Insertion of Monitoring Device into Right Pulmonary Artery, Percutaneous Approach (ICD-10-PCS; 2023-05-22)
PROC: 3E043XZ Introduction of Vasopressor into Central Vein, Percutaneous Approach (ICD-10-PCS; 2023-05-22)
PROC: 5A0935A Assistance with Respiratory Ventilation, Less than 24 Consecutive Hours, High Flow/Velocity Cannula (ICD-10-PCS; 2023-05-23)
PROC: 30233N1 Transfusion of Nonautologous Red Blood Cells into Peripheral Vein, Percutaneous Approach (ICD-10-PCS; 2023-05-23)
PROC: 30233J1 Transfusion of Nonautologous Serum Albumin into Peripheral Vein, Percutaneous Approach (ICD-10-PCS; 2023-05-23)
DX: I25.10 Atherosclerotic heart disease of native coronary artery without angina pectoris (principal); J96.01 Acute respiratory failure with hypoxia; T81.19XA Other postprocedural shock, initial encounter; N17.9 Acute kidney failure, unspecified; D62 Acute posthemorrhagic anemia; F31.30 Bipolar disorder, current episode depressed, mild or moderate severity, unspecified; J93.9 Pneumothorax, unspecified; I73.9 Peripheral vascular disease, unspecified; J44.9 Chronic obstructive pulmonary disease, unspecified; G40.909 Epilepsy, unspecified, not intractable, without status epilepticus; F10.11 Alcohol abuse, in remission; E03.9 Hypothyroidism, unspecified; I10 Essential (primary) hypertension; E78.5 Hyperlipidemia, unspecified; R73.03 Prediabetes; N40.0 Benign prostatic hyperplasia without lower urinary tract symptoms; H91.91 Unspecified hearing loss, right ear; Z87.891 Personal history of nicotine dependence; Z86.73 Personal history of transient ischemic attack (TIA), and cerebral infarction without residual deficits; Z87.820 Personal history of traumatic brain injury; Z82.49 Family history of ischemic heart disease and other diseases of the circulatory system; Z86.79 Personal history of other diseases of the circulatory system; Z86.19 Personal history of other infectious and parasitic diseases; Z79.82 Long term (current) use of aspirin; Z79.890 Hormone replacement therapy; Z79.899 Other long term (current) drug therapy; Z91.81 History of falling; Z91.030 Bee allergy status
CPT/HCPCS: 36600; 71045; 71046; 71275; 80048; 80053; 82330; 82803; 82805; 83605; 83735; 84132; 85025; 85027; 85610; 85730; 86850; 86891; 86900; 86901; 86920; 93306; 93970; 94002; 94640

== ENCOUNTER → 2023-05-31 | Outpatient (CLI) | payer MEDICARE ==
[2023-05-31 18:20] LABS: Basophils # (A) 0.08 X 10*3/uL (0.00-0.10); Eosinophils # (A) 0.42 X 10*3/uL (0.04-0.35); HCT 30.2 % (39.6-50.0); HGB 9.5 g/dL (13.0-17.0); Lymphocytes % (A) 16.6 %; MCH 30.8 pg (27.0-32.0); MCHC 31.5 g/dL (32.0-37.0); MCV 98.1 FL (80.0-97.0); Mean Platelet Volume 9.3 FL (9.5-12.2); Monocytes # (A) 0.77 X 10*3/uL (0.20-1.00); Monocytes % (A) 9.1 %; NRBC Per 100 WBC 0 X 10*3/uL (0.00-0.01); Neutrophils # (A) 5.61 X 10*3/uL (1.80-7.70); Neutrophils % (A) 66.6 %; Platelet Count 570 X 10*3/uL (140-440); RBC 3.08 X 10*6/uL (4.40-5.60); WBC 8.42 X 10*3/uL (4.50-10.00)
[2023-05-31 18:59] LABS: ALT 28 U/L (10-49); AST 17 U/L (14-35); Albumin 4.2 g/dL (3.8-4.9); Albumin/Globulin Ratio 1.62 Ratio (1.60-3.17); Alkaline Phosphatase 73 U/L (41-126); BUN/Creat Ratio 10.71 Ratio (12.00-20.00); Calcium 9.5 mg/dL (8.7-10.3); Chloride 100 mmol/L (96-109); Globulin 2.6 g/dL (1.6-3.3); Glucose 93 mg/dL (70-110); Potassium 4.7 mmol/L (3.5-5.5); Sodium 137 mmol/L (135-145); Total Bilirubin 0.4 mg/dL (0.3-1.2); Total Protein 6.8 g/dL (6.2-8.2)
== END | disposition home or self-care (01) ==
LOC: LABWHC1 13:24
PROVIDERS: ATTEND Surgery
DX: Z01.812 Encounter for preprocedural laboratory examination (principal); E87.8 Other disorders of electrolyte and fluid balance, not elsewhere classified
CPT/HCPCS: 36415; 80053; 85025

== ENCOUNTER 2023-06-05 10:55 | Emergency (ER) | payer MEDICARE ==
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
[2023-06-05 12:08] LABS: Basophils # (A) 0.1 k/uL (0-0.2); Basophils % (A) 1 %; Eosinophils # (A) 0.3 k/uL (0-0.7); Eosinophils % (A) 4 %; HCT 31.5 % (39.0-53.0); HGB 10.6 gm/dL (13.0-17.5); Lymphocytes # (A) 0.7 k/uL (1.0-4.8); Lymphocytes % (A) 9 %; MCH 31.6 pg (25.0-35.0); MCHC 33.6 g/dL (31.0-37.0); Mean Platelet Volume 7.4; Monocytes # (A) 0.5 k/uL (0-1.0); Monocytes % (A) 7 %; Neutrophils # (A) 6.3 k/uL (1.3-7.7); Neutrophils % (A) 78 %; RBC 3.35 m/uL (4.30-5.90); RDW 15.3 % (11.5-15.5); WBC 8.1 k/uL (3.8-10.6)
[2023-06-05 12:09] LABS: ALT 22 U/L (4-49); African American GFR (CKD) 76 (>60 ml/min/1.73 sqM); Anion Gap 10 mmol/L; Blood Urea Nitrogen 16 mg/dL (9-20); Calcium 9.8 mg/dL (8.4-10.2); Carbon Dioxide 21 mmol/L (22-30); Chloride 106 mmol/L (98-107); Glucose 116 mg/dL (74-99); Non-African American GFR(CKD) 66 (>60 ml/min/1.73 sqM); Sodium 137 mmol/L (137-145); Total Bilirubin 0.8 mg/dL (0.2-1.3)
[2023-06-05 12:20] LABS: Platelet Count 594 k/uL (150-450)
[2023-06-05 12:28] LABS: AST 36 U/L (17-59); Albumin 4.2 g/dL (3.5-5.0); Alkaline Phosphatase 91 U/L (38-126); Total Protein 7.2 g/dL (6.3-8.2)
[2023-06-05 12:29] LABS: Potassium 4.8 mmol/L (3.5-5.1)
--- NOTE | 2023-06-05 12:52 | CT ---
EXAMINATION TYPE: CT brain cspine wo con CT DLP: 1490.5 mGycm, Automated exposure control for dose reduction was used. DATE OF EXAM: 06/05/2023 12:37 PM COMPARISON: 02/06/2023. CLINICAL INDICATION:Male, 72 years old with history of fall; Fall. Hx of recent triple bypass. TECHNIQUE: Brain: Multiple axial CT images of the brain were obtained without IV contrast. Cspine: Axial CT images from the skull base to the inferior aspect of T2 we obtained without intraven ous contrast. Coronal and sagittal reformatted images were also reviewed. FINDINGS: Brain: Extra-axial spaces: No abnormal extra-axial fluid collections. Ventricular system: Dilatation in proportion to cerebral atrophy. Cerebral parenchyma: Remote injury to the left occipital region and left frontal lobe and left tempor al lobe. Right posterior parietal region encephalomalacia also present. Cerebral atrophy. No acute in traparenchymal hemorrhage or mass effect. The remainder of the salcedo-white junctions are well differe ntiated. Cerebellum: Unremarkable. Mass effect: No evidence of midline shift. Intracranial vasculature: Atherosclerotic calcifications of the intracranial vessels. Soft tissues: Normal. Calvarium/osseous structures: No depressed skull fracture. Paranasal sinuses and mastoid air cells: Clear. Visualized orbits: Orbital contents are intact. Cervical spine: Fracture: None. Osseous structures: Minimal osteophyte formation and facet and uncovertebral joint arthropathy throug hout the visualized spine. Vertebral alignment: Within normal limits. Spinal canal/Neural Foramina: Disc osteophyte complexes at C3-C7. With at least mild spinal canal george nosis. No evidence for significant neural foraminal stenosis. Neck soft tissues: Prevertebral soft tissues are within normal limits. Other: The airway is patent. The lung apices are clear. Atherosclerosis of the carotid bifurcations. IMPRESSION: 1. No acute intracranial process. 2. Encephalomalacia the left frontal, temporal and occipital lobes and right parietal region from pr ior injuries.. 3. No evidence of cervical spine fracture. 4. Mild to moderate multilevel degenerative disc disease.
--- NOTE | 2023-06-05 12:55 | XR ---
EXAMINATION TYPE: XR chest 2V DATE OF EXAM: 06/05/2023 COMPARISON: 05/26/2023 HISTORY: Shortness of breath TECHNIQUE: Frontal and lateral views of the chest are obtained. FINDINGS: Scattered senescent parenchymal changes noted. Hyperinflation compatible with COPD. No evidence for infiltrate. Left basilar atelectatic change seen. Heart size is stable. Mediastinal structures are stable and grossly unremarkable. No evidence for hilar prominence. Degenerative changes dorsal spine. Again noted are multiple right-sided rib fractures without pneumot horax. IMPRESSION: 1. No evidence for acute pulmonary disease.
[2023-06-05 14:03] VITALS: BP 125/76; PULSE 65; RESP 22; TEMP 98.2
== END 2023-06-05 13:45 | disposition home or self-care (01) ==
LOC: EC 10:55
DX: S06.0XAA Concussion with loss of consciousness status unknown, initial encounter (principal); S00.03XA Contusion of scalp, initial encounter; R40.2362 Coma scale, best motor response, obeys commands, at arrival to emergency department; R40.2142 Coma scale, eyes open, spontaneous, at arrival to emergency department; R40.2252 Coma scale, best verbal response, oriented, at arrival to emergency department; I10 Essential (primary) hypertension; I25.10 Atherosclerotic heart disease of native coronary artery without angina pectoris; F12.90 Cannabis use, unspecified, uncomplicated; Z91.030 Bee allergy status; Z87.891 Personal history of nicotine dependence; Z86.73 Personal history of transient ischemic attack (TIA), and cerebral infarction without residual deficits; W19.XXXA Unspecified fall, initial encounter; W22.03XA Walked into furniture, initial encounter; Y92.009 Unspecified place in unspecified non-institutional (private) residence as the place of occurrence of the external cause; Y93.01 Activity, walking, marching and hiking
CPT/HCPCS: 36415; 70450; 71046; 72125; 80053; 85025; 93005; 99284

== ENCOUNTER 2023-06-08 18:43 | Observation (INO) | payer MEDICARE ==
--- NOTE | 2023-06-08 19:14 | XR ---
EXAMINATION TYPE: XR chest 1V portable DATE OF EXAM: 06/08/2023 COMPARISON: Chest x-ray June 05, 2023 HISTORY: Chest pain TECHNIQUE: Single frontal view of the chest is obtained. FINDINGS: Persistent right mid lung and left mid to lower lung linear scarring There is no suspicious new focal air space opacity, pleural effusion, or pneumothorax seen. The cardiac silhouette size is upper limits of normal in size with atherosclerotic thoracic aorta. Overlying sternal wires are red emonstrated. Underlying scoliotic curvature is again seen. Multiple old right sided rib fractures aga in seen. IMPRESSION: Chronic changes without acute pulmonary process.
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
[2023-06-08 19:36] LABS: Basophils # (A) 0.1 k/uL (0-0.2); Basophils % (A) 1 %; Eosinophils # (A) 0.4 k/uL (0-0.7); Eosinophils % (A) 5 %; HCT 33.5 % (39.0-53.0); HGB 11.2 gm/dL (13.0-17.5); Lymphocytes # (A) 1.2 k/uL (1.0-4.8); Lymphocytes % (A) 16 %; MCH 31.5 pg (25.0-35.0); MCHC 33.3 g/dL (31.0-37.0); MCV 94.4 fL (80.0-100.0); Mean Platelet Volume 6.9; Monocytes # (A) 0.6 k/uL (0-1.0); Monocytes % (A) 7 %; Neutrophils # (A) 5.2 k/uL (1.3-7.7); Neutrophils % (A) 69 %; Platelet Count 551 k/uL (150-450); RBC 3.55 m/uL (4.30-5.90); RDW 14.7 % (11.5-15.5); WBC 7.6 k/uL (3.8-10.6)
[2023-06-08 19:52] LABS: ALT 18 U/L (4-49); AST 26 U/L (17-59); African American GFR (CKD) 71 (>60 ml/min/1.73 sqM); Albumin 4.4 g/dL (3.5-5.0); Alkaline Phosphatase 145 U/L (38-126); Anion Gap 14 mmol/L; Blood Urea Nitrogen 15 mg/dL (9-20); Calcium 9.9 mg/dL (8.4-10.2); Carbon Dioxide 20 mmol/L (22-30); Chloride 105 mmol/L (98-107); Glucose 110 mg/dL (74-99); Lipase 112 U/L (23-300); Magnesium 1.8 mg/dL (1.6-2.3); Non-African American GFR(CKD) 61 (>60 ml/min/1.73 sqM); Potassium 3.9 mmol/L (3.5-5.1); Sodium 139 mmol/L (137-145); Total Bilirubin 0.7 mg/dL (0.2-1.3); Total Protein 7.3 g/dL (6.3-8.2)
[2023-06-08 20:00] LABS: NT-Pro-B-Type Natriuretic Pept 1210 pg/mL
[2023-06-08 20:02] LABS: Prothrombin Time 11.3 sec (10.0-12.5)
[2023-06-08 20:08] LABS: Appearance,Urine Clear (Clear); Bilirubin,Urine Negative (Negative); Blood,Urine Negative (Negative); Color,Urine Light Yellow; Glucose,Urine (UA) Negative (Negative); Ketones,Urine Negative (Negative); Leukocyte Esterase,Urine Negative (Negative); Nitrite,Urine Negative (Negative); PH, Urine 5.5 (5.0-8.0); Protein,Urine Negative (Negative); Specific Gravity,Urine 1.014 (1.001-1.035); Urobilinogen,Urine <2.0 mg/dL (<2.0)
--- NOTE | 2023-06-08 21:00 | CT ---
EXAMINATION TYPE: CT brain cspine wo con CT DLP: Combined DLP of 1968.4 mGycm, Automated exposure control for dose reduction was used. DATE OF EXAM: 06/08/2023 8:43 PM COMPARISON: None. CLINICAL INDICATION:Male, 72 years old with history of fall; Fall. TECHNIQUE: Brain: Multiple axial CT images of the brain were obtained without IV contrast. Cspine: Axial CT images from the skull base to the inferior aspect of T2 we obtained without intraven ous contrast. Coronal and sagittal reformatted images were also reviewed. FINDINGS: Brain: Extra-axial spaces: No abnormal extra-axial fluid collections. Ventricular system: Dilatation in proportion to cerebral atrophy. Cerebral parenchyma: Left frontal lobe encephalomalacia, left temporal lobe encephalomalacia and left occipital lobe encephalomalacia. A right posterior parietal medial injury is also present. Cerebral atrophy. No acute intraparenchymal hemorrhage or mass effect. The salcedo-white junction is well differ entiated. Scattered hypoattenuating areas are seen within the white matter. Cerebellum: Unremarkable. Mass effect: No evidence of midline shift. Intracranial vasculature: Atherosclerotic calcifications of the intracranial vessels. Soft tissues: Normal. Calvarium/osseous structures: No depressed skull fracture. Paranasal sinuses and mastoid air cells: Clear. Visualized orbits: Orbital contents are intact. Cervical spine: Fracture: None. Osseous structures: Multilevel degenerative disc disease changes with endplate spurring and disc oste ophyte complex's. Vertebral alignment: Within normal limits. Spinal canal/Neural Foramina: Disc osteophyte complexes at C3-C4 C5-C6 and C6-C7. With at least mild spinal canal stenosis. No evidence for significant neural foraminal stenosis. Neck soft tissues: Prevertebral soft tissues are within normal limits. Other: The airway is patent. The lung apices are clear. Atherosclerosis of the carotid bifurcations. IMPRESSION: 1. No acute intracranial process. 2. Multiple remote injuries with encephalomalacia. 3. Nonspecific white matter changes, likely secondary to chronic small vessel ischemic disease. 4. No evidence of cervical spine fracture. 5. Moderate multilevel degenerative disc disease.
--- NOTE | 2023-06-08 21:20 | CT ---
EXAMINATION TYPE: CT angio chest CT DLP: Combined DLP of 1968.4 mGycm, Automated exposure control for dose reduction was used. DATE OF EXAM: 06/08/2023 8:43 PM COMPARISON: 05/24/2023. CLINICAL INDICATION:Male, 72 years old with history of pe; Elevated D-dimer. R/O PE. Recent triple by pass. TECHNIQUE/CONTRAST: CTA scan of the thorax is performed with IV Contrast, patient injected with 80 ml mL of Isovue 300, M IP images are created and reviewed these are created on a separate workstation.. FINDINGS: Pulmonary Artery there may be a single left lower lobe aLimited evaluation of the segmental and subse gmental branches secondary to bolus timing. The pulmonary artery is of normal size. Lungs/Pleura: Improved aeration of the lung bases when comparing to most recent prior. The pleural ef fusions have resolved. No focal consolidation, pneumothorax or pleural effusion. Airway: Large airways are patent. Heart: The heart is enlarged for size. There is coronary artery calcifications. Surgical clips presen t. Left atrial occlusion device is present. Vasculature: No evidence of aortic aneurysm. Atherosclerosis throughout the arterial vasculature. Mediastinum: No gross evidence of adenopathy. Sternotomy changes. Musculoskeletal: No acute osseous abnormalities, multiple right-sided rib fractures that appear remot e. No evidence for acute rib fracture. Ankylosis of T8-T9 vertebral bodies. Multilevel degeneration c hanges throughout the spine. Soft Tissues: Unremarkable. Lower neck: No significant findings. Upper Abdomen: No significant findings. IMPRESSION: 1. Motion limited exam no definitive evidence of central pulmonary embolism. Limited evaluation of t he segmental and subsegmental branches. 2. Improved aeration of the lung bases when comparing to most recent prior. The pleural effusions darling ve resolved. No focal consolidations in today's exam. 3. Multiple normal-appearing rib fractures. 4. Post surgical change the heart with cardiomegaly.
[2023-06-08] MEDS ORDERED: MORPHINE SULFATE 4 MG/ML SYRINGE IV PRN (22:04)
[2023-06-08] MEDS ORDERED: NALOXONE 0.4 MG/ML 1 ML VIAL IV PRN (22:04)
[2023-06-08] MEDS ORDERED: ONDANSETRON 4 MG/2 ML VIAL IVP PRN (22:04)
[2023-06-08] MEDS: SODIUM CHLORIDE 0.9% 1,000 ML IV SCH (22:38)
[2023-06-08] MEDS: ACETAMINOPHEN TAB 500 MG TAB PO PRN (23:42)
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
[2023-06-09] MEDS: LEVOTHYROXINE 25 MCG TAB PO SCH (06:09)
[2023-06-09] MEDS: PANTOPRAZOLE 40 MG TABLET PO SCH (06:09)
[2023-06-09] MEDS: ATORVASTATIN 80 MG TAB PO SCH (08:50)
[2023-06-09] MEDS: CLOPIDOGREL 75 MG TAB PO SCH (08:50)
[2023-06-09] MEDS: ASPIRIN 325 MG TAB PO SCH (08:50)
[2023-06-09] MEDS: HEPARIN SODIUM,PORCINE 5,000 UNIT/ML 1 ML VIAL SQ SCH (08:50)
[2023-06-09] MEDS: FINASTERIDE 5 MG TAB PO SCH (08:50)
[2023-06-09] MEDS: METOPROLOL TARTRATE 25 MG TAB PO SCH (08:50)
[2023-06-09] MEDS: AMIODARONE 200 MG TAB PO SCH (08:50)
[2023-06-09] MEDS: levETIRAcetam 500 MG TAB PO SCH (08:51)
[2023-06-09 08:54] LABS: Basophils # (A) 0.1 k/uL (0-0.2); Basophils % (A) 1 %; Eosinophils # (A) 0.4 k/uL (0-0.7); Eosinophils % (A) 6 %; HCT 30.3 % (39.0-53.0); Lymphocytes # (A) 0.9 k/uL (1.0-4.8); Lymphocytes % (A) 14 %; MCH 31.6 pg (25.0-35.0); MCHC 33.1 g/dL (31.0-37.0); MCV 95.2 fL (80.0-100.0); Mean Platelet Volume 7.5; Monocytes # (A) 0.6 k/uL (0-1.0); Monocytes % (A) 9 %; Neutrophils # (A) 4.4 k/uL (1.3-7.7); Neutrophils % (A) 66 %; Platelet Count 452 k/uL (150-450); RBC 3.18 m/uL (4.30-5.90); RDW 15.2 % (11.5-15.5); WBC 6.6 k/uL (3.8-10.6)
[2023-06-09 09:16] LABS: ALT 16 U/L (4-49); AST 24 U/L (17-59); African American GFR (CKD) 83 (>60 ml/min/1.73 sqM); Albumin 3.7 g/dL (3.5-5.0); Alkaline Phosphatase 131 U/L (38-126); Anion Gap 10 mmol/L; Blood Urea Nitrogen 13 mg/dL (9-20); Calcium 9.3 mg/dL (8.4-10.2); Carbon Dioxide 19 mmol/L (22-30); Chloride 108 mmol/L (98-107); Glucose 106 mg/dL (74-99); Magnesium 1.8 mg/dL (1.6-2.3); Non-African American GFR(CKD) 72 (>60 ml/min/1.73 sqM); Phosphorus 4.5 mg/dL (2.5-4.5); Potassium 3.8 mmol/L (3.5-5.1); Sodium 137 mmol/L (137-145); Total Bilirubin 0.7 mg/dL (0.2-1.3); Total Protein 6.4 g/dL (6.3-8.2)
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
[2023-06-09] MEDS: LOSARTAN 25 MG TAB PO SCH (10:57)
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
--- NOTE | 2023-06-09 16:21 | P.PN ---
Subjective Progress Note Date: 06/09/23 No new complaints. Gen: In NAD, non-toxic HEENT: normocephalic, atraumatic, hearing acuity is intant, mucous membranes moist CVS: perfusing all extremities well, no pitting edema, Respiratory: symmetric chest expansion, no accessory muscle use, GI: soft, NTTP, ND, : no suprapubic tenderness, no CVA tenderness MSK/Derm: no rashes, cyanosis Neuro: CN II-XII intact, no motor weakness, Psych: cooperative, euthymic mood, judgment and insight is intact Hospital course: 72-year-old male with seizure disorder, coronary artery disease status post CABG 10 days ago presenting due to progressive debility frequent falling at home I discussed the case with ED doctor accepted the admission for overall deconditioning frequent falls for PT evaluation and possible placement with anticipated length of stay less than 2 midnights Blood work reviewed overall unremarkable white count 7.6 hemoglobin 11.2 Sodium 139 potassium 3.9 BUN 15 creatinine 1.19 Elevated D-dimer 4.53 this is expected postop for up to a month Elevated troponin trending down this is possibly related to postoperative phase initial Trope 0.112 then 0.095 Liver enzymes unremarkable except for slightly elevated alkaline phosphatase 145 CT angio of the chest was performed to the ED to rule out PE no acute findings. Showed postoperative changes related to CABG CT head done in the ED due to reported frequent falls, no acute intracranial pathology EKG normal sinus rhythm no acute ST changes Assessment/plan: Debility frequent falling Coronary artery disease status post CABG 10 days ago Seizure disorder Orthostatics BID Fall precautions Seizure precautions, continue with Keppra home medications Continue with aspirin, Plavix, statin home medications Chronic conditions Hypertension continue with losartan and metoprolol home medications BPH continue with Flomax and finasteride Home medications Patient had a Lockett catheter inserted in the ED due to suspected urinary retention continue with catheter care continue amiodarone home medication, no reported history of A-fib Discharge planning 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 Full code DVT prophylaxis heparin subcu 3 times daily Objective - Vital Signs Vital signs: Vital Signs Temp 97.9 F 06/09/23 08:00 Pulse 68 06/09/23 11:27 Resp 16 06/09/23 11:27 BP 110/60 06/09/23 11:27 Pulse Ox 96 06/09/23 11:27 FiO2 Intake & Output 06/08/23 06/09/23 06/09/23 18:59 06:59 18:59 Intake Total 240 476 Output Total 1200 375 Balance -960 101 Weight 86.183 kg 86.183 kg Intake: Oral 240 476 Output: Urine 1200 375 Uretheral (Lockett) 200 Other: Voiding Method Indwelling Catheter Indwelling Catheter # Bowel Movements 1 - Labs CBC & Chem 7: 06/09/23 07:46 06/09/23 07:46 Labs: Abnormal Lab Results - Last 24 Hours (Table) 06/08/23 06/08/23 06/08/23 Range/Units 19:25 19:25 19:25 RBC 3.55 L (4.30-5.90) m/uL Hgb 11.2 L (13.0-17.5) gm/dL Hct 33.5 L (39.0-53.0) % Plt Count 551 H (150-450) k/uL Lymphocytes # (1.0-4.8) k/uL D-Dimer 4.53 H (<0.60) mg/L FEU Chloride (98-107) mmol/L Carbon Dioxide 20 L (22-30) mmol/L Glucose 110 H (74-99) mg/dL Alkaline Phosphatase 145 H (38-126) U/L Troponin I (0.000-0.034) ng/mL 06/08/23 06/09/23 06/09/23 Range/Units 19:25 00:17 07:46 RBC (4.30-5.90) m/uL Hgb (13.0-17.5) gm/dL Hct (39.0-53.0) % Plt Count (150-450) k/uL Lymphocytes # (1.0-4.8) k/uL D-Dimer (<0.60) mg/L FEU Chloride (98-107) mmol/L Carbon Dioxide (22-30) mmol/L Glucose (74-99) mg/dL Alkaline Phosphatase (38-126) U/L Troponin I 0.112 H* 0.095 H* 0.102 H* (0.000-0.034) ng/mL 06/09/23 06/09/23 Range/Units 07:46 07:46 RBC 3.18 L (4.30-5.90) m/uL Hgb 10.0 L (13.0-17.5) gm/dL Hct 30.3 L (39.0-53.0) % Plt Count 452 H (150-450) k/uL Lymphocytes # 0.9 L (1.0-4.8) k/uL D-Dimer (<0.60) mg/L FEU Chloride 108 H (98-107) mmol/L Carbon Dioxide 19 L (22-30) mmol/L Glucose 106 H (74-99) mg/dL Alkaline Phosphatase 131 H (38-126) U/L Troponin I (0.000-0.034) ng/mL
[2023-06-09] MEDS: TAMSULOSIN 0.4 MG CAP.ER.24H PO SCH (19:57)
--- NOTE | 2023-06-09 23:32 | XR ---
EXAM: XR Left Foot Complete, 3 or More Views CLINICAL HISTORY: ITS.REASON XR Reason: left foot pain and swelling TECHNIQUE: Frontal, lateral and oblique views of the left foot. COMPARISON: No relevant prior studies available. FINDINGS: Bones/joints: Osseous demineralization. No dislocation. No metatarsal fracture. Soft tissues: Unremarkable. No radiopaque foreign body. Other findings: Bipartite lateral sesamoid. IMPRESSION: No acute findings in the left foot.
--- NOTE | 2023-06-10 07:00 | XR ---
EXAMINATION TYPE: XR chest 2V DATE OF EXAM: 06/10/2023 COMPARISON: 06/05/2023 HISTORY: Fall TECHNIQUE: Frontal and lateral views of the chest are obtained. FINDINGS: There is been prior CABG surgery. There is mild interstitial scarring or atelectasis in the left lung base which is stable. There are multiple healed and displaced nonhealed right rib fractures unchanged compared to previous. The right lung is clear. The heart size is normal. The pulmonary vasculature is not congested. There is no pneumothorax or pleural effusion. IMPRESSION: 1. No acute cardiopulmonary disease. 2. Multiple remote right rib fractures unchanged compared to previous.
[2023-06-10 08:46] LABS: Basophils % (A) 1 %; Eosinophils # (A) 0.3 k/uL (0-0.7); Eosinophils % (A) 4 %; HCT 32.9 % (39.0-53.0); HGB 10.4 gm/dL (13.0-17.5); Hypochromasia Slight; Lymphocytes % (A) 15 %; MCH 30.7 pg (25.0-35.0); MCHC 31.6 g/dL (31.0-37.0); MCV 97.2 fL (80.0-100.0); Mean Platelet Volume 7.4; Monocytes # (A) 0.5 k/uL (0-1.0); Monocytes % (A) 7 %; Neutrophils # (A) 4.8 k/uL (1.3-7.7); Neutrophils % (A) 70 %; Platelet Count 372 k/uL (150-450); RBC 3.38 m/uL (4.30-5.90); RDW 14.9 % (11.5-15.5); WBC 6.8 k/uL (3.8-10.6)
[2023-06-10 08:58] LABS: African American GFR (CKD) 84 (>60 ml/min/1.73 sqM); Anion Gap 10 mmol/L; Blood Urea Nitrogen 14 mg/dL (9-20); Calcium 9.5 mg/dL (8.4-10.2); Carbon Dioxide 22 mmol/L (22-30); Chloride 107 mmol/L (98-107); Glucose 140 mg/dL (74-99); Magnesium 1.7 mg/dL (1.6-2.3); Non-African American GFR(CKD) 72 (>60 ml/min/1.73 sqM); Potassium 4.5 mmol/L (3.5-5.1); Sodium 139 mmol/L (137-145)
[2023-06-10] MEDS: MAGNESIUM SULFATE-D5W PMX 1 GM in DEXTROSE/WATER 1 100ML.BAG IVPB SCH (10:56)
--- NOTE | 2023-06-10 10:56 | P.PN ---
Subjective Progress Note Date: 06/10/23 Still dizzy upon sitting/standing. Orthostatics grossly positive Gen: In NAD, non-toxic HEENT: normocephalic, atraumatic, hearing acuity is intant, mucous membranes moist CVS: perfusing all extremities well, no pitting edema, Respiratory: symmetric chest expansion, no accessory muscle use, GI: soft, NTTP, ND, : no suprapubic tenderness, no CVA tenderness MSK/Derm: no rashes, cyanosis Neuro: CN II-XII intact, no motor weakness, Psych: cooperative, euthymic mood, judgment and insight is intact Hospital course: 72-year-old male with seizure disorder, coronary artery disease status post CABG 10 days ago presenting due to progressive debility frequent falling at home I discussed the case with ED doctor accepted the admission for overall deconditioning frequent falls for PT evaluation and possible placement with anticipated length of stay less than 2 midnights Blood work reviewed overall unremarkable white count 7.6 hemoglobin 11.2 Sodium 139 potassium 3.9 BUN 15 creatinine 1.19 Elevated D-dimer 4.53 this is expected postop for up to a month Elevated troponin trending down this is possibly related to postoperative phase initial Trope 0.112 then 0.095 Liver enzymes unremarkable except for slightly elevated alkaline phosphatase 145 CT angio of the chest was performed to the ED to rule out PE no acute findings. Showed postoperative changes related to CABG CT head done in the ED due to reported frequent falls, no acute intracranial pathology EKG normal sinus rhythm no acute ST changes Assessment/plan: Debility frequent falling Orthostatic Hypotension Coronary artery disease status post CABG 10 days ago Seizure disorder -Orthostatics BID -Fall precautions -Seizure precautions, continue with Keppra home medications -Continue with aspirin, Plavix, statin home medications -Discontinue flomax as this may be contributing, consideration of more IVF if no resolution of orthostatics in 24 hours Chronic conditions Hypertension continue with losartan and metoprolol home medications BPH continue with finasteride Patient had a Lockett catheter inserted in the ED due to suspected urinary retention continue with catheter care continue amiodarone home medication, no reported history of A-fib Discharge planning 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 Full code DVT prophylaxis heparin subcu 3 times daily Objective - Vital Signs Vital signs: Vital Signs Temp 97.4 F L 06/10/23 08:00 Pulse 83 06/10/23 08:00 Resp 20 02/11/24 08:00 BP 126/61 06/10/23 08:00 Pulse Ox 96 06/10/23 08:00 FiO2 Intake & Output 06/09/23 06/10/23 06/10/23 18:59 06:59 18:59 Intake Total 594 480 Output Total 675 600 500 Balance -81 -600 -20 Weight 84.4 kg Intake: Oral 594 480 Output: Urine 675 600 500 Other: Voiding Method Indwelling Catheter Indwelling Catheter Indwelling Catheter # Bowel Movements 1 - Labs CBC & Chem 7: 06/10/23 08:25 06/10/23 08:25 Labs: Abnormal Lab Results - Last 24 Hours (Table) 06/10/23 06/10/23 Range/Units 08:25 08:25 RBC 3.38 L (4.30-5.90) m/uL Hgb 10.4 L (13.0-17.5) gm/dL Hct 32.9 L (39.0-53.0) % Glucose 140 H (74-99) mg/dL
[2023-06-11] MEDS: LIDOCAINE 4% PATCH TOPICAL SCH (02:46)
--- NOTE | 2023-06-11 12:15 | P.DS ---
Providers Date of admission: 06/08/23 22:04 Expected date of discharge: 06/11/23 Attending physician: Mnoique Swartz MD Consults: 06/08/23 22:04 Consult Physician Routine Consulting Provider: Santhosh Peguero Consult Reason/Comments: urinary retention Do you want consulting provider notified?: Yes Consult Physician Routine Consulting Provider: Roger Schultz Consult Reason/Comments: CVTSx Do you want consulting provider notified?: Yes Primary care physician: Murray George Hospital Course: Debility frequent falling Orthostatic Hypotension Coronary artery disease status post CABG 10 days ago Seizure disorder Hypertension BPH Gen: In NAD, non-toxic HEENT: normocephalic, atraumatic, hearing acuity is intant, mucous membranes moist CVS: perfusing all extremities well, no pitting edema, Respiratory: symmetric chest expansion, no accessory muscle use, GI: soft, NTTP, ND, : no suprapubic tenderness, no CVA tenderness MSK/Derm: no rashes, cyanosis Neuro: CN II-XII intact, no motor weakness, Psych: cooperative, euthymic mood, judgment and insight is intact Hospital course: 72-year-old male with seizure disorder, coronary artery disease status post CABG 10 days ago presented due to progressive debility frequent falling at home. Blood work reviewed overall unremarkable white count 7.6 hemoglobin 11.2 Sodium 139 potassium 3.9 BUN 15 creatinine 1.19 Elevated D-dimer 4.53 this is expected postop for up to a month Elevated troponin trending down this is possibly related to postoperative phase initial Trope 0.112 then 0.095 Liver enzymes unremarkable except for slightly elevated alkaline phosphatase 145 CT angio of the chest was performed to the ED to rule out PE no acute findings. Showed postoperative changes related to CABG CT head done in the ED due to reported frequent falls, no acute intracranial pathology EKG normal sinus rhythm no acute ST changes Pt was noted to have orthostatic vitals, and his tamsulosin was discontinued. With the cessation of this medication, his orthostatics improved. He was subsequently discharged to [facility] for rehab. His pena catheter remained in place and he should follow up with urology I spent 40 min coordinating this discharge on 06/11 Patient Condition at Discharge: Good Plan - Discharge Summary Discharge Rx Participant: No New Discharge Prescriptions: Continue Multivitamins, Thera [Multivitamin (formulary)] 1 tab PO DAILY Ferrous Sulfate [Iron (65 MG Elemental)] 325 mg PO W/LUNCH #14 tab Clopidogrel [Plavix] 75 mg PO DAILY #30 tab Acetaminophen Tab [Tylenol] 1,000 mg PO Q6HR PRN #120 tab PRN Reason: Fever And/ Or Pain Ascorbic Acid [Vitamin C] 500 mg PO DAILY@1200 #14 tab Docusate [Colace] 100 mg PO BID PRN #60 cap PRN Reason: Constipation levETIRAcetam [Keppra] 1,500 mg PO BID #120 tab polyethylene glycoL 3350 [Miralax] 17 gm PO DAILY PRN #30 packet PRN Reason: Constipation Aspirin 325 mg PO DAILY #30 tab Losartan [Cozaar] 25 mg PO DAILY@1200 #30 tab Atorvastatin [Lipitor] 80 mg PO DAILY #30 tab Metoprolol Tartrate [Lopressor] 25 mg PO BID #60 tab Pantoprazole [Protonix] 40 mg PO AC-BRKFST #30 tab DULoxetine HCL [Cymbalta] 20 mg PO BID #60 cap Finasteride [Proscar] 5 mg PO DAILY #30 tab Sennosides/Docusate Sodium [Senna Plus 8.6-50 mg Softgel] 1 cap PO BID PRN #60 cap PRN Reason: Constipation Levothyroxine Sodium [Synthroid] 25 mcg PO DAILY@0630 #90 tab Amiodarone [Cordarone] 200 mg PO DAILY Discontinued Tamsulosin [Flomax] 0.4 mg PO HS #30 cap Discharge Medication List Multivitamins, Thera [Multivitamin (formulary)] 1 tab PO DAILY 03/04/18 [History] Acetaminophen Tab [Tylenol] 1,000 mg PO Q6HR PRN #120 tab 05/26/23 [Rx] Ascorbic Acid [Vitamin C] 500 mg PO DAILY@1200 #14 tab 05/26/23 [Rx] Aspirin 325 mg PO DAILY #30 tab 05/26/23 [Rx] Atorvastatin [Lipitor] 80 mg PO DAILY #30 tab 05/26/23 [Rx] Clopidogrel [Plavix] 75 mg PO DAILY #30 tab 05/26/23 [Rx] DULoxetine HCL [Cymbalta] 20 mg PO BID #60 cap 05/26/23 [Rx] Docusate [Colace] 100 mg PO BID PRN #60 cap 05/26/23 [Rx] Ferrous Sulfate [Iron (65 MG Elemental)] 325 mg PO W/LUNCH #14 tab 05/26/23 [Rx] Finasteride [Proscar] 5 mg PO DAILY #30 tab 05/26/23 [Rx] Levothyroxine Sodium [Synthroid] 25 mcg PO DAILY@0630 #90 tab 05/26/23 [Rx] Losartan [Cozaar] 25 mg PO DAILY@1200 #30 tab 05/26/23 [Rx] Metoprolol Tartrate [Lopressor] 25 mg PO BID #60 tab 05/26/23 [Rx] Pantoprazole [Protonix] 40 mg PO AC-BRKFST #30 tab 05/26/23 [Rx] Sennosides/Docusate Sodium [Senna Plus 8.6-50 mg Softgel] 1 cap PO BID PRN #60 cap 05/26/23 [Rx] levETIRAcetam [Keppra] 1,500 mg PO BID #120 tab 05/26/23 [Rx] polyethylene glycoL 3350 [Miralax] 17 gm PO DAILY PRN #30 packet 05/26/23 [Rx] Amiodarone [Cordarone] 200 mg PO DAILY 06/05/23 [History] Follow up Appointment(s)/Referral(s): Murray George MD [Primary Care Provider] - 1-2 days Roger Schultz MD [STAFF PHYSICIAN] - 06/21/23 10:00 am [facility] [NON-STAFF] - Patient Instructions/Handouts: Angina (DC) Discharge Disposition: HOME SELF-CARE
[2023-06-11 12:34] VITALS: BP 122/73; PULSE 71; RESP 16; TEMP 98.2
== END 2023-06-11 13:55 ==
LOC: EC 18:43 → 3SCARD 22:04
PROVIDERS: ADMIT Internal Medicine; ATTEND Internal Medicine
DX: I95.1 Orthostatic hypotension (principal); M54.50 Low back pain, unspecified; R54 Age-related physical debility; R29.6 Repeated falls; R07.9 Chest pain, unspecified; S09.90XA Unspecified injury of head, initial encounter; W18.30XA Fall on same level, unspecified, initial encounter; G40.909 Epilepsy, unspecified, not intractable, without status epilepticus; I25.10 Atherosclerotic heart disease of native coronary artery without angina pectoris; E78.5 Hyperlipidemia, unspecified; I10 Essential (primary) hypertension; F31.9 Bipolar disorder, unspecified; N40.1 Benign prostatic hyperplasia with lower urinary tract symptoms; R33.8 Other retention of urine; E03.9 Hypothyroidism, unspecified; I65.21 Occlusion and stenosis of right carotid artery; R79.89 Other specified abnormal findings of blood chemistry; R74.8 Abnormal levels of other serum enzymes; Z86.19 Personal history of other infectious and parasitic diseases; Z86.73 Personal history of transient ischemic attack (TIA), and cerebral infarction without residual deficits; Z87.891 Personal history of nicotine dependence; Z95.1 Presence of aortocoronary bypass graft; Z79.02 Long term (current) use of antithrombotics/antiplatelets; Z79.82 Long term (current) use of aspirin; Z79.890 Hormone replacement therapy; Z79.899 Other long term (current) drug therapy
CPT/HCPCS: 96365; 96366; 96372 ×3; 99285; 51798; 36415; 94760; 93005; 97162; 97166; 85379; 83880; 80053 ×2; 80048; 83690; 83735 ×3; 84100; 84484 ×2; 85025 ×3; 85610; 85730; 81003; 73630; 71045; 71046; 72125; 70450; 71275; G0378 ×4; S0138 ×3; J1644 ×3; J3475; Q9967

== ENCOUNTER → 2023-07-04 | Outpatient (CLI) | payer MEDICARE ==
--- NOTE | 2023-07-08 15:46 | CT ---
EXAMINATION TYPE: CT lumbar spine wo con CT DLP: 583 mGycm, Automated exposure control for dose reduction was used. DATE OF EXAM: 07/04/2023 12:35 PM COMPARISON: 03/23/2023. CLINICAL INDICATION:Male, 72 years old with history of S32.009A Fx lumbar vertebra; PHH, Fx lumbar ve rtebra TECHNIQUE: Multiple axial images were obtained from the midportion of T11 through the sacroiliac shell nts. Soft tissue and bone windows in coronal and sagittal planes were obtained and reviewed. Contrast used: mL of , (None, if empty). Oral contrast used: (None, if empty). FINDINGS: Alignment: There are 5 lumbar type vertebral bodies. Grade 1 anterolisthesis of L4 and L5. Bone: There is superior endplate compression fracture of the L1 vertebral body with 25-50% height los s no significant retropulsion. Additional superior endplate deformity of L4 with 25% height loss no s ignificant retropulsion.. Multilevel degeneration changes throughout the remainder of the spine with osteophyte formation and facet joint arthropathy. Discs: T12-L1: No spinal canal or neural foraminal stenosis is identified. L1-L2: No spinal canal or neural foraminal stenosis is identified. L2-L3: Facet joint arthropathy, osteophytes and disc bulging result in moderate spinal canal stenosis and mild bilateral neural foraminal stenosis. L3-L4: Facet joint arthropathy and disc bulging result with mild spinal canal stenosis and moderate b ilateral neural foraminal stenosis. L4-L5: Grade 1 anterolisthesis with severe facet joint arthropathy and disc bulging result with moder ate spinal canal stenosis and mild to moderate bilateral neural foraminal stenosis. L5-S1: No spinal canal or neural foraminal stenosis is identified. Other: None IMPRESSION: 1. Superior endplate fractures of L1 and L4 without significant spinal canal stenosis. 2. Grade 1 anterolisthesis of L4 and L5. No evidence for spondylolysis. 3. Disc degeneration changes of spine moderate L4-L5 and L2-L3 spinal canal stenosis
== END | disposition home or self-care (01) ==
LOC: RADCTMAIN 11:58
PROVIDERS: ATTEND Family Medicine
DX: M43.16 Spondylolisthesis, lumbar region (principal); S32.009A Unspecified fracture of unspecified lumbar vertebra, initial encounter for closed fracture; M51.36 Other intervertebral disc degeneration, lumbar region; M48.061 Spinal stenosis, lumbar region without neurogenic claudication; X58.XXXA Exposure to other specified factors, initial encounter
CPT/HCPCS: 72131

== ENCOUNTER 2023-08-13 18:00 | Emergency (ER) | payer MEDICARE ==
[2023-08-13] MEDS: SODIUM CHLORIDE 0.9% 1,000 ML IV ONE (18:06)
[2023-08-13] MEDS: SODIUM CHLORIDE 0.9% 500 ML 500 ML IV ONE (18:06)
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
[2023-08-13 18:08] VITALS: TEMP 98.5
[2023-08-13 18:55] LABS: Basophils % (A) 1 %; Eosinophils # (A) 0.3 k/uL (0-0.7); Eosinophils % (A) 8 %; Lymphocytes # (A) 1.1 k/uL (1.0-4.8); Lymphocytes % (A) 28 %; MCH 31.5 pg (25.0-35.0); MCHC 32.3 g/dL (31.0-37.0); MCV 97.5 fL (80.0-100.0); Mean Platelet Volume 7.2; Monocytes # (A) 0.3 k/uL (0-1.0); Monocytes % (A) 7 %; Neutrophils # (A) 2.1 k/uL (1.3-7.7); Neutrophils % (A) 53 %; Platelet Count 257 k/uL (150-450)
[2023-08-13 19:05] LABS: ALT 17 U/L (4-49); African American GFR (CKD) >90 (>60 ml/min/1.73 sqM); Albumin 3.8 g/dL (3.5-5.0); Anion Gap 9 mmol/L; Blood Urea Nitrogen 14 mg/dL (9-20); Calcium 8.5 mg/dL (8.4-10.2); Carbon Dioxide 22 mmol/L (22-30); Chloride 108 mmol/L (98-107); Glucose 96 mg/dL (74-99); Magnesium 2.1 mg/dL (1.6-2.3); Non-African American GFR(CKD) >90 (>60 ml/min/1.73 sqM); Sodium 139 mmol/L (137-145); Total Bilirubin 0.3 mg/dL (0.2-1.3); Total Protein 6.6 g/dL (6.3-8.2)
[2023-08-13 19:11] LABS: AST 23 U/L (17-59); Alkaline Phosphatase 77 U/L (38-126)
[2023-08-13 19:13] LABS: Alcohol 191 mg/dL
[2023-08-13 19:58] VITALS: BP 153/87; PULSE 74; RESP 16
== END 2023-08-13 19:52 | disposition home or self-care (01) ==
LOC: EC 18:00
DX: F10.129 Alcohol abuse with intoxication, unspecified (principal); Y90.6 Blood alcohol level of 120-199 mg/100 ml; Z87.891 Personal history of nicotine dependence; Z91.030 Bee allergy status; Z86.73 Personal history of transient ischemic attack (TIA), and cerebral infarction without residual deficits
CPT/HCPCS: 36415; 80053; 83735; 85025; 99284; 96360; G0480; 80320

== ENCOUNTER 2023-08-30 08:58 | Emergency (ER) | payer MEDICARE ==
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
[2023-08-30] MEDS: SODIUM CHLORIDE 0.9% 1,000 ML IV ONE (09:22)
[2023-08-30] MEDS: levETIRAcetam IV 500 MG/5 ML VIAL IVP STA (09:23)
[2023-08-30 09:24] VITALS: TEMP 97.1
[2023-08-30 09:34] LABS: Basophils % (A) 1 %; Eosinophils # (A) 0.2 k/uL (0-0.7); Eosinophils % (A) 3 %; HCT 39.7 % (39.0-53.0); HGB 12.9 gm/dL (13.0-17.5); Lymphocytes # (A) 0.7 k/uL (1.0-4.8); Lymphocytes % (A) 10 %; MCH 31.3 pg (25.0-35.0); MCHC 32.4 g/dL (31.0-37.0); MCV 96.6 fL (80.0-100.0); Mean Platelet Volume 7.5; Monocytes # (A) 0.3 k/uL (0-1.0); Monocytes % (A) 4 %; Neutrophils # (A) 5.3 k/uL (1.3-7.7); Neutrophils % (A) 81 %; Platelet Count 272 k/uL (150-450); RBC 4.11 m/uL (4.30-5.90); RDW 14.1 % (11.5-15.5); WBC 6.6 k/uL (3.8-10.6)
[2023-08-30 10:17] LABS: ALT 18 U/L (4-49); AST 24 U/L (17-59); African American GFR (CKD) >90 (>60 ml/min/1.73 sqM); Albumin 4.4 g/dL (3.5-5.0); Alcohol <10 mg/dL; Alkaline Phosphatase 83 U/L (38-126); Anion Gap 14 mmol/L; Blood Urea Nitrogen 19 mg/dL (9-20); Calcium 9.5 mg/dL (8.4-10.2); Carbon Dioxide 19 mmol/L (22-30); Chloride 105 mmol/L (98-107); Glucose 132 mg/dL (74-99); Non-African American GFR(CKD) 88 (>60 ml/min/1.73 sqM); Potassium 4.2 mmol/L (3.5-5.1); Sodium 138 mmol/L (137-145); Total Bilirubin 0.5 mg/dL (0.2-1.3); Total Protein 7.3 g/dL (6.3-8.2)
[2023-08-30 11:37] VITALS: BP 156/95; PULSE 71; RESP 16
== END 2023-08-30 11:03 | disposition home or self-care (01) ==
LOC: EC 08:58
DX: G40.909 Epilepsy, unspecified, not intractable, without status epilepticus (principal); F12.90 Cannabis use, unspecified, uncomplicated; Z91.030 Bee allergy status; Z87.891 Personal history of nicotine dependence
CPT/HCPCS: 99285 ×2; 96365 ×2; 96366 ×2; 36415; 80053; 83735; 85025; G0480; J1953; 80320; 96361; 96374

== ENCOUNTER 2024-01-08 18:38 | Observation (INO) | payer MEDICARE ==
[2024-01-08] MEDS ORDERED: LORazepam 2 MG/ML INJ IV PRN ×3 (18:44)
[2024-01-08] MEDS ORDERED: LORazepam 1 MG TAB PO PRN ×3 (18:44)
[2024-01-08] MEDS ORDERED: LORazepam 0.5 MG TAB PO PRN (18:44)
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
[2024-01-08] MEDS: SODIUM CHLORIDE 0.9% 1,000 ML IV STA ×2 (18:58)
[2024-01-08 19:15] LABS: Basophils # (A) 0.1 k/uL (0-0.2); Basophils % (A) 1 %; Eosinophils # (A) 0.4 k/uL (0-0.7); Eosinophils % (A) 8 %; HCT 41.5 % (39.0-53.0); HGB 13.5 gm/dL (13.0-17.5); Lymphocytes # (A) 1.5 k/uL (1.0-4.8); Lymphocytes % (A) 26 %; MCHC 32.6 g/dL (31.0-37.0); MCV 98.2 fL (80.0-100.0); Mean Platelet Volume 7.6; Monocytes # (A) 0.4 k/uL (0-1.0); Monocytes % (A) 7 %; Neutrophils # (A) 3.1 k/uL (1.3-7.7); Neutrophils % (A) 56 %; Platelet Count 210 k/uL (150-450); RBC 4.23 m/uL (4.30-5.90); RDW 12.6 % (11.5-15.5); WBC 5.6 k/uL (3.8-10.6)
[2024-01-08 19:30] LABS: ALT 36 U/L (4-49); AST 33 U/L (17-59); African American GFR (CKD) 87 (>60 ml/min/1.73 sqM); Albumin 4.5 g/dL (3.5-5.0); Alkaline Phosphatase 56 U/L (38-126); Anion Gap 14 mmol/L; Blood Urea Nitrogen 17 mg/dL (9-20); Calcium 9.5 mg/dL (8.4-10.2); Carbon Dioxide 18 mmol/L (22-30); Chloride 109 mmol/L (98-107); Glucose 100 mg/dL (74-99); Lipase 45 U/L (23-300); Magnesium 2.1 mg/dL (1.6-2.3); Non-African American GFR(CKD) 75 (>60 ml/min/1.73 sqM); Phosphorus 3.5 mg/dL (2.5-4.5); Potassium 3.8 mmol/L (3.5-5.1); Sodium 141 mmol/L (137-145); Total Bilirubin 0.5 mg/dL (0.2-1.3); Total Protein 6.9 g/dL (6.3-8.2)
[2024-01-08 19:34] LABS: Appearance,Urine Clear (Clear); Bilirubin,Urine Negative (Negative); Blood,Urine Negative (Negative); Color,Urine Colorless; Glucose,Urine (UA) Negative (Negative); Ketones,Urine Negative (Negative); Leukocyte Esterase,Urine Negative (Negative); Nitrite,Urine Negative (Negative); PH, Urine 5.5 (5.0-8.0); Protein,Urine Negative (Negative); Specific Gravity,Urine 1.002 (1.001-1.035); Urobilinogen,Urine <2.0 mg/dL (<2.0)
[2024-01-08 19:36] LABS: Prothrombin Time 11.3 sec (10.0-12.5)
[2024-01-08 19:37] LABS: NT-Pro-B-Type Natriuretic Pept 158 pg/mL
[2024-01-08 19:39] LABS: Alcohol 142 mg/dL
[2024-01-08] MEDS ORDERED: NALOXONE 0.4 MG/ML 1 ML VIAL IV PRN (20:28)
[2024-01-08] MEDS ORDERED: MORPHINE SULFATE 4 MG/ML SYRINGE IV PRN (20:28)
--- NOTE | 2024-01-08 21:28 | CT ---
EXAMINATION TYPE: CT brain louis wo con DATE OF EXAM: 01/08/2024 COMPARISON: 06/08/2023 HISTORY: CONFUSION/FOUND PASSED OUT ON A BENCH/ETOH CT DLP: 1456.8 mGycm, Automated exposure control for dose reduction was used. CONTRAST: Patient injected with 0 mL of Isovue 300. CT of the brain is performed utilizing 3 mm thick sections through the posterior fossa and 3 mm thick sections through the remaining calvarium. Study is performed within 24 hours of arrival to the hospital. No abnormal hyperdensity is present to suggest an acute intracranial hemorrhage. No mass lesion is evident. No acute infarcts are evident. Periventricular white matter hypodensity is present, likely on the ba sis of chronic white matter ischemic changes. Note is made of an old left occipital lobe infarct. The re appears to be some encephalomalacia of the left frontal lobe and anterior temporal lobe may be pos ttraumatic in nature. Differential could include old cortical infarct. Ventricles and sulci are prominent for the patient age. Paranasal sinuses and mastoid air cells within the [id number] are clear. IMPRESSIONS: 1. No acute intracranial process. Follow-up MRI can be performed as clinically indicated. 2. Old left occipital lobe infarct. 3. Atrophy. 4. Findings suggestive for posttraumatic change left frontal lobe in the anterior left temporal lobe. CT cervical spine. COMPARISON: 06/08/2023 CT of the cervical spine is performed in the axial plane at 2 mm thick sections. Reconstructed image s in the coronal, and sagittal plane are reviewed on the computer. No acute fractures are evident. Vertebral body alignment is normal. Disc space narrowing is present C5-6 C6-7. Some posterior endplate spurring is present C6-7. There is some fullness posterior to the C3-4 level. Some disc bulge and posterior longitudinal ligament calci fication could be considered. Some endplate spurring may be present. Spinal canal stenosis is not pr esent. Vertebral body heights are preserved. Foraminal narrowing from uncovertebral joint hypertrophy is present C5-6 C6-7. IMPRESSION: 1. No acute osseous abnormality cervical spine. 2. Degenerative disc changes and some foraminal narrowing lower cervical spine. 3. Endplate spurring C3-4 and C6-7. Some anterior thecal sac compression at C3-4 may be present witho ut stenosis.
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
[2024-01-08] MEDS: TOPIRAMATE 25 MG TAB PO SCH (22:05)
[2024-01-08] MEDS: METOPROLOL TARTRATE 25 MG TAB PO SCH (22:05)
[2024-01-09] MEDS: LEVOTHYROXINE 25 MCG TAB PO SCH (06:14)
[2024-01-09] MEDS: CLOPIDOGREL 75 MG TAB PO SCH (08:04)
[2024-01-09] MEDS: ATORVASTATIN 80 MG TAB PO SCH (08:04)
[2024-01-09] MEDS: FINASTERIDE 5 MG TAB PO SCH (08:04)
[2024-01-09] MEDS: ENOXAPARIN 40 MG/0.4 ML SYRINGE SQ SCH (08:05)
[2024-01-09] MEDS: DULoxetine HCL 20 MG CAPSULE.DR PO SCH (08:05)
[2024-01-09 08:47] LABS: Basophils # (A) 0.06 X 10*3/uL (0.00-0.10); Basophils % (A) 0.9 %; Eosinophils # (A) 0.38 X 10*3/uL (0.04-0.35); Eosinophils % (A) 5.9 %; HCT 42.4 % (39.6-50.0); HGB 14.2 g/dL (13.0-17.0); Lymphocytes # (A) 1.42 X 10*3/uL (0.90-5.00); Lymphocytes % (A) 22.2 %; MCH 31.7 pg (27.0-32.0); MCHC 33.5 g/dL (32.0-37.0); MCV 94.6 FL (80.0-97.0); Mean Platelet Volume 10.4 FL (9.5-12.2); Monocytes # (A) 0.65 X 10*3/uL (0.20-1.00); Monocytes % (A) 10.2 %; NRBC Per 100 WBC 0 X 10*3/uL (0.00-0.01); Neutrophils # (A) 3.86 X 10*3/uL (1.80-7.70); Neutrophils % (A) 60.3 %; Platelet Count 218 X 10*3/uL (140-440); RBC 4.48 X 10*6/uL (4.40-5.60); RDW 12.7 % (11.5-14.5)
[2024-01-09 09:04] LABS: ALT 36 U/L (10-49); AST 25 U/L (14-35); Albumin 4.5 g/dL (3.8-4.9); Alkaline Phosphatase 76 U/L (41-126); BUN/Creat Ratio 13.33 Ratio (12.00-20.00); Calcium 9.5 mg/dL (8.7-10.3); Carbon Dioxide 22.7 mmol/L (21.6-31.8); Chloride 108 mmol/L (96-109); Globulin 2.5 g/dL (1.6-3.3); Glucose 89 mg/dL (70-110); Magnesium 2.2 mg/dL (1.5-2.4); Phosphorus 3.5 mg/dL (2.4-5.1); Potassium 3.9 mmol/L (3.5-5.5); Sodium 142 mmol/L (135-145); Total Bilirubin 0.5 mg/dL (0.3-1.2)
[2024-01-09] MEDS: lisinopriL 10 MG TAB PO SCH (10:34)
[2024-01-09 15:05] VITALS: BP 137/79; PULSE 59; RESP 16; TEMP 97.9
--- NOTE | 2024-01-09 16:06 | P.DS ---
Providers Date of admission: 01/08/24 20:29 Attending physician: Esau Macdonald MD Discharge Diagnosis: 1. Altered mental status secondary to alcoholic intoxication, resolved 2. Hyperlipidemia 3. Hypertension 4. Hypothyroidism 5. BPH 6. History of CAD s/p CABG Hospital Course: 74-year-old male with a PMH of alcohol use disorder, CAD with CABG, seizure disorder, hypertension, hyperlipidemia, hypothyroidism, BPH presents to the ED with altered mental status. History supplemented from the chart and the ED provider as the patient is not sure why he is here and has difficulty recalling the events that happened prior to ED admission. Per ED note EMS found him passed out in a public area. Denies any fever, chest pain, shortness of breath, abdominal pain, nausea, vomiting, cough. Patient last remembers being in the park. Patient reports he drinks several large beers daily and has been doing so for the past several years. He however denies history of DTs or alcohol withdrawal seizures. He also denies ever being hospitalized for his drinking but of note, the patient has previously presented to the emergency room for alcohol intoxication. Laboratory evaluation in the ER showed serum alcohol 142, lipase 45, troponin <0.012, CO2 18, chloride 109, lactic acid 1.7, glucose 100, CBC within normal limit, PT and INR within normal limits. UA unremarkable. EKG independently interpreted showed sinus rhythm with TWI in leads V1-V3 with flattening in leads V4-V5 at [address] bpm with QTc 418. [address] head/cervical spine revealed no acute abnormalities. T 98 F, NE 76, RR 18, BP 129/84, O2 sat 97% on room air. Patient was seen and examined at the bedside next morning. Patient returned to his baseline mental status. Not complaining of any withdrawal symptoms from alcohol. Vitals are 97.9 F, pulse rate 60, respiratory 16, blood pressure 137/79, O2 saturation 96% on room air. CBC and BMP unremarkable. Patient stable to be discharged. Discharge instructions: -Patient advised to follow-up with PCP -Home meds resumed and advised to take them as directed -Prescription provided for lisinopril 10 mg p.o. twice daily; #30 tablets -Patient is provided instructions on alcohol intoxication, DASH diet, hypertension Vital signs reviewed. Gen: in no apparent distress, resting comfortably in bed Eyes: PERRL, no scleral injection or icterus HENT: normocephalic, atraumatic, good hearing acuity, moist mucous membranes Neck: full range of motion Resp: CTAB, no rales, rhonchi, or wheezes CVS: normal S1 and S2, no murmurs, rubs or gallops, no edema GI: soft, NTTP, ND, no hepatosplenomegaly : no suprapubic tenderness, no CVAT, pena catheter is not present MSK: no clubbing, no cyanosis, no noted contractures of extremities Skin: no noted rashes, petechiae; temperature of skin is appropriate Neuro: moving all extremities without signs of weakness, CN II-XII intact Psych: cooperative, euthymic mood, insight and judgment intact Primary care physician: Murray George [facility] Course: I have seen and evaluated the patient today. Discussed with the resident and agree with the residents finding and plan as documented in the resident's note. Patient Condition at Discharge: Stable Plan - Discharge Summary New Discharge Prescriptions: New lisinopriL [Zestril] 10 mg PO DAILY #30 tab Continue Clopidogrel [Plavix] 75 mg PO DAILY #30 tab levETIRAcetam [Keppra] 1,500 mg PO BID Levothyroxine Sodium [Synthroid] 25 mcg PO DAILY Atorvastatin [Lipitor] 80 mg PO DAILY #30 tab Metoprolol Tartrate [Lopressor] 25 mg PO BID #60 tab Finasteride [Proscar] 5 mg PO DAILY #30 tab DULoxetine HCL [Cymbalta] 20 mg PO DAILY Topiramate 75 mg PO BID Discharge Medication List Atorvastatin [Lipitor] 80 mg PO DAILY #30 tab 05/26/23 [Rx] Clopidogrel [Plavix] 75 mg PO DAILY #30 tab 05/26/23 [Rx] Finasteride [Proscar] 5 mg PO DAILY #30 tab 05/26/23 [Rx] Metoprolol Tartrate [Lopressor] 25 mg PO BID #60 tab 05/26/23 [Rx] DULoxetine HCL [Cymbalta] 20 mg PO DAILY 01/08/24 [History] Levothyroxine Sodium [Synthroid] 25 mcg PO DAILY 01/08/24 [History] Topiramate 75 mg PO BID 01/08/24 [History] levETIRAcetam [Keppra] 1,500 mg PO BID 01/08/24 [History] lisinopriL [Zestril] 10 mg PO DAILY #30 tab 01/09/24 [Rx] Follow up Appointment(s)/Referral(s): Murray George MD [Primary Care Provider] - 1-2 days Patient Instructions/Handouts: Alcohol Intoxication (DC), DASH Eating Plan (DC), Mediterranean Diet (DC), Hypertension and Diabetes (ED) Activity/Diet/Wound Care/Special Instructions: Please follow up with your PCP. Discharge Disposition: HOME SELF-CARE
== END 2024-01-09 17:05 | disposition home or self-care (01) ==
LOC: EC 18:38 → 6NMEDSUR 20:29
PROVIDERS: ADMIT Internal Medicine; ATTEND Internal Medicine
DX: F10.129 Alcohol abuse with intoxication, unspecified (principal); F05 Delirium due to known physiological condition; T50.901A Poisoning by unspecified drugs, medicaments and biological substances, accidental (unintentional), initial encounter; R53.1 Weakness; I25.10 Atherosclerotic heart disease of native coronary artery without angina pectoris; I10 Essential (primary) hypertension; E78.5 Hyperlipidemia, unspecified; F31.9 Bipolar disorder, unspecified; E03.9 Hypothyroidism, unspecified; N40.0 Benign prostatic hyperplasia without lower urinary tract symptoms; G40.909 Epilepsy, unspecified, not intractable, without status epilepticus; Y90.6 Blood alcohol level of 120-199 mg/100 ml; Z86.19 Personal history of other infectious and parasitic diseases; Z86.73 Personal history of transient ischemic attack (TIA), and cerebral infarction without residual deficits; Z87.891 Personal history of nicotine dependence; Z95.1 Presence of aortocoronary bypass graft; Z79.02 Long term (current) use of antithrombotics/antiplatelets; Z79.890 Hormone replacement therapy; Z79.899 Other long term (current) drug therapy
CPT/HCPCS: 36415; 70450; 72125; 80053; 80320; 81003; 83605; 83690; 83735; 83880; 84100; 84484; 85025; 85610; 93005; 96360; 96361; 99285